=== PATIENT | male | born 1945 | race Caucasian/White ===

== ENCOUNTER 2016-08-09 14:40 | Emergency (ER) | payer MEDICAID, MEDICARE ==
[2016-08-09 15:14] VITALS: BP 163/72
--- NOTE | 2016-08-09 17:16 | EDM.PDOC ---
ED HPI GENERAL MEDICAL PROBLEM - General Chief Complaint: Respiratory Problem Stated Complaint: SENT FROM [facility] Time Seen by Provider: 08/09/16 15:09 Source of Information: Reports: Patient, Family (Daughter), RN Notes Reviewed History Limitations: Reports: No Limitations - History of Present Illness INITIAL COMMENTS - FREE TEXT/NARRATIVE: The patient has a past history significant for carotid artery disease, systolic and diastolic congestive heart failure, chronic renal insufficiency, and BPH, among other problems. He states that he underwent left carotid endarterectomy on 07/25/2016 at . He was discharged to [facility] the next day, 07/26/2016, for rehabilitation. He states that after about 2 days, he was feeling poorly, with nausea, vomiting, and constipation developing around 07/28/2016. Of note, he was started on Percocet postoperatively. He states that he also developed a scant cough productive of thick, paul, malodorous sputum. He did not have a fever, and denies that he was dyspneic. He states that he was seen at [facility] in [place] where he was found to have an elevated WBC count and hypoxemia. He states that he was started on antibiotics before being transferred back to . A V/Q scan showed intermediate probability for pulmonary embolus. He was treated with heparin and started on Coumadin. Bilateral lower extremity Dopplers were negative for DVTs. He was found to be in decompensated congestive heart failure. An echocardiogram found an LVEF of 40 to 45% and moderately elevated pulmonary artery systolic pressure estimated at 55.4 mmHg, grossly unchanged from prior echocardiogram. The patient's chronic renal insufficiency, with a baseline creatinine of approximately 2.5, was found to be elevated around 4.06. His Lasix, allopurinol , and losartan were held, and he was treated with hemodialysis for 3 days. It is unclear from the medical records whether the renal sufficiency was worsened by the finding of outlet obstruction, relieved with a Handley catheter. All blood and urine cultures remained negative. He was discharged back to [facility] 2 days ago, 08/07/16, with resumption of a lower dose of Lasix, and a 16 day course of clindamycin. He now presents with left anterior axillary pain that developed 2 days ago. It is felt with deep breaths and with coughing, but not if he remains still. He denies dyspnea or palpitations. He also reports chronic lower extremity edema, made worse since his Lasix dose was decreased. Since his return to [facility], a CBC, CMP, and INR were obtained 08/06, a CBC, BMP, and INR obtained 08/07/2016, and a CBC, CMP, and INR obtained this morning, 08/09/2016. His INR was 3.24 on 08/06/2016, 2.08 on 08/07/2016, and 1.48 this morning. Left Upper Chest Pain Score (Numeric/FACES): 3 - Related Data Allergies Allergy/AdvReac Type Severity Reaction Status Date / Time No Known Allergies Allergy Verified 08/09/16 16:15 Home Meds: Home Meds Acetaminophen 650 mg PO Q6H PRN 08/09/16 [History] Amiodarone [Cordarone] 20 mg PO DAILY 08/09/16 [History] Aspirin/Calcium Carbonate/Mag [Aspirin Buffered 325 mg Tab] 162.5 mg PO DAILY [History] Brimonidine Tartrate/Timolol [Combigan 0.2%-0.5% Eye Drops] 1 drop EYELF BID [History] Cholecalciferol (Vitamin D3) [Vitamin D3] 5,000 unit PO DAILY 08/09/16 [History] Clindamycin Palmitate HCl [Cleocin Palmitate] 40 ml PO TID 08/09/16 [History] Ferrous Sulfate 325 mg PO DAILY 08/09/16 [History] Furosemide 20 mg PO DAILY 08/09/16 [History] Insulin Aspart [Novolog Flexpen] 0 units SUBCUT TIDMEALS 08/09/16 [History] Insulin Glarg,Human.Rec.Analog [LantUS Solostar] 12 units SUBCUT BEDTIME [History] Melatonin 3 mg PO BEDTIME PRN 08/09/16 [History] Nitroglycerin 0.4 mg PO Q5M PRN 08/09/16 [History] Polyethylene Glycol [Polyox Wsr-301] 1 dose PO BID PRN 08/09/16 [History] atorvaSTATin [Lipitor] 40 mg PO DAILY 08/09/16 [History] Past Medical History HEENT History: Reports: Glaucoma Cardiovascular History: Reports: Afib, CAD, Heart Failure, High Cholesterol, Hypertension, Other (See Below) (Carotid artery disease) Genitourinary History: Reports: BPH, Chronic Renal Insuffiency, Renal Calculus, Retention, Urinary Musculoskeletal History: Reports: Gout (Suspected, not proven) Endocrine/Metabolic History: Reports: Diabetes, Type II - Past Surgical History HEENT Surgical History: Reports: Tonsillectomy Cardiovascular Surgical History: Reports: Carotid Endarterectomy (Left, 2016), Coronary Artery Bypass (4 vessel 03/07/96, with redo x 2 vessel 01/09/2000 ), Coronary Artery Stent (RCA 01/05/2000, LAD 03/14/2006) GI Surgical History: Reports: Hernia, Inguinal (Right) Neurological Surgical History: Reports: Lumbar Spine (x 2) Social & Family History - Tobacco Use Smoking Status *Q: Never Smoker - Caffeine Use Caffeine Use: Reports: Coffee - Alcohol Use Alcohol Use History: Yes Alcohol Use Frequency: Rarely - Recreational Drug Use Recreational Drug Use: No - Living Situation & Occupation Living situation: Reports: , Extended Care Facility ([facility]) Occupation: Retired ED ROS GENERAL - Review of Systems Review Of Systems: See Below Constitutional: Reports: No Symptoms HEENT: Reports: No Symptoms Respiratory: Reports: No Symptoms Cardiovascular: Reports: Chest Pain (Left anterior axillary, as per the HPI), Edema (Chronic bilateral lower extremity, as per the HPI) Endocrine: Reports: No Symptoms GI/Abdominal: Reports: No Symptoms : Reports: No Symptoms Musculoskeletal: Reports: No Symptoms Skin: Reports: No Symptoms Neurological: Reports: No Symptoms Psychiatric: Reports: No Symptoms Hematologic/Lymphatic: Reports: No Symptoms Immunologic: Reports: No Symptoms ED EXAM, GENERAL - Physical Exam Exam: See Below Exam Limited By: No Limitations General Appearance: Alert, WD/WN, No Apparent Distress Eye Exam: Bilateral Eye: Normal Inspection Ears: Normal External Exam, Hearing Grossly Normal Ear Exam: Bilateral Ear: Auricle Normal Nose: Normal Inspection, No Blood Throat/Mouth: Normal Inspection, Normal Lips, Normal Voice, No Airway Compromise Head: Atraumatic, Normocephalic Neck: Normal Inspection, Full Range of Motion Respiratory/Chest: No Respiratory Distress, Lungs Clear, Normal Breath Sounds, No Accessory Muscle Use. No: Crackles, Rhonchi, Wheezing, Prolonged Expiration Cardiovascular: Normal Peripheral Pulses, Regular Rate, Rhythm, No Gallop, No JVD, No Murmur, No Rub Peripheral Pulses: 4+: Radial (L), Radial (R) GI/Abdominal: Normal Bowel Sounds, Soft, Non-Tender, No Organomegaly, No Distention, No Abnormal Bruit, No Mass (Male) Exam: Deferred Rectal (Males) Exam: Deferred Back Exam: Normal Inspection, Full Range of Motion, NT Extremities: Normal Inspection, Normal Range of Motion, Non-Tender, Normal Capillary Refill, Other (2-3 + pitting edema pretibially, bilaterally) Neurological: Alert, Oriented, Normal Cognition, No Motor/Sensory Deficits Psychiatric: Normal Affect Skin Exam: Warm, Dry, Intact, Normal Color, No Rash Lymphatic: No Adenopathy Course - Vital Signs Last Recorded V/S: Last Vital Signs Temp 36.8 C 08/09/16 15:04 Pulse 57 L 08/09/16 15:04 Resp 20 08/09/16 15:04 BP 163/72 H 08/09/16 15:04 Pulse Ox 93 L 08/09/16 15:04 - Orders/Labs/Meds Orders: Active Orders 24 hr Category Date Time Status Chest 2V [CR] Stat Exams 08/09/16 16:21 Taken Meds: Medications Discontinued Medications Generic Name Dose Route Start Last Admin Trade Name Freq PRN Reason Stop Dose Admin Enoxaparin Sodium 100 mg 08/09/16 19:04 08/09/16 19:16 Lovenox SUBCUT 08/09/16 19:05 100 mg ONETIME ONE Administration - Radiology Interpretation Free Text/Narrative:: Two-view chest radiograph reviewed. Cardiac silhouette demonstrates mild cardiomegaly. No significant pulmonary vascular congestion. Mild bilateral pleural effusions. No focal infiltrate. No pneumothorax. Formal read per the Radiologist pending. - Re-Assessments/Exams Free Text/Narrative Re-Assessment/Exam: 08/09/16 19:20 The patient's workup at included a V/Q scan which demonstrated intermediate probability for PE. A CT angiogram of his chest was not performed due to his renal failure. His D-dimer was elevated, although that would be expected with renal failure and recent vascular surgery. He was started on Coumadin. The patient has a history of atrial fibrillation, treated with amiodarone, however, he has not been treated with an anticoagulant. As above, however, he is now on Coumadin, which would be in agreement with ACC guidelines. Chest pain from a pulmonary embolus is caused by a pulmonary infarct which causes pleurisy. The patient's chest radiograph today does not have a wedge shaped infiltrate suggestive of a pulmonary infarct, therefore I doubt that the patient's pain is due to a new pulmonary embolus. Additionally, it is a non- cardiac presentation. As the pain is made worse with deep breaths and coughing, I strongly suspect that it is musculoskeletal in etiology, most likely related to his new physical therapy. Nevertheless, even if the pain were due to a pulmonary infarct, the patient is already on Coumadin. As his INR this morning was subtherapeutic, I have treated him with a single dose of subcutaneous Lovenox, and upon discharge, will recommend that he have frequent INR checks to dose his Coumadin. While the patient was diagnosed with pneumonia, that was in the setting of decompensated congestive heart failure, and at this time, he does not have a pulmonary infiltrate. Typically, pulmonary infiltrates take about a month to resolve after appropriate treatment for pneumonia. This calls into question whether or not the patient originally had pneumonia. As he currently does not have a fever, cough, dyspnea, or an infiltrate on his chest radiograph, I do not see an indication to continue the clindamycin. This is important, as clindamycin may be playing a role in his subtherapeutic INR. I have reviewed the patient's medications and will make some recommendations, including consideration of switching the patient's amiodarone to a less-toxic anti-dysrhythmic, strong consideration to discontinue the nitroglycerin, and a recommendation to significantly decrease the dosage of his melatonin. Departure - Departure Time of Disposition: 19:28 Disposition: Home, Self-Care 01 Condition: Fair Clinical Impression: Subtherapeutic international normalized ratio (INR), Musculoskeletal chest pain - Discharge Information Instructions: Nonspecific Chest Pain, [id number] Referrals: PCP,Not In Area [Primary Care Provider] - Jesse Michelle MD [Physician] - Forms: ED Department Discharge Additional Instructions: You were seen in the emergency room for left-sided chest pain, and a low INR as measured by Ash this morning. Workup in the ER included a chest x-ray. Since you had a CBC, CMP, and INR obtained just this morning, we did not repeat those again in the ER. The chest x-ray did not show any abnormalities that would explain your chest pain. Your chest pain is MOST LIKELY due to muscle strain from your recent physical therapy. There is no suggestion that your chest pain is due to a blood clot to your lungs or from your heart. Additionally, your chest x-ray does not show that you have pneumonia. Since you do not have pneumonia, we are recommending that you discontinue the antibiotic clindamycin. Your INR (Coumadin number) was low this morning at 1.48. You were therefore given a single injection of Lovenox 100 mg in the emergency room. We recommend that your INR (Coumadin number) be checked every 48 hours, and that the doctor who prescribes your Coumadin be notified with the result. Reviewing your medications, we see that you have been on amiodarone for several years, for treatment of atrial fibrillation. The risk of unwanted side effects, including damage to your lungs and liver, increases the longer you are on this medicine. We recommend that you discuss the continuation of this medicine, and possible alternatives, with your transitional nurse. We note that you are prescribed nitroglycerin, although you states that you have never taken it. As this medicine can profoundly drop your blood pressure, we recommend that you discuss with your transitional nurse whether you should continue to have a prescription for it. We note that you are currently taking melatonin 9 mg every night. This dose is FAR too high. The correct dose for someone your age is approximately 0.3 mg on nights that you are having difficulty sleeping, not every night. If any other problems, please do not hesitate to return to the ER. - My Orders Last 24 Hours: My Active Orders 08/09/16 16:21 Chest 2V [CR] Stat - Assessment/Plan Last 24 Hours: My Active Orders 08/09/16 16:21 Chest 2V [CR] Stat
[2016-08-09] MEDS ORDERED: Enoxaparin 100 MG/1 ML Syringe SUBCUT ONE (19:04)
--- NOTE | 2016-08-10 07:16 | CR ---
Chest: Two views of the chest were obtained. Comparison: No prior chest x-ray. Heart is enlarged. Small bilateral pleural effusions are seen. Increased density is noted within both lungs believed to represent pulmonary vascular congestion. Previous sternotomy is noted. Impression: 1. Findings as described above suspicious for CHF. Diagnostic code #3
== END 2016-08-09 20:14 | disposition home or self-care (01) ==
LOC: JD.ED 14:40
DX: R07.89 Other chest pain (principal); R05 Cough; R79.1 Abnormal coagulation profile; I13.0 Hypertensive heart and chronic kidney disease with heart failure and stage 1 through stage 4 chronic kidney disease, or unspecified chronic kidney disease; E11.22 Type 2 diabetes mellitus with diabetic chronic kidney disease; N18.9 Chronic kidney disease, unspecified; I50.40 Unspecified combined systolic (congestive) and diastolic (congestive) heart failure; I25.810 Atherosclerosis of coronary artery bypass graft(s) without angina pectoris; E78.00 Pure hypercholesterolemia, unspecified; Z87.442 Personal history of urinary calculi; Z98.890 Other specified postprocedural states; Z95.1 Presence of aortocoronary bypass graft; Z95.5 Presence of coronary angioplasty implant and graft; Z79.4 Long term (current) use of insulin; Z79.82 Long term (current) use of aspirin; Z79.899 Other long term (current) drug therapy
CPT/HCPCS: 71020; 96372; 99285; J1650; 99284

== ENCOUNTER 2016-08-20 09:30 | Emergency (ER) | payer MEDICAID, OTHER ==
[2016-08-20 09:43] VITALS: BP 130/63
--- NOTE | 2016-08-20 11:07 | EDM.PDOC ---
ED HPI GENERAL MEDICAL PROBLEM - General Chief Complaint: Genitourinary Problem Stated Complaint: SENT BY DR. MICHELLE Time Seen by Provider: 08/20/16 09:39 Source of Information: Reports: Patient History Limitations: Reports: No Limitations - History of Present Illness INITIAL COMMENTS - FREE TEXT/NARRATIVE: The patient is a 71-year-old male with a very complex vehicle history, including carotid artery disease status post endarterectomy earlier this month complicated by renal failure that required a few episodes of dialysis, coronary artery disease, hypertension, atrial fibrillation, heart failure, urinary obstruction requiring indwelling Handley, who comes in today with a couple of concerns. His main concern is that he has not been able to sleep since his hospitalizations began earlier this month. Has had minimal sleep at night despite trying multiple medications. He is feeling exhausted and miserable and was up all night last night. States that his staff discussed his sleep problem with Dr. Michelle multiple times last evening and during the night and he recommended that the patient come to the emergency department during the night but the patient wanted to wait held today. He is hoping to get some help adjusting his medications in hopes of a better night's sleep tonight. He states that his sleep trouble is in part due to discomfort that he has in his lower extremity due to swelling. States that the swelling is actually better than its been but it still uncomfortable. He's had swelling in his legs all month. States that his first might has been adjusted and overall his urine output is better and the swelling has gone down somewhat but is still uncomfortable. No chest pain or shortness of breath. No fever. No cough. No additional complaint, states that if it were not for the sleep problem he actually does feel like he is improving otherwise. Has tried Lunesta and Ambien for sleep with no help. His also tried Benadryl and melatonin with no relief. States this morning he was given hydrocodone for his back pain, this is the first time he had this medication and actually made him very comfortable and sleepy and relieved his pain and that he almost fell asleep in the ambulance on the way here. No pain at this time. Treatments TOE PUNCHER: Reports: Other (see below) Other Treatments TOE PUNCHER: hydrocodone - Related Data Allergies Allergy/AdvReac Type Severity Reaction Status Date / Time No Known Allergies Allergy Verified 08/20/16 09:39 Home Meds: Home Meds Acetaminophen 650 mg PO Q6H PRN 08/09/16 [History] Amiodarone [Cordarone] 20 mg PO DAILY 08/09/16 [History] Aspirin/Calcium Carbonate/Mag [Aspirin Buffered 325 mg Tab] 162.5 mg PO DAILY [History] Brimonidine Tartrate/Timolol [Combigan 0.2%-0.5% Eye Drops] 1 drop EYELF BID [History] Cholecalciferol (Vitamin D3) [Vitamin D3] 5,000 unit PO DAILY 08/09/16 [History] Ferrous Sulfate 325 mg PO DAILY 08/09/16 [History] Furosemide 20 mg PO DAILY 08/09/16 [History] Insulin Aspart [Novolog Flexpen] 0 units SUBCUT TIDMEALS 08/09/16 [History] Insulin Glarg,Human.Rec.Analog [LantUS Solostar] 12 units SUBCUT BEDTIME [History] Melatonin 3 mg PO BEDTIME PRN 08/09/16 [History] Nitroglycerin 0.4 mg PO Q5M PRN 08/09/16 [History] Polyethylene Glycol [Polyox Wsr-301] 1 dose PO BID PRN 08/09/16 [History] atorvaSTATin [Lipitor] 40 mg PO DAILY 08/09/16 [History] Ciprofloxacin HCl 250 mg PO BID 08/20/16 [History] Docusate Sodium [Colace] 100 mg PO DAILY 08/20/16 [History] Eszopiclone [Lunesta] 2 mg PO QPM 08/20/16 [History] Hydrocodone/Acetaminophen [Hydrocodon-Acetaminophn 10-325] 1 tab PO ASDIRECTED PRN 08/20/16 [History] LORazepam [Ativan] 0.5 mg PO DAILY PRN #30 tablet 08/20/16 [Rx] Warfarin Sodium [Jantoven] 5 mg PO DAILY 08/20/16 [History] diphenhydrAMINE HCl [Diphenhydramine HCl] 25 mg PO QPM 08/20/16 [History] Past Medical History HEENT History: Reports: Glaucoma Cardiovascular History: Reports: Afib, CAD, Heart Failure, High Cholesterol, Hypertension, Other (See Below) Other Cardiovascular History: occlusion and stenosis of bilateral carotid arteries Respiratory History: Reports: SOB, Other (See Below) Other Respiratory History: wheezing Gastrointestinal History: Reports: GERD, Other (See Below) Other Gastrointestinal History: encephalopathy Genitourinary History: Reports: BPH, Chronic Renal Insuffiency, Renal Calculus, Retention, Urinary Musculoskeletal History: Reports: Gout Psychiatric History: Reports: Other (See Below) Other Psychiatric History: insomnia Endocrine/Metabolic History: Reports: Diabetes, Type II Other Endocrine/Metabolic History: anemia - Past Surgical History HEENT Surgical History: Reports: Tonsillectomy Cardiovascular Surgical History: Reports: Carotid Endarterectomy, Coronary Artery Bypass, Coronary Artery Stent GI Surgical History: Reports: Hernia, Inguinal Neurological Surgical History: Reports: Lumbar Spine Social & Family History - Tobacco Use Smoking Status *Q: Unknown Ever Smoked - Caffeine Use Caffeine Use: Reports: Coffee - Recreational Drug Use Recreational Drug Use: No - Living Situation & Occupation Living situation: Reports: , Extended Care Facility ([facility]) Occupation: Retired ED ROS GENERAL - Review of Systems Review Of Systems: See Below Constitutional: Reports: Fatigue. Denies: Fever HEENT: Reports: No Symptoms Respiratory: Denies: Shortness of Breath, Cough Cardiovascular: Denies: Chest Pain Endocrine: Reports: Fatigue GI/Abdominal: Denies: Black Stool, Bloody Stool, Diarrhea, Vomiting : Denies: Hematuria, Pain Musculoskeletal: Reports: No Symptoms Skin: Reports: No Symptoms Hematologic/Lymphatic: Denies: Easy Bleeding ED EXAM, RENAL/ - Physical Exam Exam: See Below Exam Limited By: No Limitations General Appearance: Alert, WD/WN, No Apparent Distress Eye Exam: Bilateral Eye: Normal Inspection Ears: Normal External Exam Nose: Normal Inspection Throat/Mouth: Normal Inspection, Normal Voice, No Airway Compromise Head: Atraumatic, Normocephalic Neck: Normal Inspection, Supple, Non-Tender, Full Range of Motion Respiratory/Chest: No Respiratory Distress, Lungs Clear, Normal Breath Sounds, No Accessory Muscle Use, Chest Non-Tender Cardiovascular: Normal Peripheral Pulses, Regular Rate, Rhythm, No Murmur, Other (2+ bilat LE pitting edema extends to the knees) GI/Abdominal: Soft, Non-Tender, No Distention Back Exam: Normal Inspection Extremities: Pedal Edema. No: Increased Warmth, Redness Neurological: Alert, Oriented, Normal Cognition, No Motor/Sensory Deficits Psychiatric: Normal Affect, Normal Mood Course - Vital Signs Last Recorded V/S: Last Vital Signs Temp 36.1 C 08/20/16 09:39 Pulse 77 08/20/16 09:39 Resp BP 130/63 08/20/16 09:39 Pulse Ox 99 08/20/16 09:39 - Orders/Labs/Meds Labs: Laboratory Tests 08/20/16 08/20/16 08/20/16 Range/Units 10:34 10:34 10:34 WBC 6.74 (4.23-9.07) K/mm3 RBC 2.89 L (4.63-6.08) M/mm3 Hgb 8.4 L (13.7-17.5) gm/L Hct 26.1 L (40.1-51.0) % MCV 90.3 (79.0-92.2) fl MCH 29.1 (25.7-32.2) pg MCHC 32.2 (32.2-35.5) g/dl RDW Std Deviation 43.8 (35.1-43.9) fL Plt Count 422 H (163-337) K/mm3 MPV 9.7 (9.4-12.3) fl Neut % (Auto) 62.4 (34.0-67.9) % Lymph % (Auto) 22.8 (21.8-53.1) % Hamlin % (Auto) 9.6 (5.3-12.2) % Eos % (Auto) 4.5 (0.8-7.0) Baso % (Auto) 0.4 (0.1-1.2) % Neut # (Auto) 4.20 (1.78-5.38) K/mm3 Lymph # (Auto) 1.54 (1.32-3.57) K/mm3 Hamlin # (Auto) 0.65 (0.30-0.82) K/mm3 Eos # (Auto) 0.30 (0.04-0.54) K/mm3 Baso # (Auto) 0.03 (0.01-0.08) K/mm3 PT 26.8 H (8.0-13.0) SECONDS INR 2.33 Sodium 134 L (136-145) mEq/L Potassium 4.4 (3.5-5.1) mEq/L Chloride 99 (98-107) mEq/L Carbon Dioxide 28 (21-32) mEq/L Anion Gap 11.4 (5-15) BUN 38 H (7-18) mg/dL Creatinine 2.5 H (0.7-1.3) mg/dL Est Cr Clr Drug Dosing 26.71 mL/min Estimated GFR (MDRD) 26 (>60) mL/min BUN/Creatinine Ratio 15.2 (14-18) Glucose 209 H (83-115) mg/dL Calcium 8.7 (8.5-10.1) mg/dL Total Bilirubin 0.4 (0.2-1.0) mg/dL AST 18 (15-37) U/L ALT 35 (16-63) U/L Alkaline Phosphatase 99 (46-116) U/L Total Protein 6.7 (6.4-8.2) g/dl Albumin 2.4 L (3.4-5.0) g/dl Globulin 4.3 gm/dL Albumin/Globulin Ratio 0.6 L (1-2) - Re-Assessments/Exams Free Text/Narrative Re-Assessment/Exam: 08/20/16 11:56 Patient has failed multiple medications for insomnia, including at least Lunesta , Ambien, benadryl, and melatonin. He is very fatigued and completely miserable due to lack of sleep. From a medical perspective, he otherwise seems to be doing well - not complaining of systemic symptoms other than ongoing lower extremity edema which has overall somewhat improved. Titration of diuretics complicated by recent hx of renal failure requiring brief HD. I hesitate to further increase diuretic as his lungs are completely clear and lower extremity edema is marked but not severe. He has renal f/u scheduled for tomorrow and can further discuss as he feels his leg discomfort is contributing to his insomnia. Meanwhile, he reports that he's been feeling very pleasantly sleepy after receiving hydrocodone for back pain (resolved) this morning. He and I both suspect that it may be beneficial for him to have a dose of this in the evening to control his leg pain and as an added benefit promote sleep. He appears to tolerate this medication well. I advised him to discontinue lunesta and ambien as these meds have been totally unhelpful in promoting sleep and have very serious potential side effects in patients who remain awake after taking them. Instead I will prescribe a low dose of lorazepam 0.5 mg prn to take an hour after pain medication if he's still having trouble sleeping. We discussed risks/benefits of this medication and patient would like to proceed. Discussed that there are risks to any insomnia medication regimen, but given severe impact of lack of sleep on his current quality of life patient would like to proceed. Departure - Departure Time of Disposition: 11:51 Disposition: Home, Self-Care 01 Clinical Impression: Insomnia Qualifiers: Insomnia type: unspecified Qualified Code(s): G47.00 - Insomnia, unspecified - Discharge Information Prescriptions: LORazepam [Ativan] 0.5 mg PO DAILY PRN #30 tablet PRN Reason: Insomnia Referrals: Jesse Michelle MD [Primary Care Provider] - Forms: ED Department Discharge Additional Instructions: 1. Take a hydrocodone pain tablet tonight about 30 minutes before going to bed 2. Take a lorazepam tablet as prescribed if you are still unable to sleep an hour after taking the pain medication 3. Discontinue lunesta and ambien 4. Follow up with Dr. Michelle as scheduled this week Sunday 5. Also follow up with your renal doctor tomorrow as planned 6. Dr. Michelle and your renal doctor may further adjust your medication as needed 7. Return to the Emergency Department if you have any new or worsening concerning symptoms
== END 2016-08-20 12:18 | disposition home or self-care (01) ==
LOC: JD.ED 09:30
DX: G47.00 Insomnia, unspecified (principal); I48.91 Unspecified atrial fibrillation; I25.10 Atherosclerotic heart disease of native coronary artery without angina pectoris; I13.0 Hypertensive heart and chronic kidney disease with heart failure and stage 1 through stage 4 chronic kidney disease, or unspecified chronic kidney disease; I50.9 Heart failure, unspecified; E78.00 Pure hypercholesterolemia, unspecified; K21.9 Gastro-esophageal reflux disease without esophagitis; N18.9 Chronic kidney disease, unspecified; E11.9 Type 2 diabetes mellitus without complications; Z79.82 Long term (current) use of aspirin; Z79.899 Other long term (current) drug therapy; Z98.890 Other specified postprocedural states; Z95.1 Presence of aortocoronary bypass graft
CPT/HCPCS: 36415; 80053; 85025; 85610; 99283; 99285

== ENCOUNTER 2016-11-23 22:10 | Inpatient (IN) | payer OTHER, MEDICARE ==
--- NOTE | 2016-11-23 22:20 | EDM.PDOC ---
ED HPI GENERAL MEDICAL PROBLEM - General Chief Complaint: General Stated Complaint: [facility] Time Seen by Provider: 11/23/16 22:20 Source of Information: Reports: Patient History Limitations: Reports: No Limitations - History of Present Illness INITIAL COMMENTS - FREE TEXT/NARRATIVE: 71-year-old male arrives in the ED per ambulance from [place]. He is currently residing in the [facility]. He is due for discharge in 2 days. . Patient fell 2 days ago as well as tonight. He is on Coumadin chronically with comfort and is due to be discharged in 2 days time. Patient fell tonight and the reason for this is unclear. He has no recollection of what happened to him. He obviously has suffered an injury to his mid forehead with a rug burn. Apparently this occurred from the first fall 2 days ago.. He has a large skin tear / multiple skin tears to the dorsal aspect of his left hand tonight. He is alert and oriented and able to answer all questions at this time. He does not feel that he's been running a fever and denies having any chills. He has a chronic indwelling Babb catheter. Denies any worsening of cervical neck pain. He states his neck always hurts. Denies injury to his hips or knees.Patient is also an insulin-dependent diabetic. It's unclear if anybody checked his blood sugars after his fall.apparently has blood sugars were checked I later found out but they did not really relay what it was on their assessment. Unfortunately was also cut off on the forms that they sent in. Onset: Today (fell again tonight. But he also fell 2 days ago with no arita to his forehead.) Onset Date: 11/23/16 (fellow first time 2 days ago injuring his forehead.) Onset Time: 21:00 Duration: Hour(s): Location: Reports: Upper Extremity, Left (dorsal hand) Quality: Reports: Burning, Stabbing Severity: Moderate Improves with: Reports: None Worsens with: Reports: Movement Context: Reports: Trauma. Denies: Activity, Exercise, Lifting, Sick Contact Associated Symptoms: Reports: Cough, Malaise, Shortness of Breath (on exertion.) . Denies: Confusion (fell atg for unclear reasons.), Chest Pain, cough w sputum , Diaphoresis, Fever/Chills, Headaches, Loss of Appetite Treatments DIRECTOR OF PUBLICATIONS: Reports: Other (see below) (none) - Related Data Allergies Allergy/AdvReac Type Severity Reaction Status Date / Time No Known Allergies Allergy Verified 11/23/16 22:28 Home Meds: Home Meds Acetaminophen 650 mg PO Q6H PRN 08/09/16 [History] Brimonidine Tartrate/Timolol [Combigan 0.2%-0.5% Eye Drops] 1 drop EYELF BID [History] Cholecalciferol (Vitamin D3) [Vitamin D3] 5,000 unit PO DAILY 08/09/16 [History] Ferrous Sulfate 325 mg PO BEDTIME 08/09/16 [History] Furosemide 60 mg PO BID 08/09/16 [History] Insulin Aspart [Novolog Flexpen] 3 units SUBCUT TIDMEALS 08/09/16 [History] Insulin Glarg,Human.Rec.Analog [LantUS Solostar] 12 units SUBCUT BEDTIME [History] atorvaSTATin [Lipitor] 40 mg PO DAILY 08/09/16 [History] Docusate Sodium [Colace] 100 mg PO DAILY 08/20/16 [History] Warfarin Sodium [Jantoven] 10 mg PO ASDIRECTED 08/20/16 [History] Aspirin [Ecotrin] 81 mg PO DAILY 11/24/16 [History] Carvedilol [Coreg] 3.125 mg PO BID 11/24/16 [History] Isosorbide Mononitrate [Imdur] 15 mg PO DAILY 11/24/16 [History] Tamsulosin [Flomax] 0.4 mg PO DAILY 11/24/16 [History] Warfarin [Coumadin] 2.5 mg PO ASDIRECTED 11/24/16 [History] Zolpidem Tartrate [Ambien] 5 mg PO DAILY PRN 11/24/16 [History] atorvaSTATin [Lipitor] 40 mg PO DAILY 11/24/16 [History] hydrALAZINE HCl [Hydralazine HCl] 10 mg PO TID 11/24/16 [History] Past Medical History HEENT History: Reports: Glaucoma Cardiovascular History: Reports: Afib, CAD, Cardiomyopathy (ischemic), Heart Failure, High Cholesterol, Hypertension, VA, Other (See Below) Other Cardiovascular History: occlusion and stenosis of bilateral carotid arteries Respiratory History: Reports: SOB, Other (See Below) Other Respiratory History: wheezing Gastrointestinal History: Reports: GERD, Other (See Below) Genitourinary History: Reports: BPH, Chronic Renal Insuffiency (currently stage IV chronic renal insufficiency likely due to diabetic nephropathy.), Renal Calculus, Retention, Urinary (he had a suprapubic catheter placed 3 weeks ago at [facility] in [place].) Musculoskeletal History: Reports: Gout Psychiatric History: Reports: Other (See Below) Other Psychiatric History: insomnia Endocrine/Metabolic History: Reports: Diabetes, Type II (controlled with insulin 3 units with each meal and12 units of Lantus at bedtime.) Other Endocrine/Metabolic History: anemia - Past Surgical History HEENT Surgical History: Reports: Tonsillectomy Cardiovascular Surgical History: Reports: Carotid Endarterectomy, Coronary Artery Bypass, Coronary Artery Stent GI Surgical History: Reports: Hernia, Inguinal Neurological Surgical History: Reports: Lumbar Spine Social & Family History - Tobacco Use Smoking Status *Q: Unknown Ever Smoked - Caffeine Use Caffeine Use: Reports: Coffee - Recreational Drug Use Recreational Drug Use: No - Living Situation & Occupation Living situation: Reports: , Extended Care Facility ([facility]) Occupation: Retired Social History Comment: was living in [place] where his daughter resides. He lives with his brother on a [place] near [place]. His appetite is to [place] in 2 days time when he gets discharged from the [facility] home. ED ROS GENERAL - Review of Systems Review Of Systems: See Below Constitutional: Reports: Malaise, Weakness, Fatigue, Decreased Appetite, Other ( insomnia. Since is been malignancy home he hasn't been able to find a comfortable position in his bed. Sleep is up in badly disrupted. Recently his Ambien was increased from 5 mg to 10 mg daily at at bedtime to help sleep. Not believe he took his medicine yet tonight.). Denies: Fever, Chills, Weight Loss HEENT: Reports: Glasses. Denies: Nosebleed, Throat Pain, Throat Swelling Respiratory: Reports: Shortness of Breath, Wheezing, Cough. Denies: Pleuritic Chest Pain, Sputum, Hemoptysis Cardiovascular: Reports: Blood Pressure Problem, Dyspnea on Exertion ( chronically). Denies: Chest Pain, Claudication, Edema, Lightheadedness, Orthopnea (chronic hypertension) Endocrine: Reports: Fatigue GI/Abdominal: Reports: No Symptoms Musculoskeletal: Reports: Neck Pain, Hand Pain (injury to the dorsal left hand tonight during from fall with large skin tears.). Denies: Back Pain ( chronically no worse than normal since his fall 2 days ago.) Skin: Reports: Other (large skin tears dorsal aspect of left hand 3.) Neurological: Reports: Confusion (confusion is to why or how he fell.), Difficulty Walking (weakness). Denies: Headache, Numbness, Paresthesia, Pre- Existing Deficit, Seizure, Syncope, Tingling, Tremors, Trouble Speaking ED EXAM, GENERAL - Physical Exam Exam: See Below Exam Limited By: No Limitations General Appearance: Alert, WD/WN, Mild Distress (is somewhat anxious in obvious pain from his left hand injury.) Eye Exam: Bilateral Eye: Normal Inspection, PERRL Head: Other (has multiple abrasions to his mid forehead that are a couple of days old. They're covered with bandages. He indicates his tetanus toxoid was updated about a year ago.) Neck: Normal Inspection, Limited Range of Motion, Other (states he has chronic neck pain due to arthritis.). No: Lymphadenopathy (L), Lymphadenopathy (R) Respiratory/Chest: Respiratory Distress, Decreased Breath Sounds (mild tachypnea at rest.air entry is decreased of the lower 30% of lung becker.), Rhonchi ( anteriorly.). No: Rales Cardiovascular: Irregularly Irregular (heart rate is 80/m but is irregularly irregular with atrial fibrillation.), Other (evidence of midline thoracotomy for coronary bypass surgery 2.). No: Normal Peripheral Pulses Peripheral Pulses: 0: Carotid (L), 1+: Popliteal (R), Posterior Tibial (L), Posterior Tibial (R), Dorsalis Pedis (L) GI/Abdominal: Normal Bowel Sounds, Soft, Non-Tender, No Organomegaly (Male) Exam: Other ( It suggests a possible urinary tract infection.) Back Exam: Normal Inspection. No: Full Range of Motion, CVA Tenderness (L), CVA Tenderness (R) Extremities: Other (has an obvious injury to the dorsal aspect of his left hand with large skin tears 3. The tendon sheaths are still intact.) Neurological: Alert (l 2 days ago.), Oriented, CN II-XII Intact, Normal Cognition, Abnormal Gait. No: Normal Gait Psychiatric: Normal Affect Skin Exam: Warm, Dry, Intact, Normal Color, Other (does not feel febrile at the time of my exam.) EKG INTERPRETATION EKG Date: 11/23/16 Time: 23:20 Rhythm: NSR Rate (Beats/Min): 80 [place]: LAD-Left [place] Deviation (-41) P-Wave: Present (first-degree AV block) QRS: LBBB ST-T: Other (T-wave inversion in lead 1 and aVL. Initial poor R-wave transition. ) QT: Prolonged (moderately prolonged) Course - Vital Signs Last Recorded V/S: Last Vital Signs Temp 36.4 C 11/23/16 22:20 Pulse 81 11/23/16 22:20 Resp 18 11/23/16 22:20 BP 143/87 H 11/23/16 22:20 Pulse Ox 96 11/23/16 22:20 - Orders/Labs/Meds Orders: Active Orders 24 hr Category Date Time Status Blood Glucose Check, Bedside [RC] ONETIME Care 11/23/16 22:47 Active EKG Documentation Completion [RC] STAT Care 11/23/16 22:34 Active Babb Catheter Insertion [Insert Urinary Catheter] [OM. Care 11/24/16 00:00 Ordered PC] Q24H Urinary Catheter Assessment [RC] ASDIRECTED Care 11/24/16 00:01 Active Chest 1V Frontal [CR] Stat Exams 11/23/16 22:34 Taken Hand Comp Min 3V Lt [CR] Stat Exams 11/23/16 22:37 Taken Head wo Cont [CT] Stat Exams 11/23/16 22:36 Taken CULTURE BLOOD [BC] Stat Lab 11/23/16 23:05 Received CULTURE BLOOD [BC] Stat Lab 11/23/16 23:14 Received CULTURE URINE [RM] Stat Lab 11/24/16 00:46 Received Blood Culture x2 Reflex Set [OM.PC] Stat Oth 11/23/16 22:35 Ordered Labs: Laboratory Tests 11/23/16 11/23/16 11/23/16 Range/Units 23:02 23:05 23:05 WBC 7.64 (4.23-9.07) K/mm3 RBC 3.54 L (4.63-6.08) M/mm3 Hgb 9.1 L (13.7-17.5) gm/L Hct 29.5 L (40.1-51.0) % MCV 83.3 (79.0-92.2) fl MCH 25.7 (25.7-32.2) pg MCHC 30.8 L (32.2-35.5) g/dl RDW Std Deviation 48.3 H (35.1-43.9) fL Plt Count 259 (163-337) K/mm3 MPV 10.5 (9.4-12.3) fl Neutrophils % (Manual) 76 H (40-60) % Band Neutrophils % 0 (0-10) % Lymphocytes % (Manual) 20 (20-40) % Atypical Lymphs % 0 % Monocytes % (Manual) 3 (2-10) % Eosinophils % (Manual) 1 (0.8-7.0) % Basophils % (Manual) 0 L (0.2-1.2) Platelet Estimate Adequate Plt Morphology Comment Normal Hypochromasia 1+ slight Poikilocytosis 1+ slight Anisocytosis 1+ slight Microcytosis 1+ slight Macrocytosis 1+ slight Ovalocytes 1+ slight RBC Morph Comment Abnormal PT 33.2 H (8.0-13.0) SECONDS INR 2.85 Sodium (136-145) mEq/L Potassium (3.5-5.1) mEq/L Chloride (98-107) mEq/L Carbon Dioxide (21-32) mEq/L Anion Gap (5-15) BUN (7-18) mg/dL Creatinine (0.7-1.3) mg/dL Est Cr Clr Drug Dosing mL/min Estimated GFR (MDRD) (>60) mL/min BUN/Creatinine Ratio (14-18) Glucose (83-115) mg/dL POC Glucose 102 (83-110) mg/dL Calcium (8.5-10.1) mg/dL Total Bilirubin (0.2-1.0) mg/dL AST (15-37) U/L ALT (16-63) U/L Alkaline Phosphatase (46-116) U/L Creatine Kinase (39-308) U/L CK-MB (CK-2) (0-3.6) ng/ml Troponin I (0.00-0.056) ng/mL C-Reactive Protein (<1.0) mg/dL NT-Pro-B Natriuret Pep (0-125) pg/mL Total Protein (6.4-8.2) g/dl Albumin (3.4-5.0) g/dl Globulin gm/dL Albumin/Globulin Ratio (1-2) Urine Color (Yellow) Urine Appearance (Clear) Urine pH (5.0-8.0) Ur Specific [place] (1.005-1.030) Urine Protein (Negative) Urine Glucose (UA) (Negative) Urine Ketones (Negative) Urine Occult Blood (Negative) Urine Nitrite (Negative) Urine Bilirubin (Negative) Urine Urobilinogen (0.2-1.0) Ur Leukocyte Esterase (Negative) Urine RBC (0-5) /hpf Urine WBC (0-5) /hpf Urine WBC Clumps (NOT SEEN) /hpf Ur Epithelial Cells (0-5) /hpf Amorphous Sediment (NOT SEEN) /hpf Urine Bacteria (FEW) /hpf Urine Mucus (FEW) /hpf 11/23/16 11/23/16 11/24/16 Range/Units 23:05 23:05 00:46 WBC (4.23-9.07) K/mm3 RBC (4.63-6.08) M/mm3 Hgb (13.7-17.5) gm/L Hct (40.1-51.0) % MCV (79.0-92.2) fl MCH (25.7-32.2) pg MCHC (32.2-35.5) g/dl RDW Std Deviation (35.1-43.9) fL Plt Count (163-337) K/mm3 MPV (9.4-12.3) fl Neutrophils % (Manual) (40-60) % Band Neutrophils % (0-10) % Lymphocytes % (Manual) (20-40) % Atypical Lymphs % % Monocytes % (Manual) (2-10) % Eosinophils % (Manual) (0.8-7.0) % Basophils % (Manual) (0.2-1.2) Platelet Estimate Plt Morphology Comment Hypochromasia Poikilocytosis Anisocytosis Microcytosis Macrocytosis Ovalocytes RBC Morph Comment PT (8.0-13.0) SECONDS INR Sodium 140 (136-145) mEq/L Potassium 3.4 L (3.5-5.1) mEq/L Chloride 103 (98-107) mEq/L Carbon Dioxide 27 (21-32) mEq/L Anion Gap 13.4 (5-15) BUN 72 H (7-18) mg/dL Creatinine 2.7 H (0.7-1.3) mg/dL Est Cr Clr Drug Dosing 24.73 mL/min Estimated GFR (MDRD) 23 (>60) mL/min BUN/Creatinine Ratio 26.7 H (14-18) Glucose 123 H (83-115) mg/dL POC Glucose (83-110) mg/dL Calcium 9.0 (8.5-10.1) mg/dL Total Bilirubin 0.6 (0.2-1.0) mg/dL AST 22 (15-37) U/L ALT 23 (16-63) U/L Alkaline Phosphatase 78 (46-116) U/L Creatine Kinase 191 (39-308) U/L CK-MB (CK-2) 3.7 H (0-3.6) ng/ml Troponin I 0.024 (0.00-0.056) ng/mL C-Reactive Protein 3.1 H* (<1.0) mg/dL NT-Pro-B Natriuret Pep 17128 H (0-125) pg/mL Total Protein 6.9 (6.4-8.2) g/dl Albumin 3.0 L (3.4-5.0) g/dl Globulin 3.9 gm/dL Albumin/Globulin Ratio 0.8 L (1-2) Urine Color Yellow (Yellow) Urine Appearance Turbid H (Clear) Urine pH 5.5 (5.0-8.0) Ur Specific [place] 1.015 (1.005-1.030) Urine Protein 2+ H (Negative) Urine Glucose (UA) Negative (Negative) Urine Ketones Negative (Negative) Urine Occult Blood 3+ H (Negative) Urine Nitrite Negative (Negative) Urine Bilirubin Negative (Negative) Urine Urobilinogen 0.2 (0.2-1.0) Ur Leukocyte Esterase 2+ H (Negative) Urine RBC 10-20 H (0-5) /hpf Urine WBC 20-30 H (0-5) /hpf Urine WBC Clumps Few (NOT SEEN) /hpf Ur Epithelial Cells Not seen (0-5) /hpf Amorphous Sediment Many H (NOT SEEN) /hpf Urine Bacteria Few (FEW) /hpf Urine Mucus Not seen (FEW) /hpf Meds: Medications Discontinued Medications Generic Name Dose Route Start Last Admin Trade Name Laron PRN Reason Stop Dose Admin Furosemide 60 mg 11/24/16 01:16 11/24/16 01:26 Lasix IVPUSH 11/24/16 01:17 60 mg NOW ONE Administration Furosemide Confirm 11/24/16 01:31 Lasix Administered 11/24/16 01:32 Dose 40 mg .ROUTE .STK-MED ONE Insulin Detemir 12 unit 11/24/16 01:20 11/24/16 01:42 Levemir SUBCUT 11/24/16 01:21 12 units ONETIME ONE Administration Levofloxacin 500 mg 11/24/16 01:18 11/24/16 01:25 Levaquin PO 11/24/16 01:19 500 mg ONETIME ONE Administration - Radiology Interpretation Free Text/Narrative:: 71-year-old male brought to the hospital by ambulance , after falling at the [facility] in [place]. He has suffered injuries to the dorsal aspect of his left hand with multiple skin tears. He fell 2 days ago as well with injuries to his forehead and upper extremities. He has multiple ecchymoses on the forearms from previous fall. Of note the patient is on Coumadin and therefore there is concern for central nervous system injury. Physical exam today reveals large skin tears to the dorsal aspect the left hand with nothing that requires sutures. She will have to be divided from this area. This toxoid is up-to-date about a year ago. Possible urinary tract infection appreciated due to strong odor to urine with a chronic indwelling Babb catheter. He is afebrile on my exam. Is also alert and oriented but he has no explanation as to why or how he fell or what he struck. Plan CT head to rule out any subdural hematoma or skull fracture. Chest x-ray due to COPD and some dyspnea on exertion. Possible all heart failure appreciated. Routine labs including cardiac markers and CRP. Urine will be obtained from the catheter and a culture will be ordered. - Re-Assessments/Exams Free Text/Narrative Re-Assessment/Exam: 11/24/16 00:37Labs are back. White count is 11.23 with 60% neutrophils 1% band cells noted. Hemoglobin is a little low 11.4 hematocrit is 33.7 MCV is low at 75.9 suggesting iron deficiency. Sodium is 144 potassium 4.3 chloride 107 bicarbonate is 22. Anion gap is slightly elevated at 19.3 indicating the child is volume depleted. Creatinine is 0.4. Glucose 110. C-reactive protein 1.8.I'm going to change out his suprapubic catheter due to the strong odor suggesting an infective process.Will give Lasix 60mg IV due to severely elevated BNP. renal insufficincy is likely due to acombination of factors. Atherosclerosis as radial artery is severely calcified on his hand X-ray. Diabetes and CHF with poor renal perfusion. CT of his head is within normal limits in terms of age- appropriate degenerative changes with no skull fracture or evidence of intracranial bleeding.chest x-ray reveals severe cardio megaly 11/24/16 00:51Suprapubic Babb catheter is been changed out. babb catheter placed suprapubically without any issue. Did receive about 10 mL of urine only. There balloon was filled with with 10 mL of normal saline. Patient reports that he did see Dr. Howe yesterday. And he did increase his Lasix but the patient has no clue as to what medication he usually takes. He did not bring a med list and apparently there is no person at the [facility] in [place] where he is currently residing that cares for them during the night. Apparently no staff on at night. They come in the air hose coupler. He reports when he was hospitalized 3 weeks ago that a lot of his medications were changed and therefore we suspect the med list that we have currently, which is from September is not likely accurate. 01:10: med list was obtained and it is felt to be accurate at this time. Usually takes Lantus 12 units at bedtime and therefore I will give him 12 units of Levemir insulin in the ED. Also given Levaquin 500 mg per ora due to change of Babb catheter and suspicion of possible urinary tract infection.he is afebrile at this time and therefore further antibiotics will be given if he develops a fever. His CRP is elevated at 3.1 which may be chronic for him. 11/24/16 01:36 Case discussed with on-call hospitalist Dr. Saravia the patient be admitted to the [facility] surgery floor on telemetry. Bridge orders were filled out. 11/24/16 01:47 Case to discussed with his sister and his daughter while in the ED. They were made well aware that his life expectancy is in months to combination of severe heart failure and significant renal insufficiency. He may be off her dialysis but daughter feels that he will not opt for this. The problem is placement. [place] and he does have a brother who is a service operations manager who is willing to look out for him for a period of time. He will then up having to see if physician on a weekly basis due to the fine-line he has in regards to his severe heart failure. It's unclear whether increased dose of Lasix will actually make his kidney function worse or better. Departure - Departure Time of Disposition: 01:36 Disposition: Admitted As Inpatient 65 Condition: Poor Clinical Impression: Hypokalemia, CHF, Congestive heart failure, Chronic renal insufficiency, stage IV (severe), Syncope and collapse - Discharge Information - My Orders Last 24 Hours: My Active Orders 11/23/16 22:34 EKG Documentation Completion [RC] STAT Chest 1V Frontal [CR] Stat 11/23/16 22:35 Blood Culture x2 Reflex Set [OM.PC] Stat 11/23/16 22:36 Head wo Cont [CT] Stat 11/23/16 22:37 Hand Comp Min 3V Lt [CR] Stat 11/23/16 22:47 Blood Glucose Check, Bedside [RC] ONETIME 11/23/16 23:05 CULTURE BLOOD [BC] Stat 11/23/16 23:14 CULTURE BLOOD [BC] Stat 11/24/16 00:00 Babb Catheter Insertion [Insert Urinary Catheter] [OM.PC] Q24H 11/24/16 00:01 Urinary Catheter Assessment [RC] ASDIRECTED 11/24/16 00:46 CULTURE URINE [RM] Stat - Assessment/Plan Last 24 Hours: My Active Orders 11/23/16 22:34 EKG Documentation Completion [RC] STAT Chest 1V Frontal [CR] Stat 11/23/16 22:35 Blood Culture x2 Reflex Set [OM.PC] Stat 11/23/16 22:36 Head wo Cont [CT] Stat 11/23/16 22:37 Hand Comp Min 3V Lt [CR] Stat 11/23/16 22:47 Blood Glucose Check, Bedside [RC] ONETIME 11/23/16 23:05 CULTURE BLOOD [BC] Stat 11/23/16 23:14 CULTURE BLOOD [BC] Stat 11/24/16 00:00 Babb Catheter Insertion [Insert Urinary Catheter] [OM.PC] Q24H 11/24/16 00:01 Urinary Catheter Assessment [RC] ASDIRECTED 11/24/16 00:46 CULTURE URINE [RM] Stat
[2016-11-24] MEDS ORDERED: Furosemide 40 MG/4 ML VIAL IVPUSH ONE (01:16)
[2016-11-24] MEDS ORDERED: Levofloxacin 250 MG Tab PO ONE (01:18)
[2016-11-24] MEDS ORDERED: Insulin Detemir 100 Units/ML 3 ML Pen SUBCUT ONE (01:20)
[2016-11-24] MEDS ORDERED: Furosemide 40 MG/4 ML VIAL ONE (01:31)
[2016-11-24] MEDS ORDERED: Sodium Chloride 0.9% 10 ML Syringe FLUSH PRN (02:35)
[2016-11-24] MEDS ORDERED: Potassium Chloride 20 MEQ Tab.ER PO ONE (03:15)
[2016-11-24] MEDS: Temazepam 15 MG Cap PO PRN ×2 (03:30→20:54)
[2016-11-24] MEDS ORDERED: Furosemide 40 MG/4 ML VIAL IVPUSH SCH (06:00)
[2016-11-24] MEDS: Insulin Aspart 100 Units/ML 3 ML Pen SUBCUT SCH ×3 (08:11→17:09)
[2016-11-24] MEDS: Tamsulosin 0.4 MG Cap.ER PO SCH (08:14)
[2016-11-24] MEDS: Docusate Sodium 100 MG Cap PO SCH (08:14)
[2016-11-24] MEDS: Potassium Chloride 20 MEQ Tab.ER PO SCH (08:14)
[2016-11-24] MEDS: Brimonidine 0.2% Ophth Soln 5 ML Bottle EYELF SCH ×2 (08:14→20:37)
[2016-11-24] MEDS: Timolol Maleate 0.5% Ophth Soln 5 ML Bottle EYELF SCH ×2 (08:14→20:38)
[2016-11-24] MEDS: Cholecalciferol (Vitamin D3) 1,000 Unit Tab PO SCH (08:15)
[2016-11-24] MEDS: Rosuvastatin 10 MG Tab PO SCH (08:15)
[2016-11-24] MEDS: Aspirin 81 MG Tab.EC PO SCH (08:15)
[2016-11-24] MEDS: hydrALAZINE 10 MG Tab PO SCH ×3 (08:29→20:49)
[2016-11-24] MEDS: Carvedilol 3.125 MG Tab PO SCH ×2 (08:30→20:49)
[2016-11-24] MEDS: Isosorbide Mononitrate 30 MG Tab.ER PO SCH (08:30)
--- NOTE | 2016-11-24 08:51 | CR ---
Chest: Portable view of the chest is obtained. Comparison: Previous chest x-ray of 11/24/16 (12:53 AM). Heart is enlarged. Small pleural effusions are seen on both sides. Minimal pulmonary vascular congestion is seen which is improved from prior exam. Previous sternotomy is noted for CABG. Bony structures are grossly intact. Impression: 1. Findings compatible with CHF which has slightly improved from previous exam. Diagnostic code #3
[2016-11-24] MEDS ORDERED: Acetaminophen 325 MG Tab PO PRN (09:41)
[2016-11-24] MEDS ORDERED: Albuterol 0.083% 2.5 MG/3 ML Neb Soln NEB PRN (09:45)
[2016-11-24] MEDS ORDERED: Ondansetron 4 MG Tab.DIS PO PRN (09:45)
--- NOTE | 2016-11-24 09:55 | PCM.HP ---
H&P History of Present Illness - General Date of Service: 11/24/16 Admit Problem/Dx: Admission Diagnosis/Problem Admission Diagnosis/Problem Syncope and collapse Nav is a pleasant 71yo male admitted through the ED pharmacy technician assistant hours with syncope and CHF exacerbation. He had an episode of syncope yesterday at [facility] in [place]. Ambulance was called and brought him to ED. Patient does not recall any of this. He remembers waking up in ambulance but nothing else. He denies there were any prodromal symptoms prior to syncopal event. He does note his legs have become more swollen over the past 2-3 days, more SOB specifically with ambulation for 2-3 days. He denies coughing, wheezing, n/v/d, fever, chills , no infectious etiology. No headache, palpitations, abd or back pain. He does have intermittent chronic neck and shoulder pains. He has hx of CEA for which he unfortunately developed ARF postoperatively requiring renal dialysis for a period of time. He is now off of dialysis; still follows with Nephrology Dr. Wright. He saw Dr. Wright within the last few days who adjusted/increased his diuetic. He also saw his Grain Cleaner on that day, believed to be Dr. Anand. He was planned to DC from [facility] assisted living [facility] to home/ranch with his brother within the next 2 days; he was looking forward to that very much. PMH significant for HLD, HTN, CAD/ischemic cardiomyopathy, PVD, CHF, CKD, GERD, BPH/obstructive uropathy with chronic indwelling catheter, IDDM, iron def anemia , gout. ED workup and eval shows CBC with , CMP , proBNP 22, , CXR with cardiomegaly, ? pleural effusion. Hospitalist service is consulted for admission for syncope with acute CHF exacerbation. He is DNR/DNI code status. Source of Information: Patient, Other (ED notes) History Limitations: Reports: No Limitations - Related Data Allergies/Adverse Reactions: Allergies Allergy/AdvReac Type Severity Reaction Status Date / Time No Known Allergies Allergy Verified 11/23/16 22:28 Home Medications: Home Meds Acetaminophen 650 mg PO Q6H PRN 08/09/16 [History] Brimonidine Tartrate/Timolol [Combigan 0.2%-0.5% Eye Drops] 1 drop EYELF BID [History] Cholecalciferol (Vitamin D3) [Vitamin D3] 5,000 unit PO DAILY 08/09/16 [History] Ferrous Sulfate 325 mg PO BEDTIME 08/09/16 [History] Furosemide 60 mg PO BID 08/09/16 [History] Insulin Aspart [Novolog Flexpen] 3 units SUBCUT TIDMEALS 08/09/16 [History] Insulin Glarg,Human.Rec.Analog [LantUS Solostar] 12 units SUBCUT BEDTIME [History] Docusate Sodium [Colace] 100 mg PO DAILY 08/20/16 [History] Aspirin [Ecotrin] 81 mg PO DAILY 11/24/16 [History] Carvedilol [Coreg] 3.125 mg PO BID 11/24/16 [History] Isosorbide Mononitrate [Imdur] 15 mg PO DAILY 11/24/16 [History] Tamsulosin [Flomax] 0.4 mg PO DAILY 11/24/16 [History] Warfarin [Coumadin] 2.5 mg PO ASDIRECTED 11/24/16 [History] Zolpidem Tartrate [Ambien] 5 mg PO DAILY PRN 11/24/16 [History] atorvaSTATin [Lipitor] 40 mg PO DAILY 11/24/16 [History] hydrALAZINE HCl [Hydralazine HCl] 10 mg PO TID 11/24/16 [History] Past Medical History HEENT History: Reports: Glaucoma Cardiovascular History: Reports: Afib, CAD, Cardiomyopathy (ischemic), Heart Failure, High Cholesterol, Hypertension, MD, Other (See Below) Other Cardiovascular History: occlusion and stenosis of bilateral carotid arteries Respiratory History: Reports: SOB, Other (See Below) Other Respiratory History: wheezing Gastrointestinal History: Reports: GERD, Other (See Below) Other Gastrointestinal History: encephalopathy Genitourinary History: Reports: BPH, Chronic Renal Insuffiency (currently stage IV chronic renal insufficiency likely due to diabetic nephropathy.), Renal Calculus, Retention, Urinary (he had a suprapubic catheter placed 3 weeks ago at [facility] in [place].) Musculoskeletal History: Reports: Gout Psychiatric History: Reports: Other (See Below) Other Psychiatric History: insomnia Endocrine/Metabolic History: Reports: Diabetes, Type II (controlled with insulin 3 units with each meal and12 units of Lantus at bedtime.) Other Endocrine/Metabolic History: anemia Hematologic History: Reports: Anemia, Iron Deficiency - Past Surgical History HEENT Surgical History: Reports: Tonsillectomy Cardiovascular Surgical History: Reports: Carotid Endarterectomy, Coronary Artery Bypass, Coronary Artery Stent GI Surgical History: Reports: Hernia, Inguinal Neurological Surgical History: Reports: Lumbar Spine Social & Family History - Family History Family Medical History: Noncontributory - Tobacco Use Smoking Status *Q: Unknown Ever Smoked Second Hand Smoke Exposure: No - Caffeine Use Caffeine Use: Reports: Coffee - Recreational Drug Use Recreational Drug Use: No - Living Situation & Occupation Living situation: Reports: , Extended Care Facility ([facility]) Occupation: Retired H&P Review of Systems - Review of Systems: Review Of Systems: See Below General: Reports: Weakness, Fatigue, Decreased Appetite. Denies: Fever, Chills HEENT: Reports: No Symptoms. Denies: Headaches, Vertigo, Visual Changes Pulmonary: Reports: No Symptoms. Denies: Shortness of Breath, Wheezing, Cough Cardiovascular: Reports: Dyspnea on Exertion (chronic- ? maybe worse than usual over the past 2-3 days), Edema (worse over the past 2-3 days), Syncope ( yesterday ). Denies: Chest Pain, Palpitations, Orthopnea, PND, Lightheadedness Gastrointestinal: Reports: No Symptoms. Denies: Abdominal Pain, Constipation, Diarrhea, Nausea, Vomiting Genitourinary: Reports: Retention, Other (suprapubic catheter- hx of obstructive uropathy and ARF, hx of dialysis tx d/t ARF, no longer on dialysis) Musculoskeletal: Reports: Neck Pain (chronic), Shoulder Pain (chronic) Skin: Reports: Wound (left hand; skin tear- patient is unsure of what happened or how he got this wound yesterday; suspect this occured with syncopal episode) Psychiatric: Reports: No Symptoms, Other (family reports mild depressive symptoms) Neurological: Reports: Syncope (yesterday). Denies: Confusion, Dizziness, Headache, Trouble Speaking, Change in Speech Exam - Exam Exam: See Below - Vital Signs Vital Signs: Last Vital Signs Temp 100.8 F H 11/24/16 08:29 Pulse 80 11/24/16 08:30 Resp 14 11/24/16 08:29 BP 123/78 11/24/16 08:30 Pulse Ox 96 09/29/17 08:29 Weight: 212 lb - Exam Quality Assessment: Urinary Catheter, DVT Prophylaxis (Coumadin therapy- INR is therapeutic). No: Supplemental Oxygen General: Alert, Oriented, Cooperative HEENT: Conjunctiva Clear, EOMI, Hearing Intact (AKHIOK), Mucosa Moist & Cyrus, Pupils Equal, PERRLA Neck: Supple. No: JVD Lungs: Normal Respiratory Effort, Decreased Breath Sounds (mid to lower lobes), Crackles (bilateral lower lobes). No: Rhonchi, Wheezing Cardiovascular: Regular Rate, Regular Rhythm, Systolic Murmur GI/Abdominal Exam: Normal Bowel Sounds, Soft, Non-Tender (Male) Exam: Deferred Rectal (Males) Exam: Deferred Back Exam: Normal Inspection Extremities: Non-Tender, Normal Capillary Refill, Pedal Edema (2-3+ bilateral LE edema ankles to knees), Other (dressing CDI to left hand from skin tear) Peripheral Pulses: 1+: Posterior Tibial (L), Posterior Tibial (R), Dorsalis Pedis (L), Dorsalis Pedis (R) Skin: Warm, Dry, Wound (dressing CDI to lt hand) Neurological: Cranial Nerves Intact, Strength Equal Bilateral, Normal Speech, Normal Tone Neuro Extensive - Mental Status: Alert, Oriented x3, Normal Mood/Affect, Normal Cognition, Memory Intact, Other (pleasant and talkative) Psychiatric: Alert, Normal Affect, Normal Mood - Patient Data Lab Results Last 24 hrs: Laboratory Results - last 24 hr 11/24/16 11/24/16 11/24/16 Range/Units 03:23 04:15 07:23 WBC 7.68 (4.23-9.07) K/mm3 RBC 3.60 L (4.63-6.08) M/mm3 Hgb 9.4 L (13.7-17.5) gm/L Hct 30.1 L (40.1-51.0) % MCV 83.6 (79.0-92.2) fl MCH 26.1 (25.7-32.2) pg MCHC 31.2 L (32.2-35.5) g/dl RDW Std Deviation 48.3 H (35.1-43.9) fL Plt Count 259 (163-337) K/mm3 MPV 10.0 (9.4-12.3) fl Neut % (Auto) 64.3 (34.0-67.9) % Lymph % (Auto) 22.1 (21.8-53.1) % Woodward % (Auto) 10.7 (5.3-12.2) % Eos % (Auto) 2.1 (0.8-7.0) Baso % (Auto) 0.7 (0.1-1.2) % Neut # (Auto) 4.94 (1.78-5.38) K/mm3 Lymph # (Auto) 1.70 (1.32-3.57) K/mm3 Woodward # (Auto) 0.82 (0.30-0.82) K/mm3 Eos # (Auto) 0.16 (0.04-0.54) K/mm3 Baso # (Auto) 0.05 (0.01-0.08) K/mm3 Sodium (136-145) mEq/L Potassium (3.5-5.1) mEq/L Chloride (98-107) mEq/L Carbon Dioxide (21-32) mEq/L Anion Gap (5-15) BUN (7-18) mg/dL Creatinine (0.7-1.3) mg/dL Est Cr Clr Drug Dosing mL/min Estimated GFR (MDRD) (>60) mL/min BUN/Creatinine Ratio (14-18) Glucose (83-115) mg/dL POC Glucose 114 H (83-110) mg/dL Calcium (8.5-10.1) mg/dL Magnesium (1.8-2.4) mg/dl C-Reactive Protein (<1.0) mg/dL MRSA (PCR) Negative 11/24/16 Range/Units 07:23 WBC (4.23-9.07) K/mm3 RBC (4.63-6.08) M/mm3 Hgb (13.7-17.5) gm/L Hct (40.1-51.0) % MCV (79.0-92.2) fl MCH (25.7-32.2) pg MCHC (32.2-35.5) g/dl RDW Std Deviation (35.1-43.9) fL Plt Count (163-337) K/mm3 MPV (9.4-12.3) fl Neut % (Auto) (34.0-67.9) % Lymph % (Auto) (21.8-53.1) % Woodward % (Auto) (5.3-12.2) % Eos % (Auto) (0.8-7.0) Baso % (Auto) (0.1-1.2) % Neut # (Auto) (1.78-5.38) K/mm3 Lymph # (Auto) (1.32-3.57) K/mm3 Woodward # (Auto) (0.30-0.82) K/mm3 Eos # (Auto) (0.04-0.54) K/mm3 Baso # (Auto) (0.01-0.08) K/mm3 Sodium 140 (136-145) mEq/L Potassium 3.5 (3.5-5.1) mEq/L Chloride 103 (98-107) mEq/L Carbon Dioxide 26 (21-32) mEq/L Anion Gap 14.5 (5-15) BUN 65 H (7-18) mg/dL Creatinine 2.4 H (0.7-1.3) mg/dL Est Cr Clr Drug Dosing 27.82 mL/min Estimated GFR (MDRD) 27 (>60) mL/min BUN/Creatinine Ratio 27.1 H (14-18) Glucose 97 (83-115) mg/dL POC Glucose (83-110) mg/dL Calcium 9.1 (8.5-10.1) mg/dL Magnesium 2.4 (1.8-2.4) mg/dl C-Reactive Protein 3.0 H* (<1.0) mg/dL MRSA (PCR) Result Diagrams: 11/24/16 07:23 11/24/16 07:23 *Q Meaningful Use (ADM) - VTE *Q VTE Criteria *Q: - Stroke *Q Stroke Criteria *Q: - AMI *Q AMI Criteria *Q: - Problem List (1) Syncope and collapse SNOMED Code(s): 272703385 ICD Code: R55 - SYNCOPE AND COLLAPSE Status: Acute Priority: High Current Visit: Yes (2) CHF, Congestive heart failure SNOMED Code(s): 51363347 ICD Code: I50.9 - HEART FAILURE, UNSPECIFIED Status: Acute Priority: High Current Visit: Yes (3) Ischemic cardiomyopathy SNOMED Code(s): 901676507 ICD Code: I25.5 - ISCHEMIC CARDIOMYOPATHY Status: Chronic Priority: High Current Visit: Yes (4) Chronic renal insufficiency, stage IV (severe) SNOMED Code(s): 09010215 ICD Code: N18.4 - CHRONIC KIDNEY DISEASE, STAGE 4 (SEVERE) Status: Chronic Priority: High Current Visit: Yes (5) Hypokalemia SNOMED Code(s): 24824944 ICD Code: E87.6 - HYPOKALEMIA Status: Acute Priority: High Current Visit: Yes Problem List Initiated/Reviewed/Updated: Yes Orders Last 24hrs: Active Orders 24 hr Category Date Time Status Admission Status [Patient Status] [ADT] Routine ADT 11/24/16 01:39 Active Patient Status [ADT] Routine ADT 11/24/16 09:45 Ordered Accu Check [Blood Glucose Check, Bedside] [RC] Care 11/24/16 02:46 Active QIDACANDBED Ambulate [RC] QSHIFT Care 11/24/16 09:45 Ordered Antiembolic Devices [RC] PER UNIT ROUTINE Care 11/24/16 09:48 Ordered Cardiac Monitoring [RC] CONTINUOUS Care 11/24/16 09:46 Ordered Height and Weight [RC] DAILY Care 11/24/16 09:45 Ordered IS (RT) [RT Incentive Spirometry] [RC] Q2HWA Care 11/24/16 09:49 Ordered Intake and Output [RC] QSHIFT Care 11/24/16 09:46 Ordered Oxygen Therapy Adult [Oxygen Therapy] [RC] ASDIRECTED Care 11/24/16 02:47 Active Oxygen Therapy [RC] PRN Care 11/24/16 09:45 Ordered RT Aerosol Therapy [RC] ASDIRECTED Care 11/24/16 09:48 Ordered Up With Assistance [RC] ASDIRECTED Care 11/24/16 02:35 Active VTE/DVT Education [RC] PER UNIT ROUTINE Care 11/24/16 09:45 Ordered Vital Signs [RC] Q4H Care 11/24/16 09:45 Ordered Consult to Gis Database Administrator [CONS] Routine Cons 11/24/16 07:06 Active OT Evaluation and Treatment [CONS] Routine Cons 11/24/16 07:11 Active PT Evaluation and Treatment [CONS] Routine Cons 11/24/16 07:11 Active [employer] Diet [DIET] Diet 11/24/16 Breakfast Active Renal Non-Dialysis Diet [DIET] Diet 11/24/16 Breakfast Active BASIC METABOLIC PANEL,BMP [CHEM] DAILY Lab 11/25/16 06:56 Ordered BASIC METABOLIC PANEL,BMP [CHEM] DAILY Lab 11/26/16 06:56 Ordered BASIC METABOLIC PANEL,BMP [CHEM] DAILY Lab 11/27/16 06:56 Ordered BASIC METABOLIC PANEL,BMP [CHEM] DAILY Lab 11/28/16 06:56 Ordered C-REACTIVE PROTEIN [CHEM] DAILY Lab 11/25/16 06:56 Ordered C-REACTIVE PROTEIN [CHEM] DAILY Lab 11/26/16 06:56 Ordered C-REACTIVE PROTEIN [CHEM] DAILY Lab 11/27/16 06:56 Ordered C-REACTIVE PROTEIN [CHEM] DAILY Lab 11/28/16 06:56 Ordered CBC WITH AUTO DIFF [HEME] DAILY Lab 11/25/16 06:56 Ordered CBC WITH AUTO DIFF [HEME] DAILY Lab 11/26/16 06:56 Ordered CBC WITH AUTO DIFF [HEME] DAILY Lab 11/27/16 06:56 Ordered CBC WITH AUTO DIFF [HEME] DAILY Lab 11/28/16 06:56 Ordered INR,PT,PROTHROMBIN TIME [COAG] DAILY Lab 11/25/16 05:00 Ordered INR,PT,PROTHROMBIN TIME [COAG] DAILY Lab 11/26/16 05:00 Ordered INR,PT,PROTHROMBIN TIME [COAG] DAILY Lab 11/27/16 05:00 Ordered INR,PT,PROTHROMBIN TIME [COAG] DAILY Lab 11/28/16 05:00 Ordered INR,PT,PROTHROMBIN TIME [COAG] DAILY Lab 11/29/16 05:00 Ordered INR,PT,PROTHROMBIN TIME [COAG] Routine Lab 11/24/16 09:37 Ordered MAGNESIUM [CHEM] DAILY Lab 11/25/16 06:56 Ordered MAGNESIUM [CHEM] DAILY Lab 11/26/16 06:56 Ordered MAGNESIUM [CHEM] DAILY Lab 11/27/16 06:56 Ordered MAGNESIUM [CHEM] DAILY Lab 11/28/16 06:56 Ordered MYCOPLASMA PNEUMONIAE IGM AB [CHEM] Routine Lab 11/24/16 09:39 Ordered PRO B-TYPE NATRIUR PEPT,BNPPRO [CHEM] Routine Lab 11/25/16 05:00 Ordered STREP PNEUMONIAE ANTIGEN [MREF] Routine Lab 11/24/16 09:39 Uncollected Acetaminophen [Tylenol] Med 11/24/16 09:41 Ordered 650 mg PO Q4H PRN Acetaminophen/HYDROcodone [[place] 325-5 MG] Med 11/24/16 09:45 Ordered 1 tab PO Q4H PRN Albuterol [Proventil Neb Soln] Med 11/24/16 09:45 Ordered 2.5 mg NEB Q2H PRN Aspirin [Halfprin] Med 11/24/16 09:00 Active 81 mg PO DAILY Brimonidine [Alphagan 0.2% Ophth Soln] Med 11/24/16 09:00 Active 0 ml EYELF BID Carvedilol [Coreg] Med 11/24/16 09:00 Active 3.125 mg PO BID Cholecalciferol (Vitamin D3) [Vitamin D3] Med 11/24/16 09:00 Active 5,000 units PO DAILY Docusate Sodium [Colace] Med 11/24/16 09:00 Active 100 mg PO DAILY Ferrous Sulfate Med 11/24/16 21:00 Active 325 mg PO BEDTIME Furosemide [Lasix] Med 11/24/16 06:00 Active 60 mg IVPUSH Q8HR Insulin Aspart [NovoLOG] Med 11/24/16 07:00 Active 3 unit SUBCUT TIDMEALS Insulin Detemir [Levemir] Med 11/24/16 21:00 Active 6 unit SUBCUT BID Isosorbide Mononitrate [Imdur] Med 11/24/16 09:00 Active 15 mg PO DAILY LORazepam [Ativan] Med 11/24/16 09:41 Ordered 0.5 mg PO Q4H PRN Magnesium Hydroxide [Milk of Magnesia] Med 11/24/16 09:45 Ordered 30 ml PO Q12H PRN Ondansetron [Zofran ODT] Med 11/24/16 09:45 Ordered 4 mg PO Q4H PRN Potassium Chloride [Klor-Con M20] Med 11/24/16 09:00 Active 40 meq PO DAILY Rosuvastatin [Crestor] Med 11/24/16 09:00 Active 10 mg PO DAILY Sodium Chloride 0.9% [Saline Flush] Med 11/24/16 02:35 Active 10 ml FLUSH ASDIRECTED PRN Tamsulosin [Flomax] Med 11/24/16 09:00 Active 0.4 mg PO DAILY Temazepam [Restoril] Med 11/24/16 02:53 Active 15 mg PO BEDTIME PRN Timolol Maleate [Timoptic 0.5% Ophth Soln] Med 11/24/16 09:00 Active 0 ml EYELF BID Warfarin Pharmacy to Dose [Pharmacy to Dose - Warfarin] Med 11/24/16 10:00 Ordered 1 dose .XX ASDIRECTED hydrALAZINE [Apresoline] Med 11/24/16 09:00 Active 10 mg PO TID Antiembolic Hose [OM.PC] Per Unit Routine Oth 11/24/16 09:46 Ordered CM Case Management Follow Up [CM] Routine Oth 11/24/16 07:12 Active CM Social Work Follow Up [CM] Routine Oth 11/24/16 07:12 Active Convert IV to Saline Lock [OM.PC] Routine Oth 11/24/16 02:35 Ordered Code Status [Resuscitation Status] Routine Resus Stat 11/24/16 02:33 Ordered Medication Orders Acetaminophen (Tylenol) 650 mg PO Q4H PRN PRN Reason: Pain Hydrocodone Bitart/Acetaminophen ([place] 325-5 Mg) 1 tab PO Q4H PRN PRN Reason: Pain (moderate 4-6) Albuterol (Proventil Neb Soln) 2.5 mg NEB Q2H PRN PRN Reason: Shortness Of Breath/wheezing Aspirin (Halfprin) 81 mg PO DAILY [facility] Last Admin: 11/24/16 08:15 Dose: 81 mg Brimonidine Tartrate (Alphagan 0.2% Ophth Soln) 0 ml EYELF BID [facility] Last Admin: 11/24/16 08:14 Dose: 1 drop Carvedilol (Coreg) 3.125 mg PO BID [facility] Last Admin: 11/24/16 08:30 Dose: 3.125 mg Cholecalciferol (Vitamin D3) 5,000 units PO DAILY [facility] Last Admin: 11/24/16 08:15 Dose: 5,000 units Docusate Sodium (Colace) 100 mg PO DAILY [facility] Last Admin: 11/24/16 08:14 Dose: 100 mg Ferrous Sulfate (Ferrous Sulfate) 325 mg PO BEDTIME [facility] Furosemide (Lasix) 60 mg IVPUSH Q8HR [facility] Last Admin: 11/24/16 06:45 Dose: 60 mg Hydralazine HCl (Apresoline) 10 mg PO TID [facility] Last Admin: 11/24/16 08:29 Dose: 10 mg Insulin Aspart (Novolog) 3 unit SUBCUT TIDMEALS [facility] Last Admin: 11/24/16 08:11 Dose: Not Given Insulin Detemir (Levemir) 6 unit SUBCUT BID [facility] Isosorbide Mononitrate (Imdur) 15 mg PO DAILY [facility] Last Admin: 11/24/16 08:30 Dose: 15 mg Lorazepam (Ativan) 0.5 mg PO Q4H PRN PRN Reason: restlessness Magnesium Hydroxide (Milk Of Magnesia) 30 ml PO Q12H PRN PRN Reason: Constipation Ondansetron HCl (Zofran Odt) 4 mg PO Q4H PRN PRN Reason: nausea, able to take PO Potassium Chloride (Klor-Con M20) 40 meq PO DAILY [facility] Last Admin: 11/24/16 08:14 Dose: 40 meq Rosuvastatin Calcium (Crestor) 10 mg PO DAILY [facility] Last Admin: 11/24/16 08:15 Dose: 10 mg Sodium Chloride (Saline Flush) 10 ml FLUSH ASDIRECTED PRN PRN Reason: Keep Vein Open Tamsulosin HCl (Flomax) 0.4 mg PO DAILY [facility] Last Admin: 11/24/16 08:14 Dose: 0.4 mg Temazepam (Restoril) 15 mg PO BEDTIME PRN PRN Reason: Sleep Last Admin: 11/24/16 03:30 Dose: 15 mg Timolol Maleate (Timoptic 0.5% Oph Soln) 0 ml EYELF BID [facility] Last Admin: 11/24/16 08:14 Dose: 1 drop Warfarin Sodium (Pharmacy To Dose - Warfarin) 1 dose .XX ASDIRECTED [facility] Assessment/Plan Comment:: I/P: Syncope: etiology uncertain- suspect r/t CHF exacerbation -Telemetry -Will obtain most recent echo results -Patient is s/p CEA -He is A&O x 3, no apparent cognitive defects- Head CT negative in ED CHF exacerbation -proBNP >22,000 -CXR with significant cardiomegaly, ? pleural effusions- per Dr. Saravia suggestion will obtain CT of chest to further delineate if effusions present -Rec'd IVP lasix in ED, overnight and this morning- 3 total doses -Dr. Saravia did assess patient with me this morning and plans to start lasix drip later this morning; see orders placed per Dr. Saravia -Repeat CXR done this am- slight improvements, possibly repeat in next 24-48 hours -Repeat proBNP tomorrow am -CM/Nursing- to obtain most recent Echo and Cardiology records: has seen Cardiology within the last week, Dr. Anand; patient states was mentioned about possible "pacemaker" in the future. -Antione pardo -Fluid and salt restriction -Gis Database Administrator consult CKD- stage 4- stable -Creatinine and GFR improved slightly overnight, in comparison to hospital records todays reading is best it has been -Follows with Business Machine Operator, Dr. Sage- saw him last this week; had adjusted/ increased lasix dose per patient -Cont to follow renal function closely during stay; caution with diuresis -Patient aware of renal status vs heart failure treatment scenario and understanding of risks vs benefits Chronic conditions: IDDM- will check A1C -Cont home insulin/meds, Accuchecks AC/HS HTN- cont home meds HLD- cont home meds GERD- cont home meds/GI prophylax Iron def anemia- likely 2/2 renal disease, cont iron supplement ischemic cardiomyopathy- on hydralazine and imdur, will continue Afib- on coumadin, cont to follow INR daily Other: PT/OT- cont to work on strengthening IS/RT GI/DVT prophylax-coumadin as above/Teds/ASA CM/SW for assist with DC planning- plans DC to brother's house when medically stable. Brother will help care for him. Patient is DNR/DNI.
[2016-11-24] MEDS: cefTRIAXone 1 GM in Sodium Chloride 0.9% 100 ML IV SCH (11:55)
--- NOTE | 2016-11-24 14:15 | PCM.SN ---
- Free Text/Narrative Note: Was notified by nursing that Mr. Kim was having what he described as pectoral pain while adjusting in his chair with PT. He reported this lasted only a short time and resolved. He stated it felt like a pulled muscle across his left chest near his nipple. I examined patient and found normal heart rate and rhythm, lung sounds clear although they were diminished at the bases. He is having no shortness of breath, arm pain, neck pain, or chest pain at this time. He reports he has not had this sensation before. A 12-lead was ordered and shows an irregular rhythm with a left bundle branch block, possibly PACs. T -wave inversion on lead I and aVL, some QT prolongation, and poor R-wave progression are also noted. I've ordered a repeat 12-lead for tonight. It is unknown if patient has history of left bundle branch block or if this is a new finding, however he does have a history of A. fib and is on Coumadin. INR is within target range. His most recent chest x-ray showed a very enlarged cardiac silhouette. He was also positive for mycoplasma pneumonia. Twelve- lead was essentially unchanged from prior ED twelve-lead. Troponin was negative in ED. I ordered a repeat troponin today for follow-up. Dr. Saravia, hospitalist notified and made aware of patient. He will follow-up with patient this afternoon/evening.
[2016-11-24] MEDS: Azithromycin 250 MG Tab PO SCH (15:19)
[2016-11-24] MEDS: Warfarin 5 MG Tab PO SCH ×2 (17:50→18:38)
[2016-11-24] MEDS: Acetaminophen/HYDROcodone 325-5 MG Tab PO PRN (18:36)
[2016-11-24] MEDS ORDERED: Furosemide 100 MG in Sodium Chloride 0.9% 90 ML IV SCH (19:00)
[2016-11-24] MEDS ORDERED: Metoprolol Tartrate 5 MG/5 ML SDV IVPUSH PRN (20:47)
[2016-11-24] MEDS ORDERED: hydrALAZINE 20 MG/ML SDV IVPUSH PRN (20:47)
[2016-11-24] MEDS ORDERED: LORazepam 2 MG/ML MDV IVPUSH PRN ×2 (20:47)
[2016-11-24] MEDS ORDERED: HYDROmorphone 0.5 MG/0.5 ML Syringe IVPUSH PRN (20:48)
[2016-11-24] MEDS: Insulin Detemir 100 Units/ML 3 ML Pen SUBCUT SCH (20:50)
[2016-11-24] MEDS: Ferrous Sulfate 325 MG Tab PO SCH (20:50)
[2016-11-24] MEDS: LORazepam 0.5 MG Tab PO PRN (20:54)
[2016-11-25] MEDS: oxyCODONE 5 MG Tab PO PRN ×3 (02:09→21:20)
--- NOTE | 2016-11-25 07:52 | PCM.PN ---
- General Info Date of Service: 11/25/16 Admission Dx/Problem (Free Text): Admission Diagnosis/Problem Admission Diagnosis/Problem Syncope and collapse Subjective Update: Follow Up Functional Status: Reports: Pain Controlled, Tolerating Diet, Ambulating, Urinating - Review of Systems General: Denies: Fever, Weakness, Fatigue, Malaise, Chills HEENT: Reports: No Symptoms Pulmonary: Denies: Shortness of Breath Cardiovascular: Denies: Chest Pain, Palpitations, Dyspnea on Exertion, Lightheadedness Gastrointestinal: Denies: Abdominal Pain, Nausea, Vomiting Genitourinary: Reports: No Symptoms Musculoskeletal: Reports: No Symptoms Skin: Denies: Cyanosis, Pallor, Diaphoresis, Rash Neurological: Denies: Confusion, Seizure, Difficulty Walking, Weakness, Gait Disturbance Psychiatric: Denies: Depression, Anxiety, Agitation, Hallucinations Systems Review Comment:: No significant overnight or acute issues. He slept pretty. He states "best sleep I have ever had in a while". He report anterior chest pain that is tender on palpation. His pain scale is 7/10 but seems to be comfortable. He has no new complaints. - Patient Data Vitals - Most Recent: Last Vital Signs Temp 36.7 C 11/25/16 04:45 Pulse 70 11/25/16 04:45 Resp 16 11/25/16 04:45 BP 117/68 11/25/16 04:45 Pulse Ox 99 11/25/16 04:45 Weight - Most Recent: 94.665 kg I&O - Last 24 Hours: Intake & Output 11/24/16 11/25/16 11/25/16 22:59 06:59 14:59 Intake Total 520 328 Output Total 2300 1100 Balance -1780 -772 Lab Results Last 24 Hours: Laboratory Results - last 24 hr 11/24/16 11/24/16 11/24/16 Range/Units 04:15 07:20 09:55 WBC (4.23-9.07) K/mm3 RBC (4.63-6.08) M/mm3 Hgb (13.7-17.5) gm/L Hct (40.1-51.0) % MCV (79.0-92.2) fl MCH (25.7-32.2) pg MCHC (32.2-35.5) g/dl RDW Std Deviation (35.1-43.9) fL Plt Count (163-337) K/mm3 MPV (9.4-12.3) fl Neut % (Auto) (34.0-67.9) % Lymph % (Auto) (21.8-53.1) % [place] % (Auto) (5.3-12.2) % Eos % (Auto) (0.8-7.0) Baso % (Auto) (0.1-1.2) % Neut # (Auto) (1.78-5.38) K/mm3 Lymph # (Auto) (1.32-3.57) K/mm3 [place] # (Auto) (0.30-0.82) K/mm3 Eos # (Auto) (0.04-0.54) K/mm3 Baso # (Auto) (0.01-0.08) K/mm3 Manual Slide Review PT 32.2 H (8.0-13.0) SECONDS INR 2.77 Sodium (136-145) mEq/L Potassium (3.5-5.1) mEq/L Chloride (98-107) mEq/L Carbon Dioxide (21-32) mEq/L Anion Gap (5-15) BUN (7-18) mg/dL Creatinine (0.7-1.3) mg/dL Est Cr Clr Drug Dosing mL/min Estimated GFR (MDRD) (>60) mL/min BUN/Creatinine Ratio (14-18) Glucose (83-115) mg/dL POC Glucose (83-110) mg/dL Hemoglobin A1c 7.80 H (4.50-6.20) % Calcium (8.5-10.1) mg/dL Magnesium (1.8-2.4) mg/dl Troponin I (0.00-0.056) ng/mL C-Reactive Protein (<1.0) mg/dL NT-Pro-B Natriuret Pep (0-125) pg/mL Mycoplasma pneumon IgM (NEGATIVE) MRSA (PCR) Negative 11/24/16 11/24/16 11/24/16 Range/Units 09:55 11:41 14:32 WBC (4.23-9.07) K/mm3 RBC (4.63-6.08) M/mm3 Hgb (13.7-17.5) gm/L Hct (40.1-51.0) % MCV (79.0-92.2) fl MCH (25.7-32.2) pg MCHC (32.2-35.5) g/dl RDW Std Deviation (35.1-43.9) fL Plt Count (163-337) K/mm3 MPV (9.4-12.3) fl Neut % (Auto) (34.0-67.9) % Lymph % (Auto) (21.8-53.1) % [place] % (Auto) (5.3-12.2) % Eos % (Auto) (0.8-7.0) Baso % (Auto) (0.1-1.2) % Neut # (Auto) (1.78-5.38) K/mm3 Lymph # (Auto) (1.32-3.57) K/mm3 [place] # (Auto) (0.30-0.82) K/mm3 Eos # (Auto) (0.04-0.54) K/mm3 Baso # (Auto) (0.01-0.08) K/mm3 Manual Slide Review PT (8.0-13.0) SECONDS INR Sodium (136-145) mEq/L Potassium (3.5-5.1) mEq/L Chloride (98-107) mEq/L Carbon Dioxide (21-32) mEq/L Anion Gap (5-15) BUN (7-18) mg/dL Creatinine (0.7-1.3) mg/dL Est Cr Clr Drug Dosing mL/min Estimated GFR (MDRD) (>60) mL/min BUN/Creatinine Ratio (14-18) Glucose (83-115) mg/dL POC Glucose 159 H (83-110) mg/dL Hemoglobin A1c (4.50-6.20) % Calcium (8.5-10.1) mg/dL Magnesium (1.8-2.4) mg/dl Troponin I 0.030 (0.00-0.056) ng/mL C-Reactive Protein (<1.0) mg/dL NT-Pro-B Natriuret Pep (0-125) pg/mL Mycoplasma pneumon IgM Positive H (NEGATIVE) MRSA (PCR) 11/24/16 11/24/16 11/25/16 Range/Units 17:08 20:52 06:10 WBC 7.88 (4.23-9.07) K/mm3 RBC 3.74 L (4.63-6.08) M/mm3 Hgb 9.7 L (13.7-17.5) gm/L Hct 31.2 L (40.1-51.0) % MCV 83.4 (79.0-92.2) fl MCH 25.9 (25.7-32.2) pg MCHC 31.1 L (32.2-35.5) g/dl RDW Std Deviation 48.3 H (35.1-43.9) fL Plt Count 273 (163-337) K/mm3 MPV 10.0 (9.4-12.3) fl Neut % (Auto) 56.1 (34.0-67.9) % Lymph % (Auto) 27.7 (21.8-53.1) % [place] % (Auto) 11.4 (5.3-12.2) % Eos % (Auto) 3.9 (0.8-7.0) Baso % (Auto) 0.6 (0.1-1.2) % Neut # (Auto) 4.42 (1.78-5.38) K/mm3 Lymph # (Auto) 2.18 (1.32-3.57) K/mm3 [place] # (Auto) 0.90 H (0.30-0.82) K/mm3 Eos # (Auto) 0.31 (0.04-0.54) K/mm3 Baso # (Auto) 0.05 (0.01-0.08) K/mm3 Manual Slide Review Not Reportable PT (8.0-13.0) SECONDS INR Sodium (136-145) mEq/L Potassium (3.5-5.1) mEq/L Chloride (98-107) mEq/L Carbon Dioxide (21-32) mEq/L Anion Gap (5-15) BUN (7-18) mg/dL Creatinine (0.7-1.3) mg/dL Est Cr Clr Drug Dosing mL/min Estimated GFR (MDRD) (>60) mL/min BUN/Creatinine Ratio (14-18) Glucose (83-115) mg/dL POC Glucose 141 H 158 H (83-110) mg/dL Hemoglobin A1c (4.50-6.20) % Calcium (8.5-10.1) mg/dL Magnesium (1.8-2.4) mg/dl Troponin I (0.00-0.056) ng/mL C-Reactive Protein (<1.0) mg/dL NT-Pro-B Natriuret Pep (0-125) pg/mL Mycoplasma pneumon IgM (NEGATIVE) MRSA (PCR) 11/25/16 11/25/16 11/25/16 Range/Units 06:10 06:10 06:10 WBC (4.23-9.07) K/mm3 RBC (4.63-6.08) M/mm3 Hgb (13.7-17.5) gm/L Hct (40.1-51.0) % MCV (79.0-92.2) fl MCH (25.7-32.2) pg MCHC (32.2-35.5) g/dl RDW Std Deviation (35.1-43.9) fL Plt Count (163-337) K/mm3 MPV (9.4-12.3) fl Neut % (Auto) (34.0-67.9) % Lymph % (Auto) (21.8-53.1) % [place] % (Auto) (5.3-12.2) % Eos % (Auto) (0.8-7.0) Baso % (Auto) (0.1-1.2) % Neut # (Auto) (1.78-5.38) K/mm3 Lymph # (Auto) (1.32-3.57) K/mm3 [place] # (Auto) (0.30-0.82) K/mm3 Eos # (Auto) (0.04-0.54) K/mm3 Baso # (Auto) (0.01-0.08) K/mm3 Manual Slide Review PT 29.0 H (8.0-13.0) SECONDS INR 2.51 Sodium 140 (136-145) mEq/L Potassium 3.8 (3.5-5.1) mEq/L Chloride 103 (98-107) mEq/L Carbon Dioxide 28 (21-32) mEq/L Anion Gap 12.8 (5-15) BUN 69 H (7-18) mg/dL Creatinine 2.3 H (0.7-1.3) mg/dL Est Cr Clr Drug Dosing 29.03 mL/min Estimated GFR (MDRD) 28 (>60) mL/min BUN/Creatinine Ratio 30.0 H (14-18) Glucose 108 (83-115) mg/dL POC Glucose (83-110) mg/dL Hemoglobin A1c (4.50-6.20) % Calcium 9.0 (8.5-10.1) mg/dL Magnesium 2.5 H (1.8-2.4) mg/dl Troponin I (0.00-0.056) ng/mL C-Reactive Protein 3.4 H* (<1.0) mg/dL NT-Pro-B Natriuret Pep 53896 H (0-125) pg/mL Mycoplasma pneumon IgM (NEGATIVE) MRSA (PCR) 11/25/16 11/25/16 Range/Units 06:10 07:12 WBC (4.23-9.07) K/mm3 RBC (4.63-6.08) M/mm3 Hgb (13.7-17.5) gm/L Hct (40.1-51.0) % MCV (79.0-92.2) fl MCH (25.7-32.2) pg MCHC (32.2-35.5) g/dl RDW Std Deviation (35.1-43.9) fL Plt Count (163-337) K/mm3 MPV (9.4-12.3) fl Neut % (Auto) (34.0-67.9) % Lymph % (Auto) (21.8-53.1) % [place] % (Auto) (5.3-12.2) % Eos % (Auto) (0.8-7.0) Baso % (Auto) (0.1-1.2) % Neut # (Auto) (1.78-5.38) K/mm3 Lymph # (Auto) (1.32-3.57) K/mm3 [place] # (Auto) (0.30-0.82) K/mm3 Eos # (Auto) (0.04-0.54) K/mm3 Baso # (Auto) (0.01-0.08) K/mm3 Manual Slide Review PT (8.0-13.0) SECONDS INR Sodium (136-145) mEq/L Potassium (3.5-5.1) mEq/L Chloride (98-107) mEq/L Carbon Dioxide (21-32) mEq/L Anion Gap (5-15) BUN (7-18) mg/dL Creatinine (0.7-1.3) mg/dL Est Cr Clr Drug Dosing mL/min Estimated GFR (MDRD) (>60) mL/min BUN/Creatinine Ratio (14-18) Glucose (83-115) mg/dL POC Glucose 104 (83-110) mg/dL Hemoglobin A1c (4.50-6.20) % Calcium (8.5-10.1) mg/dL Magnesium (1.8-2.4) mg/dl Troponin I 0.024 (0.00-0.056) ng/mL C-Reactive Protein (<1.0) mg/dL NT-Pro-B Natriuret Pep (0-125) pg/mL Mycoplasma pneumon IgM (NEGATIVE) MRSA (PCR) Brad Results Last 24 Hours: Microbiology 11/24/16 11:30 Streptococcus pneumoniae Antigen (M - Final Urine - Catheterized Med Orders - Current: Current Medications Acetaminophen (Tylenol) 650 mg PO Q4H PRN PRN Reason: Pain Hydrocodone Bitart/Acetaminophen ([place] 325-5 Mg) 1 tab PO Q4H PRN PRN Reason: Pain (moderate 4-6) Last Admin: 11/24/16 18:36 Dose: 1 tab Albuterol (Proventil Neb Soln) 2.5 mg NEB Q2H PRN PRN Reason: Shortness Of Breath/wheezing Aspirin (Halfprin) 81 mg PO DAILY [facility] Last Admin: 11/24/16 08:15 Dose: 81 mg Azithromycin (Zithromax) 500 mg PO DAILY [facility] Last Admin: 11/24/16 15:19 Dose: 500 mg Brimonidine Tartrate (Alphagan 0.2% Ophth Soln) 0 ml EYELF BID [facility] Last Admin: 11/24/16 20:37 Dose: 1 drop Carvedilol (Coreg) 3.125 mg PO BID [facility] Last Admin: 11/24/16 20:49 Dose: 3.125 mg Cholecalciferol (Vitamin D3) 5,000 units PO DAILY [facility] Last Admin: 11/24/16 08:15 Dose: 5,000 units Docusate Sodium (Colace) 100 mg PO DAILY [facility] Last Admin: 11/24/16 08:14 Dose: 100 mg Ferrous Sulfate (Ferrous Sulfate) 325 mg PO BEDTIME [facility] Last Admin: 11/24/16 20:50 Dose: 325 mg Hydralazine HCl (Apresoline) 10 mg PO TID [facility] Last Admin: 11/24/16 20:49 Dose: 10 mg Hydralazine HCl (Apresoline) 10 mg IVPUSH Q4H PRN PRN Reason: Hypertension Hydromorphone HCl (Dilaudid) 0.5 mg IVPUSH Q4H PRN PRN Reason: Pain Ceftriaxone Sodium 1 gm/ (Sodium Chloride) 100 mls @ 200 mls/hr IV Q24H [facility] Last Admin: 11/24/16 11:55 Dose: 200 mls/hr Furosemide 100 mg/ Sodium (Chloride) 100 mls @ 2 mls/hr IV TITRATE [facility] PRN Reason: Protocol Stop: 11/26/16 19:00 Last Admin: 11/24/16 22:40 Dose: 2 mls/hr Insulin Aspart (Novolog) 3 unit SUBCUT TIDMEALS [facility] Last Admin: 11/24/16 17:09 Dose: 3 units Insulin Detemir (Levemir) 6 unit SUBCUT BID [facility] Last Admin: 11/24/16 20:50 Dose: 6 units Isosorbide Mononitrate (Imdur) 15 mg PO DAILY [facility] Last Admin: 11/24/16 08:30 Dose: 15 mg Lorazepam (Ativan) 0.5 mg PO Q4H PRN PRN Reason: restlessness Last Admin: 11/24/16 20:54 Dose: 0.5 mg Lorazepam (Ativan) 1 mg IVPUSH Q6H PRN; Protocol PRN Reason: Anxiety Lorazepam (Ativan) 2 mg IVPUSH Q4H PRN PRN Reason: Seizures Magnesium Hydroxide (Milk Of Magnesia) 30 ml PO Q12H PRN PRN Reason: Constipation Metoprolol Tartrate (Lopressor) 5 mg IVPUSH Q4H PRN PRN Reason: Tachycardia Ondansetron HCl (Zofran Odt) 4 mg PO Q4H PRN PRN Reason: nausea, able to take PO Oxycodone HCl (Oxycodone) 5 mg PO Q4H PRN PRN Reason: Pain Last Admin: 11/25/16 02:09 Dose: 5 mg Potassium Chloride (Klor-Con M20) 40 meq PO DAILY [facility] Last Admin: 11/24/16 08:14 Dose: 40 meq Rosuvastatin Calcium (Crestor) 10 mg PO DAILY [facility] Last Admin: 11/24/16 08:15 Dose: 10 mg Sodium Chloride (Saline Flush) 10 ml FLUSH ASDIRECTED PRN PRN Reason: Keep Vein Open Tamsulosin HCl (Flomax) 0.4 mg PO DAILY [facility] Last Admin: 11/24/16 08:14 Dose: 0.4 mg Temazepam (Restoril) 15 mg PO BEDTIME PRN PRN Reason: Sleep Last Admin: 11/24/16 20:54 Dose: 15 mg Timolol Maleate (Timoptic 0.5% Oph Soln) 0 ml EYELF BID [facility] Last Admin: 11/24/16 20:38 Dose: 1 drop Warfarin Sodium (Pharmacy To Dose - Warfarin) 1 dose .XX ASDIRECTED [facility] Warfarin Sodium (Coumadin) 5 mg PO [id number]@1800 [facility] Last Admin: 11/24/16 18:38 Dose: 5 mg Warfarin Sodium (Coumadin) 2.5 mg PO SuTuThSa@1800 [facility] Discontinued Medications Furosemide (Lasix) 60 mg IVPUSH NOW ONE Stop: 11/24/16 01:17 Last Admin: 11/24/16 01:26 Dose: 60 mg Furosemide (Lasix) Confirm Administered Dose 40 mg .ROUTE .STK-MED ONE Stop: 11/24/16 01:32 Last Admin: 11/24/16 03:29 Dose: Not Given Furosemide (Lasix) 60 mg IVPUSH Q8HR [facility] Last Admin: 11/24/16 06:45 Dose: 60 mg Insulin Detemir (Levemir) 12 unit SUBCUT ONETIME ONE Stop: 11/24/16 01:21 Last Admin: 11/24/16 01:42 Dose: 12 units Levofloxacin (Levaquin) 500 mg PO ONETIME ONE Stop: 11/24/16 01:19 Last Admin: 11/24/16 01:25 Dose: 500 mg Potassium Chloride (Klor-Con M20) 40 meq PO ONETIME ONE Stop: 11/24/16 03:16 Last Admin: 11/24/16 03:30 Dose: 40 meq - Exam General: Alert, Oriented, Cooperative, No Acute Distress HEENT: Pupils Equal, Pupils Reactive, EOMI, Mucous Membr. Moist/[place] Neck: Supple Lungs: Clear to Auscultation, Normal Respiratory Effort Cardiovascular: Irregular Rhythm, Tachycardia, Murmurs GI/Abdominal Exam: Normal Bowel Sounds, Soft, Non-Tender, No Organomegaly, No Distention (Male) Exam: Other (Suprapubic catheter) Back Exam: Normal Inspection, Decreased Range of Motion Extremities: Normal Inspection, Normal Range of Motion, Non-Tender (Bilateral Lower Extremity Edema 1-2+), No Pedal Edema, Other Peripheral Pulses: 1+: Dorsalis Pedis (L), Dorsalis Pedis (R) Skin: Warm, Dry, Intact Neurological: No New Focal Deficit Psy/Mental Status: Alert, Normal Affect, Normal Mood - Problem List Review Problem List Initiated/Reviewed/Updated: Yes - My Orders Last 24 Hours: My Active Orders 11/24/16 09:00 Potassium Chloride [Klor-Con M20] 40 meq PO DAILY 11/24/16 16:28 Heat Therapy [OM.PC] Routine 11/24/16 19:00 Furosemide [Lasix] 100 mg Sodium Chloride 0.9% [Normal Saline] 90 ml IV TITRATE 11/24/16 20:47 LORazepam [Ativan] 1 mg IVPUSH Q6H PRN LORazepam [Ativan] 2 mg IVPUSH Q4H PRN Metoprolol Tartrate [Lopressor] 5 mg IVPUSH Q4H PRN hydrALAZINE [Apresoline] 10 mg IVPUSH Q4H PRN 11/24/16 20:48 HYDROmorphone [Dilaudid] 0.5 mg IVPUSH Q4H PRN 11/24/16 20:49 oxyCODONE 5 mg PO Q4H PRN 11/24/16 Breakfast [place] Diet [DIET] Renal Non-Dialysis Diet [DIET] 11/25/16 08:00 EKG Documentation Completion [RC] ASDIRECTED EKG 12 Lead [EK] Routine - Plan Plan:: Impression/Hodges: CHF Exacerbation, Slightly Improved - proBNP > 22,000 --> 21388 - CXR: Significant Cardiomegaly with Small Pleural Effusions: Hold off CT scan, may consider tomorrow vs repeat CXR - Rec'd IVP lasix in ED - He is currently on IV Lasix at 2 units per ml/hr; He Cr improved so will increase his rate to 5 units per ml/hr - CM/Nursing- to obtain most recent Echo and Cardiology records: has seen Cardiology within the last week, Dr. Anand; patient states was mentioned about possible "pacemaker" in the future - Continue Antione hose, Fluid and salt restriction - Utility Specialist consult Chest Pain - 2/2 MSK - Reproducible with manual palpation - Naproxen 375 mg po BID for anti-inflammation - EKG shows no acute ST-T wave changes: baseline LB3 and irregular atrial rhythm UTI-Suprapubic Catheter Related - E. coli positive - Susceptible to Rocephin; Continue UV ATB Mycoplasma Pneumoniae IgM Positive - Associated Disease vs False Positive - Clinically he has no signs of systemic infection - He is off supplemental O2 and no respiratory issues - He is already on oral Azithromycin CKD- stage 4- stable - Creatinine and GFR, improved slightly this am - Follows with [employer] Operator, Dr. Sage- saw him last this week; had adjusted /increased lasix dose per patient - Cont to follow renal function closely during stay; caution with diuresis - Patient aware of renal status vs heart failure treatment scenario and understanding of risks vs benefits Resolved: S/p Syncope: etiology uncertain- suspect r/t CHF exacerbation - Telemetry: No malignant rhythm except of atrial fibrillation - Still waiting for his most recent echo results - Patient is s/p CEA - He is A&O x 3, no apparent cognitive defects- Head CT negative in ED - He states he took 2 tabs of sleeping pills (Ambien 5 mg po HS) told by his specialist, he felt this was why he passed out Chronic: IDDM- 7.8 A1C, Cont home insulin/meds, Accu-checks AC/HS, Stable BS HTN- cont home meds HLD- cont home meds GERD/GI prophylaxis H2B Iron def anemia- likely 2/2 renal disease, cont iron supplement, stable ischemic cardiomyopathy- on hydralazine and imdur, will continue Afib- on coumadin, therapeutic INR, cont to follow INR daily Other: He is clinically stable Routine AM Labs Repeat Lab at 1800 Continue PT/OT; IS/RT GI/DVT Prophylaxis: H2B/Coumadin as above/Teds/ASA CM/SW for assist with DC planning- plans DC to brother's house when medically stable. Brother will help care for him Additional orders as above Patient is DNR/DNI Possible d/c in 2 days, he requires more treatment
[2016-11-25] MEDS: Tamsulosin 0.4 MG Cap.ER PO SCH (08:34)
[2016-11-25] MEDS: Docusate Sodium 100 MG Cap PO SCH (08:34)
[2016-11-25] MEDS: Potassium Chloride 20 MEQ Tab.ER PO SCH (08:34)
[2016-11-25] MEDS: Rosuvastatin 10 MG Tab PO SCH (08:34)
[2016-11-25] MEDS: Cholecalciferol (Vitamin D3) 1,000 Unit Tab PO SCH (08:34)
[2016-11-25] MEDS: Carvedilol 3.125 MG Tab PO SCH ×2 (08:35→20:45)
[2016-11-25] MEDS: Aspirin 81 MG Tab.EC PO SCH (08:35)
[2016-11-25] MEDS: Azithromycin 250 MG Tab PO SCH (08:36)
[2016-11-25] MEDS: hydrALAZINE 10 MG Tab PO SCH ×3 (08:36→20:45)
[2016-11-25] MEDS: Isosorbide Mononitrate 30 MG Tab.ER PO SCH (08:37)
[2016-11-25] MEDS: Insulin Detemir 100 Units/ML 3 ML Pen SUBCUT SCH ×2 (08:41→20:46)
[2016-11-25] MEDS: Insulin Aspart 100 Units/ML 3 ML Pen SUBCUT SCH ×3 (08:41→17:24)
[2016-11-25] MEDS: Brimonidine 0.2% Ophth Soln 5 ML Bottle EYELF SCH ×2 (08:47→20:44)
[2016-11-25] MEDS: Timolol Maleate 0.5% Ophth Soln 5 ML Bottle EYELF SCH ×2 (08:47→20:44)
[2016-11-25] MEDS: Hydrochlorothiazide 12.5 MG Cap PO SCH ×2 (09:34→12:59)
[2016-11-25] MEDS: Furosemide 100 MG in Sodium Chloride 0.9% 90 ML IV SCH ×2 (09:36→21:22)
[2016-11-25] MEDS: cefTRIAXone 1 GM in Sodium Chloride 0.9% 100 ML IV SCH (12:47)
[2016-11-25] MEDS: Warfarin 2.5 MG Tab PO SCH (17:25)
[2016-11-25] MEDS: Ferrous Sulfate 325 MG Tab PO SCH (20:45)
[2016-11-25] MEDS: Famotidine 20 MG Tab PO SCH (20:48)
[2016-11-26] MEDS: Acetaminophen/HYDROcodone 325-5 MG Tab PO PRN ×2 (00:22→13:50)
[2016-11-26] MEDS: Hydrochlorothiazide 12.5 MG Cap PO SCH ×2 (05:47→13:49)
[2016-11-26] MEDS: Magnesium Hydroxide 400 MG/5 ML Susp 30 ML Cup PO PRN (05:48)
[2016-11-26] MEDS: Insulin Aspart 100 Units/ML 3 ML Pen SUBCUT SCH ×3 (08:09→18:12)
[2016-11-26] MEDS: Potassium Chloride 20 MEQ Tab.ER PO SCH (08:10)
[2016-11-26] MEDS: Rosuvastatin 10 MG Tab PO SCH (08:11)
[2016-11-26] MEDS: Azithromycin 250 MG Tab PO SCH (08:11)
[2016-11-26] MEDS: Aspirin 81 MG Tab.EC PO SCH (08:11)
[2016-11-26] MEDS: Famotidine 20 MG Tab PO SCH ×2 (08:11→20:58)
[2016-11-26] MEDS: Tamsulosin 0.4 MG Cap.ER PO SCH (08:12)
[2016-11-26] MEDS: Carvedilol 3.125 MG Tab PO SCH ×2 (08:12→20:58)
[2016-11-26] MEDS: Cholecalciferol (Vitamin D3) 1,000 Unit Tab PO SCH (08:13)
[2016-11-26] MEDS: hydrALAZINE 10 MG Tab PO SCH ×3 (08:14→20:59)
[2016-11-26] MEDS: Docusate Sodium 100 MG Cap PO SCH (08:14)
[2016-11-26] MEDS: Isosorbide Mononitrate 30 MG Tab.ER PO SCH (08:14)
[2016-11-26] MEDS: Brimonidine 0.2% Ophth Soln 5 ML Bottle EYELF SCH ×2 (08:15→21:00)
--- NOTE | 2016-11-26 08:15 | PCM.PN ---
- General Info Date of Service: 11/26/16 Admission Dx/Problem (Free Text): Admission Diagnosis/Problem Admission Diagnosis/Problem Syncope and collapse Subjective Update: Follow Up Functional Status: Reports: Pain Controlled, Tolerating Diet, Ambulating, Urinating. Denies: New Symptoms - Review of Systems General: Denies: Fever, Weakness, Fatigue, Malaise, Chills HEENT: Reports: No Symptoms Pulmonary: Denies: Shortness of Breath Cardiovascular: Reports: Edema. Denies: Chest Pain, Dyspnea on Exertion, Lightheadedness Gastrointestinal: Denies: Abdominal Pain, Nausea, Vomiting Genitourinary: Reports: No Symptoms Musculoskeletal: Reports: No Symptoms Skin: Denies: Cyanosis, Mottled, Diaphoresis, Rash Neurological: Denies: Confusion, Difficulty Walking, Weakness, Gait Disturbance Psychiatric: Denies: Depression, Anxiety, Agitation, Hallucinations Systems Review Comment:: He had an uneventful night. He slept pretty good last night. He states " I absolutely feels good", hoping he could leave tomorrow. His chest pain has improved, rates it at 3/10 now. He has been ambulating w/o any issues. - Patient Data Vitals - Most Recent: Last Vital Signs Temp 36.5 C 11/26/16 05:44 Pulse 59 L 11/26/16 05:44 Resp 20 11/26/16 05:44 BP 116/55 L 11/26/16 05:44 Pulse Ox 96 11/26/16 05:44 Weight - Most Recent: 95.481 kg I&O - Last 24 Hours: Intake & Output 11/25/16 11/26/16 11/26/16 22:59 06:59 14:59 Intake Total 758 1106 Output Total 1000 600 Balance -242 506 Lab Results Last 24 Hours: Laboratory Results - last 24 hr 11/25/16 11/25/16 11/25/16 Range/Units 11:42 17:23 18:05 WBC (4.23-9.07) K/mm3 RBC (4.63-6.08) M/mm3 Hgb (13.7-17.5) gm/L Hct (40.1-51.0) % MCV (79.0-92.2) fl MCH (25.7-32.2) pg MCHC (32.2-35.5) g/dl RDW Std Deviation (35.1-43.9) fL Plt Count (163-337) K/mm3 MPV (9.4-12.3) fl Neut % (Auto) (34.0-67.9) % Lymph % (Auto) (21.8-53.1) % [place] % (Auto) (5.3-12.2) % Eos % (Auto) (0.8-7.0) Baso % (Auto) (0.1-1.2) % Neut # (Auto) (1.78-5.38) K/mm3 Lymph # (Auto) (1.32-3.57) K/mm3 [place] # (Auto) (0.30-0.82) K/mm3 Eos # (Auto) (0.04-0.54) K/mm3 Baso # (Auto) (0.01-0.08) K/mm3 PT (8.0-13.0) SECONDS INR Sodium 140 (136-145) mEq/L Potassium 4.5 (3.5-5.1) mEq/L Chloride 103 (98-107) mEq/L Carbon Dioxide 30 (21-32) mEq/L Anion Gap 11.5 (5-15) BUN 65 H (7-18) mg/dL Creatinine 2.4 H (0.7-1.3) mg/dL Est Cr Clr Drug Dosing 27.82 mL/min Estimated GFR (MDRD) 27 (>60) mL/min BUN/Creatinine Ratio 27.1 H (14-18) Glucose 158 H (83-115) mg/dL POC Glucose 155 H 156 H (83-110) mg/dL Calcium 9.2 (8.5-10.1) mg/dL Magnesium 2.3 (1.8-2.4) mg/dl C-Reactive Protein (<1.0) mg/dL NT-Pro-B Natriuret Pep (0-125) pg/mL 11/25/16 11/26/16 11/26/16 Range/Units 20:29 05:40 05:40 WBC 8.06 (4.23-9.07) K/mm3 RBC 3.90 L (4.63-6.08) M/mm3 Hgb 9.9 L (13.7-17.5) gm/L Hct 32.8 L (40.1-51.0) % MCV 84.1 (79.0-92.2) fl MCH 25.4 L (25.7-32.2) pg MCHC 30.2 L (32.2-35.5) g/dl RDW Std Deviation 49.0 H (35.1-43.9) fL Plt Count 320 (163-337) K/mm3 MPV 10.1 (9.4-12.3) fl Neut % (Auto) 54.5 (34.0-67.9) % Lymph % (Auto) 28.3 (21.8-53.1) % [place] % (Auto) 11.0 (5.3-12.2) % Eos % (Auto) 5.7 (0.8-7.0) Baso % (Auto) 0.4 (0.1-1.2) % Neut # (Auto) 4.39 (1.78-5.38) K/mm3 Lymph # (Auto) 2.28 (1.32-3.57) K/mm3 [place] # (Auto) 0.89 H (0.30-0.82) K/mm3 Eos # (Auto) 0.46 (0.04-0.54) K/mm3 Baso # (Auto) 0.03 (0.01-0.08) K/mm3 PT (8.0-13.0) SECONDS INR Sodium 139 (136-145) mEq/L Potassium 4.4 (3.5-5.1) mEq/L Chloride 102 (98-107) mEq/L Carbon Dioxide 28 (21-32) mEq/L Anion Gap 13.4 (5-15) BUN 74 H (7-18) mg/dL Creatinine 2.7 H (0.7-1.3) mg/dL Est Cr Clr Drug Dosing 24.73 mL/min Estimated GFR (MDRD) 23 (>60) mL/min BUN/Creatinine Ratio 27.4 H (14-18) Glucose 105 (83-115) mg/dL POC Glucose 177 H (83-110) mg/dL Calcium 9.5 (8.5-10.1) mg/dL Magnesium 2.5 H (1.8-2.4) mg/dl C-Reactive Protein 2.7 H* (<1.0) mg/dL NT-Pro-B Natriuret Pep (0-125) pg/mL 11/26/16 11/26/16 11/26/16 Range/Units 05:40 05:40 06:45 WBC (4.23-9.07) K/mm3 RBC (4.63-6.08) M/mm3 Hgb (13.7-17.5) gm/L Hct (40.1-51.0) % MCV (79.0-92.2) fl MCH (25.7-32.2) pg MCHC (32.2-35.5) g/dl RDW Std Deviation (35.1-43.9) fL Plt Count (163-337) K/mm3 MPV (9.4-12.3) fl Neut % (Auto) (34.0-67.9) % Lymph % (Auto) (21.8-53.1) % [place] % (Auto) (5.3-12.2) % Eos % (Auto) (0.8-7.0) Baso % (Auto) (0.1-1.2) % Neut # (Auto) (1.78-5.38) K/mm3 Lymph # (Auto) (1.32-3.57) K/mm3 [place] # (Auto) (0.30-0.82) K/mm3 Eos # (Auto) (0.04-0.54) K/mm3 Baso # (Auto) (0.01-0.08) K/mm3 PT 31.5 H (8.0-13.0) SECONDS INR 2.71 Sodium (136-145) mEq/L Potassium (3.5-5.1) mEq/L Chloride (98-107) mEq/L Carbon Dioxide (21-32) mEq/L Anion Gap (5-15) BUN (7-18) mg/dL Creatinine (0.7-1.3) mg/dL Est Cr Clr Drug Dosing mL/min Estimated GFR (MDRD) (>60) mL/min BUN/Creatinine Ratio (14-18) Glucose (83-115) mg/dL POC Glucose 115 H (83-110) mg/dL Calcium (8.5-10.1) mg/dL Magnesium (1.8-2.4) mg/dl C-Reactive Protein (<1.0) mg/dL NT-Pro-B Natriuret Pep 08035 H (0-125) pg/mL Brad Results Last 24 Hours: Microbiology 11/24/16 11:30 Streptococcus pneumoniae Antigen (M - Final Urine - Catheterized Med Orders - Current: Current Medications Acetaminophen (Tylenol) 650 mg PO Q4H PRN PRN Reason: Pain Hydrocodone Bitart/Acetaminophen (Epes 325-5 Mg) 1 tab PO Q4H PRN PRN Reason: Pain (moderate 4-6) Last Admin: 11/26/16 00:22 Dose: 1 tab Albuterol (Proventil Neb Soln) 2.5 mg NEB Q2H PRN PRN Reason: Shortness Of Breath/wheezing Aspirin (Halfprin) 81 mg PO DAILY [facility] Last Admin: 11/25/16 08:35 Dose: 81 mg Azithromycin (Zithromax) 500 mg PO DAILY [facility] Last Admin: 11/25/16 08:36 Dose: 500 mg Brimonidine Tartrate (Alphagan 0.2% Ophth Soln) 0 ml EYELF BID [facility] Last Admin: 11/25/16 20:44 Dose: 1 drop Carvedilol (Coreg) 3.125 mg PO BID [facility] Last Admin: 11/25/16 20:45 Dose: 3.125 mg Cholecalciferol (Vitamin D3) 5,000 units PO DAILY [facility] Last Admin: 11/25/16 08:34 Dose: 5,000 units Docusate Sodium (Colace) 100 mg PO DAILY [facility] Last Admin: 11/25/16 08:34 Dose: 100 mg Famotidine (Pepcid) 20 mg PO BID [facility] Last Admin: 11/25/16 20:48 Dose: 20 mg Ferrous Sulfate (Ferrous Sulfate) 325 mg PO BEDTIME [facility] Last Admin: 11/25/16 20:45 Dose: 325 mg Hydralazine HCl (Apresoline) 10 mg PO TID [facility] Last Admin: 11/25/16 20:45 Dose: 10 mg Hydralazine HCl (Apresoline) 10 mg IVPUSH Q4H PRN PRN Reason: Hypertension Hydrochlorothiazide (Hydrochlorothiazide) 12.5 mg PO BIDDIURETIC [facility] Last Admin: 11/26/16 05:47 Dose: 12.5 mg Hydromorphone HCl (Dilaudid) 0.5 mg IVPUSH Q4H PRN PRN Reason: Pain Ceftriaxone Sodium 1 gm/ (Sodium Chloride) 100 mls @ 200 mls/hr IV Q24H [facility] Last Admin: 11/25/16 12:47 Dose: 200 mls/hr Furosemide 100 mg/ Sodium (Chloride) 100 mls @ 3 mls/hr IV TITRATE [facility] PRN Reason: Protocol Stop: 11/26/16 21:00 Last Admin: 11/25/16 21:22 Dose: 5 mls/hr Insulin Aspart (Novolog) 3 unit SUBCUT TIDMEALS [facility] Last Admin: 11/25/16 17:24 Dose: 3 units Insulin Detemir (Levemir) 6 unit SUBCUT BID [facility] Last Admin: 11/25/16 20:46 Dose: 6 units Isosorbide Mononitrate (Imdur) 15 mg PO DAILY [facility] Last Admin: 11/25/16 08:37 Dose: 15 mg Lorazepam (Ativan) 0.5 mg PO Q4H PRN PRN Reason: restlessness Last Admin: 11/24/16 20:54 Dose: 0.5 mg Lorazepam (Ativan) 1 mg IVPUSH Q6H PRN; Protocol PRN Reason: Anxiety Lorazepam (Ativan) 2 mg IVPUSH Q4H PRN PRN Reason: Seizures Magnesium Hydroxide (Milk Of Magnesia) 30 ml PO Q12H PRN PRN Reason: Constipation Last Admin: 11/26/16 05:48 Dose: 30 ml Metoprolol Tartrate (Lopressor) 5 mg IVPUSH Q4H PRN PRN Reason: Tachycardia Naproxen (Naprosyn) 375 mg PO Q12HR [facility] Last Admin: 11/25/16 20:47 Dose: 375 mg Ondansetron HCl (Zofran Odt) 4 mg PO Q4H PRN PRN Reason: nausea, able to take PO Oxycodone HCl (Oxycodone) 5 mg PO Q4H PRN PRN Reason: Pain Last Admin: 11/25/16 21:20 Dose: 5 mg Potassium Chloride (Klor-Con M20) 40 meq PO DAILY [facility] Last Admin: 11/25/16 08:34 Dose: 40 meq Rosuvastatin Calcium (Crestor) 10 mg PO DAILY [facility] Last Admin: 11/25/16 08:34 Dose: 10 mg Sodium Chloride (Saline Flush) 10 ml FLUSH ASDIRECTED PRN PRN Reason: Keep Vein Open Tamsulosin HCl (Flomax) 0.4 mg PO DAILY [facility] Last Admin: 11/25/16 08:34 Dose: 0.4 mg Temazepam (Restoril) 15 mg PO BEDTIME PRN PRN Reason: Sleep Last Admin: 11/24/16 20:54 Dose: 15 mg Timolol Maleate (Timoptic 0.5% Ophth Soln) 0 ml EYELF BID [facility] Last Admin: 11/25/16 20:44 Dose: 1 drop Warfarin Sodium (Pharmacy To Dose - Warfarin) 1 dose .XX ASDIRECTED [facility] Warfarin Sodium (Coumadin) 5 mg PO [email or web address] [facility] Last Admin: 11/24/16 18:38 Dose: 5 mg Warfarin Sodium (Coumadin) 2.5 mg PO [email or web address] [facility] Last Admin: 11/25/16 17:25 Dose: 2.5 mg Discontinued Medications Furosemide (Lasix) 60 mg IVPUSH NOW ONE Stop: 11/24/16 01:17 Last Admin: 11/24/16 01:26 Dose: 60 mg Furosemide (Lasix) Confirm Administered Dose 40 mg .ROUTE .STK-MED ONE Stop: 11/24/16 01:32 Last Admin: 11/24/16 03:29 Dose: Not Given Furosemide (Lasix) 60 mg IVPUSH Q8HR [facility] Last Admin: 11/24/16 06:45 Dose: 60 mg Furosemide 100 mg/ Sodium (Chloride) 100 mls @ 2 mls/hr IV TITRATE [facility] PRN Reason: Protocol Stop: 11/26/16 19:00 Last Admin: 11/24/16 22:40 Dose: 2 mls/hr Insulin Detemir (Levemir) 12 unit SUBCUT ONETIME ONE Stop: 11/24/16 01:21 Last Admin: 11/24/16 01:42 Dose: 12 units Levofloxacin (Levaquin) 500 mg PO ONETIME ONE Stop: 11/24/16 01:19 Last Admin: 11/24/16 01:25 Dose: 500 mg Potassium Chloride (Klor-Con M20) 40 meq PO ONETIME ONE Stop: 11/24/16 03:16 Last Admin: 11/24/16 03:30 Dose: 40 meq - Exam General: Alert, Oriented, Cooperative, No Acute Distress HEENT: Pupils Equal, Pupils Reactive, EOMI, Mucous Membr. Moist/[place] Neck: Supple, Trachea Midline, No JVD Lungs: Clear to Auscultation, Normal Respiratory Effort Cardiovascular: Regular Rate, Regular Rhythm, Murmurs GI/Abdominal Exam: Normal Bowel Sounds, Soft, Non-Tender, No Organomegaly, No Distention (Male) Exam: Other (indwelling suprapubic catheter) Back Exam: Normal Inspection, Decreased Range of Motion Extremities: Normal Inspection, Normal Range of Motion, Pedal Edema, Other ( bilateral lower extremity edema 2+) Peripheral Pulses: 0: Dorsalis Pedis (L) (unable to palpate due to edema), Dorsalis Pedis (R) (unable to palpate due to edema) Skin: Warm, Dry, Intact Wound/Incisions: Healing Well, Dressing Dry and Intact, No Drainage, Other ( skin break on left hand) Neurological: No New Focal Deficit Psy/Mental Status: Alert, Normal Affect, Normal Mood - Problem List Review Problem List Initiated/Reviewed/Updated: Yes - My Orders Last 24 Hours: My Active Orders 11/25/16 08:00 EKG 12 Lead [EK] Routine 11/25/16 09:00 Furosemide [Lasix] 100 mg Sodium Chloride 0.9% [Normal Saline] 90 ml IV TITRATE Hydrochlorothiazide 12.5 mg PO BIDDIURETIC 11/25/16 10:00 Naproxen [Naprosyn] 375 mg PO Q12HR 11/25/16 21:00 Famotidine [Pepcid] 20 mg PO BID 11/27/16 05:11 PRO B-TYPE NATRIUR PEPT,BNPPRO [CHEM] DAILY 11/28/16 05:11 PRO B-TYPE NATRIUR PEPT,BNPPRO [CHEM] DAILY 11/29/16 05:11 PRO B-TYPE NATRIUR PEPT,BNPPRO [CHEM] DAILY - Plan Plan:: Impression/Hodges: CHF Exacerbation, Improving slowly - proBNP > 22,000 --> 98840 --> [id number] - CXR: Significant Cardiomegaly with Small Pleural Effusions: Hold off CT scan, may consider tomorrow vs repeat CXR - Rec'd IVP lasix in ED - Continue lasix drip with reduced rate at 5 units per ml/hr - CM/Nursing: to obtain most recent Echo and Cardiology records-pending - Patient has seen Cardiology within the last week, Dr. Anand; patient states was mentioned about possible "pacemaker" in the future - Continue Antione hose, 2L Fluid and 2 grams Salt daily restriction - [employer] consulted - He gained 2lbs today, not sure why: continue treatment Chest Pain, Improved - 2/2 MSK - Reproducible with manual palpation - Continue Naproxen 375 mg po BID for anti-inflammation - EKG shows no acute ST-T wave changes: baseline LB3 and irregular atrial rhythm UTI-Suprapubic Catheter Related - E. coli positive - Susceptible to Rocephin; Continue IV ATB; d/c after 3 doses of IV ATB Mycoplasma Pneumoniae IgM Positive - Associated Disease vs False Positive - Clinically he has no signs of systemic infection - He is afebrile w/o leukocytosis - He is off supplemental O2 and no respiratory issues - Continue oral Azithromycin; d/c after 3 doses of oral ATB CKD- stage 4, Stable - Creatinine and GFR, improved slightly this am - Follows with [employer], Dr. Sage- saw him last this week; had adjusted /increased lasix dose per patient - Cont to follow renal function closely during stay; caution with diuresis - Patient aware of renal status vs heart failure treatment scenario and understanding of risks vs benefits Resolved: S/p Syncope: etiology uncertain- suspect r/t CHF exacerbation - Telemetry: No malignant rhythm except of atrial fibrillation - Still waiting for his most recent echo results - Patient is s/p CEA - He is A&O x 3, no apparent cognitive defects- Head CT negative in ED - He states he took 2 tabs of sleeping pills (Ambien 5 mg po HS) told by his specialist, he felt this was why he passed out Chronic: IDDM- 7.8 A1C, Cont home insulin/meds, Accu-checks AC/HS, Stable BS HTN- cont home meds HLD- cont home meds GERD/GI prophylaxis H2B Iron def anemia- likely 2/2 renal disease, cont iron supplement, stable ischemic cardiomyopathy- on hydralazine and imdur, will continue Afib- on coumadin, therapeutic INR, cont to follow INR daily Other: He remains clinically stable Routine AM Labs Repeat Lab at 1900 Continue PT/OT; IS/RT GI/DVT Prophylaxis: H2B/Coumadin as above/Teds/ASA CM/SW for assist with DC planning- plans DC to brother's house when medically stable. Brother will help care for him Additional orders as above Patient is DNR/DNI Possible d/c in 2 days, he requires more treatment
[2016-11-26] MEDS: Timolol Maleate 0.5% Ophth Soln 5 ML Bottle EYELF SCH ×2 (08:16→21:00)
[2016-11-26] MEDS: Insulin Detemir 100 Units/ML 3 ML Pen SUBCUT SCH ×2 (08:17→21:09)
[2016-11-26] MEDS: cefTRIAXone 1 GM in Sodium Chloride 0.9% 100 ML IV SCH (12:02)
[2016-11-26] MEDS: oxyCODONE 5 MG Tab PO PRN (15:11)
[2016-11-26] MEDS: LORazepam 0.5 MG Tab PO PRN ×2 (16:09→22:28)
--- NOTE | 2016-11-26 18:06 | CT ---
Head CT Technique: Multiple axial sections through the brain were obtained. Intravenous contrast was not utilized. Comparison: No previous intracranial imaging. Findings: Ventricles along with basal cisterns and sulci over the convexities as well as sulci over the cerebellum are moderately prominent. Mild diminished density noted within the periventricular and subcortical white matter compatible with small vessel ischemic demyelination change. Small infarct noted within the white matter within the left parietal region anteriorly. No other abnormal parenchymal densities are seen. No evidence of intracranial hemorrhage. No midline shift or mass effect is seen. Atherosclerotic calcification noted within the vertebral vessels and within the carotid siphon. Bone window settings were reviewed which show no acute calvarial abnormality. Mucosal thickening or retention cyst noted within the right side of the sphenoid sinus measuring about 1.1 cm which is felt to be chronic. Impression: 1. Senescent change as noted above. Minimal sinus finding. 2. No acute intracranial abnormality is identified. Diagnostic code #2 I agree with preliminary report issued by [facility] ([facility] report finalized on 11/24/16, 12:57 AM Central Time)
[2016-11-26] MEDS: Warfarin 2.5 MG Tab PO SCH (18:12)
[2016-11-26] MEDS: Ferrous Sulfate 325 MG Tab PO SCH (20:58)
[2016-11-26] MEDS: Furosemide 100 MG in Sodium Chloride 0.9% 90 ML IV SCH (21:06)
[2016-11-27] MEDS: Hydrochlorothiazide 12.5 MG Cap PO SCH ×2 (06:36→14:21)
[2016-11-27] MEDS: Insulin Aspart 100 Units/ML 3 ML Pen SUBCUT SCH ×3 (06:37→18:06)
[2016-11-27] MEDS: Magnesium Hydroxide 400 MG/5 ML Susp 30 ML Cup PO PRN (06:40)
[2016-11-27] MEDS: Cholecalciferol (Vitamin D3) 1,000 Unit Tab PO SCH (09:16)
[2016-11-27] MEDS: Potassium Chloride 20 MEQ Tab.ER PO SCH (09:16)
[2016-11-27] MEDS: Isosorbide Mononitrate 30 MG Tab.ER PO SCH (09:17)
[2016-11-27] MEDS: Tamsulosin 0.4 MG Cap.ER PO SCH (09:18)
[2016-11-27] MEDS: Azithromycin 250 MG Tab PO SCH (09:18)
[2016-11-27] MEDS: Famotidine 20 MG Tab PO SCH (09:18)
[2016-11-27] MEDS: Carvedilol 3.125 MG Tab PO SCH ×2 (09:18→20:05)
[2016-11-27] MEDS: Aspirin 81 MG Tab.EC PO SCH (09:18)
[2016-11-27] MEDS: hydrALAZINE 10 MG Tab PO SCH ×3 (09:18→20:04)
[2016-11-27] MEDS: Docusate Sodium 100 MG Cap PO SCH (09:18)
[2016-11-27] MEDS: Rosuvastatin 10 MG Tab PO SCH (09:18)
[2016-11-27] MEDS: Brimonidine 0.2% Ophth Soln 5 ML Bottle EYELF SCH ×2 (09:26→20:05)
[2016-11-27] MEDS: Timolol Maleate 0.5% Ophth Soln 5 ML Bottle EYELF SCH ×2 (09:26→20:05)
[2016-11-27] MEDS: Insulin Detemir 100 Units/ML 3 ML Pen SUBCUT SCH ×2 (09:27→20:06)
--- NOTE | 2016-11-27 12:22 | PCM.PN ---
<Rico Martin - Last Filed: 11/27/16 12:55> - General Info Date of Service: 11/27/16 Admission Dx/Problem (Free Text): Admission Diagnosis/Problem Admission Diagnosis/Problem Syncope and collapse Subjective Update: Follow Up Functional Status: Reports: Pain Controlled, Tolerating Diet, Ambulating, Urinating, Incentive Spirometry. Denies: New Symptoms - Review of Systems General: Reports: No Symptoms. Denies: Fever, Weakness, Fatigue, Malaise, Chills HEENT: Reports: No Symptoms. Denies: Headaches, Sore Throat Pulmonary: Reports: No Symptoms. Denies: Shortness of Breath, Pleuritic Chest Pain, Cough, Sputum, Wheezing Cardiovascular: Reports: No Symptoms, Edema. Denies: Chest Pain, Palpitations, Dyspnea on Exertion Gastrointestinal: Reports: No Symptoms, Constipation (Feels like he will have a BM today. "Things are moving"). Denies: Abdominal Pain, Diarrhea, Nausea, Vomiting Genitourinary: Reports: No Symptoms. Denies: Dysuria, Frequency, Burning, Pain Musculoskeletal: Reports: No Symptoms. Denies: Neck Pain, Shoulder Pain, Arm Pain Skin: Reports: No Symptoms. Denies: Cyanosis, Jaundice, Mottled, Rash Neurological: Reports: No Symptoms. Denies: Confusion, Dizziness, Headache, Numbness, Difficulty Walking, Weakness, Gait Disturbance Psychiatric: Reports: No Symptoms. Denies: Confusion, Depression, Mood Lability Systems Review Comment:: Patient reports he had a good night and feels better now than he has in a long time. He did report some leg pain last night but states it is resolved now. Denies any chest pain or shortness of breath. He would like to go home today, however after discussion he agrees to wait till tomorrow pending lab results. - Patient Data Vitals - Most Recent: Last Vital Signs Temp 97.9 F 11/27/16 07:51 Pulse 75 11/27/16 07:51 Resp 16 11/27/16 07:51 BP 114/71 11/27/16 07:51 Pulse Ox 95 11/27/16 07:51 Weight - Most Recent: 95.844 kg I&O - Last 24 Hours: Intake & Output 11/26/16 11/27/16 11/27/16 22:59 06:59 14:59 Intake Total 1093 189 120 Output Total 700 750 900 Balance 829 -538 -317 Lab Results Last 24 Hours: Laboratory Results - last 24 hr 11/26/16 11/26/16 11/26/16 Range/Units 16:50 19:10 20:56 WBC (4.23-9.07) K/mm3 RBC (4.63-6.08) M/mm3 Hgb (13.7-17.5) gm/L Hct (40.1-51.0) % MCV (79.0-92.2) fl MCH (25.7-32.2) pg MCHC (32.2-35.5) g/dl RDW Std Deviation (35.1-43.9) fL Plt Count (163-337) K/mm3 MPV (9.4-12.3) fl Neut % (Auto) (34.0-67.9) % Lymph % (Auto) (21.8-53.1) % [place] % (Auto) (5.3-12.2) % Eos % (Auto) (0.8-7.0) Baso % (Auto) (0.1-1.2) % Neut # (Auto) (1.78-5.38) K/mm3 Lymph # (Auto) (1.32-3.57) K/mm3 [place] # (Auto) (0.30-0.82) K/mm3 Eos # (Auto) (0.04-0.54) K/mm3 Baso # (Auto) (0.01-0.08) K/mm3 PT (8.0-13.0) SECONDS INR Sodium 141 (136-145) mEq/L Potassium 4.9 (3.5-5.1) mEq/L Chloride 104 (98-107) mEq/L Carbon Dioxide 29 (21-32) mEq/L Anion Gap 12.9 (5-15) BUN 73 H (7-18) mg/dL Creatinine 3.0 H (0.7-1.3) mg/dL Est Cr Clr Drug Dosing 22.26 mL/min Estimated GFR (MDRD) 21 (>60) mL/min BUN/Creatinine Ratio 24.3 H (14-18) Glucose 162 H (83-115) mg/dL POC Glucose 124 H 169 H (83-110) mg/dL Calcium 9.2 (8.5-10.1) mg/dL Magnesium (1.8-2.4) mg/dl C-Reactive Protein (<1.0) mg/dL NT-Pro-B Natriuret Pep (0-125) pg/mL 11/27/16 11/27/16 11/27/16 Range/Units 05:46 05:46 05:46 WBC 8.17 (4.23-9.07) K/mm3 RBC 3.52 L (4.63-6.08) M/mm3 Hgb 9.2 L (13.7-17.5) gm/L Hct 29.6 L (40.1-51.0) % MCV 84.1 (79.0-92.2) fl MCH 26.1 (25.7-32.2) pg MCHC 31.1 L (32.2-35.5) g/dl RDW Std Deviation 48.3 H (35.1-43.9) fL Plt Count 277 (163-337) K/mm3 MPV 9.4 (9.4-12.3) fl Neut % (Auto) 61.7 (34.0-67.9) % Lymph % (Auto) 22.4 (21.8-53.1) % [place] % (Auto) 10.3 (5.3-12.2) % Eos % (Auto) 4.9 (0.8-7.0) Baso % (Auto) 0.5 (0.1-1.2) % Neut # (Auto) 5.04 (1.78-5.38) K/mm3 Lymph # (Auto) 1.83 (1.32-3.57) K/mm3 [place] # (Auto) 0.84 H (0.30-0.82) K/mm3 Eos # (Auto) 0.40 (0.04-0.54) K/mm3 Baso # (Auto) 0.04 (0.01-0.08) K/mm3 PT 34.3 H (8.0-13.0) SECONDS INR 2.94 Sodium 142 (136-145) mEq/L Potassium 4.2 (3.5-5.1) mEq/L Chloride 105 (98-107) mEq/L Carbon Dioxide 29 (21-32) mEq/L Anion Gap 12.2 (5-15) BUN 75 H (7-18) mg/dL Creatinine 3.0 H (0.7-1.3) mg/dL Est Cr Clr Drug Dosing 22.26 mL/min Estimated GFR (MDRD) 21 (>60) mL/min BUN/Creatinine Ratio 25.0 H (14-18) Glucose 77 L (83-115) mg/dL POC Glucose (83-110) mg/dL Calcium 9.6 (8.5-10.1) mg/dL Magnesium 2.7 H (1.8-2.4) mg/dl C-Reactive Protein 2.5 H* (<1.0) mg/dL NT-Pro-B Natriuret Pep (0-125) pg/mL 11/27/16 11/27/16 11/27/16 Range/Units 05:46 06:32 11:05 WBC (4.23-9.07) K/mm3 RBC (4.63-6.08) M/mm3 Hgb (13.7-17.5) gm/L Hct (40.1-51.0) % MCV (79.0-92.2) fl MCH (25.7-32.2) pg MCHC (32.2-35.5) g/dl RDW Std Deviation (35.1-43.9) fL Plt Count (163-337) K/mm3 MPV (9.4-12.3) fl Neut % (Auto) (34.0-67.9) % Lymph % (Auto) (21.8-53.1) % [place] % (Auto) (5.3-12.2) % Eos % (Auto) (0.8-7.0) Baso % (Auto) (0.1-1.2) % Neut # (Auto) (1.78-5.38) K/mm3 Lymph # (Auto) (1.32-3.57) K/mm3 [place] # (Auto) (0.30-0.82) K/mm3 Eos # (Auto) (0.04-0.54) K/mm3 Baso # (Auto) (0.01-0.08) K/mm3 PT (8.0-13.0) SECONDS INR Sodium (136-145) mEq/L Potassium (3.5-5.1) mEq/L Chloride (98-107) mEq/L Carbon Dioxide (21-32) mEq/L Anion Gap (5-15) BUN (7-18) mg/dL Creatinine (0.7-1.3) mg/dL Est Cr Clr Drug Dosing mL/min Estimated GFR (MDRD) (>60) mL/min BUN/Creatinine Ratio (14-18) Glucose (83-115) mg/dL POC Glucose 69 L 85 (83-110) mg/dL Calcium (8.5-10.1) mg/dL Magnesium (1.8-2.4) mg/dl C-Reactive Protein (<1.0) mg/dL NT-Pro-B Natriuret Pep 98130 H (0-125) pg/mL Med Orders - Current: Current Medications Acetaminophen (Tylenol) 650 mg PO Q4H PRN PRN Reason: Pain Hydrocodone Bitart/Acetaminophen (Nicasio 325-5 Mg) 1 tab PO Q4H PRN PRN Reason: Pain (moderate 4-6) Last Admin: 11/26/16 13:50 Dose: 1 tab Albuterol (Proventil Neb Soln) 2.5 mg NEB Q2H PRN PRN Reason: Shortness Of Breath/wheezing Aspirin (Halfprin) 81 mg PO DAILY [facility] Last Admin: 11/27/16 09:18 Dose: 81 mg Brimonidine Tartrate (Alphagan 0.2% Ophth Soln) 0 ml EYELF BID [facility] Last Admin: 11/27/16 09:26 Dose: 1 drop Carvedilol (Coreg) 3.125 mg PO BID [facility] Last Admin: 11/27/16 09:18 Dose: 3.125 mg Cholecalciferol (Vitamin D3) 5,000 units PO DAILY [facility] Last Admin: 11/27/16 09:16 Dose: 5,000 units Docusate Sodium (Colace) 100 mg PO DAILY [facility] Last Admin: 11/27/16 09:18 Dose: 100 mg Famotidine (Pepcid) 20 mg PO DAILY [facility] Last Admin: 11/27/16 09:18 Dose: 20 mg Ferrous Sulfate (Ferrous Sulfate) 325 mg PO BEDTIME [facility] Last Admin: 11/26/16 20:58 Dose: 325 mg Furosemide (Lasix) 60 mg PO BIDDIURETIC [facility] Hydralazine HCl (Apresoline) 10 mg PO TID [facility] Last Admin: 11/27/16 09:18 Dose: 10 mg Hydralazine HCl (Apresoline) 10 mg IVPUSH Q4H PRN PRN Reason: Hypertension Hydrochlorothiazide (Hydrochlorothiazide) 12.5 mg PO BIDDIURETIC [facility] Last Admin: 11/27/16 06:36 Dose: 12.5 mg Hydromorphone HCl (Dilaudid) 0.5 mg IVPUSH Q4H PRN PRN Reason: Pain Insulin Aspart (Novolog) 3 unit SUBCUT TIDMEALS [facility] Last Admin: 11/27/16 11:08 Dose: Not Given Insulin Detemir (Levemir) 6 unit SUBCUT BID [facility] Last Admin: 11/27/16 09:27 Dose: 6 units Isosorbide Mononitrate (Imdur) 15 mg PO DAILY [facility] Last Admin: 11/27/16 09:17 Dose: 15 mg Lorazepam (Ativan) 0.5 mg PO Q4H PRN PRN Reason: restlessness Last Admin: 11/26/16 22:28 Dose: 0.5 mg Lorazepam (Ativan) 1 mg IVPUSH Q6H PRN; Protocol PRN Reason: Anxiety Lorazepam (Ativan) 2 mg IVPUSH Q4H PRN PRN Reason: Seizures Magnesium Hydroxide (Milk Of Magnesia) 30 ml PO Q12H PRN PRN Reason: Constipation Last Admin: 11/27/16 06:40 Dose: 30 ml Metoprolol Tartrate (Lopressor) 5 mg IVPUSH Q4H PRN PRN Reason: Tachycardia Naproxen (Naprosyn) 375 mg PO Q12HR [facility] Last Admin: 11/27/16 09:26 Dose: 375 mg Ondansetron HCl (Zofran Odt) 4 mg PO Q4H PRN PRN Reason: nausea, able to take PO Oxycodone HCl (Oxycodone) 5 mg PO Q4H PRN PRN Reason: Pain Last Admin: 11/26/16 15:11 Dose: 5 mg Potassium Chloride (Klor-Con M20) 40 meq PO DAILY [facility] Last Admin: 11/27/16 09:16 Dose: 40 meq Rosuvastatin Calcium (Crestor) 10 mg PO DAILY [facility] Last Admin: 11/27/16 09:18 Dose: 10 mg Sodium Chloride (Saline Flush) 10 ml FLUSH ASDIRECTED PRN PRN Reason: Keep Vein Open Tamsulosin HCl (Flomax) 0.4 mg PO DAILY [facility] Last Admin: 11/27/16 09:18 Dose: 0.4 mg Temazepam (Restoril) 15 mg PO BEDTIME PRN PRN Reason: Sleep Last Admin: 11/24/16 20:54 Dose: 15 mg Timolol Maleate (Timoptic 0.5% Ophth Soln) 0 ml EYELF BID [facility] Last Admin: 11/27/16 09:26 Dose: 1 drop Warfarin Sodium (Pharmacy To Dose - Warfarin) 1 dose .XX ASDIRECTED [facility] Warfarin Sodium (Coumadin) 5 mg PO [email or web address]@1800 [facility] Last Admin: 11/24/16 18:38 Dose: 5 mg Warfarin Sodium (Coumadin) 2.5 mg PO [email or web address]@1800 [facility] Last Admin: 11/26/16 18:12 Dose: 2.5 mg Discontinued Medications Azithromycin (Zithromax) 500 mg PO DAILY [facility] Last Admin: 11/27/16 09:18 Dose: 500 mg Famotidine (Pepcid) 20 mg PO BID [facility] Last Admin: 11/26/16 20:58 Dose: 20 mg Furosemide (Lasix) 60 mg IVPUSH NOW ONE Stop: 11/24/16 01:17 Last Admin: 11/24/16 01:26 Dose: 60 mg Furosemide (Lasix) Confirm Administered Dose 40 mg .ROUTE .STK-MED ONE Stop: 11/24/16 01:32 Last Admin: 11/24/16 03:29 Dose: Not Given Furosemide (Lasix) 60 mg IVPUSH Q8HR [facility] Last Admin: 11/24/16 06:45 Dose: 60 mg Ceftriaxone Sodium 1 gm/ (Sodium Chloride) 100 mls @ 200 mls/hr IV Q24H [facility] Last Admin: 11/26/16 12:02 Dose: 200 mls/hr Furosemide 100 mg/ Sodium (Chloride) 100 mls @ 2 mls/hr IV TITRATE [facility] PRN Reason: Protocol Stop: 11/26/16 19:00 Last Admin: 11/24/16 22:40 Dose: 2 mls/hr Furosemide 100 mg/ Sodium (Chloride) 100 mls @ 3 mls/hr IV TITRATE [facility] PRN Reason: Protocol Stop: 11/27/16 09:00 Last Admin: 11/26/16 21:06 Dose: 3 mls/hr Insulin Detemir (Levemir) 12 unit SUBCUT ONETIME ONE Stop: 11/24/16 01:21 Last Admin: 11/24/16 01:42 Dose: 12 units Levofloxacin (Levaquin) 500 mg PO ONETIME ONE Stop: 11/24/16 01:19 Last Admin: 11/24/16 01:25 Dose: 500 mg Potassium Chloride (Klor-Con M20) 40 meq PO ONETIME ONE Stop: 11/24/16 03:16 Last Admin: 11/24/16 03:30 Dose: 40 meq - Exam Quality Assessment: Urine Catheter (Suprapubic), DVT Prophylaxis General: Alert, Oriented, Cooperative, No Acute Distress HEENT: Pupils Equal, Pupils Reactive, Mucous Membr. Moist/[place] Neck: Supple, Trachea Midline, No JVD Lungs: Normal Respiratory Effort, Rhonchi (RLQ). No: Wheezing Cardiovascular: Regular Rate, Regular Rhythm GI/Abdominal Exam: Normal Bowel Sounds, Soft, Non-Tender, No Distention, No Mass (Male) Exam: Deferred Back Exam: Normal Inspection, Decreased Range of Motion Extremities: Normal Range of Motion, Non-Tender, Normal Capillary Refill, Pedal Edema (2+) Peripheral Pulses: 0: Dorsalis Pedis (L) (Unable to palpate due to edema), Dorsalis Pedis (R) (Unable to palpate due to edema), 2+: Radial (L), Radial (R) Skin: Warm, Dry, Intact Wound/Incisions: Dressing Dry and Intact, No Drainage Neurological: No New Focal Deficit, Normal Gait, Normal Speech, Normal Tone Psy/Mental Status: Alert, Normal Affect, Normal Mood Physical Findings Comments:: Patient is sitting in chair eating. Discussed labs with patient as his BNP continues to lower. His weight has fluctuated somewhat and there is some question Will restart his oral home Lasix today and monitor. He does have some new rhonchi in his right lower quadrant. CXR ordered. Denies any cough or difficulty breathing. Will continue to monitor. - Problem List & Annotations (1) CHF, Congestive heart failure SNOMED Code(s): 94795237 Code(s): I50.9 - HEART FAILURE, UNSPECIFIED Status: Acute Priority: High Current Visit: Yes (2) Hypokalemia SNOMED Code(s): 91255766 Code(s): E87.6 - HYPOKALEMIA Status: Acute Priority: High Current Visit : Yes (3) Syncope and collapse SNOMED Code(s): 007014553 Code(s): R55 - SYNCOPE AND COLLAPSE Status: Resolved Priority: High Current Visit: Yes (4) Chronic renal insufficiency, stage IV (severe) SNOMED Code(s): 82388629 Code(s): N18.4 - CHRONIC KIDNEY DISEASE, STAGE 4 (SEVERE) Status: Chronic Priority: High Current Visit: Yes (5) Musculoskeletal chest pain SNOMED Code(s): 520707305 Code(s): R07.89 - OTHER CHEST PAIN Status: Resolved Current Visit: No - Problem List Review Problem List Initiated/Reviewed/Updated: Yes - My Orders Last 24 Hours: My Active Orders 11/27/16 14:00 Furosemide [Lasix] 60 mg PO BIDDIURETIC - Plan Plan:: Impression/Hodges: CHF Exacerbation, Improving slowly - proBNP > 22,000 --> 21380 --> 14213-->33500 - CXR: Significant Cardiomegaly with Small Pleural Effusions: Hold off CT scan, repeat CXR ordered today, pending read - Rec'd IVP lasix in ED - Continue lasix drip with reduced rate at 5 units per ml/hr -Discontinued today, will resume home lasix and monitor - CM/Nursing: to obtain most recent Echo and Cardiology records-pending - Patient has seen Cardiology within the last week, Dr. Anand; patient states was mentioned about possible "pacemaker" in the future - Continue Antione hose, 2L Fluid and 2 grams Salt daily restriction - Manager Client Support consulted - He is down 1 pound today. Weight has fluctuated. BNP is improved and vital signs are stable. Will continue to monitor. UTI-Suprapubic Catheter Related - E. coli positive - Susceptible to Rocephin; Continue IV ATB; d/c after 3 doses of IV ATB - discontinued today Mycoplasma Pneumoniae IgM Positive - Associated Disease vs False Positive - Clinically he has no signs of systemic infection - He is afebrile w/o leukocytosis - He is off supplemental O2 and no respiratory issues - Continue oral Azithromycin; d/c after 3 doses of oral ATB - discontinued today. CKD- stage 4, Stable - Creatinine and GFR stable - Follows with Corporate Affairs Manager, Dr. Sage- saw him last this week; had adjusted /increased lasix dose per patient - Cont to follow renal function closely during stay; caution with diuresis - Patient aware of renal status vs heart failure treatment scenario and understanding of risks vs benefits Resolved: S/p Syncope: etiology uncertain- suspect r/t CHF exacerbation - Telemetry: No malignant rhythm except of atrial fibrillation - Still waiting for his most recent echo results - Patient is s/p CEA - He is A&O x 3, no apparent cognitive defects- Head CT negative in ED - He states he took 2 tabs of sleeping pills (Ambien 5 mg po HS) told by his specialist, he felt this was why he passed out Chest Pain - 2/2 MSK - Reproducible with manual palpation - Continue Naproxen 375 mg po BID for anti-inflammation - EKG shows no acute ST-T wave changes: baseline LB3 and irregular atrial rhythm Chronic: IDDM- 7.8 A1C, Cont home insulin/meds, Accu-checks AC/HS, Stable BS HTN- cont home meds HLD- cont home meds GERD/GI prophylaxis H2B Iron def anemia- likely 2/2 renal disease, cont iron supplement, stable ischemic cardiomyopathy- on hydralazine and imdur, will continue Afib- on coumadin, therapeutic INR, cont to follow INR daily Other: He remains clinically stable Routine AM Labs Repeat Lab at 1900 Continue PT/OT; IS/RT GI/DVT Prophylaxis: H2B/Coumadin as above/Teds/ASA CM/SW for assist with DC planning- plans DC to brother's house when medically stable. Brother will help care for him Additional orders as above Patient is DNR/DNI Possible d/c tomorrow pending lab work and continued improvement, he requires more treatment <Wil Saravia T - Last Filed: 11/27/16 16:09> - Patient Data Vitals - Most Recent: Last Vital Signs Temp 37.0 C 11/27/16 11:56 Pulse 76 11/27/16 11:56 Resp 18 11/27/16 11:56 BP 124/60 11/27/16 11:56 Pulse Ox 98 11/27/16 11:56 I&O - Last 24 Hours: Intake & Output 11/27/16 11/27/16 11/27/16 06:59 14:59 22:59 Intake Total 189 480 Output Total 750 900 Balance -561 -420 Lab Results Last 24 Hours: Laboratory Results - last 24 hr 11/26/16 11/26/16 11/26/16 Range/Units 16:50 19:10 20:56 WBC (4.23-9.07) K/mm3 RBC (4.63-6.08) M/mm3 Hgb (13.7-17.5) gm/L Hct (40.1-51.0) % MCV (79.0-92.2) fl MCH (25.7-32.2) pg MCHC (32.2-35.5) g/dl RDW Std Deviation (35.1-43.9) fL Plt Count (163-337) K/mm3 MPV (9.4-12.3) fl Neut % (Auto) (34.0-67.9) % Lymph % (Auto) (21.8-53.1) % [place] % (Auto) (5.3-12.2) % Eos % (Auto) (0.8-7.0) Baso % (Auto) (0.1-1.2) % Neut # (Auto) (1.78-5.38) K/mm3 Lymph # (Auto) (1.32-3.57) K/mm3 [place] # (Auto) (0.30-0.82) K/mm3 Eos # (Auto) (0.04-0.54) K/mm3 Baso # (Auto) (0.01-0.08) K/mm3 PT (8.0-13.0) SECONDS INR Sodium 141 (136-145) mEq/L Potassium 4.9 (3.5-5.1) mEq/L Chloride 104 (98-107) mEq/L Carbon Dioxide 29 (21-32) mEq/L Anion Gap 12.9 (5-15) BUN 73 H (7-18) mg/dL Creatinine 3.0 H (0.7-1.3) mg/dL Est Cr Clr Drug Dosing 22.26 mL/min Estimated GFR (MDRD) 21 (>60) mL/min BUN/Creatinine Ratio 24.3 H (14-18) Glucose 162 H (83-115) mg/dL POC Glucose 124 H 169 H (83-110) mg/dL Calcium 9.2 (8.5-10.1) mg/dL Magnesium (1.8-2.4) mg/dl C-Reactive Protein (<1.0) mg/dL NT-Pro-B Natriuret Pep (0-125) pg/mL 11/27/16 11/27/16 11/27/16 Range/Units 05:46 05:46 05:46 WBC 8.17 (4.23-9.07) K/mm3 RBC 3.52 L (4.63-6.08) M/mm3 Hgb 9.2 L (13.7-17.5) gm/L Hct 29.6 L (40.1-51.0) % MCV 84.1 (79.0-92.2) fl MCH 26.1 (25.7-32.2) pg MCHC 31.1 L (32.2-35.5) g/dl RDW Std Deviation 48.3 H (35.1-43.9) fL Plt Count 277 (163-337) K/mm3 MPV 9.4 (9.4-12.3) fl Neut % (Auto) 61.7 (34.0-67.9) % Lymph % (Auto) 22.4 (21.8-53.1) % [place] % (Auto) 10.3 (5.3-12.2) % Eos % (Auto) 4.9 (0.8-7.0) Baso % (Auto) 0.5 (0.1-1.2) % Neut # (Auto) 5.04 (1.78-5.38) K/mm3 Lymph # (Auto) 1.83 (1.32-3.57) K/mm3 [place] # (Auto) 0.84 H (0.30-0.82) K/mm3 Eos # (Auto) 0.40 (0.04-0.54) K/mm3 Baso # (Auto) 0.04 (0.01-0.08) K/mm3 PT 34.3 H (8.0-13.0) SECONDS INR 2.94 Sodium 142 (136-145) mEq/L Potassium 4.2 (3.5-5.1) mEq/L Chloride 105 (98-107) mEq/L Carbon Dioxide 29 (21-32) mEq/L Anion Gap 12.2 (5-15) BUN 75 H (7-18) mg/dL Creatinine 3.0 H (0.7-1.3) mg/dL Est Cr Clr Drug Dosing 22.26 mL/min Estimated GFR (MDRD) 21 (>60) mL/min BUN/Creatinine Ratio 25.0 H (14-18) Glucose 77 L (83-115) mg/dL POC Glucose (83-110) mg/dL Calcium 9.6 (8.5-10.1) mg/dL Magnesium 2.7 H (1.8-2.4) mg/dl C-Reactive Protein 2.5 H* (<1.0) mg/dL NT-Pro-B Natriuret Pep (0-125) pg/mL 11/27/16 11/27/16 11/27/16 Range/Units 05:46 06:32 11:05 WBC (4.23-9.07) K/mm3 RBC (4.63-6.08) M/mm3 Hgb (13.7-17.5) gm/L Hct (40.1-51.0) % MCV (79.0-92.2) fl MCH (25.7-32.2) pg MCHC (32.2-35.5) g/dl RDW Std Deviation (35.1-43.9) fL Plt Count (163-337) K/mm3 MPV (9.4-12.3) fl Neut % (Auto) (34.0-67.9) % Lymph % (Auto) (21.8-53.1) % [place] % (Auto) (5.3-12.2) % Eos % (Auto) (0.8-7.0) Baso % (Auto) (0.1-1.2) % Neut # (Auto) (1.78-5.38) K/mm3 Lymph # (Auto) (1.32-3.57) K/mm3 [place] # (Auto) (0.30-0.82) K/mm3 Eos # (Auto) (0.04-0.54) K/mm3 Baso # (Auto) (0.01-0.08) K/mm3 PT (8.0-13.0) SECONDS INR Sodium (136-145) mEq/L Potassium (3.5-5.1) mEq/L Chloride (98-107) mEq/L Carbon Dioxide (21-32) mEq/L Anion Gap (5-15) BUN (7-18) mg/dL Creatinine (0.7-1.3) mg/dL Est Cr Clr Drug Dosing mL/min Estimated GFR (MDRD) (>60) mL/min BUN/Creatinine Ratio (14-18) Glucose (83-115) mg/dL POC Glucose 69 L 85 (83-110) mg/dL Calcium (8.5-10.1) mg/dL Magnesium (1.8-2.4) mg/dl C-Reactive Protein (<1.0) mg/dL NT-Pro-B Natriuret Pep 97337 H (0-125) pg/mL Med Orders - Current: Current Medications Acetaminophen (Tylenol) 650 mg PO Q4H PRN PRN Reason: Pain Hydrocodone Bitart/Acetaminophen ([place] 325-5 Mg) 1 tab PO Q4H PRN PRN Reason: Pain (moderate 4-6) Last Admin: 11/26/16 13:50 Dose: 1 tab Albuterol (Proventil Neb Soln) 2.5 mg NEB Q2H PRN PRN Reason: Shortness Of Breath/wheezing Aspirin (Halfprin) 81 mg PO DAILY [facility] Last Admin: 11/27/16 09:18 Dose: 81 mg Brimonidine Tartrate (Alphagan 0.2% Ophth Soln) 0 ml EYELF BID [facility] Last Admin: 11/27/16 09:26 Dose: 1 drop Carvedilol (Coreg) 3.125 mg PO BID [facility] Last Admin: 11/27/16 09:18 Dose: 3.125 mg Cholecalciferol (Vitamin D3) 5,000 units PO DAILY [facility] Last Admin: 11/27/16 09:16 Dose: 5,000 units Docusate Sodium (Colace) 100 mg PO DAILY [facility] Last Admin: 11/27/16 09:18 Dose: 100 mg Famotidine (Pepcid) 20 mg PO DAILY [facility] Last Admin: 11/27/16 09:18 Dose: 20 mg Ferrous Sulfate (Ferrous Sulfate) 325 mg PO BEDTIME [facility] Last Admin: 11/26/16 20:58 Dose: 325 mg Furosemide (Lasix) 60 mg PO BIDDIURETIC [facility] Hydralazine HCl (Apresoline) 10 mg PO TID [facility] Last Admin: 11/27/16 14:21 Dose: 10 mg Hydralazine HCl (Apresoline) 10 mg IVPUSH Q4H PRN PRN Reason: Hypertension Hydrochlorothiazide (Hydrochlorothiazide) 12.5 mg PO BIDDIURETIC [facility] Last Admin: 11/27/16 14:21 Dose: 12.5 mg Hydromorphone HCl (Dilaudid) 0.5 mg IVPUSH Q4H PRN PRN Reason: Pain Insulin Aspart (Novolog) 3 unit SUBCUT TIDMEALS [facility] Last Admin: 11/27/16 11:08 Dose: Not Given Insulin Detemir (Levemir) 6 unit SUBCUT BID [facility] Last Admin: 11/27/16 09:27 Dose: 6 units Isosorbide Mononitrate (Imdur) 15 mg PO DAILY [facility] Last Admin: 11/27/16 09:17 Dose: 15 mg Lorazepam (Ativan) 0.5 mg PO Q4H PRN PRN Reason: restlessness Last Admin: 11/26/16 22:28 Dose: 0.5 mg Lorazepam (Ativan) 1 mg IVPUSH Q6H PRN; Protocol PRN Reason: Anxiety Lorazepam (Ativan) 2 mg IVPUSH Q4H PRN PRN Reason: Seizures Magnesium Hydroxide (Milk Of Magnesia) 30 ml PO Q12H PRN PRN Reason: Constipation Last Admin: 11/27/16 06:40 Dose: 30 ml Metoprolol Tartrate (Lopressor) 5 mg IVPUSH Q4H PRN PRN Reason: Tachycardia Naproxen (Naprosyn) 375 mg PO Q12HR [facility] Last Admin: 11/27/16 09:26 Dose: 375 mg Ondansetron HCl (Zofran Odt) 4 mg PO Q4H PRN PRN Reason: nausea, able to take PO Oxycodone HCl (Oxycodone) 5 mg PO Q4H PRN PRN Reason: Pain Last Admin: 11/26/16 15:11 Dose: 5 mg Potassium Chloride (Klor-Con M20) 40 meq PO DAILY [facility] Last Admin: 11/27/16 09:16 Dose: 40 meq Rosuvastatin Calcium (Crestor) 10 mg PO DAILY [facility] Last Admin: 11/27/16 09:18 Dose: 10 mg Sodium Chloride (Saline Flush) 10 ml FLUSH ASDIRECTED PRN PRN Reason: Keep Vein Open Tamsulosin HCl (Flomax) 0.4 mg PO DAILY [facility] Last Admin: 11/27/16 09:18 Dose: 0.4 mg Temazepam (Restoril) 15 mg PO BEDTIME PRN PRN Reason: Sleep Last Admin: 11/24/16 20:54 Dose: 15 mg Timolol Maleate (Timoptic 0.5% Ophth Soln) 0 ml EYELF BID [facility] Last Admin: 11/27/16 09:26 Dose: 1 drop Warfarin Sodium (Pharmacy To Dose - Warfarin) 1 dose .XX ASDIRECTED [facility] Warfarin Sodium (Coumadin) 5 mg PO [email or web address] [facility] Last Admin: 11/24/16 18:38 Dose: 5 mg Warfarin Sodium (Coumadin) 2.5 mg PO [id number] [facility] Last Admin: 11/26/16 18:12 Dose: 2.5 mg Discontinued Medications Azithromycin (Zithromax) 500 mg PO DAILY [facility] Last Admin: 11/27/16 09:18 Dose: 500 mg Famotidine (Pepcid) 20 mg PO BID [facility] Last Admin: 11/26/16 20:58 Dose: 20 mg Furosemide (Lasix) 60 mg IVPUSH NOW ONE Stop: 11/24/16 01:17 Last Admin: 11/24/16 01:26 Dose: 60 mg Furosemide (Lasix) Confirm Administered Dose 40 mg .ROUTE .STK-MED ONE Stop: 11/24/16 01:32 Last Admin: 11/24/16 03:29 Dose: Not Given Furosemide (Lasix) 60 mg IVPUSH Q8HR [facility] Last Admin: 11/24/16 06:45 Dose: 60 mg Furosemide (Lasix) 60 mg PO BIDDIURETIC [facility] Ceftriaxone Sodium 1 gm/ (Sodium Chloride) 100 mls @ 200 mls/hr IV Q24H [facility] Last Admin: 11/26/16 12:02 Dose: 200 mls/hr Furosemide 100 mg/ Sodium (Chloride) 100 mls @ 2 mls/hr IV TITRATE [facility] PRN Reason: Protocol Stop: 11/26/16 19:00 Last Admin: 11/24/16 22:40 Dose: 2 mls/hr Furosemide 100 mg/ Sodium (Chloride) 100 mls @ 3 mls/hr IV TITRATE [facility] PRN Reason: Protocol Stop: 11/27/16 09:00 Last Admin: 11/26/16 21:06 Dose: 3 mls/hr Insulin Detemir (Levemir) 12 unit SUBCUT ONETIME ONE Stop: 11/24/16 01:21 Last Admin: 11/24/16 01:42 Dose: 12 units Levofloxacin (Levaquin) 500 mg PO ONETIME ONE Stop: 11/24/16 01:19 Last Admin: 11/24/16 01:25 Dose: 500 mg Potassium Chloride (Klor-Con M20) 40 meq PO ONETIME ONE Stop: 11/24/16 03:16 Last Admin: 11/24/16 03:30 Dose: 40 meq - Problem List Review Problem List Initiated/Reviewed/Updated: Yes - My Orders Last 24 Hours: My Active Orders 11/27/16 09:00 Famotidine [Pepcid] 20 mg PO DAILY 11/28/16 05:11 PRO B-TYPE NATRIUR PEPT,BNPPRO [CHEM] DAILY 11/29/16 05:11 PRO B-TYPE NATRIUR PEPT,BNPPRO [CHEM] DAILY - Plan Plan:: Patient could use one more day for treatment. His Mg is also on the high side likely from CKD. Renal function is about the same. He feels clinically better. His chest pain is now gone. He has no new complaints. Hopefully he can be discharged in am.
--- NOTE | 2016-11-27 12:52 | CR ---
Left hand: Four views of the left hand were obtained. Comparison: No prior hand exam. Mild degenerative change scattered within the DIP joints as well as IP joint of the thumb. MCP joints are preserved. Vascular calcification is noted. Bony structures are osteopenic. No acute fracture, dislocation or other bony abnormality is identified. Impression: 1. Findings as described above. Nothing acute is identified on left hand study. Diagnostic code #2
--- NOTE | 2016-11-27 12:52 | CR ---
Chest: Portable view of the chest was obtained. Comparison: Prior chest x-ray of 08/09/16. Heart is enlarged. Small bilateral pleural effusions are noted. Pulmonary vessels are mildly congested. Previous sternotomy is noted. Impression: 1. Findings are felt compatible with mild CHF. Findings are fairly stable from earlier chest x-ray. Diagnostic code #3
--- NOTE | 2016-11-27 13:32 | CR ---
Chest: Two views of the chest were obtained. Comparison: Previous chest x-ray of 11/24/16. Continuing small pleural effusions are seen within both lung bases. Better aeration is noted within both lung bases from prior study. Pulmonary vascular congestion appears resolved. Heart is enlarged. Bony structures are unchanged. Previous sternotomy is again noted. Impression: 1. Continuing pleural effusions. 2. Better aeration of both lung bases as well as decreased pulmonary vascular. Diagnostic code #3
[2016-11-27] MEDS ORDERED: Furosemide 20 MG Tab PO SCH (14:00)
[2016-11-27] MEDS: Warfarin 5 MG Tab PO SCH (17:06)
[2016-11-27] MEDS: Ferrous Sulfate 325 MG Tab PO SCH (20:04)
[2016-11-27] MEDS: Furosemide 20 MG Tab PO SCH (20:04)
[2016-11-27] MEDS: Temazepam 15 MG Cap PO PRN (21:36)
[2016-11-27] MEDS: Acetaminophen/HYDROcodone 325-5 MG Tab PO PRN (21:36)
[2016-11-28] MEDS: Furosemide 20 MG Tab PO SCH (06:41)
[2016-11-28] MEDS: Hydrochlorothiazide 12.5 MG Cap PO SCH (06:41)
[2016-11-28] MEDS: Brimonidine 0.2% Ophth Soln 5 ML Bottle EYELF SCH (08:52)
[2016-11-28] MEDS: Potassium Chloride 20 MEQ Tab.ER PO SCH (08:53)
[2016-11-28] MEDS: Timolol Maleate 0.5% Ophth Soln 5 ML Bottle EYELF SCH (08:53)
[2016-11-28] MEDS: Docusate Sodium 100 MG Cap PO SCH (08:54)
[2016-11-28] MEDS: Rosuvastatin 10 MG Tab PO SCH (08:54)
[2016-11-28] MEDS: Aspirin 81 MG Tab.EC PO SCH (08:54)
[2016-11-28] MEDS: Famotidine 20 MG Tab PO SCH (08:54)
[2016-11-28] MEDS: Tamsulosin 0.4 MG Cap.ER PO SCH (08:55)
[2016-11-28] MEDS: Cholecalciferol (Vitamin D3) 1,000 Unit Tab PO SCH (08:55)
[2016-11-28] MEDS: Insulin Aspart 100 Units/ML 3 ML Pen SUBCUT SCH ×2 (08:56→12:06)
[2016-11-28 09:01] VITALS: BP 104/64
[2016-11-28] MEDS: Insulin Detemir 100 Units/ML 3 ML Pen SUBCUT SCH (09:01)
[2016-11-28] MEDS: Carvedilol 3.125 MG Tab PO SCH (09:05)
[2016-11-28] MEDS: Isosorbide Mononitrate 30 MG Tab.ER PO SCH (09:05)
[2016-11-28] MEDS: hydrALAZINE 10 MG Tab PO SCH (09:05)
--- NOTE | 2016-11-28 09:16 | PCM.DCSUM1 ---
Discharge Summary - Hospital Course Brief History: Nav is a pleasant 71 yo male with past medical history of hypetenions, hyperlipidemia, CAD status post CABG, ischemic cardiomyopathy, atrial fibrillation on warfarin, PVD, congestive heart failure, COPD, GERD, BPH/ obstructive uropathy with chronic indwelling catheter, type 2 diabetes, and iron deficiency anemia who was brought in by ambulance from [place] for further evaluation after a recent fall. - Discharge Data Discharge Date: 11/28/16 Discharge Disposition: Home, Self-Care 01 Condition: Good - Discharge Diagnosis/Problem(s) (1) CHF, Congestive heart failure SNOMED Code(s): 51137031 ICD Code: I50.9 - HEART FAILURE, UNSPECIFIED Status: Resolved Priority: High (2) Chronic renal insufficiency, stage IV (severe) SNOMED Code(s): 57338778 ICD Code: N18.4 - CHRONIC KIDNEY DISEASE, STAGE 4 (SEVERE) Status: Chronic Priority: High (3) Ischemic cardiomyopathy SNOMED Code(s): 514406295 ICD Code: I25.5 - ISCHEMIC CARDIOMYOPATHY Status: Chronic Priority: High (4) Syncope and collapse SNOMED Code(s): 298040572 ICD Code: R55 - SYNCOPE AND COLLAPSE Status: Resolved Priority: High (5) Subtherapeutic international normalized ratio (INR) SNOMED Code(s): 961788102 ICD Code: R79.1 - ABNORMAL COAGULATION PROFILE Status: Acute (6) Musculoskeletal chest pain SNOMED Code(s): 300413209 ICD Code: R07.89 - OTHER CHEST PAIN Status: Resolved (7) Diabetic nephropathy with proteinuria SNOMED Code(s): 362467063 ICD Code: E11.21 - TYPE 2 DIABETES MELLITUS WITH DIABETIC NEPHROPATHY Status: Chronic (8) UTI (urinary tract infection) due to urinary indwelling catheter SNOMED Code(s): 995118925 ICD Code: T83.511A - I/I REACT D/T INDWELLING URETHRAL CATHETER, INIT; N39.0 - URINARY TRACT INFECTION, SITE NOT SPECIFIED Status: Acute Qualifiers: Indwelling urinary catheter type: cystostomy catheter Encounter type: initial encounter Qualified Code(s): T83.510A - Infection and inflammatory reaction due to cystostomy catheter, initial encounter; N39.0 - Urinary tract infection, site not specified; N39.0 - Urinary tract infection, site not specified (9) Mycoplasma infection, unspecified site SNOMED Code(s): 560518681 ICD Code: A49.3 - MYCOPLASMA INFECTION, UNSPECIFIED SITE Status: Acute (10) Status post fall SNOMED Code(s): 462451936 ICD Code: Z91.81 - HISTORY OF FALLING Status: Acute - Patient Summary/Data Operative Procedure(s) Performed: None Complications: None Consults: Consultations 11/24/16 07:06 Consult to Custodial Aide [CONS] Routine 11/24/16 07:11 OT Evaluation and Treatment [CONS] Routine PT Evaluation and Treatment [CONS] Routine Labs Pending at D/C: None Recommended Follow-up Testing/Procedures: None Planned Operative Procedure(s) after DC: None Hospital Course: The patient was primarily admitted for evaluation of syncopal episode resulting in a recent fall. Patient carried multiple comorbidities which we felt may have contributed to this incident. He had a mild injury to his forehead and a skin tear on his left hand. However his basic workup to include head CT scan showed no acute abnormal findings. His blood pressure on presentation were stable and his serum blood glucose were nowhere near the bottom of normal limits. Patient did not recall the incident but he remembered taking two of his Ambien pills as directed by a specialist due to insomnia. He denied any changes on his most recent home regimen. He further denied taking anything unusual or any over- the-counter medications. His hospital course was complicated by acute congestive heart failure in the setting of proteinuria likely related to diabetic nephropathy. This finding was also confirmed on chest x-ray noted for increased pulmonary congestion along with small bilateral pleural effusion. He was put on heart failure protocol to include lasix drip, thiazide, daily weights, salt and fluid restriction, and electrolyte supplements. The patient slowly improved on this regimen. His proBNP on admission was over 20,000 and with appropriate treatment his level improved to 15,000. On this admission he was also found to have catheter related urinary tract infection that was uncomplicated. He received appropriate antibiotic treatment to resolve his symptom. His blood cultures were negative for any organismal growth. However he was positive for screening Mycoplasma. Unfortunately, we were not able to identify the source of infection but he was treated with macrolides accordingly. Overall Mr. Kim had done well since admission. He reported improvement of his overall health as well as his peripheral edema. He had not had any syncopal episode since admission up until discharge. He had been stable and ready for discharge. Patient was advised to follow daily salt and fluid restrictions. He was further advised to call or discuss with his primary care before he follows any recommendations from anyone to include his other doctors. Lastly, he was informed to come back or seek immediate care should his symptom persists or gets worse. The patient expressed understanding and in agreement with the plans as discussed above. All questions were answered. - Patient Instructions Diet: Heart Healthy Diet, Usual Diet as Tolerated, Low Sodium (2 grams), Diabetic Diet Fluid Restriction: 2000 mL Activity: As Tolerated Driving: Do Not Drive Showering/Bathing: May Shower Notify Provider of: Fever, Increased Pain, Swelling and Redness, Drainage, Nausea and/or Vomiting Other/Special Instructions: - Please take all medications as directed. - Follow salt and fluid daily restrictions. - Call or follow up with Dr. Michelle in 1-2 weeks. - Keep your follow up appointment with Dr. Sage as scheduled - Discharge Plan Home Medications: Home Meds Acetaminophen 650 mg PO Q6H PRN 08/09/16 [History] Brimonidine Tartrate/Timolol [Combigan 0.2%-0.5% Eye Drops] 1 drop EYELF BID [History] Cholecalciferol (Vitamin D3) [Vitamin D3] 5,000 unit PO DAILY 08/09/16 [History] Ferrous Sulfate 325 mg PO BEDTIME 08/09/16 [History] Furosemide 60 mg PO BID 08/09/16 [History] Insulin Aspart [Novolog Flexpen] 3 units SUBCUT TIDMEALS 08/09/16 [History] Insulin Glarg,Human.Rec.Analog [LantUS Solostar] 12 units SUBCUT BEDTIME [History] Docusate Sodium [Colace] 100 mg PO DAILY 08/20/16 [History] Aspirin [Ecotrin] 81 mg PO DAILY 11/24/16 [History] Carvedilol [Coreg] 3.125 mg PO BID 11/24/16 [History] Isosorbide Mononitrate [Imdur] 15 mg PO DAILY 11/24/16 [History] Tamsulosin [Flomax] 0.4 mg PO DAILY 11/24/16 [History] Warfarin [Coumadin] 2.5 mg PO ASDIRECTED 11/24/16 [History] Zolpidem Tartrate [Ambien] 5 mg PO DAILY PRN 11/24/16 [History] atorvaSTATin [Lipitor] 40 mg PO DAILY 11/24/16 [History] hydrALAZINE HCl [Hydralazine HCl] 10 mg PO TID 11/24/16 [History] Patient Handouts: Fluid Restriction, Urinary Tract Infection, Adult, Easy-to- Read, Chronic Kidney Disease, [id number], Heart Failure, [id number], Suprapubic Catheter Replacement, Care After, Syncope, [id number], Suprapubic Catheter Home Guide Referrals: Jesse Michelle MD [Primary Care Provider] - (Please see Dr. Michelle on Sunday at 2:00 PM on 12/06/16.) - Discharge Summary/Plan Comment DC Time >30 min.: Yes (45 mins) Discharge Summary/Plan Comment: Discharge to Home - General Info Date of Service: 11/28/16 Admission Dx/Problem (Free Text: Admission Diagnosis/Problem Admission Diagnosis/Problem Syncope and collapse Subjective Update: Follow Up Functional Status: Reports: Pain Controlled, Tolerating Diet, Ambulating, Urinating. Denies: New Symptoms - Review of Systems General: Denies: Fever, Weakness, Fatigue, Malaise, Chills HEENT: Reports: No Symptoms Pulmonary: Denies: Shortness of Breath Cardiovascular: Reports: Edema. Denies: Chest Pain, Palpitations, Dyspnea on Exertion, Lightheadedness Gastrointestinal: Denies: Abdominal Pain, Nausea, Vomiting Genitourinary: Reports: No Symptoms Musculoskeletal: Reports: No Symptoms Skin: Denies: Cyanosis, Pallor, Diaphoresis, Rash Neurological: Denies: Confusion, Difficulty Walking, Weakness, Gait Disturbance Psychiatric: Denies: No Symptoms, Depression, Anxiety, Agitation, Hallucinations Systems Review Comment: No significant overnight or acute issues. He slept pretty good. He has no new complaints. He is ready to go home. - Patient Data Vitals - Most Recent: Last Vital Signs Temp 36.3 C 11/28/16 08:06 Pulse 75 11/28/16 08:06 Resp 18 11/28/16 08:06 BP 104/64 11/28/16 09:05 Pulse Ox 94 L 11/28/16 08:06 Weight - Most Recent: 95.3 kg I&O - Last 24 hours: Intake & Output 11/27/16 11/28/16 11/28/16 22:59 06:59 14:59 Intake Total 560 200 Output Total 1200 1050 Balance -640 -850 Lab Results - Last 24 hrs: Laboratory Results - last 24 hr 11/27/16 11/27/16 11/27/16 Range/Units 11:05 17:43 20:03 WBC (4.23-9.07) K/mm3 RBC (4.63-6.08) M/mm3 Hgb (13.7-17.5) gm/L Hct (40.1-51.0) % MCV (79.0-92.2) fl MCH (25.7-32.2) pg MCHC (32.2-35.5) g/dl RDW Std Deviation (35.1-43.9) fL Plt Count (163-337) K/mm3 MPV (9.4-12.3) fl Neut % (Auto) (34.0-67.9) % Lymph % (Auto) (21.8-53.1) % [place] % (Auto) (5.3-12.2) % Eos % (Auto) (0.8-7.0) Baso % (Auto) (0.1-1.2) % Neut # (Auto) (1.78-5.38) K/mm3 Lymph # (Auto) (1.32-3.57) K/mm3 [place] # (Auto) (0.30-0.82) K/mm3 Eos # (Auto) (0.04-0.54) K/mm3 Baso # (Auto) (0.01-0.08) K/mm3 PT (8.0-13.0) SECONDS INR Sodium (136-145) mEq/L Potassium (3.5-5.1) mEq/L Chloride (98-107) mEq/L Carbon Dioxide (21-32) mEq/L Anion Gap (5-15) BUN (7-18) mg/dL Creatinine (0.7-1.3) mg/dL Est Cr Clr Drug Dosing mL/min Estimated GFR (MDRD) (>60) mL/min BUN/Creatinine Ratio (14-18) Glucose (83-115) mg/dL POC Glucose 85 149 H 145 H (83-110) mg/dL Calcium (8.5-10.1) mg/dL Magnesium (1.8-2.4) mg/dl C-Reactive Protein (<1.0) mg/dL NT-Pro-B Natriuret Pep (0-125) pg/mL 11/28/16 11/28/16 11/28/16 Range/Units 06:05 06:05 06:05 WBC 7.40 (4.23-9.07) K/mm3 RBC 3.85 L (4.63-6.08) M/mm3 Hgb 9.8 L (13.7-17.5) gm/L Hct 32.2 L (40.1-51.0) % MCV 83.6 (79.0-92.2) fl MCH 25.5 L (25.7-32.2) pg MCHC 30.4 L (32.2-35.5) g/dl RDW Std Deviation 48.8 H (35.1-43.9) fL Plt Count 299 (163-337) K/mm3 MPV 10.0 (9.4-12.3) fl Neut % (Auto) 52.4 (34.0-67.9) % Lymph % (Auto) 30.0 (21.8-53.1) % [place] % (Auto) 10.7 (5.3-12.2) % Eos % (Auto) 6.2 (0.8-7.0) Baso % (Auto) 0.4 (0.1-1.2) % Neut # (Auto) 3.88 (1.78-5.38) K/mm3 Lymph # (Auto) 2.22 (1.32-3.57) K/mm3 [place] # (Auto) 0.79 (0.30-0.82) K/mm3 Eos # (Auto) 0.46 (0.04-0.54) K/mm3 Baso # (Auto) 0.03 (0.01-0.08) K/mm3 PT 29.2 H (8.0-13.0) SECONDS INR 2.53 Sodium 141 (136-145) mEq/L Potassium 4.6 (3.5-5.1) mEq/L Chloride 104 (98-107) mEq/L Carbon Dioxide 28 (21-32) mEq/L Anion Gap 13.6 (5-15) BUN 80 H (7-18) mg/dL Creatinine 2.9 H (0.7-1.3) mg/dL Est Cr Clr Drug Dosing 23.02 mL/min Estimated GFR (MDRD) 21 (>60) mL/min BUN/Creatinine Ratio 27.6 H (14-18) Glucose 97 (83-115) mg/dL POC Glucose (83-110) mg/dL Calcium 9.6 (8.5-10.1) mg/dL Magnesium 2.9 H (1.8-2.4) mg/dl C-Reactive Protein 4.0 H* (<1.0) mg/dL NT-Pro-B Natriuret Pep (0-125) pg/mL 11/28/16 11/28/16 Range/Units 06:05 06:11 WBC (4.23-9.07) K/mm3 RBC (4.63-6.08) M/mm3 Hgb (13.7-17.5) gm/L Hct (40.1-51.0) % MCV (79.0-92.2) fl MCH (25.7-32.2) pg MCHC (32.2-35.5) g/dl RDW Std Deviation (35.1-43.9) fL Plt Count (163-337) K/mm3 MPV (9.4-12.3) fl Neut % (Auto) (34.0-67.9) % Lymph % (Auto) (21.8-53.1) % [place] % (Auto) (5.3-12.2) % Eos % (Auto) (0.8-7.0) Baso % (Auto) (0.1-1.2) % Neut # (Auto) (1.78-5.38) K/mm3 Lymph # (Auto) (1.32-3.57) K/mm3 [place] # (Auto) (0.30-0.82) K/mm3 Eos # (Auto) (0.04-0.54) K/mm3 Baso # (Auto) (0.01-0.08) K/mm3 PT (8.0-13.0) SECONDS INR Sodium (136-145) mEq/L Potassium (3.5-5.1) mEq/L Chloride (98-107) mEq/L Carbon Dioxide (21-32) mEq/L Anion Gap (5-15) BUN (7-18) mg/dL Creatinine (0.7-1.3) mg/dL Est Cr Clr Drug Dosing mL/min Estimated GFR (MDRD) (>60) mL/min BUN/Creatinine Ratio (14-18) Glucose (83-115) mg/dL POC Glucose 88 (83-110) mg/dL Calcium (8.5-10.1) mg/dL Magnesium (1.8-2.4) mg/dl C-Reactive Protein (<1.0) mg/dL NT-Pro-B Natriuret Pep 98026 H (0-125) pg/mL Med Orders - Current: Current Medications Acetaminophen (Tylenol) 650 mg PO Q4H PRN PRN Reason: Pain Hydrocodone Bitart/Acetaminophen (Angelica 325-5 Mg) 1 tab PO Q4H PRN PRN Reason: Pain (moderate 4-6) Last Admin: 11/27/16 21:36 Dose: 1 tab Albuterol (Proventil Neb Soln) 2.5 mg NEB Q2H PRN PRN Reason: Shortness Of Breath/wheezing Aspirin (Halfprin) 81 mg PO DAILY [facility] Last Admin: 11/28/16 08:54 Dose: 81 mg Brimonidine Tartrate (Alphagan 0.2% Ophth Soln) 0 ml EYELF BID [facility] Last Admin: 11/28/16 08:52 Dose: 1 drop Carvedilol (Coreg) 3.125 mg PO BID [facility] Last Admin: 11/28/16 09:05 Dose: Not Given Cholecalciferol (Vitamin D3) 5,000 units PO DAILY [facility] Last Admin: 11/28/16 08:55 Dose: 5,000 units Docusate Sodium (Colace) 100 mg PO DAILY [facility] Last Admin: 11/28/16 08:54 Dose: 100 mg Famotidine (Pepcid) 20 mg PO DAILY [facility] Last Admin: 11/28/16 08:54 Dose: 20 mg Ferrous Sulfate (Ferrous Sulfate) 325 mg PO BEDTIME [facility] Last Admin: 11/27/16 20:04 Dose: 325 mg Furosemide (Lasix) 60 mg PO BIDDIURETIC [facility] Last Admin: 11/28/16 06:41 Dose: 60 mg Hydralazine HCl (Apresoline) 10 mg PO TID [facility] Last Admin: 11/28/16 09:05 Dose: Not Given Hydralazine HCl (Apresoline) 10 mg IVPUSH Q4H PRN PRN Reason: Hypertension Hydrochlorothiazide (Hydrochlorothiazide) 12.5 mg PO BIDDIURETIC [facility] Last Admin: 11/28/16 06:41 Dose: 12.5 mg Hydromorphone HCl (Dilaudid) 0.5 mg IVPUSH Q4H PRN PRN Reason: Pain Insulin Aspart (Novolog) 3 unit SUBCUT TIDMEALS [facility] Last Admin: 11/28/16 08:56 Dose: Not Given Insulin Detemir (Levemir) 6 unit SUBCUT BID [facility] Last Admin: 11/28/16 09:01 Dose: 6 units Isosorbide Mononitrate (Imdur) 15 mg PO DAILY [facility] Last Admin: 11/28/16 09:05 Dose: Not Given Lorazepam (Ativan) 0.5 mg PO Q4H PRN PRN Reason: restlessness Last Admin: 11/26/16 22:28 Dose: 0.5 mg Lorazepam (Ativan) 1 mg IVPUSH Q6H PRN; Protocol PRN Reason: Anxiety Lorazepam (Ativan) 2 mg IVPUSH Q4H PRN PRN Reason: Seizures Magnesium Hydroxide (Milk Of Magnesia) 30 ml PO Q12H PRN PRN Reason: Constipation Last Admin: 11/27/16 06:40 Dose: 30 ml Metoprolol Tartrate (Lopressor) 5 mg IVPUSH Q4H PRN PRN Reason: Tachycardia Naproxen (Naprosyn) 375 mg PO Q12HR [facility] Last Admin: 11/28/16 08:57 Dose: 375 mg Ondansetron HCl (Zofran Odt) 4 mg PO Q4H PRN PRN Reason: nausea, able to take PO Oxycodone HCl (Oxycodone) 5 mg PO Q4H PRN PRN Reason: Pain Last Admin: 11/26/16 15:11 Dose: 5 mg Potassium Chloride (Klor-Con M20) 40 meq PO DAILY [facility] Last Admin: 11/28/16 08:53 Dose: 40 meq Rosuvastatin Calcium (Crestor) 10 mg PO DAILY [facility] Last Admin: 11/28/16 08:54 Dose: 10 mg Sodium Chloride (Saline Flush) 10 ml FLUSH ASDIRECTED PRN PRN Reason: Keep Vein Open Tamsulosin HCl (Flomax) 0.4 mg PO DAILY [facility] Last Admin: 11/28/16 08:55 Dose: 0.4 mg Temazepam (Restoril) 15 mg PO BEDTIME PRN PRN Reason: Sleep Last Admin: 11/27/16 21:36 Dose: 15 mg Timolol Maleate (Timoptic 0.5% Ophth Soln) 0 ml EYELF BID [facility] Last Admin: 11/28/16 08:53 Dose: 1 drop Warfarin Sodium (Pharmacy To Dose - Warfarin) 1 dose .XX ASDIRECTED [facility] Warfarin Sodium (Coumadin) 5 mg PO [email or web address] [facility] Last Admin: 11/27/16 17:06 Dose: 5 mg Warfarin Sodium (Coumadin) 2.5 mg PO [email or web address] [facility] Last Admin: 11/26/16 18:12 Dose: 2.5 mg Discontinued Medications Azithromycin (Zithromax) 500 mg PO DAILY [facility] Last Admin: 11/27/16 09:18 Dose: 500 mg Famotidine (Pepcid) 20 mg PO BID [facility] Last Admin: 11/26/16 20:58 Dose: 20 mg Furosemide (Lasix) 60 mg IVPUSH NOW ONE Stop: 11/24/16 01:17 Last Admin: 11/24/16 01:26 Dose: 60 mg Furosemide (Lasix) Confirm Administered Dose 40 mg .ROUTE .STK-MED ONE Stop: 11/24/16 01:32 Last Admin: 11/24/16 03:29 Dose: Not Given Furosemide (Lasix) 60 mg IVPUSH Q8HR [facility] Last Admin: 11/24/16 06:45 Dose: 60 mg Furosemide (Lasix) 60 mg PO BIDDIURETIC [facility] Ceftriaxone Sodium 1 gm/ (Sodium Chloride) 100 mls @ 200 mls/hr IV Q24H [facility] Last Admin: 11/26/16 12:02 Dose: 200 mls/hr Furosemide 100 mg/ Sodium (Chloride) 100 mls @ 2 mls/hr IV TITRATE [facility] PRN Reason: Protocol Stop: 11/26/16 19:00 Last Admin: 11/24/16 22:40 Dose: 2 mls/hr Furosemide 100 mg/ Sodium (Chloride) 100 mls @ 3 mls/hr IV TITRATE SAULO PRN Reason: Protocol Stop: 11/27/16 09:00 Last Admin: 11/26/16 21:06 Dose: 3 mls/hr Insulin Detemir (Levemir) 12 unit SUBCUT ONETIME ONE Stop: 11/24/16 01:21 Last Admin: 11/24/16 01:42 Dose: 12 units Levofloxacin (Levaquin) 500 mg PO ONETIME ONE Stop: 11/24/16 01:19 Last Admin: 11/24/16 01:25 Dose: 500 mg Potassium Chloride (Klor-Con M20) 40 meq PO ONETIME ONE Stop: 11/24/16 03:16 Last Admin: 11/24/16 03:30 Dose: 40 meq - Exam General: Reports: Alert, Oriented, Cooperative, No Acute Distress HEENT: Reports: Pupils Equal, Pupils Reactive, EOMI, Mucous Membr. Moist/[place] Neck: Reports: Supple, Trachea Midline, No JVD, No Thyromegaly Lungs: Reports: Clear to Auscultation, Normal Respiratory Effort Cardiovascular: Reports: Irregular Rhythm GI/Abdominal Exam: Normal Bowel Sounds, Soft, Non-Tender, No Organomegaly, No Distention, No Abnormal Bruit (Male) Exam: Other (suprapubic catheter) Rectal (Males) Exam: Deferred Back Exam: Reports: Normal Inspection, Decreased Range of Motion Extremities: Normal Inspection, Normal Range of Motion, Non-Tender, Pedal Edema , Other (lower extremity edema). No: Leg Pain Skin: Reports: Warm, Dry, Intact Neurological: Reports: No New Focal Deficit Psy/Mental Status: Reports: Alert, Normal Affect, Normal Mood *Q Meaningful Use (DIS) - VTE *Q VTE Criteria *Q: - Stroke *Q Stroke Criteria *Q: - AMI *Q AMI Criteria *Q:
[2016-11-28] MEDS ORDERED: Saccharomyces Boulardii (Probiotic) 250 MG Cap PO STA (11:06)
[2016-11-28] MEDS ORDERED: Saccharomyces Boulardii (Probiotic) 250 MG Cap PO SCH (21:00)
== END 2016-11-28 13:20 | disposition home or self-care (01) | DRG 312 ==
LOC: JD.ED 22:10 → JD.MS 11-24 01:36
PROVIDERS: ADMIT Internal Medicine; ATTEND Internal Medicine
DX: R55 Syncope and collapse (principal); J15.7 Pneumonia due to Mycoplasma pneumoniae; I25.810 Atherosclerosis of coronary artery bypass graft(s) without angina pectoris; I13.0 Hypertensive heart and chronic kidney disease with heart failure and stage 1 through stage 4 chronic kidney disease, or unspecified chronic kidney disease; T83.511A Infection and inflammatory reaction due to indwelling urethral catheter, initial encounter; N18.3 Chronic kidney disease, stage 3 (moderate); I50.9 Heart failure, unspecified; Z95.5 Presence of coronary angioplasty implant and graft; R07.89 Other chest pain; Z93.50 Unspecified cystostomy status; E87.6 Hypokalemia; I44.7 Left bundle-branch block, unspecified; I73.9 Peripheral vascular disease, unspecified; E11.40 Type 2 diabetes mellitus with diabetic neuropathy, unspecified; E11.21 Type 2 diabetes mellitus with diabetic nephropathy; Z79.4 Long term (current) use of insulin; I48.91 Unspecified atrial fibrillation; Z79.01 Long term (current) use of anticoagulants; S61.412A Laceration without foreign body of left hand, initial encounter; W19.XXXA Unspecified fall, initial encounter; Z91.81 History of falling; Y92.89 Other specified places as the place of occurrence of the external cause; I25.5 Ischemic cardiomyopathy; I25.2 Old myocardial infarction; I65.23 Occlusion and stenosis of bilateral carotid arteries; K21.9 Gastro-esophageal reflux disease without esophagitis; D50.9 Iron deficiency anemia, unspecified; N40.1 Benign prostatic hyperplasia with lower urinary tract symptoms; R33.8 Other retention of urine; M10.9 Gout, unspecified; E78.5 Hyperlipidemia, unspecified; Z66 Do not resuscitate; Z79.82 Long term (current) use of aspirin; Z79.899 Other long term (current) drug therapy
CPT/HCPCS: 36415; 51702; 70450; 70450-26; 71010; 71010-26; 71020; 71020-26; 73130-26-LT; 73130-LT; 80048; 80053; 81001; 82550; 82553; 82962; 83036; 83735; 83880; 84484; 85025; 85610; 86140; 86738; 87040; 87086; 87088; 87186; 87641; 87899; 93005; 93010; 96374; 97110-GP; 97116-GP; 97162-GP; 97166-GO; 97530-GO; 97535-GO; 99223; 99232; 99239; 99285; 99285-25; A9270-GY; J0696; J1815-GY; J1940; J7030

== ENCOUNTER 2017-01-12 23:09 | Inpatient (IN) | payer OTHER, MEDICARE ==
--- NOTE | 2017-01-13 01:26 | EDM.PDOC ---
ED HPI GENERAL MEDICAL PROBLEM - General Chief Complaint: Syncope Stated Complaint: SYNCOPE/LEG CRAMPS/FELL Time Seen by Provider: 01/13/17 00:45 Source of Information: Reports: Patient, Family (Daughter, son-in-law), RN Notes Reviewed History Limitations: Reports: No Limitations - History of Present Illness INITIAL COMMENTS - FREE TEXT/NARRATIVE: The patient states that he is currently visiting his daughter, whose guest bedroom is downstairs. He states that he developed a severe pain behind his right knee around 21:00 tonight. He states that he massaged the area for about 15 minutes, after which it resolved. He states that he was ascending the stairs around 21:30 tonight, when he developed severe shortness of breath. He states that he was gasping for breath. When he reached the top of the steps, he had an episode of syncope. When he recovered, he went to the bathroom, where he vomited. Here in the ED, the patient states that he feels fine. The patient is on Coumadin for chronic atrial fibrillation. His INR was checked on 01/03/2017, and found to be therapeutic at 2.30. To the best of the patient's daughter's recollection, he was instructed to decrease the dose of his Coumadin. It was then checked on 03/13/2016, and found to be subtherapeutic at 1.70. No change in his Coumadin dosage was instructed. The patient states that he has chronic bilateral lower extremity edema. The patient has had a syncopal episodes in the past, for example, after taking 2 sleeping pills, but none that was preceded with dyspnea. The patient's PCP is Dr. Michelle. The patient's Shear Operator Helper is Dr. Anand. - Related Data Allergies Allergy/AdvReac Type Severity Reaction Status Date / Time No Known Allergies Allergy Verified 01/12/17 23:40 Home Meds: Home Meds Acetaminophen 650 mg PO Q6H PRN 08/09/16 [History] Brimonidine Tartrate/Timolol [Combigan 0.2%-0.5% Eye Drops] 1 drop EYELF BID [History] Cholecalciferol (Vitamin D3) [Vitamin D3] 5,000 unit PO DAILY 08/09/16 [History] Ferrous Sulfate 325 mg PO BEDTIME 08/09/16 [History] Furosemide 60 mg PO BID 08/09/16 [History] Insulin Aspart [Novolog Flexpen] 3 units SUBCUT TIDMEALS 08/09/16 [History] Insulin Glarg,Human.Rec.Analog [LantUS Solostar] 12 units SUBCUT BEDTIME [History] Docusate Sodium [Colace] 100 mg PO DAILY 08/20/16 [History] Aspirin [Ecotrin] 81 mg PO DAILY 11/24/16 [History] Carvedilol [Coreg] 3.125 mg PO BID 11/24/16 [History] Isosorbide Mononitrate [Imdur] 15 mg PO DAILY 11/24/16 [History] Tamsulosin [Flomax] 0.4 mg PO DAILY 11/24/16 [History] Warfarin [Coumadin] 2.5 mg PO ASDIRECTED 11/24/16 [History] Zolpidem Tartrate [Ambien] 5 mg PO DAILY PRN 11/24/16 [History] atorvaSTATin [Lipitor] 40 mg PO DAILY 11/24/16 [History] hydrALAZINE HCl [Hydralazine HCl] 10 mg PO TID 11/24/16 [History] Past Medical History HEENT History: Reports: Glaucoma Cardiovascular History: Reports: Afib (chronic), CAD, Heart Failure, High Cholesterol, Hypertension, [place], Other (See Below) (Carotid artery disease) Genitourinary History: Reports: BPH, Chronic Renal Insuffiency, Renal Calculus, Retention, Urinary Musculoskeletal History: Reports: Gout (suspected, not proven) Psychiatric History: Reports: Other (See Below) (Insomnia) Endocrine/Metabolic History: Reports: Diabetes, Type II Hematologic History: Reports: Anemia, Iron Deficiency - Past Surgical History HEENT Surgical History: Reports: Tonsillectomy Cardiovascular Surgical History: Reports: Carotid Endarterectomy (Left, 2016), Coronary Artery Bypass (4 vessel 03/07/96, with redo x 2 vessel 01/09/2000 ), Coronary Artery Stent (RCA 01/05/2000, LAD 03/14/2006) GI Surgical History: Reports: Hernia, Inguinal (right) Neurological Surgical History: Reports: Lumbar Spine (x 2) Social & Family History - Family History Family Medical History: Noncontributory - Tobacco Use Smoking Status *Q: Never Smoker Second Hand Smoke Exposure: No - Caffeine Use Caffeine Use: Reports: Coffee - Alcohol Use Alcohol Use History: Yes Alcohol Use Frequency: Rarely - Recreational Drug Use Recreational Drug Use: No - Living Situation & Occupation Living situation: Reports: , Extended Care Facility ([facility]) Occupation: Retired ED ROS GENERAL - Review of Systems Review Of Systems: See Below Constitutional: Reports: No Symptoms HEENT: Reports: No Symptoms Respiratory: Reports: No Symptoms Cardiovascular: Reports: No Symptoms Endocrine: Reports: No Symptoms GI/Abdominal: Reports: No Symptoms : Reports: No Symptoms Musculoskeletal: Reports: No Symptoms Skin: Reports: No Symptoms Neurological: Reports: No Symptoms Psychiatric: Reports: No Symptoms Hematologic/Lymphatic: Reports: No Symptoms Immunologic: Reports: No Symptoms - Physical Exam Exam: See Below Exam Limited By: No Limitations General Appearance: Alert, WD/WN, No Apparent Distress Eye Exam: Bilateral Eye: Normal Inspection Ears: Normal External Exam, Hearing Grossly Normal Nose: Normal Inspection, No Blood Throat/Mouth: Normal Inspection, Normal Lips, Normal Voice, No Airway Compromise Head Exam: Atraumatic Neck: Normal Inspection, Full Range of Motion Respiratory/Chest: No Accessory Muscle Use, Decreased Breath Sounds (throughout) . No: Crackles, Rhonchi, Wheezing, Prolonged Expiration Cardiovascular: Normal Peripheral Pulses, No Gallop, No JVD, No Murmur, No Rub, Irregularly Irregular GI/Abdominal: Normal Bowel Sounds, Soft, Non-Tender, No Organomegaly, No Distention, No Abnormal Bruit, No Mass (Male) Exam: Deferred Rectal (Males) Exam: Deferred Neuro Exam (Abbreviated): Alert, Oriented, Normal Cognition, No Motor/Sensory Deficits Back Exam: Normal Inspection, Full Range of Motion, NT Extremities: Normal Range of Motion, Normal Capillary Refill, Other (2-3+ pretibial edema bilaterally) Psychiatric: Normal Affect Skin Exam: Warm, Dry, Intact, Normal Color, No Rash EKG INTERPRETATION EKG Date: 01/12/17 Time: 23:46 Rhythm: A-Fib Rate (Beats/Min): 68 Winifred: LAD-Left Winifred Deviation P-Wave: Absent QRS: LBBB ST-T: Normal QT: Prolonged (QTc 548 ms) Comparison: No Change (11/25/2016) Course - Vital Signs Last Recorded V/S: Last Vital Signs Temp 36.5 C 01/12/17 23:40 Pulse 66 01/12/17 23:40 Resp 12 01/12/17 23:40 BP 133/73 01/12/17 23:40 Pulse Ox 100 01/12/17 23:40 - Orders/Labs/Meds Orders: Active Orders 24 hr Category Date Time Status EKG Documentation Completion [RC] STAT Care 01/12/17 23:57 Active Chest 2V [CR] Stat Exams 01/13/17 01:02 Taken Labs: Laboratory Tests 01/13/17 01/13/17 01/13/17 Range/Units 01:18 01:18 01:18 WBC 8.85 (4.23-9.07) K/mm3 RBC 3.56 L (4.63-6.08) M/mm3 Hgb 8.6 L (13.7-17.5) gm/L Hct 28.6 L (40.1-51.0) % MCV 80.3 (79.0-92.2) fl MCH 24.2 L (25.7-32.2) pg MCHC 30.1 L (32.2-35.5) g/dl RDW Std Deviation 48.1 H (35.1-43.9) fL Plt Count 244 (163-337) K/mm3 MPV 10.6 (9.4-12.3) fl Neutrophils % (Manual) 79 H (40-60) % Band Neutrophils % 0 (0-10) % Lymphocytes % (Manual) 14 L (20-40) % Atypical Lymphs % 0 % Monocytes % (Manual) 5 (2-10) % Eosinophils % (Manual) 2 (0.8-7.0) % Basophils % (Manual) 0 L (0.2-1.2) Nucleated RBCs 1.0 % Platelet Estimate Adequate Plt Morphology Comment Normal Hypochromasia 1+ slight Poikilocytosis 1+ slight Anisocytosis 1+ slight Microcytosis 1+ slight Macrocytosis 1+ slight Tear Drop Cells 1+ slight Ovalocytes 1+ slight RBC Morph Comment Abnormal PT 17.6 H (8.0-13.0) SECONDS INR 1.57 APTT 32 (22-36) SECONDS D-Dimer, Quantitative 1.06 H (0.19-0.59) mg/L Sodium 139 (136-145) mEq/L Potassium 3.6 (3.5-5.1) mEq/L Chloride 101 (98-107) mEq/L Carbon Dioxide 27 (21-32) mEq/L Anion Gap 14.6 (5-15) BUN 89 H (7-18) mg/dL Creatinine 3.0 H (0.7-1.3) mg/dL Est Cr Clr Drug Dosing 22.26 mL/min Estimated GFR (MDRD) 21 (>60) mL/min BUN/Creatinine Ratio 29.7 H (14-18) Glucose 173 H (83-115) mg/dL Calcium 9.3 (8.5-10.1) mg/dL Total Bilirubin 0.6 (0.2-1.0) mg/dL AST 21 (15-37) U/L ALT 23 (16-63) U/L Alkaline Phosphatase 117 H (46-116) U/L Troponin I 0.031 (0.00-0.056) ng/mL NT-Pro-B Natriuret Pep 74464 H (0-125) pg/mL Total Protein 7.5 (6.4-8.2) g/dl Albumin 2.8 L (3.4-5.0) g/dl Globulin 4.7 gm/dL Albumin/Globulin Ratio 0.6 L (1-2) Meds: Medications Discontinued Medications Generic Name Dose Route Start Last Admin Trade Name Freq PRN Reason Stop Dose Admin Enoxaparin Sodium 90 mg 01/13/17 01:50 01/13/17 02:09 Lovenox SUBCUT 01/13/17 01:51 90 mg ONETIME STA Administration - Re-Assessments/Exams Free Text/Narrative Re-Assessment/Exam: 01/13/17 01:39 Two-view chest radiograph reviewed. There is cardiomegaly, but no pulmonary vascular congestion to suggest decompensated CHF. Small bilateral pleural effusions. No focal infiltrate. No pneumothorax. Sternotomy wires and cardiac clips noted. Formal read per the Radiologist pending. 01/13/17 01:50 The patient's history is very concerning for a PE. While his INR was therapeutic at 2.30 on 01/03/2017, the patient's daughter tells me that his Coumadin dose was decreased at that time, and his INR was subtherapeutic at 1.70 on 03/13/2016. I am unable to determine how long after 01/03/2017 the patient 's INR became subtherapeutic - it may have been long enough for the patient to form a DVT. The patient has a history of chronic kidney disease. I do not have any labs back yet; if his Cr is significantly elevated, I may not be able to acquire a CT angiogram of the chest tonight. I have therefore ordered a single dose of Lovenox until we can obtain either a CT angiogram of the chest or a V/Q scan. 01/13/17 02:18 The patient's D-dimer has returned mildly elevated at 1.06. There are no prior D -dimer's for comparison. His INR is subtherapeutic at 1.57. His BUN/Cr is significantly elevated at 89/3.0. It was 80/2.9 on 11/28/2016. His BNP is substantially elevated at 18,224, and his chest radiograph demonstrates cardiomegaly, although no pulmonary vascular congestion. His H/H is depressed at 8.6/28.6. It was 9.8/32.2 on 11/28/2016. On balance, I suspect that the mild elevation in the patient's D-dimer is related solely to his renal dysfunction. While his history is compelling for a pulmonary embolus, I would expect his d-dimer to be much higher than 1.06 if that were the case. I do not feel that the benefit of a CT angiogram of the chest would outweigh the likely risk to the patient's kidneys by iodinated contrast. Iodinated contrast causes a transient renal injury, but usually resolves within a week, however, if a patient's renal function is poor enough, the iodinated contrast could push the patient to the realm of requiring hemodialysis, without recovery. It is rare, but not impossible. Since the patient has been treated with Lovenox, I believe the better course would be to continue Lovenox until the patient can have a V/Q scan. 01/13/17 02:51 The above was discussed with the patient, his daughter, and son-in-law. After a long discussion, the patient is agreeable to the plan. Case then discussed with Dr. Saravia at 02:47. He agrees to place the patient into observation, on telemetry. I will write bridge orders. Departure - Departure Time of Disposition: 02:52 Disposition: Refer to Observation Condition: Fair Clinical Impression: Syncope, Subtherapeutic international normalized ratio (INR), Chronic kidney disease, Elevated d-dimer - Discharge Information - My Orders Last 24 Hours: My Active Orders 01/12/17 23:57 EKG Documentation Completion [RC] STAT 01/13/17 01:02 Chest 2V [CR] Stat - Assessment/Plan Last 24 Hours: My Active Orders 01/12/17 23:57 EKG Documentation Completion [RC] STAT 01/13/17 01:02 Chest 2V [CR] Stat
[2017-01-13] MEDS ORDERED: Enoxaparin 100 MG/1 ML Syringe SUBCUT STA (01:50)
[2017-01-13] MEDS ORDERED: Zolpidem 5 MG Tab PO PRN (03:49)
--- NOTE | 2017-01-13 06:40 | PCM.HP ---
H&P History of Present Illness - General Date of Service: 01/13/17 Admit Problem/Dx: Admission Diagnosis/Problem Admission Diagnosis/Problem Syncope Source of Information: Patient, Old Records, Provider, RN Notes Reviewed, Significant Other History Limitations: Reports: No Limitations - History of Present Illness Initial Comments - Free Text/Narative: This is a 71 yo elderly white male with advanced past medical hx/o Glaucoma, A- fib, HR on warfarin, Cardiomyopathy, HF with Unknown EF, CAD s/p x4 vessel CABG , with redo x 2 vessel 1999, 1999 RCA and 2006 LAD stent placement, Chronic Angina, CKD Stage 4, BPH, Urinary Retention with Indwelling Babb Catheter, Gout , DM2, JIM/Anemia of Chronic Disease, and Insomnia who comes in for evaluation for leg cramps and near syncope. Patient is known to the Hospitalist Team. He was discharged here not too long ago with heart failure and syncope. He follows Dr. Anand for cardiac care. Patient is in the process of possibly getting a Pacemaker/AICD but not sure when according to him. He also follows Dr. Sage for his routine renal care. After discharged, he went on to live with his brother. His brother (a Vet) unfortunately left for a conference so he moved in temporarily with his daughter. According to him, he developed a severe leg cramps to his right leg yesterday. He also had near syncopal episode after he took a flight of stairs ( 12 steps). He is currently staying at the baseline of his daughter's house. His usual activity has increased and he gets more symptomatic than usual. He denies passing out. He reports no neurologic complaints. His initial work up in ED shows a CBC remarkable for RBC 3.56, hemoglobin of 8.6 , hematocrit 28.6, MCHC of 24.2, neutrophils of 79%, and lymphocytes of 14%. His INR is 1.57, and d-dimer of 1.06. His chemistry is remarkable for BUN of 89 , creatinine of 3, glucose of 173, alkaline phosphatase of 117, [place] [address] and, albumin of 2.8. His initial troponin is 0.031. Initial EKG shows atrial fibrillation with controlled heart rate. Chest x-ray shows bilateral pleural effusion with no significant pulmonary vascular congestion. Patient is being admitted for near syncope and leg cramps. He is CPR only. - Related Data Allergies/Adverse Reactions: Allergies Allergy/AdvReac Type Severity Reaction Status Date / Time No Known Allergies Allergy Verified 01/13/17 06:11 Home Medications: Home Meds Acetaminophen 650 mg PO Q6H PRN 08/09/16 [History] Brimonidine Tartrate/Timolol [Combigan 0.2%-0.5% Eye Drops] 1 drop EYELF BID [History] Cholecalciferol (Vitamin D3) [Vitamin D3] 5,000 unit PO DAILY 08/09/16 [History] Ferrous Sulfate 325 mg PO BEDTIME 08/09/16 [History] Insulin Aspart [Novolog Flexpen] 3 units SUBCUT TIDMEALS 08/09/16 [History] Insulin Glarg,Human.Rec.Analog [LantUS Solostar] 12 units SUBCUT BEDTIME [History] Docusate Sodium [Colace] 100 mg PO DAILY 08/20/16 [History] Carvedilol [Coreg] 3.125 mg PO BID 11/24/16 [History] Isosorbide Mononitrate [Imdur] 15 mg PO DAILY 11/24/16 [History] Tamsulosin [Flomax] 0.4 mg PO DAILY 11/24/16 [History] Warfarin [Coumadin] 2.5 mg PO SUMOTUWETHSA 11/24/16 [History] atorvaSTATin [Lipitor] 40 mg PO DAILY 11/24/16 [History] hydrALAZINE HCl [Hydralazine HCl] 10 mg PO TID 11/24/16 [History] Bumetanide 2 mg PO BID 01/13/17 [History] Past Medical History HEENT History: Reports: Glaucoma Cardiovascular History: Reports: Afib (chronic), CAD, Heart Failure, High Cholesterol, Hypertension, [place], Other (See Below) (Carotid artery disease) Other Cardiovascular History: occlusion and stenosis of bilateral carotid arteries Respiratory History: Reports: SOB, Other (See Below) Other Respiratory History: wheezing Gastrointestinal History: Reports: GERD, Other (See Below) Other Gastrointestinal History: encephalopathy Genitourinary History: Reports: BPH, Chronic Renal Insuffiency, Renal Calculus, Retention, Urinary Musculoskeletal History: Reports: Gout (suspected, not proven) Psychiatric History: Reports: Other (See Below) (Insomnia) Other Psychiatric History: insomnia Endocrine/Metabolic History: Reports: Diabetes, Type II Other Endocrine/Metabolic History: anemia Hematologic History: Reports: Anemia, Iron Deficiency - Past Surgical History HEENT Surgical History: Reports: Tonsillectomy Cardiovascular Surgical History: Reports: Carotid Endarterectomy (Left, 2016), Coronary Artery Bypass (4 vessel 03/07/96, with redo x 2 vessel 01/09/2000 ), Coronary Artery Stent (RCA 01/05/2000, LAD 03/14/2006) GI Surgical History: Reports: Hernia, Inguinal (right) Neurological Surgical History: Reports: Lumbar Spine (x 2) Social & Family History - Family History Family Medical History: Noncontributory - Tobacco Use Smoking Status *Q: Never Smoker Second Hand Smoke Exposure: No - Caffeine Use Caffeine Use: Reports: Coffee - Recreational Drug Use Recreational Drug Use: No - Living Situation & Occupation Living situation: Reports: , Extended Care Facility ([facility]) Occupation: Retired H&P Review of Systems - Review of Systems: Review Of Systems: See Below General: Reports: Other (Near syncope w/o collapsed). Denies: Fever, Chills, Malaise, Weakness, Fatigue HEENT: Reports: No Symptoms Pulmonary: Denies: Shortness of Breath, Cough Cardiovascular: Reports: Dyspnea on Exertion (common). Denies: Chest Pain, Palpitations, Lightheadedness Gastrointestinal: Denies: Abdominal Pain, Nausea, Vomiting Genitourinary: Reports: Retention, Other (with indwelling babb catheter) Musculoskeletal: Reports: Other (right lower extremity muscle cramps) Skin: Reports: No Symptoms Psychiatric: Denies: Depression, Anxiety, Hallucinations Neurological: Denies: Confusion, Difficulty Walking, Weakness, Gait Disturbance Hematologic/Lymphatic: Reports: Anemia Immunologic: Reports: No Symptoms Exam - Exam Exam: See Below - Vital Signs Vital Signs: Last Vital Signs Temp 36.5 C 01/12/17 23:40 Pulse 66 01/12/17 23:40 Resp 12 01/12/17 23:40 BP 133/73 01/12/17 23:40 Pulse Ox 100 01/12/17 23:40 Weight: 90.718 kg - Exam Quality Assessment: No: Supplemental Oxygen General: Alert, Oriented, Cooperative. No: Mild Distress HEENT: Conjunctiva Clear, EACs Clear, EOMI, Hearing Intact, Mucosa Moist & [place] , Nares Patent, Normal Nasal Septum, Posterior Pharynx Clear, Pupils Equal, Pupils Reactive Neck: Supple, Trachea Midline, +2 Carotid Pulse wo Bruit Lungs: Normal Respiratory Effort, Decreased Breath Sounds, Crackles Cardiovascular: Irregular Rhythm GI/Abdominal Exam: Normal Bowel Sounds, Soft, Non-Tender, No Organomegaly, No Distention, No Abnormal Bruit (Male) Exam: Other (indwelling babb catheter) Rectal (Males) Exam: Deferred Back Exam: Normal Inspection, Decreased Range of Motion Extremities: Normal Inspection, Normal Range of Motion, Pedal Edema (1-2+), Other (bilateral lower extremity edema L>>R) Peripheral Pulses: 0: Dorsalis Pedis (L), 1+: Dorsalis Pedis (R) Skin: Warm, Dry, Intact Neuro Extensive - Mental Status: Oriented x3, Normal Cognition, Memory Intact Neuro Extensive - Motor, Sensory, Reflexes: CN II-XII Intact, Abnormal Gait Psychiatric: Alert, Normal Affect, Normal Mood - Patient Data Result Diagrams: 01/13/17 01:18 01/13/17 01:18 EKG INTERPRETATION EKG Date: 01/12/17 Time: 23:46 Rhythm: A-Fib Rate (Beats/Min): 68 Nathalie: LAD-Left Nathalie Deviation P-Wave: Absent QRS: LBBB ST-T: Normal QT: Prolonged Comparison: Change From Previous EKG *Q Meaningful Use (ADM) - VTE *Q VTE Criteria *Q: - Stroke *Q Stroke Criteria *Q: - AMI *Q AMI Criteria *Q: Problem List Initiated/Reviewed/Updated: Yes Orders Last 24hrs: Active Orders 24 hr Category Date Time Status Admission Status [Patient Status] [ADT] Routine ADT 01/13/17 05:47 Active Up With Assistance [RC] ASDIRECTED Care 01/13/17 03:45 Active 2 Gram Sodium Diet [DIET] Diet 01/13/17 Breakfast Active Lung Vent Perfusion [NM] Routine Exams 01/15/17 08:00 Ordered Enoxaparin [Lovenox] Med 01/13/17 09:00 Pending 90 mg SUBCUT Q12HR Zolpidem [Ambien] Med 01/13/17 03:49 Active 5 mg PO BEDTIME PRN Code Status [Resuscitation Status] Routine Resus Stat 01/13/17 03:40 Ordered Medication Orders Enoxaparin Sodium (Lovenox) 90 mg SUBCUT Q12HR SAULO Zolpidem Tartrate (Ambien) 5 mg PO BEDTIME PRN PRN Reason: Insomnia Assessment/Plan Comment:: Assessment/Plan: Acute: Near Syncope - Has advanced cardiac lung disease - Took over a flight of stairs by the time he got to 12 steps, he had to stop and try to catch his breath - Risk factors: Cardiomyopathy, Heart Failure, Atrial Fibrillation, Pleural Effusions and Anemia (Hgb 8.6) - Benign neuro exam - He is not requiring supplemental O2 and no respiratory distress - He has poor overall health Leg Cramps - Had severe muscle cramps - His electrolytes are normal on admission - Will r/o DVT Elevated D-Dimer - D-dimer 1.06: this could be false due to CKD Stage IV - He is already on Warfarin but INR is subtherapeutic - He no respiratory issues at this time; he is o even on supplemental O2 - Consider V/Q scan if we ever do it on weekends; defer to incoming Hospitalist - He received lovenox sub in ED - Will bridge with heparin due to considerably reduced renal function Bilateral Pleural Effusions - Elevated Pro-BNP at 18K - Has hx/o CHF/Cardiomyopathy - He is not symptomatic right now - CXR is about the same as 11/27/2016 - Continue home diuretic regimen - Fluid/Salt restrictions Subtherapeutic INR - INR 1.5 - Will bridge with Heparin SubQ TID - Daily INR Generalized Weakness - He probably benefit with deconditioning - PT/OT eval - His brother left for a conference so he's staying with his daughter - Daughter's house is not favorable to him Chronic: Glaucoma A-fib, HR on warfarin Cardiomyopathy HF with Unknown EF CAD x 4 vessel CABG, with redo x 2 vessel 1999, 1999 RCA and 2006 LAD stent placement CKD Stage 4 BPH Urinary Retention with Indwelling Babb Catheter Gout DM2, ADA diet, Accu-check QID AC/HS JIM/Anemia of Chronic Disease (8.6), On Iron Pills Insomnia Plan: Patient was admitted network services project manager to the floor by Dr. Hatfield Routine AM Labs Resume Home Meds PT/OT consult SW/CM for d/c planning He may need placement:SNF/NH Code status: CPR only
[2017-01-13] MEDS ORDERED: Enoxaparin 80 MG/0.8 ML Syringe SUBCUT SCH (09:00)
[2017-01-13] MEDS ORDERED: Albuterol/Ipratropium 3.0-0.5 MG/3 ML Neb Soln NEB PRN (09:21)
[2017-01-13] MEDS ORDERED: HYDROmorphone 0.5 MG/0.5 ML Syringe IVPUSH PRN (09:21)
[2017-01-13] MEDS ORDERED: Docusate Sodium 100 MG Cap PO PRN (09:21)
[2017-01-13] MEDS ORDERED: Acetaminophen 325 MG Tab PO PRN (09:21)
[2017-01-13] MEDS ORDERED: Promethazine 6.25 MG in Sodium Chloride 0.9% 50 ML IV PRN (09:21)
[2017-01-13] MEDS ORDERED: Bisacodyl 5 MG Tab PO PRN (09:21)
[2017-01-13] MEDS ORDERED: Acetaminophen/HYDROcodone 325-5 MG Tab PO PRN (09:21)
[2017-01-13] MEDS ORDERED: Ondansetron 4 MG/2 ML SDV IV PRN (09:21)
[2017-01-13] MEDS ORDERED: LORazepam 2 MG/ML MDV IV PRN (09:21)
[2017-01-13] MEDS ORDERED: Metoprolol Tartrate 5 MG/5 ML SDV IVPUSH PRN (09:26)
[2017-01-13] MEDS ORDERED: hydrALAZINE 20 MG/ML SDV IVPUSH PRN (09:26)
[2017-01-13] MEDS ORDERED: Warfarin 2.5 MG Tab PO SCH (09:30)
[2017-01-13] MEDS ORDERED: 50% Dextrose in Water 50 ML Syringe IVPUSH PRN (09:52)
--- NOTE | 2017-01-13 10:11 | PCM.PN ---
- General Info Date of Service: 01/13/17 Functional Status: Reports: Tolerating Diet, Ambulating, Urinating - Review of Systems General: Reports: Fatigue HEENT: Reports: No Symptoms Pulmonary: Reports: Shortness of Breath Cardiovascular: Reports: No Symptoms Gastrointestinal: Reports: No Symptoms Genitourinary: Reports: No Symptoms Musculoskeletal: Reports: No Symptoms Skin: Reports: No Symptoms Neurological: Reports: No Symptoms Psychiatric: Reports: No Symptoms - Patient Data Vitals - Most Recent: Last Vital Signs Temp 36.6 C 01/13/17 07:25 Pulse 68 01/13/17 07:25 Resp 16 01/13/17 07:25 BP 122/76 01/13/17 07:25 Pulse Ox 96 01/13/17 07:25 Weight - Most Recent: 90.718 kg I&O - Last 24 Hours: Intake & Output 01/12/17 01/13/17 01/13/17 22:59 06:59 14:59 Intake Total 240 Output Total 425 Balance -185 Med Orders - Current: Current Medications Acetaminophen (Tylenol) 650 mg PO Q4H PRN PRN Reason: Pain (Mild 1-3)/fever Hydrocodone Bitart/Acetaminophen ([place] 325-5 Mg) 1 tab PO Q4H PRN PRN Reason: Pain (moderate 4-6) Albuterol/Ipratropium (Duoneb 3.0-0.5 Mg/3 Ml) 3 ml NEB Q4H PRN PRN Reason: Shortness Of Breath/wheezing Bisacodyl (Dulcolax) 5 mg PO DAILY PRN PRN Reason: Constipation Carvedilol (Coreg) 3.125 mg PO BID [facility] Dextrose/Water (Dextrose 50% In Water) 50 ml IVPUSH ASDIRECTED PRN PRN Reason: Hypoglycemia Docusate Sodium (Colace) 100 mg PO BID PRN PRN Reason: Constipation Ferrous Sulfate (Ferrous Sulfate) 325 mg PO BEDTIME [facility] Heparin Sodium (Porcine) (Heparin Sodium) 5,000 units SUBCUT Q8H [facility] Hydralazine HCl (Apresoline) 10 mg IVPUSH Q4H PRN PRN Reason: Hypertension Hydralazine HCl (Apresoline) 10 mg PO TID [facility] Hydromorphone HCl (Dilaudid) 0.25 mg IVPUSH Q2H PRN PRN Reason: Pain (severe 7-10) Promethazine HCl 6.25 mg/ (Sodium Chloride) 50.25 mls @ 100 mls/hr IV Q6H PRN PRN Reason: Nausea/Vomiting Insulin Aspart (Novolog) 0 unit SUBCUT QIDACANDBED [facility] PRN Reason: Protocol Isosorbide Mononitrate (Imdur) 15 mg PO DAILY [facility] Lorazepam (Ativan) 0.25 mg IV Q6H PRN PRN Reason: Anxiety Magnesium Sulfate (Pharmacy To Dose - Magnesium Replacement) 0 dose .XX ASDIRECTED PRN PRN Reason: RX TO WATCH MAG LEVELS Metoprolol Tartrate (Lopressor) 5 mg IVPUSH Q4H PRN PRN Reason: Tachycardia Non-Formulary Medication (Atorvastatin) 40 mg PO DAILY [facility] Non-Formulary Medication (Brimonidine/Timolol) 1 drop EYELF BID [facility] Non-Formulary Medication (Bumetanide [Bumetanide]) 2 mg PO BID [facility] Non-Formulary Medication (Cholecalciferol (Vitamin D3) [Vitamin D3]) 5,000 unit PO DAILY [facility] Non-Formulary Medication (Insulin Glarg,Human.Rec.Analog) 12 units SUBCUT BEDTIME [facility] Ondansetron HCl (Zofran) 4 mg IV Q6H PRN PRN Reason: Nausea/Vomiting Potassium Chloride (Pharmacy To Dose - Potassium Replacement) 0 dose .XX ASDIRECTED PRN PRN Reason: RX TO WATCH K LEVELS Potassium Chloride (Klor-Con M20) 40 meq PO Q4H [facility] Stop: 01/13/17 14:01 Senna/Docusate Sodium (Senna Plus) 1 tab PO BID PRN PRN Reason: Constipation Tamsulosin HCl (Flomax) 0.4 mg PO DAILY [facility] Warfarin Sodium (Pharmacy To Dose - Warfarin) 0 dose .XX ASDIRECTED PRN PRN Reason: RX TO DOSE COUMADIN Warfarin Sodium (Coumadin) 7.5 mg PO QPM [facility] Stop: 01/13/17 21:00 Zolpidem Tartrate (Ambien) 5 mg PO BEDTIME PRN PRN Reason: Insomnia Discontinued Medications Enoxaparin Sodium (Lovenox) 90 mg SUBCUT ONETIME STA Stop: 01/13/17 01:51 Last Admin: 01/13/17 02:09 Dose: 90 mg Enoxaparin Sodium (Lovenox) 90 mg SUBCUT Q12HR [facility] Enoxaparin Sodium (Lovenox) 90 mg SUBCUT BEDTIME [facility] Insulin Aspart (Novolog) 3 unit SUBCUT TIDMEALS [facility] Warfarin Sodium (Coumadin) 2.5 mg PO SUMOTUWETHSA [facility] - Exam Quality Assessment: DVT Prophylaxis General: Alert, Oriented, Cooperative, No Acute Distress HEENT: Pupils Equal, Pupils Reactive, EOMI Neck: Supple, Trachea Midline, No JVD Lungs: Normal Respiratory Effort, Decreased Breath Sounds Cardiovascular: Regular Rate GI/Abdominal Exam: Normal Bowel Sounds, Soft, Non-Tender, No Organomegaly, No Distention (Male) Exam: Deferred Back Exam: Normal Inspection Extremities: Normal Inspection, Pedal Edema Skin: Warm Neurological: No New Focal Deficit, Normal Gait, Normal Speech Psy/Mental Status: Alert, Normal Affect, Normal Mood - Problem List Review Problem List Initiated/Reviewed/Updated: Yes - Plan Plan:: Assessment/Plan: Acute: Near Syncope - Has advanced cardiac lung disease - Took over a flight of stairs by the time he got to 12 steps, he had to stop and try to catch his breath - Risk factors: Cardiomyopathy, Heart Failure, Atrial Fibrillation, Pleural Effusions and Anemia (Hgb 8.6) - Benign neuro exam - He is not requiring supplemental O2 and no respiratory distress - He has poor overall health Leg Cramps - Had severe muscle cramps - His electrolytes are normal on admission - Will r/o DVT Elevated D-Dimer - D-dimer 1.06: CKD Stage IV; DVT eval WNL. - He is already on Warfarin but INR is subtherapeutic - He no respiratory issues at this time; he is o even on supplemental O2 - Consider V/Q scan if we ever do it on weekends; defer to incoming Hospitalist - He received lovenox sub in ED - Will bridge with heparin due to considerably reduced renal function Bilateral Pleural Effusions - Elevated Pro-BNP at 18K - Has hx/o CHF/Cardiomyopathy - He is not symptomatic right now - CXR is about the same as 11/27/2016 - Continue home diuretic regimen - Fluid/Salt restrictions Subtherapeutic INR - INR 1.5 - Will bridge with Heparin SubQ TID - Daily INR Generalized Weakness - He probably benefit with deconditioning - PT/OT eval - His brother left for a conference so he's staying with his daughter - Daughter's house is not favorable to him Chronic: Glaucoma A-fib, HR on warfarin Cardiomyopathy HF with Unknown EF CAD x 4 vessel CABG, with redo x 2 vessel 1999, 1999 RCA and 2006 LAD stent placement CKD Stage 4 BPH Urinary Retention with Indwelling Handley Catheter Gout DM2, ADA diet, Accu-check QID AC/HS JIM/Anemia of Chronic Disease (8.6), On Iron Pills Insomnia Plan: *Patient was admitted speck dyer to the floor by Dr. Hatfield T and C, transfuse 2 units PRBC, lasix with transfusion Routine AM Labs Resume Home Meds Diurese as tolerated PT/OT consult SW/CM for d/c planning He may need placement:SNF/NH Code status: CPR only
[2017-01-13] MEDS: Heparin Sodium 5,000 Units/ML Vial SUBCUT SCH ×2 (10:27→16:19)
[2017-01-13] MEDS ORDERED: BUMETANIDE 2 MG PO SCH (10:45)
[2017-01-13] MEDS ORDERED: VITAMIN D3 5000 UNIT PO SCH (10:45)
[2017-01-13] MEDS ORDERED: Insulin Aspart 100 Units/ML 3 ML Pen SUBCUT SCH (11:00)
[2017-01-13] MEDS: Potassium Chloride 20 MEQ Tab.ER PO SCH ×2 (11:17→17:23)
[2017-01-13] MEDS: Tamsulosin 0.4 MG Cap.ER PO SCH (11:19)
[2017-01-13] MEDS: ISOSORBIDE MONONITRATE 30 MG PO SCH (11:26)
[2017-01-13] MEDS: Carvedilol 3.125 MG Tab PO SCH ×2 (11:26→21:22)
[2017-01-13] MEDS: hydrALAZINE 10 MG Tab PO SCH ×3 (11:26→21:21)
[2017-01-13] MEDS: INSULIN ASPART 100 UNIT/ML SUBCUT SCH ×3 (11:27→21:25)
[2017-01-13] MEDS ORDERED: diphenhydrAMINE 50 MG/ML SDV IV ONE ×2 (13:34→16:15)
[2017-01-13] MEDS ORDERED: Furosemide 40 MG/4 ML VIAL IVPUSH ONE ×2 (13:34→16:15)
[2017-01-13] MEDS ORDERED: Sodium Chloride 0.9% 250 ML IV SCH (16:15)
[2017-01-13] MEDS ORDERED: methylPREDNISolone Sodium Succinate 125 MG/2 ML SDV IV ONE (16:15)
[2017-01-13] MEDS: methylPREDNISolone Sodium Succinate 125 MG/2 ML SDV IV ONE ×2 (16:27→16:54)
[2017-01-13] MEDS ORDERED: methylPREDNISolone Sodium Succinate 125 MG/2 ML SDV ONE (16:29)
[2017-01-13] MEDS ORDERED: Potassium Chloride 20 MEQ Tab.ER PO ONE (17:15)
[2017-01-13] MEDS ORDERED: Warfarin 7.5 MG Tab PO SCH (18:00)
[2017-01-13] MEDS ORDERED: Temazepam 7.5 MG Cap PO PRN (18:46)
[2017-01-13] MEDS ORDERED: Brimonidine 0.2% Ophth Soln 5 ML Bottle EYELF SCH (21:00)
[2017-01-13] MEDS ORDERED: Enoxaparin 100 MG/1 ML Syringe SUBCUT SCH (21:00)
[2017-01-13] MEDS: Bumetanide 1 MG Tab PO SCH (21:22)
[2017-01-13] MEDS: Ferrous Sulfate 325 MG Tab PO SCH (21:23)
[2017-01-13] MEDS: Insulin Detemir 100 Units/ML 3 ML Pen SUBCUT SCH (21:23)
[2017-01-13] MEDS: Rosuvastatin 10 MG Tab PO SCH (21:23)
[2017-01-14] MEDS: Heparin Sodium 5,000 Units/ML Vial SUBCUT SCH ×3 (01:53→17:19)
[2017-01-14] MEDS: INSULIN ASPART 100 UNIT/ML SUBCUT SCH ×2 (06:52→13:52)
[2017-01-14] MEDS: Brimonidine 0.2% Ophth Soln 5 ML Bottle EYELF SCH ×2 (10:03→21:47)
[2017-01-14] MEDS: Timolol Maleate 0.5% Ophth Soln 5 ML Bottle EYELF SCH ×2 (10:03→21:47)
[2017-01-14] MEDS: hydrALAZINE 10 MG Tab PO SCH ×3 (10:04→21:46)
[2017-01-14] MEDS: Carvedilol 3.125 MG Tab PO SCH ×2 (10:04→21:46)
[2017-01-14] MEDS: Bumetanide 1 MG Tab PO SCH (10:04)
[2017-01-14] MEDS: Cholecalciferol (Vitamin D3) 1,000 Unit Tab PO SCH (10:05)
[2017-01-14] MEDS: Tamsulosin 0.4 MG Cap.ER PO SCH (10:05)
[2017-01-14] MEDS: ISOSORBIDE MONONITRATE 30 MG PO SCH (10:06)
[2017-01-14] MEDS: Insulin Detemir 100 Units/ML 3 ML Pen SUBCUT SCH ×2 (10:07→21:52)
[2017-01-14] MEDS ORDERED: Insulin Aspart 100 Units/ML 3 ML Pen SUBCUT SCH (12:00)
--- NOTE | 2017-01-14 13:41 | PCM.PN ---
- General Info Date of Service: 01/14/17 Admission Dx/Problem (Free Text): Feels 100 % stronger after the transfusion; looking forward to BiV-AICD placement Functional Status: Reports: Tolerating Diet, Ambulating, Urinating - Review of Systems General: Reports: Weakness (no), Fatigue (decreased) HEENT: Reports: No Symptoms Pulmonary: Reports: Shortness of Breath (decreased) Cardiovascular: Reports: No Symptoms Gastrointestinal: Reports: No Symptoms Genitourinary: Reports: No Symptoms Musculoskeletal: Reports: No Symptoms Skin: Reports: No Symptoms Neurological: Reports: No Symptoms Psychiatric: Reports: No Symptoms - Patient Data Vitals - Most Recent: Last Vital Signs Temp 36.7 C 01/14/17 11:54 Pulse 72 01/14/17 11:54 Resp 18 01/14/17 11:54 BP 135/79 01/14/17 11:54 Pulse Ox 94 L 01/14/17 11:54 Weight - Most Recent: 90.718 kg I&O - Last 24 Hours: Intake & Output 01/13/17 01/14/17 01/14/17 22:59 06:59 14:59 Intake Total 940 760 290 Output Total 1350 Balance 940 -590 290 Lab Results Last 24 Hours: Laboratory Results - last 24 hr 01/13/17 01/13/17 01/14/17 Range/Units 17:32 20:22 05:15 WBC (4.23-9.07) K/mm3 RBC (4.63-6.08) M/mm3 Hgb (13.7-17.5) gm/L Hct (40.1-51.0) % MCV (79.0-92.2) fl MCH (25.7-32.2) pg MCHC (32.2-35.5) g/dl RDW Std Deviation (35.1-43.9) fL Plt Count (163-337) K/mm3 MPV (9.4-12.3) fl PT 18.4 H (8.0-13.0) SECONDS INR 1.64 Sodium (136-145) mEq/L Potassium (3.5-5.1) mEq/L Chloride (98-107) mEq/L Carbon Dioxide (21-32) mEq/L Anion Gap (5-15) BUN (7-18) mg/dL Creatinine (0.7-1.3) mg/dL Est Cr Clr Drug Dosing mL/min Estimated GFR (MDRD) (>60) mL/min BUN/Creatinine Ratio (14-18) Glucose (83-115) mg/dL POC Glucose 230 H 308 H (83-110) mg/dL Calcium (8.5-10.1) mg/dL Magnesium (1.8-2.4) mg/dl CK-MB (CK-2) (0-3.6) ng/ml Troponin I (0.00-0.056) ng/mL NT-Pro-B Natriuret Pep (0-125) pg/mL 01/14/17 01/14/17 01/14/17 Range/Units 05:15 05:15 06:45 WBC 7.82 (4.23-9.07) K/mm3 RBC 4.38 L (4.63-6.08) M/mm3 Hgb 11.1 L (13.7-17.5) gm/L Hct 35.1 L (40.1-51.0) % MCV 80.1 (79.0-92.2) fl MCH 25.3 L (25.7-32.2) pg MCHC 31.6 L (32.2-35.5) g/dl RDW Std Deviation 49.0 H (35.1-43.9) fL Plt Count 230 (163-337) K/mm3 MPV 10.8 (9.4-12.3) fl PT (8.0-13.0) SECONDS INR Sodium 137 (136-145) mEq/L Potassium 4.7 (3.5-5.1) mEq/L Chloride 100 (98-107) mEq/L Carbon Dioxide 24 (21-32) mEq/L Anion Gap 17.7 H (5-15) BUN 84 H (7-18) mg/dL Creatinine 2.8 H (0.7-1.3) mg/dL Est Cr Clr Drug Dosing 23.85 mL/min Estimated GFR (MDRD) 22 (>60) mL/min BUN/Creatinine Ratio 30.0 H (14-18) Glucose 313 H (83-115) mg/dL POC Glucose 390 H (83-110) mg/dL Calcium 9.5 (8.5-10.1) mg/dL Magnesium 2.5 H (1.8-2.4) mg/dl CK-MB (CK-2) 2.9 (0-3.6) ng/ml Troponin I 0.021 (0.00-0.056) ng/mL NT-Pro-B Natriuret Pep > 27460 H (0-125) pg/mL 01/14/17 Range/Units 12:09 WBC (4.23-9.07) K/mm3 RBC (4.63-6.08) M/mm3 Hgb (13.7-17.5) gm/L Hct (40.1-51.0) % MCV (79.0-92.2) fl MCH (25.7-32.2) pg MCHC (32.2-35.5) g/dl RDW Std Deviation (35.1-43.9) fL Plt Count (163-337) K/mm3 MPV (9.4-12.3) fl PT (8.0-13.0) SECONDS INR Sodium (136-145) mEq/L Potassium (3.5-5.1) mEq/L Chloride (98-107) mEq/L Carbon Dioxide (21-32) mEq/L Anion Gap (5-15) BUN (7-18) mg/dL Creatinine (0.7-1.3) mg/dL Est Cr Clr Drug Dosing mL/min Estimated GFR (MDRD) (>60) mL/min BUN/Creatinine Ratio (14-18) Glucose 417 H (83-115) mg/dL POC Glucose (83-110) mg/dL Calcium (8.5-10.1) mg/dL Magnesium (1.8-2.4) mg/dl CK-MB (CK-2) (0-3.6) ng/ml Troponin I (0.00-0.056) ng/mL NT-Pro-B Natriuret Pep (0-125) pg/mL Med Orders - Current: Current Medications Acetaminophen (Tylenol) 650 mg PO Q4H PRN PRN Reason: Pain (Mild 1-3)/fever Hydrocodone Bitart/Acetaminophen ([place] 325-5 Mg) 1 tab PO Q4H PRN PRN Reason: Pain (moderate 4-6) Albuterol/Ipratropium (Duoneb 3.0-0.5 Mg/3 Ml) 3 ml NEB Q4H PRN PRN Reason: Shortness Of Breath/wheezing Bisacodyl (Dulcolax) 5 mg PO DAILY PRN PRN Reason: Constipation Brimonidine Tartrate ([place] 0.2% Ophth Soln) 0 ml EYELF BID [facility] Last Admin: 01/14/17 10:03 Dose: Not Given Bumetanide (Bumex) 2 mg PO BID [facility] Last Admin: 01/14/17 10:04 Dose: 2 mg Carvedilol (Coreg) 3.125 mg PO BID [facility] Last Admin: 01/14/17 10:04 Dose: 3.125 mg Cholecalciferol (Vitamin D3) 5,000 units PO DAILY [facility] Last Admin: 01/14/17 10:05 Dose: 5,000 units Dextrose/Water (Dextrose 50% In Water) 50 ml IVPUSH ASDIRECTED PRN PRN Reason: Hypoglycemia Docusate Sodium (Colace) 100 mg PO BID PRN PRN Reason: Constipation Ferrous Sulfate (Ferrous Sulfate) 325 mg PO BEDTIME [facility] Last Admin: 01/13/17 21:23 Dose: 325 mg Heparin Sodium (Porcine) (Heparin Sodium) 5,000 units SUBCUT Q8H [facility] Last Admin: 01/14/17 10:07 Dose: 5,000 units Hydralazine HCl (Apresoline) 10 mg IVPUSH Q4H PRN PRN Reason: Hypertension Hydralazine HCl (Apresoline) 10 mg PO TID [facility] Last Admin: 01/14/17 10:04 Dose: 10 mg Hydromorphone HCl (Dilaudid) 0.25 mg IVPUSH Q2H PRN PRN Reason: Pain (severe 7-10) Promethazine HCl 6.25 mg/ (Sodium Chloride) 50.25 mls @ 100 mls/hr IV Q6H PRN PRN Reason: Nausea/Vomiting Insulin Aspart (Novolog) 0 unit SUBCUT QIDACANDBED [facility] PRN Reason: Protocol Insulin Detemir (Levemir) 6 unit SUBCUT BID [facility] Last Admin: 01/14/17 10:07 Dose: 6 units Isosorbide Mononitrate (Imdur) 15 mg PO DAILY [facility] Last Admin: 01/14/17 10:06 Dose: 15 mg Lorazepam (Ativan) 0.5 mg IV Q6H PRN PRN Reason: Anxiety Metoprolol Tartrate (Lopressor) 5 mg IVPUSH Q4H PRN PRN Reason: Tachycardia Ondansetron HCl (Zofran) 4 mg IV Q6H PRN PRN Reason: Nausea/Vomiting Rosuvastatin Calcium (Crestor) 10 mg PO BEDTIME [facility] Last Admin: 01/13/17 21:23 Dose: 10 mg Senna/Docusate Sodium (Senna Plus) 1 tab PO BID PRN PRN Reason: Constipation Tamsulosin HCl (Flomax) 0.4 mg PO DAILY [facility] Last Admin: 01/14/17 10:05 Dose: 0.4 mg Temazepam (Restoril) 7.5 mg PO BEDTIME PRN PRN Reason: Insomnia Timolol Maleate (Timoptic 0.5% Ophth Soln) 0 ml EYELF BID [facility] Last Admin: 01/14/17 10:03 Dose: Not Given Warfarin Sodium (Pharmacy To Dose - Warfarin) 0 dose .XX ASDIRECTED PRN PRN Reason: RX TO DOSE COUMADIN Warfarin Sodium (Coumadin) 7.5 mg PO QPM [facility] Stop: 01/14/17 21:00 Zolpidem Tartrate (Ambien) 5 mg PO BEDTIME PRN PRN Reason: Insomnia Discontinued Medications Brimonidine Tartrate (Alphagan 0.2% Ophth Soln) 0 ml EYELF BID [facility] Last Admin: 01/14/17 08:25 Dose: Not Given Diphenhydramine HCl (Benadryl) 25 mg IV ONETIME ONE Stop: 01/13/17 13:35 Last Admin: 01/13/17 16:15 Dose: 25 mg Diphenhydramine HCl (Benadryl) 25 mg IV ONETIME ONE Stop: 01/13/17 16:16 Last Admin: 01/13/17 16:21 Dose: Not Given Enoxaparin Sodium (Lovenox) 90 mg SUBCUT ONETIME STA Stop: 01/13/17 01:51 Last Admin: 01/13/17 02:09 Dose: 90 mg Enoxaparin Sodium (Lovenox) 90 mg SUBCUT Q12HR [facility] Enoxaparin Sodium (Lovenox) 90 mg SUBCUT BEDTIME [facility] Furosemide (Lasix) 40 mg IVPUSH NOW ONE Stop: 01/13/17 13:35 Last Admin: 01/13/17 16:52 Dose: Not Given Furosemide (Lasix) 40 mg IVPUSH NOW ONE Stop: 01/13/17 16:16 Last Admin: 01/13/17 20:02 Dose: 40 mg Sodium Chloride (Normal Saline) 250 mls @ 125 mls/hr IV ASDIRECTED [facility] Last Admin: 01/13/17 16:55 Dose: 125 mls/hr Insulin Aspart (Novolog) 3 unit SUBCUT TIDMEALS [facility] Insulin Aspart (Novolog) 0 unit SUBCUT QIDACANDBED [facility] PRN Reason: Protocol Last Admin: 01/14/17 06:52 Dose: 5 units Insulin Aspart (Novolog) 0 unit SUBCUT QIDACANDBED [facility] PRN Reason: Protocol Lorazepam (Ativan) 0.25 mg IV Q6H PRN PRN Reason: Anxiety Magnesium Sulfate (Pharmacy To Dose - Magnesium Replacement) 0 dose .XX ASDIRECTED PRN PRN Reason: RX TO WATCH MAG LEVELS Methylprednisolone Sodium Succinate (Solu-Medrol) 125 mg IV ONETIME ONE Stop: 01/13/17 13:35 Last Admin: 01/13/17 16:54 Dose: Not Given Methylprednisolone Sodium Succinate (Solu-Medrol) 125 mg IV ONETIME ONE Stop: 01/13/17 16:16 Last Admin: 01/13/17 16:37 Dose: 125 mg Methylprednisolone Sodium Succinate (Solu-Medrol) Confirm Administered Dose 125 mg .ROUTE .STK-MED ONE Stop: 01/13/17 16:30 Last Admin: 01/13/17 16:52 Dose: Not Given Bumetanide 2 Mg ( (Bumex)) 0 each PO BID [facility] Last Admin: 01/13/17 11:19 Dose: 1 each Vitamin D3 5,000 (Unit) 0 each PO DAILY [facility] Last Admin: 01/13/17 11:19 Dose: 1 each Potassium Chloride (Pharmacy To Dose - Potassium Replacement) 0 dose .XX ASDIRECTED PRN PRN Reason: RX TO WATCH K LEVELS Potassium Chloride (Klor-Con M20) 40 meq PO Q4H [facility] Stop: 01/13/17 14:01 Last Admin: 01/13/17 17:23 Dose: Not Given Potassium Chloride (Klor-Con M20) 40 meq PO ONETIME ONE Stop: 01/13/17 17:16 Last Admin: 01/13/17 17:23 Dose: 40 meq Warfarin Sodium (Coumadin) 7.5 mg PO QPM [facility] Stop: 01/13/17 21:00 Last Admin: 01/13/17 17:22 Dose: 7.5 mg Warfarin Sodium (Coumadin) 2.5 mg PO SUMOTUWETHSA [facility] Last Admin: 01/13/17 12:06 Dose: Not Given - Exam Quality Assessment: Supplemental Oxygen, DVT Prophylaxis General: Alert, Oriented, Cooperative, No Acute Distress HEENT: Pupils Equal, Pupils Reactive, EOMI Neck: Supple, Trachea Midline, No JVD Lungs: Normal Respiratory Effort Cardiovascular: Regular Rate, Regular Rhythm GI/Abdominal Exam: Normal Bowel Sounds, Soft, Non-Tender, No Organomegaly, No Distention (Male) Exam: Deferred Back Exam: Normal Inspection Extremities: Normal Inspection, Pedal Edema Skin: Warm Neurological: No New Focal Deficit Psy/Mental Status: Alert, Normal Affect, Normal Mood - Problem List Review Problem List Initiated/Reviewed/Updated: Yes - My Orders Last 24 Hours: My Active Orders 01/13/17 18:26 LORazepam [Ativan] 0.5 mg IV Q6H PRN 01/13/17 18:46 Temazepam [Restoril] 7.5 mg PO BEDTIME PRN - Plan Plan:: Assessment/Plan: Acute: Near Syncope - Has advanced cardiac lung disease - Took over a flight of stairs by the time he got to 12 steps, he had to stop and try to catch his breath - Risk factors: Cardiomyopathy, Heart Failure, Atrial Fibrillation, Pleural Effusions and Anemia (Hgb 8.6) - Benign neuro exam - He is not requiring supplemental O2 and no respiratory distress - He has poor overall health Leg Cramps - Had severe muscle cramps - His electrolytes are normal on admission - Will r/o DVT Elevated D-Dimer - D-dimer 1.06: CKD Stage IV; DVT eval WNL. - He is already on Warfarin but INR is subtherapeutic - He no respiratory issues at this time; he is o even on supplemental O2 - Consider V/Q scan if we ever do it on weekends; defer to incoming Hospitalist - He received lovenox sub in ED - Will bridge with heparin due to considerably reduced renal function Bilateral Pleural Effusions - Elevated Pro-BNP at 18K - Has hx/o CHF/Cardiomyopathy - He is not symptomatic right now - CXR is about the same as 11/27/2016 - Continue home diuretic regimen - Fluid/Salt restrictions CAD/ICMP-placement of BiV AICD after DC as arranged. CHF--->systolic dysfunction, diurese as tolerated Anemia--->s/p 2 units PRBCs Subtherapeutic INR - INR 1.5 - Will bridge with Heparin SubQ TID - Daily INR Generalized Weakness - He probably benefit with deconditioning - PT/OT eval - His brother left for a conference so he's staying with his daughter - Daughter's house is not favorable to him Chronic: Glaucoma A-fib, HR on warfarin Cardiomyopathy HF with Unknown EF CAD x 4 vessel CABG, with redo x 2 vessel 1999, 1999 RCA and 2006 LAD stent placement CKD Stage 4 BPH Urinary Retention with Indwelling Handley Catheter Gout DM2, ADA diet, Accu-check QID AC/HS JIM/Anemia of Chronic Disease (8.6), On Iron Pills Insomnia Plan: *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 Hatfield T and C, transfuse 2 units PRBC; lasix with transfusion Routine AM Labs Resume Home Meds Diurese as tolerated PT/OT consult SW/CM for d/c planning He may need placement:SNF/NH Code status: CPR only LOS<96 hours, DC 24-48 hours
[2017-01-14] MEDS ORDERED: Bumetanide 1 MG/4 ML MDV IVPUSH ONE (13:47)
[2017-01-14] MEDS: Insulin Aspart 100 Units/ML 3 ML Pen SUBCUT SCH ×3 (13:47→21:51)
[2017-01-14] MEDS ORDERED: Insulin Detemir 100 Units/ML 3 ML Pen SUBCUT SCH (17:15)
[2017-01-14] MEDS ORDERED: Warfarin 7.5 MG Tab PO SCH (18:00)
[2017-01-14] MEDS: Rosuvastatin 10 MG Tab PO SCH (21:46)
[2017-01-14] MEDS: Ferrous Sulfate 325 MG Tab PO SCH (21:46)
[2017-01-15] MEDS: Heparin Sodium 5,000 Units/ML Vial SUBCUT SCH ×2 (01:01→09:18)
[2017-01-15] MEDS: LORazepam 2 MG/ML MDV IV PRN ×2 (01:02→10:09)
[2017-01-15] MEDS: Insulin Aspart 100 Units/ML 3 ML Pen SUBCUT SCH ×2 (06:58→11:51)
--- NOTE | 2017-01-15 08:32 | CR ---
Chest: Portable view of the chest was obtained. Comparison: Prior chest x-ray of 01/13/17. Small bilateral pleural effusions are present. Slight chronic density is seen within the left lung base. Lungs otherwise are clear. Sternotomy is noted. Prior CABG is seen. Bony structures are grossly intact. Impression: 1. Stable chest x-ray from prior study of 01/13/17. Diagnostic code #3
--- NOTE | 2017-01-15 08:34 | CR ---
Chest: Two views of the chest were obtained. Comparison: Prior chest x-rays of 11/27/16 and 11/24/16. Blunting of both costophrenic angles is seen which appears stable from prior chest x-rays most likely representing persisting pleural effusions. Slight parenchymal densities noted within both lung bases either due to scarring or persisting atelectasis. Lungs otherwise are clear. Previous sternotomy noted for CABG. Heart size is slightly more larger than on prior exam. Bony structures appear unremarkable for the patient's age. Incidental note of scattered degenerative spurring within the mid and lower thoracic spine. Impression: 1. Heart size is slightly larger than on prior chest x-ray. 2. Persisting pleural effusions within both lung bases with mild bibasilar atelectasis or scarring. 3. Other incidental findings as described above. Diagnostic code #3
--- NOTE | 2017-01-15 08:34 | US ---
Right lower extremity deep venous ultrasound: Duplex and color flow imaging was obtained of the right common femoral, proximal greater saphenous, superficial femoral, popliteal, posterior tibial and peroneal veins. Left common femoral vein was also evaluated. Technologist's note: Patient had trouble tolerating compression and augmentation, somewhat limited study Findings: Right peroneal vein was not seen well enough to show compression. Normal phasic flow and augmentation are seen within the peroneal vein. Other veins show normal phasic flow, augmentation and compression. Calcifications noted within the adjacent arteries compatible with atherosclerotic change. Impression: 1. Incidental findings as described above. No findings of deep venous thrombosis seen within the right lower extremity or within the left common femoral vein. Diagnostic code #2 I agree with preliminary report issued by [facility] ([facility] report finalized on 01/13/17, 2:20 PM Central Time)
[2017-01-15] MEDS: Insulin Detemir 100 Units/ML 3 ML Pen SUBCUT SCH (09:13)
[2017-01-15] MEDS: Carvedilol 3.125 MG Tab PO SCH (09:14)
[2017-01-15] MEDS: ISOSORBIDE MONONITRATE 30 MG PO SCH (09:17)
[2017-01-15] MEDS: Tamsulosin 0.4 MG Cap.ER PO SCH (09:17)
[2017-01-15] MEDS: hydrALAZINE 10 MG Tab PO SCH ×2 (09:17→14:01)
[2017-01-15] MEDS: Cholecalciferol (Vitamin D3) 1,000 Unit Tab PO SCH (09:18)
[2017-01-15] MEDS: Brimonidine 0.2% Ophth Soln 5 ML Bottle EYELF SCH (09:18)
[2017-01-15] MEDS: Timolol Maleate 0.5% Ophth Soln 5 ML Bottle EYELF SCH (09:18)
[2017-01-15] MEDS ORDERED: Diphtheria,Pertussis(Acell),Tetanus Vaccine 0.5 ML SDV IM ONE (09:30)
[2017-01-15] MEDS ORDERED: Benzocaine/Cetylpyridinium/Menthol Lozenge MUCMEM PRN ×2 (09:40→09:44)
[2017-01-15] MEDS ORDERED: Bumetanide 1 MG/4 ML MDV IVPUSH ONE (10:47)
--- NOTE | 2017-01-15 10:56 | PCM.DCSUM1 ---
Addendum entered and electronically signed by Vi Lee MD 01/15/17 16: 33: Discharge Summary - Hospital Course Free Text/Narrative:: VQ scan is low probability. Follow up appts urology, as well as cardiology re: BiVAICD 01/17/17. - Discharge Data Discharge Date: 01/15/17 Discharge Disposition: Home, Self-Care 01 Condition: Good - Patient Summary/Data Operative Procedure(s) Performed: None - Patient Instructions Diet: Heart Healthy Diet, Low Sodium Fluid Restriction: 2000 mL Activity: As Tolerated Driving: Do Not Drive Showering/Bathing: May Shower Notify Provider of: Fever, Increased Pain, Swelling and Redness, Nausea and/or Vomiting - Discharge Plan Prescriptions/Med Rec: Insulin Glarg,Human.Rec.Analog [LantUS Solostar] 15 units SUBCUT BEDTIME #1 pen Home Medications: Home Meds Acetaminophen 650 mg PO Q6H PRN 08/09/16 [History] Brimonidine Tartrate/Timolol [Combigan 0.2%-0.5% Eye Drops] 1 drop EYELF BID [History] Cholecalciferol (Vitamin D3) [Vitamin D3] 5,000 unit PO DAILY 08/09/16 [History] Ferrous Sulfate 325 mg PO BEDTIME 08/09/16 [History] Insulin Aspart [Novolog Flexpen] 3 units SUBCUT TIDMEALS 08/09/16 [History] Docusate Sodium [Colace] 100 mg PO DAILY 08/20/16 [History] Carvedilol [Coreg] 3.125 mg PO BID 11/24/16 [History] Isosorbide Mononitrate [Imdur] 15 mg PO DAILY 11/24/16 [History] Tamsulosin [Flomax] 0.4 mg PO DAILY 11/24/16 [History] Warfarin [Coumadin] 2.5 mg PO SUMOTUWETHSA 11/24/16 [History] atorvaSTATin [Lipitor] 40 mg PO DAILY 11/24/16 [History] hydrALAZINE HCl [Hydralazine HCl] 10 mg PO TID 11/24/16 [History] Bumetanide 2 mg PO BID 01/13/17 [History] Insulin Glarg,Human.Rec.Analog [LantUS Solostar] 15 units SUBCUT BEDTIME #1 pen 01/15/17 [Rx] Patient Handouts: Type 2 Diabetes Mellitus, Adult, Insulin Treatment for Diabetes, Diabetes and Foot Care, Diabetes and Sick Day Management, Heart Failure, Shub-as-Ixoz, Syncope, [id number] Referrals: Kirill Anand MD [Ordering Only Provider] - (The clinic will call with appt. time, patient was seen January 10 and needs 3 month receck.) Waqas Daniels MD [Ordering Only Provider] - 01/17/17 2:30 pm (Please follow up with Dr. Daniels on at 1430 central time, this appt. is with the nurse to change catheter.) Jesse Michelle MD [Primary Care Provider] - 01/25/17 1:00 pm (Please follow up with Dr. Michelle on at 1300.) Flex Dalal MD [Ordering Only Provider] - 01/17/17 3:30 pm (Please follow up with Dr. Escobar on at 1530. This appt. is in [facility] Central time.) - Patient Data Vitals - Most Recent: Last Vital Signs Temp 36.6 C 01/15/17 11:22 Pulse 77 01/15/17 11:22 Resp 18 01/15/17 11:22 BP 128/58 L 01/15/17 14:01 Pulse Ox 91 L 01/15/17 11:22 Weight - Most Recent: 98.157 kg I&O - Last 24 hours: Intake & Output 01/15/17 01/15/17 01/15/17 06:59 14:59 22:59 Intake Total 800 180 0 Output Total 1250 Balance -450 180 0 Lab Results - Last 24 hrs: Laboratory Results - last 24 hr 01/14/17 01/14/17 01/15/17 Range/Units 17:05 20:20 05:55 WBC 14.63 H (4.23-9.07) K/mm3 RBC 4.15 L (4.63-6.08) M/mm3 Hgb 10.6 L (13.7-17.5) gm/L Hct 33.1 L (40.1-51.0) % MCV 79.8 (79.0-92.2) fl MCH 25.5 L (25.7-32.2) pg MCHC 32.0 L (32.2-35.5) g/dl RDW Std Deviation 48.6 H (35.1-43.9) fL Plt Count 224 (163-337) K/mm3 MPV 10.2 (9.4-12.3) fl PT (8.0-13.0) SECONDS INR Sodium (136-145) mEq/L Potassium (3.5-5.1) mEq/L Chloride (98-107) mEq/L Carbon Dioxide (21-32) mEq/L Anion Gap (5-15) BUN (7-18) mg/dL Creatinine (0.7-1.3) mg/dL Est Cr Clr Drug Dosing mL/min Estimated GFR (MDRD) (>60) mL/min BUN/Creatinine Ratio (14-18) Glucose 387 H (83-115) mg/dL POC Glucose 396 H (83-110) mg/dL Hemoglobin A1c (4.50-6.20) % Calcium (8.5-10.1) mg/dL Magnesium (1.8-2.4) mg/dl 01/15/17 01/15/17 01/15/17 Range/Units 05:55 05:55 05:55 WBC (4.23-9.07) K/mm3 RBC (4.63-6.08) M/mm3 Hgb (13.7-17.5) gm/L Hct (40.1-51.0) % MCV (79.0-92.2) fl MCH (25.7-32.2) pg MCHC (32.2-35.5) g/dl RDW Std Deviation (35.1-43.9) fL Plt Count (163-337) K/mm3 MPV (9.4-12.3) fl PT 25.1 H (8.0-13.0) SECONDS INR 2.19 Sodium 134 L (136-145) mEq/L Potassium 4.2 (3.5-5.1) mEq/L Chloride 98 (98-107) mEq/L Carbon Dioxide 25 (21-32) mEq/L Anion Gap 15.2 H (5-15) BUN 96 H (7-18) mg/dL Creatinine 2.7 H (0.7-1.3) mg/dL Est Cr Clr Drug Dosing 24.73 mL/min Estimated GFR (MDRD) 23 (>60) mL/min BUN/Creatinine Ratio 35.6 H (14-18) Glucose 161 H (83-115) mg/dL POC Glucose (83-110) mg/dL Hemoglobin A1c 7.80 H (4.50-6.20) % Calcium 9.2 (8.5-10.1) mg/dL Magnesium 2.4 (1.8-2.4) mg/dl 01/15/17 01/15/17 01/15/17 Range/Units 06:11 11:48 15:43 WBC (4.23-9.07) K/mm3 RBC (4.63-6.08) M/mm3 Hgb (13.7-17.5) gm/L Hct (40.1-51.0) % MCV (79.0-92.2) fl MCH (25.7-32.2) pg MCHC (32.2-35.5) g/dl RDW Std Deviation (35.1-43.9) fL Plt Count (163-337) K/mm3 MPV (9.4-12.3) fl PT (8.0-13.0) SECONDS INR Sodium (136-145) mEq/L Potassium (3.5-5.1) mEq/L Chloride (98-107) mEq/L Carbon Dioxide (21-32) mEq/L Anion Gap (5-15) BUN (7-18) mg/dL Creatinine (0.7-1.3) mg/dL Est Cr Clr Drug Dosing mL/min Estimated GFR (MDRD) (>60) mL/min BUN/Creatinine Ratio (14-18) Glucose (83-115) mg/dL POC Glucose 151 H 174 H 202 H (83-110) mg/dL Hemoglobin A1c (4.50-6.20) % Calcium (8.5-10.1) mg/dL Magnesium (1.8-2.4) mg/dl Med Orders - Current: Current Medications Acetaminophen (Tylenol) 650 mg PO Q4H PRN PRN Reason: Pain (Mild 1-3)/fever Hydrocodone Bitart/Acetaminophen ([place] 325-5 Mg) 1 tab PO Q4H PRN PRN Reason: Pain (moderate 4-6) Albuterol/Ipratropium (Duoneb 3.0-0.5 Mg/3 Ml) 3 ml NEB Q4H PRN PRN Reason: Shortness Of Breath/wheezing Benzocaine/Menthol (Cepacol Sore Throat) 1 lozenge MUCMEM Q2H PRN PRN Reason: Cough Last Admin: 01/15/17 09:57 Dose: 1 lozenge Bisacodyl (Dulcolax) 5 mg PO DAILY PRN PRN Reason: Constipation Brimonidine Tartrate (Alphagan 0.2% Ophth Soln) 0 ml EYELF BID [facility] Last Admin: 01/15/17 09:18 Dose: Not Given Bumetanide (Bumex) 2 mg PO BID [facility] Last Admin: 01/14/17 10:04 Dose: 2 mg Carvedilol (Coreg) 3.125 mg PO BID [facility] Last Admin: 01/15/17 09:14 Dose: 3.125 mg Cholecalciferol (Vitamin D3) 5,000 units PO DAILY [facility] Last Admin: 01/15/17 09:18 Dose: 5,000 units Dextrose/Water (Dextrose 50% In Water) 50 ml IVPUSH ASDIRECTED PRN PRN Reason: Hypoglycemia Docusate Sodium (Colace) 100 mg PO BID PRN PRN Reason: Constipation Ferrous Sulfate (Ferrous Sulfate) 325 mg PO BEDTIME [facility] Last Admin: 01/14/17 21:46 Dose: 325 mg Hydralazine HCl (Apresoline) 10 mg IVPUSH Q4H PRN PRN Reason: Hypertension Hydralazine HCl (Apresoline) 10 mg PO TID [facility] Last Admin: 01/15/17 14:01 Dose: 10 mg Hydromorphone HCl (Dilaudid) 0.25 mg IVPUSH Q2H PRN PRN Reason: Pain (severe 7-10) Insulin Aspart (Novolog) 0 unit SUBCUT QIDACANDBED [facility] PRN Reason: Protocol Last Admin: 01/15/17 11:51 Dose: 2 units Insulin Detemir (Levemir) 8 unit SUBCUT BID@0900,2100 [facility] Last Admin: 01/15/17 09:13 Dose: 8 units Isosorbide Mononitrate (Imdur) 15 mg PO DAILY [facility] Last Admin: 01/15/17 09:17 Dose: 15 mg Lorazepam (Ativan) 0.5 mg IV Q6H PRN PRN Reason: Anxiety Last Admin: 01/15/17 10:09 Dose: 0.5 mg Metoprolol Tartrate (Lopressor) 5 mg IVPUSH Q4H PRN PRN Reason: Tachycardia Ondansetron HCl (Zofran) 4 mg IV Q6H PRN PRN Reason: Nausea/Vomiting Rosuvastatin Calcium (Crestor) 10 mg PO BEDTIME [facility] Last Admin: 01/14/17 21:46 Dose: 10 mg Senna/Docusate Sodium (Senna Plus) 1 tab PO BID PRN PRN Reason: Constipation Tamsulosin HCl (Flomax) 0.4 mg PO DAILY [facility] Last Admin: 01/15/17 09:17 Dose: 0.4 mg Temazepam (Restoril) 7.5 mg PO BEDTIME PRN PRN Reason: Insomnia Timolol Maleate (Timoptic 0.5% Ophth Soln) 0 ml EYELF BID [facility] Last Admin: 01/15/17 09:18 Dose: Not Given Warfarin Sodium (Pharmacy To Dose - Warfarin) 0 dose .XX ASDIRECTED PRN PRN Reason: RX TO DOSE COUMADIN Warfarin Sodium (Coumadin) 5 mg PO ONETIME ONE Stop: 01/15/17 18:01 Zolpidem Tartrate (Ambien) 5 mg PO BEDTIME PRN PRN Reason: Insomnia Discontinued Medications Benzocaine/Menthol (Cepacol Sore Throat) 1 lozenge MUCMEM Q2H PRN PRN Reason: Cough Brimonidine Tartrate (Alphagan 0.2% Ophth Soln) 0 ml EYELF BID [facility] Last Admin: 01/14/17 08:25 Dose: Not Given Bumetanide (Bumex) 1 mg IVPUSH ONETIME ONE Stop: 01/14/17 13:48 Last Admin: 01/14/17 14:21 Dose: 1 mg Bumetanide (Bumex) 1 mg IVPUSH ONETIME ONE Stop: 01/15/17 10:48 Last Admin: 01/15/17 12:33 Dose: Not Given Diphenhydramine HCl (Benadryl) 25 mg IV ONETIME ONE Stop: 01/13/17 13:35 Last Admin: 01/13/17 16:15 Dose: 25 mg Diphenhydramine HCl (Benadryl) 25 mg IV ONETIME ONE Stop: 01/13/17 16:16 Last Admin: 01/13/17 16:21 Dose: Not Given Diphtheria/Tetanus/Acell Pertussis (Adacel) 0.5 ml IM .ONCE ONE Stop: 01/15/17 09:31 Last Admin: 01/15/17 15:12 Dose: 0.5 ml Enoxaparin Sodium (Lovenox) 90 mg SUBCUT ONETIME STA Stop: 01/13/17 01:51 Last Admin: 01/13/17 02:09 Dose: 90 mg Enoxaparin Sodium (Lovenox) 90 mg SUBCUT Q12HR [facility] Enoxaparin Sodium (Lovenox) 90 mg SUBCUT BEDTIME [facility] Furosemide (Lasix) 40 mg IVPUSH NOW ONE Stop: 01/13/17 13:35 Last Admin: 01/13/17 16:52 Dose: Not Given Furosemide (Lasix) 40 mg IVPUSH NOW ONE Stop: 01/13/17 16:16 Last Admin: 01/13/17 20:02 Dose: 40 mg Furosemide (Lasix) 40 mg IVPUSH NOW ONE Stop: 01/15/17 11:25 Last Admin: 01/15/17 11:51 Dose: 40 mg Heparin Sodium (Porcine) (Heparin Sodium) 5,000 units SUBCUT Q8H [facility] Last Admin: 01/15/17 09:18 Dose: 5,000 units Promethazine HCl 6.25 mg/ (Sodium Chloride) 50.25 mls @ 100 mls/hr IV Q6H PRN PRN Reason: Nausea/Vomiting Sodium Chloride (Normal Saline) 250 mls @ 125 mls/hr IV ASDIRECTED [facility] Last Admin: 01/13/17 16:55 Dose: 125 mls/hr Insulin Aspart (Novolog) 3 unit SUBCUT TIDMEALS [facility] Insulin Aspart (Novolog) 0 unit SUBCUT QIDACANDBED [facility] PRN Reason: Protocol Last Admin: 01/14/17 13:52 Dose: Not Given Insulin Aspart (Novolog) 0 unit SUBCUT QIDACANDBED [facility] PRN Reason: Protocol Insulin Detemir (Levemir) 6 unit SUBCUT BID [facility] Last Admin: 01/14/17 10:07 Dose: 6 units Insulin Detemir (Levemir) 8 unit SUBCUT BID [facility] Last Admin: 01/14/17 17:16 Dose: 8 units Lorazepam (Ativan) 0.25 mg IV Q6H PRN PRN Reason: Anxiety Lorazepam (Ativan) 1 mg PO ONETIME ONE Stop: 01/15/17 12:01 Last Admin: 01/15/17 12:00 Dose: 1 mg Magnesium Sulfate (Pharmacy To Dose - Magnesium Replacement) 0 dose .XX ASDIRECTED PRN PRN Reason: RX TO WATCH MAG LEVELS Methylprednisolone Sodium Succinate (Solu-Medrol) 125 mg IV ONETIME ONE Stop: 01/13/17 13:35 Last Admin: 01/13/17 16:54 Dose: Not Given Methylprednisolone Sodium Succinate (Solu-Medrol) 125 mg IV ONETIME ONE Stop: 01/13/17 16:16 Last Admin: 01/13/17 16:37 Dose: 125 mg Methylprednisolone Sodium Succinate (Solu-Medrol) Confirm Administered Dose 125 mg .ROUTE .STK-MED ONE Stop: 01/13/17 16:30 Last Admin: 01/13/17 16:52 Dose: Not Given Bumetanide 2 Mg ( (Bumex)) 0 each PO BID [facility] Last Admin: 01/13/17 11:19 Dose: 1 each Vitamin D3 5,000 (Unit) 0 each PO DAILY [facility] Last Admin: 01/13/17 11:19 Dose: 1 each Potassium Chloride (Pharmacy To Dose - Potassium Replacement) 0 dose .XX ASDIRECTED PRN PRN Reason: RX TO WATCH K LEVELS Potassium Chloride (Klor-Con M20) 40 meq PO Q4H [facility] Stop: 01/13/17 14:01 Last Admin: 01/13/17 17:23 Dose: Not Given Potassium Chloride (Klor-Con M20) 40 meq PO ONETIME ONE Stop: 01/13/17 17:16 Last Admin: 01/13/17 17:23 Dose: 40 meq Warfarin Sodium (Coumadin) 7.5 mg PO QPM [facility] Stop: 01/13/17 21:00 Last Admin: 01/13/17 17:22 Dose: 7.5 mg Warfarin Sodium (Coumadin) 2.5 mg PO SUMOTUWETHSA [facility] Last Admin: 01/13/17 12:06 Dose: Not Given Warfarin Sodium (Coumadin) 7.5 mg PO QPM [facility] Stop: 01/14/17 21:00 Last Admin: 01/14/17 17:16 Dose: 7.5 mg Original Note: <Vi Lee M - Last Filed: 01/15/17 16:32> Discharge Summary - Discharge Data Discharge Disposition: Home, Self-Care 01 Condition: Good - Discharge Plan Prescriptions/Med Rec: Insulin Glarg,Human.Rec.Analog [LantUS Solostar] 15 units SUBCUT BEDTIME #1 pen Home Medications: Home Meds Acetaminophen 650 mg PO Q6H PRN 08/09/16 [History] Brimonidine Tartrate/Timolol [Combigan 0.2%-0.5% Eye Drops] 1 drop EYELF BID [History] Cholecalciferol (Vitamin D3) [Vitamin D3] 5,000 unit PO DAILY 08/09/16 [History] Ferrous Sulfate 325 mg PO BEDTIME 08/09/16 [History] Insulin Aspart [Novolog Flexpen] 3 units SUBCUT TIDMEALS 08/09/16 [History] Docusate Sodium [Colace] 100 mg PO DAILY 08/20/16 [History] Carvedilol [Coreg] 3.125 mg PO BID 11/24/16 [History] Isosorbide Mononitrate [Imdur] 15 mg PO DAILY 11/24/16 [History] Tamsulosin [Flomax] 0.4 mg PO DAILY 11/24/16 [History] Warfarin [Coumadin] 2.5 mg PO SUMOTUWETHSA 11/24/16 [History] atorvaSTATin [Lipitor] 40 mg PO DAILY 11/24/16 [History] hydrALAZINE HCl [Hydralazine HCl] 10 mg PO TID 11/24/16 [History] Bumetanide 2 mg PO BID 01/13/17 [History] Insulin Glarg,Human.Rec.Analog [LantUS Solostar] 15 units SUBCUT BEDTIME #1 pen 01/15/17 [Rx] Patient Handouts: Type 2 Diabetes Mellitus, Adult, Insulin Treatment for Diabetes, Diabetes and Foot Care, Diabetes and Sick Day Management, Heart Failure, [id number], Syncope, [id number] Referrals: Kirill Anand MD [Ordering Only Provider] - (The clinic will call with appt. time, patient was seen January 10 and needs 3 month receck.) Waqas Daniels MD [Ordering Only Provider] - 01/17/17 2:30 pm (Please follow up with Dr. Daniels on at 1430 central time, this appt. is with the nurse to change catheter.) Jesse Michelle MD [Primary Care Provider] - 01/25/17 1:00 pm (Please follow up with Dr. Michelle on at 1300.) Flex Dalal MD [Ordering Only Provider] - 01/17/17 3:30 pm (Please follow up with Dr. Escobar on at 1530. This appt. is in [facility] Central time.) <Amada Robertson M - Last Filed: 01/16/17 09:09> Discharge Summary - Hospital Course Free Text/Narrative:: This is a 71 yo elderly white male with advanced past medical hx/o Glaucoma, A- fib, HR on warfarin, Cardiomyopathy, HF with Unknown EF, CAD s/p x4 vessel CABG , with redo x 2 vessel 1999, 1999 RCA and 2006 LAD stent placement, Chronic Angina, CKD Stage 4, BPH, Urinary Retention with Indwelling Handley Catheter, Gout , DM2, JIM/Anemia of Chronic Disease, and Insomnia who comes in for evaluation for leg cramps and near syncope, generalized weakness. Patient is known to the Hospitalist Team. He was discharged here not too long ago with heart failure and syncope. He follows Dr. Anand for cardiac care. Patient is in the process of possibly getting a Pacemaker/AICD but not sure when according to him. He also follows Dr. Sage for his routine renal care. After last hospital discharged, he went on to live with his brother. His brother (a Vet) unfortunately left for a conference so he moved in temporarily with his daughter. According to him, he developed a severe leg cramps to his right leg yesterday. He also had near syncopal episode after he took a flight of stairs (12 steps). He is currently staying at the basement of his daughter's house. His usual activity has increased and he gets more symptomatic than usual. He denies fully passing out, does have some angina with exertion but not at rest. He reports no neurologic complaints. His initial work up in ED shows a CBC remarkable for RBC 3.56, hemoglobin of 8.6 , hematocrit 28.6, MCHC of 24.2, neutrophils of 79%, and lymphocytes of 14%. His INR is 1.57, and d-dimer of 1.06. His chemistry is remarkable for BUN of 89 , creatinine of 3, glucose of 173, [place] 117[place] [address] and, albumin of 2.8. His initial troponin is 0.031. Initial EKG shows atrial fibrillation with controlled heart rate. Chest x-ray shows bilateral pleural effusion with no significant pulmonary vascular congestion. Patient is being admitted for near syncope, CHF exacerbation and leg cramps. He is CPR only. Course of hospital stay was unremarkable. He was diuresed with IV diuretics, BNP increased to >35,000 day following admission. CXR remained stable with cardiomegaly. Venous doppler of lower extremities was obtained and unremarkable. He was unable to have CTA of the chest due to renal status. He did ungergo VQ scan with low probabilty for PE. INR was subtherapeutic on admission, he was bridged with heparin until therapeutic. Blood sugars bounced up to 417 at highest, long acting insulin was increased with improvements, A1C was obtained and is 7.80. Renal status remained stable and at stage 4 CKD during his stay despite increased diuresis. Nav will be discharged home to his daughters house today. He will have f/up with PCP within 7 days of discharge. Follow up with Warp Knitter and Cardiac Surgeon/Interventionalist for further discussion of AICD placement as scheduled. He should also have Urology followup for his suprapubic indwelling catheter. INR should be checked in one week with results to PCP. - Discharge Data Discharge Date: 01/15/17 (admit date 01/13/17) - Discharge Diagnosis/Problem(s) (1) Syncope SNOMED Code(s): 872049905 ICD Code: R55 - SYNCOPE AND COLLAPSE Status: Acute Priority: High Qualifiers: Encounter type: initial encounter (2) Elevated d-dimer SNOMED Code(s): 425085499 ICD Code: R79.89 - OTHER SPECIFIED ABNORMAL FINDINGS OF BLOOD CHEMISTRY Status: Acute Priority: High (3) Subtherapeutic international normalized ratio (INR) SNOMED Code(s): 706762987 ICD Code: R79.1 - ABNORMAL COAGULATION PROFILE Status: Resolved Priority : High (4) Chronic kidney disease SNOMED Code(s): 040145276 ICD Code: N18.9 - CHRONIC KIDNEY DISEASE, UNSPECIFIED Status: Chronic Priority: High Qualifiers: Chronic kidney disease stage: stage 4 (severe) Qualified Code(s): N18.4 - Chronic kidney disease, stage 4 (severe) (5) Hypokalemia SNOMED Code(s): 91048041 ICD Code: E87.6 - HYPOKALEMIA Status: Resolved Priority: High (6) Ischemic cardiomyopathy SNOMED Code(s): 286931928 ICD Code: I25.5 - ISCHEMIC CARDIOMYOPATHY Status: Chronic Priority: High (7) CHF, Congestive heart failure SNOMED Code(s): 32528728 ICD Code: I50.9 - HEART FAILURE, UNSPECIFIED Status: Chronic Priority: High - Patient Summary/Data Operative Procedure(s) Performed: None Complications: None Consults: None Labs Pending at D/C: None Recommended Follow-up Testing/Procedures: Patient DC instructions: Follow up with PCP within one week of discharge. Follow up with Warp Knitter and Cardiac Surgeon as scheduled- AICD placement in near future. Daily weights, same time of day, same clothes- record and bring record with to all Dr. visits. Call PCP if >2lb weight gain in 24 hours. Check blood sugars at meals and at bedtime, record and bring record with to all Dr. Visits. Follow up/Consult with Urology after discharge. Planned Operative Procedure(s) after DC: Planned AICD implantation with Cardiology as scheduled in the near future. Hospital Course: As above - Patient Instructions Diet: Heart Healthy Diet, Low Sodium Fluid Restriction: 2000 mL Activity: As Tolerated Driving: Do Not Drive Showering/Bathing: May Shower Notify Provider of: Fever, Increased Pain, Swelling and Redness, Nausea and/or Vomiting - Discharge Summary/Plan Comment DC Time >30 min.: Yes (45 min) - General Info Date of Service: 01/15/17 Admission Dx/Problem (Free Text: Nav is seen this morning. He is up ambulating with PT. Doing well this morning , slept well. Good appetite. Feels 100 % stronger after the transfusion; looking forward to BiV-AICD placement with Cardiology in the near future. Functional Status: Reports: Pain Controlled, Tolerating Diet, Ambulating, Urinating, Incentive Spirometry - Review of Systems General: Reports: No Symptoms. Denies: Fever HEENT: Reports: No Symptoms Pulmonary: Reports: No Symptoms. Denies: Shortness of Breath, Cough Cardiovascular: Reports: No Symptoms. Denies: Chest Pain, Dyspnea on Exertion Gastrointestinal: Reports: No Symptoms Genitourinary: Reports: No Symptoms Musculoskeletal: Reports: No Symptoms Skin: Reports: No Symptoms Neurological: Reports: No Symptoms Psychiatric: Reports: No Symptoms - Patient Data Vitals - Most Recent: Last Vital Signs Temp 97.3 F 01/15/17 07:46 Pulse 77 01/15/17 09:16 Resp 18 01/15/17 07:46 BP 119/81 01/15/17 09:17 Pulse Ox 94 L 01/15/17 09:16 Weight - Most Recent: 216 lb 6.4 oz I&O - Last 24 hours: Intake & Output 01/14/17 01/15/17 01/15/17 22:59 06:59 14:59 Intake Total 1160 800 180 Output Total 1300 1250 Balance -140 -450 180 Lab Results - Last 24 hrs: Laboratory Results - last 24 hr 01/14/17 01/14/17 01/14/17 Range/Units 12:09 17:05 20:20 WBC (4.23-9.07) K/mm3 RBC (4.63-6.08) M/mm3 Hgb (13.7-17.5) gm/L Hct (40.1-51.0) % MCV (79.0-92.2) fl MCH (25.7-32.2) pg MCHC (32.2-35.5) g/dl RDW Std Deviation (35.1-43.9) fL Plt Count (163-337) K/mm3 MPV (9.4-12.3) fl PT (8.0-13.0) SECONDS INR Sodium (136-145) mEq/L Potassium (3.5-5.1) mEq/L Chloride (98-107) mEq/L Carbon Dioxide (21-32) mEq/L Anion Gap (5-15) BUN (7-18) mg/dL Creatinine (0.7-1.3) mg/dL Est Cr Clr Drug Dosing mL/min Estimated GFR (MDRD) (>60) mL/min BUN/Creatinine Ratio (14-18) Glucose 417 H 387 H (83-115) mg/dL POC Glucose 396 H (83-110) mg/dL Calcium (8.5-10.1) mg/dL Magnesium (1.8-2.4) mg/dl 01/15/17 01/15/17 01/15/17 Range/Units 05:55 05:55 05:55 WBC 14.63 H (4.23-9.07) K/mm3 RBC 4.15 L (4.63-6.08) M/mm3 Hgb 10.6 L (13.7-17.5) gm/L Hct 33.1 L (40.1-51.0) % MCV 79.8 (79.0-92.2) fl MCH 25.5 L (25.7-32.2) pg MCHC 32.0 L (32.2-35.5) g/dl RDW Std Deviation 48.6 H (35.1-43.9) fL Plt Count 224 (163-337) K/mm3 MPV 10.2 (9.4-12.3) fl PT 25.1 H (8.0-13.0) SECONDS INR 2.19 Sodium 134 L (136-145) mEq/L Potassium 4.2 (3.5-5.1) mEq/L Chloride 98 (98-107) mEq/L Carbon Dioxide 25 (21-32) mEq/L Anion Gap 15.2 H (5-15) BUN 96 H (7-18) mg/dL Creatinine 2.7 H (0.7-1.3) mg/dL Est Cr Clr Drug Dosing 24.73 mL/min Estimated GFR (MDRD) 23 (>60) mL/min BUN/Creatinine Ratio 35.6 H (14-18) Glucose 161 H (83-115) mg/dL POC Glucose (83-110) mg/dL Calcium 9.2 (8.5-10.1) mg/dL Magnesium 2.4 (1.8-2.4) mg/dl 01/15/17 Range/Units 06:11 WBC (4.23-9.07) K/mm3 RBC (4.63-6.08) M/mm3 Hgb (13.7-17.5) gm/L Hct (40.1-51.0) % MCV (79.0-92.2) fl MCH (25.7-32.2) pg MCHC (32.2-35.5) g/dl RDW Std Deviation (35.1-43.9) fL Plt Count (163-337) K/mm3 MPV (9.4-12.3) fl PT (8.0-13.0) SECONDS INR Sodium (136-145) mEq/L Potassium (3.5-5.1) mEq/L Chloride (98-107) mEq/L Carbon Dioxide (21-32) mEq/L Anion Gap (5-15) BUN (7-18) mg/dL Creatinine (0.7-1.3) mg/dL Est Cr Clr Drug Dosing mL/min Estimated GFR (MDRD) (>60) mL/min BUN/Creatinine Ratio (14-18) Glucose (83-115) mg/dL POC Glucose 151 H (83-110) mg/dL Calcium (8.5-10.1) mg/dL Magnesium (1.8-2.4) mg/dl Med Orders - Current: Current Medications Acetaminophen (Tylenol) 650 mg PO Q4H PRN PRN Reason: Pain (Mild 1-3)/fever Hydrocodone Bitart/Acetaminophen ([place] 325-5 Mg) 1 tab PO Q4H PRN PRN Reason: Pain (moderate 4-6) Albuterol/Ipratropium (Duoneb 3.0-0.5 Mg/3 Ml) 3 ml NEB Q4H PRN PRN Reason: Shortness Of Breath/wheezing Benzocaine/Menthol (Cepacol Sore Throat) 1 lozenge MUCMEM Q2H PRN PRN Reason: Cough Last Admin: 01/15/17 09:57 Dose: 1 lozenge Bisacodyl (Dulcolax) 5 mg PO DAILY PRN PRN Reason: Constipation Brimonidine Tartrate (Alphagan 0.2% Ophth Soln) 0 ml EYELF BID [facility] Last Admin: 01/15/17 09:18 Dose: Not Given Bumetanide (Bumex) 2 mg PO BID [facility] Last Admin: 01/14/17 10:04 Dose: 2 mg Carvedilol (Coreg) 3.125 mg PO BID [facility] Last Admin: 01/15/17 09:14 Dose: 3.125 mg Cholecalciferol (Vitamin D3) 5,000 units PO DAILY [facility] Last Admin: 01/15/17 09:18 Dose: 5,000 units Dextrose/Water (Dextrose 50% In Water) 50 ml IVPUSH ASDIRECTED PRN PRN Reason: Hypoglycemia Docusate Sodium (Colace) 100 mg PO BID PRN PRN Reason: Constipation Ferrous Sulfate (Ferrous Sulfate) 325 mg PO BEDTIME [facility] Last Admin: 01/14/17 21:46 Dose: 325 mg Hydralazine HCl (Apresoline) 10 mg IVPUSH Q4H PRN PRN Reason: Hypertension Hydralazine HCl (Apresoline) 10 mg PO TID [facility] Last Admin: 01/15/17 09:17 Dose: 10 mg Hydromorphone HCl (Dilaudid) 0.25 mg IVPUSH Q2H PRN PRN Reason: Pain (severe 7-10) Insulin Aspart (Novolog) 0 unit SUBCUT QIDACANDBED [facility] PRN Reason: Protocol Last Admin: 01/15/17 06:58 Dose: 2 units Insulin Detemir (Levemir) 8 unit SUBCUT BID@0900,2100 [facility] Last Admin: 01/15/17 09:13 Dose: 8 units Isosorbide Mononitrate (Imdur) 15 mg PO DAILY [facility] Last Admin: 01/15/17 09:17 Dose: 15 mg Lorazepam (Ativan) 0.5 mg IV Q6H PRN PRN Reason: Anxiety Last Admin: 01/15/17 10:09 Dose: 0.5 mg Metoprolol Tartrate (Lopressor) 5 mg IVPUSH Q4H PRN PRN Reason: Tachycardia Ondansetron HCl (Zofran) 4 mg IV Q6H PRN PRN Reason: Nausea/Vomiting Rosuvastatin Calcium (Crestor) 10 mg PO BEDTIME [facility] Last Admin: 01/14/17 21:46 Dose: 10 mg Senna/Docusate Sodium (Senna Plus) 1 tab PO BID PRN PRN Reason: Constipation Tamsulosin HCl (Flomax) 0.4 mg PO DAILY [facility] Last Admin: 01/15/17 09:17 Dose: 0.4 mg Temazepam (Restoril) 7.5 mg PO BEDTIME PRN PRN Reason: Insomnia Timolol Maleate (Timoptic 0.5% Ophth Soln) 0 ml EYELF BID [facility] Last Admin: 01/15/17 09:18 Dose: Not Given Warfarin Sodium (Pharmacy To Dose - Warfarin) 0 dose .XX ASDIRECTED PRN PRN Reason: RX TO DOSE COUMADIN Zolpidem Tartrate (Ambien) 5 mg PO BEDTIME PRN PRN Reason: Insomnia Discontinued Medications Benzocaine/Menthol (Cepacol Sore Throat) 1 lozenge MUCMEM Q2H PRN PRN Reason: Cough Brimonidine Tartrate (Alphagan 0.2% Ophth Soln) 0 ml EYELF BID [facility] Last Admin: 01/14/17 08:25 Dose: Not Given Bumetanide (Bumex) 1 mg IVPUSH ONETIME ONE Stop: 01/14/17 13:48 Last Admin: 01/14/17 14:21 Dose: 1 mg Bumetanide (Bumex) 1 mg IVPUSH ONETIME ONE Stop: 01/15/17 10:48 Diphenhydramine HCl (Benadryl) 25 mg IV ONETIME ONE Stop: 01/13/17 13:35 Last Admin: 01/13/17 16:15 Dose: 25 mg Diphenhydramine HCl (Benadryl) 25 mg IV ONETIME ONE Stop: 01/13/17 16:16 Last Admin: 01/13/17 16:21 Dose: Not Given Diphtheria/Tetanus/Acell Pertussis (Adacel) 0.5 ml IM .ONCE ONE Stop: 01/15/17 09:31 Enoxaparin Sodium (Lovenox) 90 mg SUBCUT ONETIME STA Stop: 01/13/17 01:51 Last Admin: 01/13/17 02:09 Dose: 90 mg Enoxaparin Sodium (Lovenox) 90 mg SUBCUT Q12HR [facility] Enoxaparin Sodium (Lovenox) 90 mg SUBCUT BEDTIME [facility] Furosemide (Lasix) 40 mg IVPUSH NOW ONE Stop: 01/13/17 13:35 Last Admin: 01/13/17 16:52 Dose: Not Given Furosemide (Lasix) 40 mg IVPUSH NOW ONE Stop: 01/13/17 16:16 Last Admin: 01/13/17 20:02 Dose: 40 mg Heparin Sodium (Porcine) (Heparin Sodium) 5,000 units SUBCUT Q8H [facility] Last Admin: 01/15/17 09:18 Dose: 5,000 units Promethazine HCl 6.25 mg/ (Sodium Chloride) 50.25 mls @ 100 mls/hr IV Q6H PRN PRN Reason: Nausea/Vomiting Sodium Chloride (Normal Saline) 250 mls @ 125 mls/hr IV ASDIRECTED [facility] Last Admin: 01/13/17 16:55 Dose: 125 mls/hr Insulin Aspart (Novolog) 3 unit SUBCUT TIDMEALS [facility] Insulin Aspart (Novolog) 0 unit SUBCUT QIDACANDBED [facility] PRN Reason: Protocol Last Admin: 01/14/17 13:52 Dose: Not Given Insulin Aspart (Novolog) 0 unit SUBCUT QIDACANDBED [facility] PRN Reason: Protocol Insulin Detemir (Levemir) 6 unit SUBCUT BID [facility] Last Admin: 01/14/17 10:07 Dose: 6 units Insulin Detemir (Levemir) 8 unit SUBCUT BID [facility] Last Admin: 01/14/17 17:16 Dose: 8 units Lorazepam (Ativan) 0.25 mg IV Q6H PRN PRN Reason: Anxiety Magnesium Sulfate (Pharmacy To Dose - Magnesium Replacement) 0 dose .XX ASDIRECTED PRN PRN Reason: RX TO WATCH MAG LEVELS Methylprednisolone Sodium Succinate (Solu-Medrol) 125 mg IV ONETIME ONE Stop: 01/13/17 13:35 Last Admin: 01/13/17 16:54 Dose: Not Given Methylprednisolone Sodium Succinate (Solu-Medrol) 125 mg IV ONETIME ONE Stop: 01/13/17 16:16 Last Admin: 01/13/17 16:37 Dose: 125 mg Methylprednisolone Sodium Succinate (Solu-Medrol) Confirm Administered Dose 125 mg .ROUTE .STK-MED ONE Stop: 01/13/17 16:30 Last Admin: 01/13/17 16:52 Dose: Not Given Bumetanide 2 Mg ( (Bumex)) 0 each PO BID [facility] Last Admin: 01/13/17 11:19 Dose: 1 each Vitamin D3 5,000 (Unit) 0 each PO DAILY [facility] Last Admin: 01/13/17 11:19 Dose: 1 each Potassium Chloride (Pharmacy To Dose - Potassium Replacement) 0 dose .XX ASDIRECTED PRN PRN Reason: RX TO WATCH K LEVELS Potassium Chloride (Klor-Con M20) 40 meq PO Q4H [facility] Stop: 01/13/17 14:01 Last Admin: 01/13/17 17:23 Dose: Not Given Potassium Chloride (Klor-Con M20) 40 meq PO ONETIME ONE Stop: 01/13/17 17:16 Last Admin: 01/13/17 17:23 Dose: 40 meq Warfarin Sodium (Coumadin) 7.5 mg PO QPM [facility] Stop: 01/13/17 21:00 Last Admin: 01/13/17 17:22 Dose: 7.5 mg Warfarin Sodium (Coumadin) 2.5 mg PO [facility] Last Admin: 01/13/17 12:06 Dose: Not Given Warfarin Sodium (Coumadin) 7.5 mg PO QPM [facility] Stop: 01/14/17 21:00 Last Admin: 01/14/17 17:16 Dose: 7.5 mg - Exam Quality Assessment: Reports: Supplemental Oxygen, DVT Prophylaxis General: Reports: Alert, Oriented, Cooperative, No Acute Distress HEENT: Reports: Pupils Equal, EOMI, Mucous Membr. Moist/[place] Neck: Reports: Supple Lungs: Reports: Clear to Auscultation, Normal Respiratory Effort Cardiovascular: Reports: Regular Rate, Murmurs GI/Abdominal Exam: Normal Bowel Sounds, Soft, Non-Tender (Male) Exam: Deferred Rectal (Males) Exam: Deferred Extremities: Normal Capillary Refill Neurological: Reports: No New Focal Deficit Psy/Mental Status: Reports: Alert, Normal Affect, Normal Mood *Q Meaningful Use (DIS) - VTE *Q VTE Criteria *Q: - Stroke *Q Stroke Criteria *Q: - AMI *Q AMI Criteria *Q:
[2017-01-15] MEDS ORDERED: Furosemide 40 MG/4 ML VIAL IVPUSH ONE (11:24)
[2017-01-15] MEDS ORDERED: LORazepam 1 MG Tab PO ONE (12:00)
[2017-01-15 14:03] VITALS: BP 128/58
--- NOTE | 2017-01-15 14:27 | NM ---
Ventilation/perfusion lung scan Technique: 2.0 mCi of technetium 99m MAA was given intravenously. Scintigraphic imaging then obtained over the chest. 40 mCi of technetium 99m DTPA was then aerosolized and patient inhaled the mixture. Continued scintigraphic imaging was obtained. Findings: Matched defects identified on both sides. Findings are fairly matched between ventilation and perfusion. No mismatch defects are seen. Impression: 1. Findings overall felt compatible with low probability for pulmonary embolism. Diagnostic code #2
[2017-01-15] MEDS ORDERED: Warfarin 5 MG Tab PO ONE (18:00)
== END 2017-01-15 15:44 | disposition home or self-care (01) | DRG 292 ==
LOC: JD.ED 23:09 → JD.MS 01-13 03:03 → OBSVTOIN 01-13 14:53
PROVIDERS: ADMIT Internal Medicine; ATTEND Internal Medicine
PROC: 30233N1 Transfusion of Nonautologous Red Blood Cells into Peripheral Vein, Percutaneous Approach (ICD-10-PCS; principal; 2017-01-13)
DX: I13.0 Hypertensive heart and chronic kidney disease with heart failure and stage 1 through stage 4 chronic kidney disease, or unspecified chronic kidney disease (principal); I25.810 Atherosclerosis of coronary artery bypass graft(s) without angina pectoris; N18.4 Chronic kidney disease, stage 4 (severe); R55 Syncope and collapse; D64.9 Anemia, unspecified; R25.2 Cramp and spasm; R53.1 Weakness; I48.2 Chronic atrial fibrillation; R60.9 Edema, unspecified; H40.9 Unspecified glaucoma; I50.9 Heart failure, unspecified; Z95.5 Presence of coronary angioplasty implant and graft; I25.2 Old myocardial infarction; E78.00 Pure hypercholesterolemia, unspecified; N40.1 Benign prostatic hyperplasia with lower urinary tract symptoms; R33.8 Other retention of urine; E11.9 Type 2 diabetes mellitus without complications; D50.9 Iron deficiency anemia, unspecified; Z79.01 Long term (current) use of anticoagulants; Z79.4 Long term (current) use of insulin; Z79.899 Other long term (current) drug therapy; R79.1 Abnormal coagulation profile; Z93.6 Other artificial openings of urinary tract status; G47.00 Insomnia, unspecified; M10.9 Gout, unspecified
CPT/HCPCS: 36415; 36430; 71010; 71010-26; 71020; 71020-26; 78582; 78582-26; 80048; 80053; 82553; 82947; 82962; 83036; 83735; 83880; 84484; 85025; 85027; 85379; 85610; 85730; 86850; 86900; 86901; 86922; 90715; 93005; 93010; 93970; 93970-26; 96372; 97161-GP; 97162-GP; 97165-GO; 97530-GO; 97530-GP; 99223; 99231; 99239; 99285; 99285-25; A9270-GY; A9540; J1200; J1644; J1650; J1815-GY; J1940; J2060; J2930; J7050; P9016

== ENCOUNTER 2018-03-10 16:58 | Emergency (ER) | payer MEDICARE, OTHER ==
[2018-03-10 17:26] VITALS: BP 123/88
--- NOTE | 2018-03-10 21:01 | CT ---
Addendum: Voice recognition error is identified within the fourth paragraph stating "Kidneys show no minimal arterial calcification " following is the corrected statement: Kidneys show minimal arterial calcification. --- Addendum1 above dictated on [03/12/2018 06:43] by [Kaveh Carrizales Hilton J.] --- --- Addendum1 above signed on [03/12/2018 06:45] by [Kaveh Carrizales Hilton J.] --- --- Original report below dictated on [03/10/2018 20:57] by [Kaveh Carrizales Hilton J.] --- --- Original report below signed on [03/10/2018 20:57] by [Kaveh Carrizales Hilton J.] --- CT abdomen and pelvis Technique: Multiple axial sections were obtained from above the dome of the diaphragm inferiorly through the pubic symphysis. No intravenous contrast was utilized. Oral contrast has been given. Findings: Heart is enlarged. Small to moderate size right-sided pleural effusion is seen. Slight adjacent parenchymal density is seen most likely due to compressive atelectasis. Mild amount of ascites is seen throughout the abdomen and pelvis. Noncontrast appearance of the liver shows no discrete abnormality. Spleen size is normal. Adrenal glands show no nodule. Pancreas shows no discrete abnormality. Kidneys show no minimal arterial calcification. No hydronephrosis or discrete mass is seen. Diffuse atherosclerotic change with calcification is seen within the aorta and iliac vessels. No aneurysm is seen. No retroperitoneal adenopathy is seen. Small fat-containing umbilical hernia is seen which also contains some ascitic fluid. Handley catheter is noted within the bladder. Prostate gland appears enlarged. Appendix is not visualized with certainty. No bowel dilatation is seen. Bone window settings were reviewed which shows scattered degenerative change within the spine which is most severe at L3-L4 and L4-L5. Impression: 1. Small to moderate size right-sided pleural effusion with adjacent atelectasis. 2. Mild amount of ascites throughout the abdomen and pelvis. 3. Other incidental findings. Nothing acute is definitely appreciated. Diagnostic code #3 --- Addendum1 signed ---
[2018-03-10] MEDS ORDERED: Ondansetron 4 MG/2 ML SDV ONE (21:02)
[2018-03-10] MEDS ORDERED: Ondansetron 4 MG/2 ML SDV IVPUSH ONE (21:03)
--- NOTE | 2018-03-10 22:23 | EDM.PDOC ---
ED HPI GENERAL MEDICAL PROBLEM - General Chief Complaint: Abdominal Pain Stated Complaint: VOMITING AND DIARRHEA Source of Information: Reports: Patient History Limitations: Reports: No Limitations Abdomen Pain Score (Numeric/FACES): 6 - Related Data Allergies Allergy/AdvReac Type Severity Reaction Status Date / Time No Known Allergies Allergy Verified 03/10/18 17:26 Home Meds: Home Meds Acetaminophen 650 mg PO Q6H PRN 08/09/16 [History] Brimonidine Tartrate/Timolol [Combigan 0.2%-0.5% Eye Drops] 1 drop EYELF BID [History] Cholecalciferol (Vitamin D3) [Vitamin D3] 5,000 unit PO DAILY 08/09/16 [History] Ferrous Sulfate 325 mg PO BEDTIME 08/09/16 [History] Insulin Aspart [Novolog Flexpen] 3 units SUBCUT TIDMEALS 08/09/16 [History] Docusate Sodium [Colace] 100 mg PO DAILY 08/20/16 [History] Carvedilol [Coreg] 3.125 mg PO BID 11/24/16 [History] Isosorbide Mononitrate [Imdur] 15 mg PO DAILY 11/24/16 [History] Tamsulosin [Flomax] 0.4 mg PO DAILY 11/24/16 [History] Warfarin [Coumadin] 2.5 mg PO SUMOTUWETHSA 11/24/16 [History] atorvaSTATin [Lipitor] 40 mg PO DAILY 11/24/16 [History] hydrALAZINE HCl [Hydralazine HCl] 10 mg PO TID 11/24/16 [History] Bumetanide 2 mg PO BID 01/13/17 [History] Insulin Glarg,Human.Rec.Analog [LantUS Solostar] 15 units SUBCUT BEDTIME #1 pen 01/15/17 [Rx] Polyethylene Glycol 3350 [MiraLAX] 17 gm PO DAILY #1 cont 01/05/18 [Rx] Cephalexin [Keflex] 500 mg PO BID #10 capsule 03/10/18 [Rx] Ondansetron [Zofran ODT] 4 mg PO Q8H PRN #10 tab.dis 03/10/18 [Rx] Past Medical History HEENT History: Reports: Glaucoma Other HEENT History: wears glasses and hearing aids. also has upper denture and a lower partial. Cardiovascular History: Reports: Afib, CAD, Heart Failure, High Cholesterol, Hypertension, MS, Other (See Below) Other Cardiovascular History: occlusion and stenosis of bilateral carotid arteries Respiratory History: Reports: SOB, Other (See Below) Other Respiratory History: wheezing Gastrointestinal History: Reports: GERD, Other (See Below) Other Gastrointestinal History: encephalopathy Genitourinary History: Reports: BPH, Chronic Renal Insuffiency, Renal Calculus, Retention, Urinary Other Genitourinary History: pt reports previously was on dialysis now is not Musculoskeletal History: Reports: Gout Psychiatric History: Reports: Other (See Below) Other Psychiatric History: insomnia Endocrine/Metabolic History: Reports: Diabetes, Type II Other Endocrine/Metabolic History: anemia Hematologic History: Reports: Anemia, Iron Deficiency - Infectious Disease History Infectious Disease History: Reports: Influenza, Measles, Mumps - Past Surgical History HEENT Surgical History: Reports: Tonsillectomy Cardiovascular Surgical History: Reports: Carotid Endarterectomy, Coronary Artery Bypass, Coronary Artery Stent GI Surgical History: Reports: Hernia, Inguinal Neurological Surgical History: Reports: Lumbar Spine Oncologic Surgical History: Reports: None Social & Family History - Family History Family Medical History: Noncontributory - Tobacco Use Smoking Status *Q: Never Smoker - Caffeine Use Caffeine Use: Reports: Coffee Other Caffeine Use: 1 -2 cups a day - Recreational Drug Use Recreational Drug Use: No - Living Situation & Occupation Living situation: Reports: , Extended Care Facility ([facility]) Occupation: Retired Course - Vital Signs Last Recorded V/S: Last Vital Signs Temp 98.1 F 03/10/18 17:16 Pulse 74 03/10/18 17:16 Resp 13 03/10/18 17:16 BP 123/88 03/10/18 17:16 Pulse Ox 94 L 03/10/18 17:16 - Orders/Labs/Meds Orders: Active Orders 24 hr Category Date Time Status Hemoccult [Fecal Occult Blood Collection] [RC] Care 03/10/18 21:23 Active ASDIRECTED Chest 2V [CR] Stat Exams 03/10/18 21:24 Taken C DIFFICILE BY PCR W/NAP1 [MOLEC] Stat Lab 03/10/18 21:09 Ordered CULTURE URINE [RM] Stat Lab 03/10/18 19:58 Received Labs: Laboratory Tests 03/10/18 03/10/18 03/10/18 Range/Units 17:56 18:00 18:00 WBC 8.96 (4.23-9.07) K/mm3 RBC 3.91 L (4.63-6.08) M/mm3 Hgb 11.4 L (13.7-17.5) gm/L Hct 36.6 L (40.1-51.0) % MCV 93.6 H (79.0-92.2) fl MCH 29.2 (25.7-32.2) pg MCHC 31.1 L (32.2-35.5) g/dl RDW Std Deviation 51.4 H (35.1-43.9) fL Plt Count 165 (163-337) K/mm3 MPV 10.4 (9.4-12.3) fl Neut % (Auto) 70.0 H (34.0-67.9) % Lymph % (Auto) 16.6 L (21.8-53.1) % White % (Auto) 10.9 (5.3-12.2) % Eos % (Auto) 2.1 (0.8-7.0) Baso % (Auto) 0.3 (0.1-1.2) % Neut # (Auto) 6.26 H (1.78-5.38) K/mm3 Lymph # (Auto) 1.49 (1.32-3.57) K/mm3 White # (Auto) 0.98 H (0.30-0.82) K/mm3 Eos # (Auto) 0.19 (0.04-0.54) K/mm3 Baso # (Auto) 0.03 (0.01-0.08) K/mm3 Sodium 138 (136-145) mEq/L Potassium 3.8 (3.5-5.1) mEq/L Chloride 100 (98-107) mEq/L Carbon Dioxide 31 (21-32) mEq/L Anion Gap 10.8 (5-15) BUN 27 H (7-18) mg/dL Creatinine 2.4 H (0.7-1.3) mg/dL Est Cr Clr Drug Dosing 27.41 mL/min Estimated GFR (MDRD) 27 (>60) mL/min BUN/Creatinine Ratio 11.3 L (14-18) Glucose 134 H (83-115) mg/dL POC Glucose 137 H (83-110) mg/dL Calcium 8.7 (8.5-10.1) mg/dL Total Bilirubin 1.5 H (0.2-1.0) mg/dL AST 18 (15-37) U/L ALT 16 (16-63) U/L Alkaline Phosphatase 139 H (46-116) U/L C-Reactive Protein (<1.0) mg/dL Total Protein 7.4 (6.4-8.2) g/dl Albumin 3.2 L (3.4-5.0) g/dl Globulin 4.2 gm/dL Albumin/Globulin Ratio 0.8 L (1-2) Lipase 447 H (73-393) U/L Urine Color (Yellow) Urine Appearance (Clear) Urine pH (5.0-8.0) Ur Specific [place] (1.005-1.030) Urine Protein (Negative) Urine Glucose (UA) (Negative) Urine Ketones (Negative) Urine Occult Blood (Negative) Urine Nitrite (Negative) Urine Bilirubin (Negative) Urine Urobilinogen (0.2-1.0) Ur Leukocyte Esterase (Negative) Urine RBC (0-5) /hpf Urine WBC (0-5) /hpf Ur Epithelial Cells (0-5) /hpf Urine Bacteria (FEW) /hpf Urine Mucus (FEW) /hpf Urine Yeast (Budding) (NOT SEEN) 03/10/18 03/10/18 Range/Units 18:00 19:58 WBC (4.23-9.07) K/mm3 RBC (4.63-6.08) M/mm3 Hgb (13.7-17.5) gm/L Hct (40.1-51.0) % MCV (79.0-92.2) fl MCH (25.7-32.2) pg MCHC (32.2-35.5) g/dl RDW Std Deviation (35.1-43.9) fL Plt Count (163-337) K/mm3 MPV (9.4-12.3) fl Neut % (Auto) (34.0-67.9) % Lymph % (Auto) (21.8-53.1) % White % (Auto) (5.3-12.2) % Eos % (Auto) (0.8-7.0) Baso % (Auto) (0.1-1.2) % Neut # (Auto) (1.78-5.38) K/mm3 Lymph # (Auto) (1.32-3.57) K/mm3 White # (Auto) (0.30-0.82) K/mm3 Eos # (Auto) (0.04-0.54) K/mm3 Baso # (Auto) (0.01-0.08) K/mm3 Sodium (136-145) mEq/L Potassium (3.5-5.1) mEq/L Chloride (98-107) mEq/L Carbon Dioxide (21-32) mEq/L Anion Gap (5-15) BUN (7-18) mg/dL Creatinine (0.7-1.3) mg/dL Est Cr Clr Drug Dosing mL/min Estimated GFR (MDRD) (>60) mL/min BUN/Creatinine Ratio (14-18) Glucose (83-115) mg/dL POC Glucose (83-110) mg/dL Calcium (8.5-10.1) mg/dL Total Bilirubin (0.2-1.0) mg/dL AST (15-37) U/L ALT (16-63) U/L Alkaline Phosphatase (46-116) U/L C-Reactive Protein 3.4 H* (<1.0) mg/dL Total Protein (6.4-8.2) g/dl Albumin (3.4-5.0) g/dl Globulin gm/dL Albumin/Globulin Ratio (1-2) Lipase (73-393) U/L Urine Color Dark yellow (Yellow) Urine Appearance Cloudy H (Clear) Urine pH 6.0 (5.0-8.0) Ur Specific [place] > or = 1.030 (1.005-1.030) Urine Protein 3+ H (Negative) Urine Glucose (UA) Negative (Negative) Urine Ketones Trace H (Negative) Urine Occult Blood 3+ H (Negative) Urine Nitrite Negative (Negative) Urine Bilirubin 1+ H (Negative) Urine Urobilinogen 1.0 (0.2-1.0) Ur Leukocyte Esterase Trace H (Negative) Urine RBC Too numerous to cnt H (0-5) /hpf Urine WBC 5-10 H (0-5) /hpf Ur Epithelial Cells 0-5 (0-5) /hpf Urine Bacteria Moderate H (FEW) /hpf Urine Mucus Few (FEW) /hpf Urine Yeast (Budding) Few H (NOT SEEN) Meds: Medications Discontinued Medications Generic Name Dose Route Start Last Admin Trade Name Laron PRN Reason Stop Dose Admin Ondansetron HCl 4 mg 03/10/18 21:03 03/10/18 21:04 Zofran IVPUSH 03/10/18 21:04 4 mg ONETIME ONE Administration Ondansetron HCl Confirm 03/10/18 21:02 03/10/18 22:27 Zofran Administered 03/10/18 21:03 Not Given Dose 4 mg .ROUTE .Keldelice ONE - Radiology Interpretation Free Text/Narrative:: CT abdomen and pelvis Technique: Multiple axial sections were obtained from above the dome of the diaphragm inferiorly through the pubic symphysis. No intravenous contrast was utilized. Oral contrast has been given. Findings: Heart is enlarged. Small to moderate size right-sided pleural effusion is seen. Slight adjacent parenchymal density is seen most likely due to compressive atelectasis. Mild amount of ascites is seen throughout the abdomen and pelvis. Noncontrast appearance of the liver shows no discrete abnormality. Spleen size is normal. Adrenal glands show no nodule. Pancreas shows no discrete abnormality. Kidneys show no minimal arterial calcification. No hydronephrosis or discrete mass is seen. Diffuse atherosclerotic change with calcification is seen within the aorta and iliac vessels. No aneurysm is seen. No retroperitoneal adenopathy is seen. Small fat-containing umbilical hernia is seen which also contains some ascitic fluid. Handley catheter is noted within the bladder. Prostate gland appears enlarged. Appendix is not visualized with certainty. No bowel dilatation is seen. Bone window settings were reviewed which shows scattered degenerative change within the spine which is most severe at L3-L4 and L4-L5. Impression: 1. Small to moderate size right-sided pleural effusion with adjacent atelectasis. 2. Mild amount of ascites throughout the abdomen and pelvis. 3. Other incidental findings. Nothing acute is definitely appreciated. Chest 2 view shows a stable pleural effusion to the right, small to moderate. Pacemaker in place. No acute intrathoracic process. Formal radiology read pending. Departure - Departure Time of Disposition: 22:17 Disposition: Home, Self-Care 01 Condition: Fair Clinical Impression: Gastroenteritis, Vomiting, UTI (urinary tract infection) - Discharge Information *PRESCRIPTION DRUG MONITORING PROGRAM REVIEWED*: No *COPY OF PRESCRIPTION DRUG MONITORING REPORT IN PATIENT ISAIAH: No Prescriptions: Cephalexin [Keflex] 500 mg PO BID #10 capsule Ondansetron [Zofran ODT] 4 mg PO Q8H PRN #10 tab.dis PRN Reason: Nausea Instructions: Viral Gastroenteritis, Adult, Urinary Tract Infection, Adult Referrals: Ivette Partida, [employer] [Primary Care Provider] - Forms: ED Department Discharge Additional Instructions: Recommend a probiotic. These are available [id number]. Drink plenty of fluids; make sure you take a bland diet. Ash diet recommendations include bread, rice, applesauce, toast etc. Expect your GI illness to last about 3-5 days. Take the Keflex as prescribed. 1 tab twice a day for 10 days. Zofran as needed for nausea 1 tab every 8 hours as needed for nausea. Follow up with your primary care provider Sunday for recheck of your symptoms. Recommend discussing ultrasound of your gallbladder to further workup your right upper quadrant pain you been experiencing for the past few weeks. Continue with dialysis as planned. We will call you with your C.diff results if these are positive. If you do not hear from us, assume your results are negative. Please return the ER if your symptoms change or worsen. - My Orders Last 24 Hours: My Active Orders 03/10/18 19:58 CULTURE URINE [RM] Stat 03/10/18 21:09 C DIFFICILE BY PCR W/NAP1 [MOLEC] Stat 03/10/18 21:23 Hemoccult [Fecal Occult Blood Collection] [RC] ASDIRECTED 03/10/18 21:24 Chest 2V [CR] Stat - Assessment/Plan Last 24 Hours: My Active Orders 03/10/18 19:58 CULTURE URINE [RM] Stat 03/10/18 21:09 C DIFFICILE BY PCR W/NAP1 [MOLEC] Stat 03/10/18 21:23 Hemoccult [Fecal Occult Blood Collection] [RC] ASDIRECTED 03/10/18 21:24 Chest 2V [CR] Stat
--- NOTE | 2018-03-11 07:57 | CR ---
Chest: Two views of the chest were obtained. Comparison: Prior chest x-ray of 01/05/18. Right sided pleural effusion is seen which is noted on prior exam. This causes some adjacent basilar atelectasis. Lungs otherwise are clear. Heart is enlarged. Sternotomy wires are noted. AICD is present. Impression: 1. Right-sided pleural effusion and mild parenchymal density most likely due to atelectasis within the right base. 2. Stable cardiomegaly and AICD. Diagnostic code #2
== END 2018-03-10 22:43 | disposition home or self-care (01) ==
LOC: JD.ED 16:58
DX: K52.9 Noninfective gastroenteritis and colitis, unspecified (principal); N39.0 Urinary tract infection, site not specified; Z79.4 Long term (current) use of insulin; Z79.891 Long term (current) use of opiate analgesic; Z79.899 Other long term (current) drug therapy
CPT/HCPCS: 36415; 71046; 74176; 80053; 81001; 82962; 83690; 85025; 86140; 87086; 96374; 99285; J2405

== ENCOUNTER 2019-05-05 16:19 | Emergency (ER) | payer MEDICARE, OTHER ==
[2019-05-05] MEDS ORDERED: Sodium Chloride 0.9% 10 ML Syringe FLUSH PRN ×2 (17:01→18:01)
[2019-05-05] MEDS ORDERED: HYDROmorphone 0.5 MG/0.5 ML Syringe IVPUSH ONE ×2 (17:05→18:55)
[2019-05-05] MEDS ORDERED: Metoclopramide 10 MG/2 ML SDV IVPUSH ONE (17:09)
--- NOTE | 2019-05-05 17:33 | EDM.PDOC ---
ED HPI GENERAL MEDICAL PROBLEM - General Chief Complaint: Gastrointestinal Problem Stated Complaint: SENT OVER FROM DIAL. Time Seen by Provider: 05/05/19 16:37 Source of Information: Reports: Patient, RN Notes Reviewed - History of Present Illness INITIAL COMMENTS - FREE TEXT/NARRATIVE: 73-year-old male has been sent over from dialysis for evaluation of abdominal pain, vomiting after his dialysis run today. Does have history of renal failure on dialysis. He started having abdominal pain about 4 days ago that has been upper and lower abdomen. Is been primarily right upper abdomen. He states he has had 3 or 4 episodes of vomiting today. Been having some chills, no fever. Is not been eating and not drinking much today. He does feel weak, dizzy lightheaded when standing or walking. His daughter has very serious concerns about him going home this evening. He does have history of insulin- dependent diabetes, hypertension. He does typically live home alone I believe down in the [facility] [place] [address] from here. Right Upper Abdomen Pain Score (Numeric/FACES): 6 - Related Data Allergies Allergy/AdvReac Type Severity Reaction Status Date / Time No Known Allergies Allergy Verified 05/02/19 12:54 Home Meds: Home Meds Acetaminophen 650 mg PO Q6H PRN 08/09/16 [History] Cholecalciferol (Vitamin D3) [Vitamin D3] 5,000 unit PO DAILY 08/09/16 [History] Ferrous Sulfate 325 mg PO BEDTIME 08/09/16 [History] Insulin Aspart [Novolog Flexpen] 2 - 8 units SUBCUT TIDMEALS 08/09/16 [History] Docusate Sodium [Colace] 100 mg PO DAILY 08/20/16 [History] Carvedilol [Coreg] 6.25 mg PO BID 11/24/16 [History] Tamsulosin [Flomax] 0.4 mg PO DAILY 11/24/16 [History] atorvaSTATin [Lipitor] 40 mg PO DAILY 11/24/16 [History] Apixaban [Eliquis] 2.5 mg PO BID 05/05/19 [History] Aspirin [Millard Aspirin] 81 mg PO DAILY 05/05/19 [History] Diclofenac Sodium [Voltaren 1% Gel] 2 gm TOP BID PRN 05/05/19 [History] Midodrine 20 mg PO TUTHSA 05/05/19 [History] Monurol. 3 gm PO Q72H 05/05/19 [History] Multivitamin [Multivitamins] 1 tab PO DAILY 05/05/19 [History] traZODone HCl [Trazodone HCl] 50 mg PO DAILY 05/05/19 [History] Past Medical History HEENT History: Reports: Glaucoma Other HEENT History: wears glasses and hearing aids. also has upper denture and a lower partial. Cardiovascular History: Reports: Afib, CAD, Heart Failure, High Cholesterol, Hypertension, [place], Other (See Below) Other Cardiovascular History: occlusion and stenosis of bilateral carotid arteries Respiratory History: Reports: SOB, Other (See Below) Other Respiratory History: wheezing Gastrointestinal History: Reports: GERD, Other (See Below) Other Gastrointestinal History: encephalopathy Genitourinary History: Reports: BPH, Chronic Renal Insuffiency, Renal Calculus, Retention, Urinary Other Genitourinary History: pt reports previously was on dialysis now is not Musculoskeletal History: Reports: Gout Psychiatric History: Reports: Other (See Below) Other Psychiatric History: insomnia Endocrine/Metabolic History: Reports: Diabetes, Type II Other Endocrine/Metabolic History: anemia Hematologic History: Reports: Anemia, Iron Deficiency - Infectious Disease History Infectious Disease History: Reports: Influenza, Measles, Mumps - Past Surgical History HEENT Surgical History: Reports: Tonsillectomy Cardiovascular Surgical History: Reports: Carotid Endarterectomy, Coronary Artery Bypass, Coronary Artery Stent GI Surgical History: Reports: Abdominal paracentesis, Hernia, Inguinal Neurological Surgical History: Reports: Lumbar Spine Oncologic Surgical History: Reports: None Social & Family History - Family History Family Medical History: Noncontributory - Tobacco Use Smoking Status *Q: Never Smoker Second Hand Smoke Exposure: No - Caffeine Use Caffeine Use: Reports: Coffee Other Caffeine Use: 1 -2 cups a day - Recreational Drug Use Recreational Drug Use: No - Living Situation & Occupation Living situation: Reports: , Extended Care Facility ([employer]) Occupation: Retired ED ROS GENERAL - Review of Systems Review Of Systems: See Below Constitutional: Reports: Chills. Denies: Fever HEENT: Reports: Other. Denies: Throat Pain Respiratory: Reports: Cough. Denies: Shortness of Breath (With his dry), Wheezing, Pleuritic Chest Pain, Sputum Cardiovascular: Denies: Chest Pain GI/Abdominal: Reports: Abdominal Pain (Merrily right upper abdomen), Nausea, Vomiting. Denies: Diarrhea Musculoskeletal: Reports: Back Pain (Chronic) Skin: Denies: Rash Neurological: Reports: Dizziness, Weakness (Specially when standing generalized) ED EXAM, NEURO - Physical Exam Exam: See Below General Appearance: Alert, Moderate Distress Ears: Normal External Exam Throat/Mouth: Other (Mucosa dry) Head Exam: Atraumatic. No: Facial Swelling Neck: Supple Respiratory/Chest: No Respiratory Distress, Lungs Clear, Normal Breath Sounds Cardiovascular: Regular Rate, Rhythm GI/Abdominal: Soft, Tender (Mild tenderness upper mid abdomen right upper abdomen, lower abdomen nontender at time of exam) Neurological: Alert, No Motor/Sensory Deficits, Oriented x 3 Extremities: Normal Inspection, Normal Range of Motion. No: Pedal Edema, Leg Pain Skin Exam: Warm, Dry, Normal Color Course - Vital Signs Last Recorded V/S: Last Vital Signs Temp 97.5 F 05/05/19 16:27 Pulse 87 05/05/19 20:10 Resp 14 05/05/19 20:10 BP 87/51 L 05/05/19 20:10 Pulse Ox 100 05/05/19 20:10 Orthostatic Blood Pressure [ 91/72 Standing] Orthostatic Blood Pressure [ 92/50 Supine] - Orders/Labs/Meds Orders: Active Orders 24 hr Category Date Time Status Peripheral IV Care [RC] . DIRECTED Care 05/05/19 17:04 Active Lactated Ringers [Ringers, Lactated] 1,000 ml Med 05/05/19 18:15 Active IV ASDIRECTED Sodium Chloride 0.9% [Saline Flush] Med 05/05/19 17:01 Active 10 ml FLUSH ASDIRECTED PRN Sodium Chloride 0.9% [Saline Flush] Med 05/05/19 18:01 Active 10 ml FLUSH ONETIME PRN Peripheral IV Insertion Adult [OM.PC] Stat Oth 05/05/19 17:03 Ordered Medication Orders Lactated Ringer's (Ringers, Lactated) 1,000 mls @ 999 mls/hr IV ASDIRECTED SAULO Sodium Chloride (Saline Flush) 10 ml FLUSH ASDIRECTED PRN PRN Reason: Keep Vein Open Last Admin: 05/05/19 18:00 Dose: 10 ml Sodium Chloride (Saline Flush) 10 ml FLUSH ONETIME PRN PRN Reason: Keep Vein Open Last Admin: 05/05/19 19:20 Dose: 10 ml Labs: Laboratory Tests 05/05/19 05/05/19 05/05/19 Range/Units 17:39 17:39 17:39 WBC 11.95 H (4.23-9.07) K/mm3 RBC 2.93 L (4.63-6.08) M/mm3 Hgb 8.7 L D (13.7-17.5) gm/dl Hct 28.6 L (40.1-51.0) % MCV 97.6 H D (79.0-92.2) fl MCH 29.7 (25.7-32.2) pg MCHC 30.4 L (32.2-35.5) g/dl RDW Std Deviation 50.6 H (35.1-43.9) fL Plt Count 193 (163-337) K/mm3 MPV 9.7 (9.4-12.3) fl Neut % (Auto) 88.2 H (34.0-67.9) % Lymph % (Auto) 6.3 L (21.8-53.1) % [place] % (Auto) 4.1 L (5.3-12.2) % Eos % (Auto) 0.8 (0.8-7.0) Baso % (Auto) 0.3 (0.1-1.2) % Neut # (Auto) 10.54 H (1.78-5.38) K/mm3 Lymph # (Auto) 0.75 L (1.32-3.57) K/mm3 [place] # (Auto) 0.49 (0.30-0.82) K/mm3 Eos # (Auto) 0.10 (0.04-0.54) K/mm3 Baso # (Auto) 0.03 (0.01-0.08) K/mm3 Manual Slide Review Abnormal smear PT 13.7 H D (9.7-12.0) SECONDS INR 1.27 Sodium 138 (136-145) mEq/L Potassium 4.3 (3.5-5.1) mEq/L Chloride 100 (98-107) mEq/L Carbon Dioxide 29 (21-32) mEq/L Anion Gap 13.3 (5-15) BUN 26 H (7-18) mg/dL Creatinine 3.3 H (0.7-1.3) mg/dL Est Cr Clr Drug Dosing 19.64 mL/min Estimated GFR (MDRD) 18 (>60) mL/min BUN/Creatinine Ratio 7.9 L (14-18) Glucose 108 (83-115) mg/dL Calcium 8.2 L (8.5-10.1) mg/dL Total Bilirubin 0.9 (0.2-1.0) mg/dL AST 17 (15-37) U/L ALT 20 (16-63) U/L Alkaline Phosphatase 110 (46-116) U/L C-Reactive Protein 6.4 H* (<1.0) mg/dL Total Protein 6.8 (6.4-8.2) g/dl Albumin 2.0 L (3.4-5.0) g/dl Globulin 4.8 gm/dL Albumin/Globulin Ratio 0.4 L (1-2) Lipase 197 (73-393) U/L Meds: Medications Generic Name Dose Route Start Last Admin Trade Name Freq PRN Reason Stop Dose Admin Lactated Ringer's 1,000 mls @ 999 mls/hr 05/05/19 18:15 Ringers, Lactated IV ASDIRECTED SAULO Sodium Chloride 10 ml 05/05/19 17:01 05/05/19 18:00 Saline Flush FLUSH 10 ml ASDIRECTED PRN Administration Keep Vein Open Sodium Chloride 10 ml 05/05/19 18:01 05/05/19 19:20 Saline Flush FLUSH 10 ml ONETIME PRN Administration Keep Vein Open Discontinued Medications Generic Name Dose Route Start Last Admin Trade Name Freq PRN Reason Stop Dose Admin Diatrizoate Meglum/Diatrizoate Sod 60 ml 05/05/19 18:01 05/05/19 19:19 Gastrografin 37% PO 05/05/19 18:02 Not Given ONETIME ONE Hydromorphone HCl 0.5 mg 05/05/19 17:05 05/05/19 17:42 Dilaudid IVPUSH 05/05/19 17:06 0.25 mg ONETIME ONE Administration Hydromorphone HCl 0.25 mg 05/05/19 18:55 05/05/19 19:01 Dilaudid IVPUSH 05/05/19 18:56 0.25 mg ONETIME ONE Administration Iopamidol 100 ml 05/05/19 18:01 05/05/19 19:19 Isovue-300 (61%) IVPUSH 05/05/19 18:02 Not Given ONETIME ONE Metoclopramide HCl 5 mg 05/05/19 17:09 05/05/19 17:42 Reglan IVPUSH 05/05/19 17:10 5 mg ONETIME ONE Administration - Re-Assessments/Exams Free Text/Narrative Re-Assessment/Exam: 05/05/19 18:25. Consideration was given to do abdominal CT. Upright abdomen views were obtained which did show several small air-fluid levels. I did get radiology report on that agreeing with the observation of multiple air-fluid levels "suggestive for gastroenteritis". With that in mind and with his history of the chronic renal failure I have withdrawn the order for abdominal CT. My hope and plan is that he can be admitted for IV fluids, pain management and be given a chance to get better 19:10. BP has dropped into the 80's, he did have a couple of readings 120 systolic at time of arrival, have given 1 250 ml bolus IV fluid. As noted in hx he did come straight over from dialysis, he is now somewhat dehydrated just completing his run, not eating, drinking today as usual due to underlying illness. Still waiting to hear from our Hospitalist as to whether he can be admitted here obs status. 19:55. Have started a 2nd 250 ml bolus LR. BP still in the 80's, have given dilaudid 0.25 mg IV times 2 over the past 90 minutes for abd pain. He is now resting more comfortably, sleeping. Dr Sousa, Hospitalist states he needs to go to [facility] for higher level of care, and for needed dialysis every other day. 20:15. Dr Streeter, ED [facility], [facility] accepting Phys. He will be transferred by ground ambulance. Current BP 88/44. heart rate 92, sats 100 %, afebrile. Departure - Departure Time of Disposition: 20:15 Disposition: DC/Tfer to Acute Hospital 02 Condition: Serious Clinical Impression: Vomiting, Abdominal pain, Hypotension, Chronic renal failure - Discharge Information Referrals: Jesse Michelle MD [Primary Care Provider] - Forms: ED Department Discharge Sepsis Event Note - Evaluation Sepsis Screening Result: No Definite Risk - Focused Exam Vital Signs: Vital Signs Temp Pulse Pulse Resp BP BP Pulse Ox 05/05/19 20:10 87 14 87/51 L 100 05/05/19 20:09 88 16 99 05/05/19 20:01 91 21 H 100 05/05/19 20:00 88 20 81/47 L 100 05/05/19 19:59 84 20 100 05/05/19 19:50 87 21 H 78/45 L 100 05/05/19 19:49 83 21 H 100 05/05/19 19:40 86 20 80/54 L 100 05/05/19 19:39 89 19 100 05/05/19 19:30 86 20 81/42 L 100 05/05/19 19:29 88 20 100 05/05/19 19:20 91 20 81/44 L 100 05/05/19 19:19 91 20 100 05/05/19 19:11 95 91 L 05/05/19 16:27 97.5 F 93 18 89/50 L 91 L Date Exam was Performed: 05/05/19 Time Exam was Performed: 20:22 - My Orders Last 24 Hours: My Active Orders 05/05/19 17:01 Sodium Chloride 0.9% [Saline Flush] 10 ml FLUSH ASDIRECTED PRN 05/05/19 17:03 Peripheral IV Insertion Adult [OM.PC] Stat 05/05/19 17:04 Peripheral IV Care [RC] . DIRECTED 05/05/19 18:01 Sodium Chloride 0.9% [Saline Flush] 10 ml FLUSH ONETIME PRN 05/05/19 18:15 Lactated Ringers [Ringers, Lactated] 1,000 ml IV ASDIRECTED - Assessment/Plan Last 24 Hours: My Active Orders 05/05/19 17:01 Sodium Chloride 0.9% [Saline Flush] 10 ml FLUSH ASDIRECTED PRN 05/05/19 17:03 Peripheral IV Insertion Adult [OM.PC] Stat 05/05/19 17:04 Peripheral IV Care [RC] . DIRECTED 05/05/19 18:01 Sodium Chloride 0.9% [Saline Flush] 10 ml FLUSH ONETIME PRN 05/05/19 18:15 Lactated Ringers [Ringers, Lactated] 1,000 ml IV ASDIRECTED
--- NOTE | 2019-05-05 17:52 | CR ---
Abdomen: Supine and upright views of the abdomen were obtained. Comparison: Prior abdominal x-ray of 01/05/18. Scattered gas within small bowel and colon is seen. Slight air-fluid levels are noted but no bowel dilatation is seen. No free air is seen. Small right-sided pleural effusion is noted. Bony structures are osteopenic. Vascular calcification is noted. Impression: 1. Air-fluid levels within nondilated bowel raising the possibility of gastroenteritis. 2. Small right-sided pleural effusion. 3. Other findings as noted above. Diagnostic code #3 This report was dictated in [place] Standard Time
[2019-05-05] MEDS ORDERED: Diatrizoate Meglumine/Diatrizoate Sodium 37% 120 ML Bottle PO ONE (18:01)
[2019-05-05] MEDS ORDERED: Iopamidol 612 MG/ML 100 ML Bottle IVPUSH ONE (18:01)
[2019-05-05] MEDS ORDERED: Lactated Ringers 1,000 ML IV SCH (18:15)
[2019-05-05 20:46] VITALS: BP 91/52; PULSE 90
== END 2019-05-05 20:55 ==
LOC: JD.ED 16:19
DX: R10.11 Right upper quadrant pain (principal); R10.30 Lower abdominal pain, unspecified; R11.10 Vomiting, unspecified; I95.9 Hypotension, unspecified; I13.0 Hypertensive heart and chronic kidney disease with heart failure and stage 1 through stage 4 chronic kidney disease, or unspecified chronic kidney disease; E11.22 Type 2 diabetes mellitus with diabetic chronic kidney disease; N18.9 Chronic kidney disease, unspecified; I50.9 Heart failure, unspecified; I25.10 Atherosclerotic heart disease of native coronary artery without angina pectoris; I48.91 Unspecified atrial fibrillation; I25.2 Old myocardial infarction; E78.00 Pure hypercholesterolemia, unspecified; K21.9 Gastro-esophageal reflux disease without esophagitis; M10.9 Gout, unspecified; Z95.5 Presence of coronary angioplasty implant and graft; Z79.899 Other long term (current) drug therapy; Z79.4 Long term (current) use of insulin; Z79.01 Long term (current) use of anticoagulants; Z79.82 Long term (current) use of aspirin
CPT/HCPCS: 36415; 74019; 80053; 83690; 85025; 85610; 86140; 96361; 96374; 96376; 99285; J1170; J2765; Q9963; 96375; 99284

== ENCOUNTER 2019-05-17 10:39 | Emergency (ER) | payer MEDICARE, OTHER ==
[2019-05-17 10:59] VITALS: PULSE 110
--- NOTE | 2019-05-17 11:14 | EDM.PDOC ---
ED HPI GENERAL MEDICAL PROBLEM - General Chief Complaint: Abdominal Pain Stated Complaint: ABDOMINAL BLOATING Time Seen by Provider: 05/17/19 11:00 Source of Information: Reports: Patient, RN Notes Reviewed History Limitations: Reports: No Limitations - History of Present Illness INITIAL COMMENTS - FREE TEXT/NARRATIVE: Patient is a 73-year-old male who presents to the ED for the evaluation of his abdominal distention. Patient notes he is a dialysis patient, and he had a run yesterday, and was told by the dialysis staff that he would likely need a paracentesis Sunday, and that they were going to set this up for him. The patient notes that his abdomen has become increasingly distended over the last few days, and he is having quite a bit of pain in his abdomen, and states it is really hard to breathe due to the abdominal distention. Patient states he makes a little bit of urine on a regular basis, but not as much as he used to. He does have an indwelling Handley in place. Patient did have a paracentesis last week as well. He did not think he could wait until Sunday, as they live and killed her at [facility] on comfort, and they called his primary care provider, Dr. Carlos, and he told him to come to the ER for a possible paracentesis. Patient's rehabilitation caseworker is Dr. Sage. Patient is afebrile, O2 sats are mildly low at 94% on room air. He is tachy at 110 bpm, blood pressure is 139/97 respiratory rate is 16. Abdominal Pain Score (Numeric/FACES): 10 - Related Data Allergies Allergy/AdvReac Type Severity Reaction Status Date / Time No Known Allergies Allergy Verified 05/17/19 11:58 Home Meds: Home Meds Acetaminophen 650 mg PO Q6H PRN 08/09/16 [History] Cholecalciferol (Vitamin D3) [Vitamin D3] 5,000 unit PO DAILY 08/09/16 [History] Ferrous Sulfate 325 mg PO BEDTIME 08/09/16 [History] Insulin Aspart [Novolog Flexpen] 2 - 8 units SUBCUT TIDMEALS 08/09/16 [History] Docusate Sodium [Colace] 100 mg PO DAILY 08/20/16 [History] Carvedilol [Coreg] 6.25 mg PO BID 11/24/16 [History] Tamsulosin [Flomax] 0.4 mg PO DAILY 11/24/16 [History] atorvaSTATin [Lipitor] 40 mg PO DAILY 11/24/16 [History] Apixaban [Eliquis] 2.5 mg PO BID 05/05/19 [History] Aspirin [Colp Aspirin] 81 mg PO DAILY 05/05/19 [History] Diclofenac Sodium [Voltaren 1% Gel] 2 gm TOP BID PRN 05/05/19 [History] Midodrine 20 mg PO TUTHSA 05/05/19 [History] Monurol. 3 gm PO Q72H 05/05/19 [History] Multivitamin [Multivitamins] 1 tab PO DAILY 05/05/19 [History] traZODone HCl [Trazodone HCl] 50 mg PO DAILY 05/05/19 [History] Past Medical History HEENT History: Reports: Glaucoma Other HEENT History: wears glasses and hearing aids. also has upper denture and a lower partial. Cardiovascular History: Reports: Afib, CAD, Heart Failure, High Cholesterol, Hypertension, [place], Other (See Below) Other Cardiovascular History: occlusion and stenosis of bilateral carotid arteries Respiratory History: Reports: SOB, Other (See Below) Other Respiratory History: wheezing Gastrointestinal History: Reports: GERD, Other (See Below) Other Gastrointestinal History: encephalopathy Genitourinary History: Reports: BPH, Chronic Renal Insuffiency, Dialysis, Renal Calculus, Retention, Urinary Musculoskeletal History: Reports: Gout Psychiatric History: Reports: Other (See Below) Other Psychiatric History: insomnia Endocrine/Metabolic History: Reports: Diabetes, Type II Other Endocrine/Metabolic History: anemia Hematologic History: Reports: Anemia, Iron Deficiency - Infectious Disease History Infectious Disease History: Reports: Influenza, Measles, Mumps - Past Surgical History HEENT Surgical History: Reports: Tonsillectomy Cardiovascular Surgical History: Reports: Carotid Endarterectomy, Coronary Artery Bypass, Coronary Artery Stent GI Surgical History: Reports: Abdominal paracentesis, Hernia, Inguinal Neurological Surgical History: Reports: Lumbar Spine Social & Family History - Family History Family Medical History: Noncontributory - Tobacco Use Smoking Status *Q: Never Smoker - Caffeine Use Caffeine Use: Reports: Coffee Other Caffeine Use: 1 -2 cups a day - Living Situation & Occupation Living situation: Reports: , Extended Care Facility ([facility]) Occupation: Retired ED ROS GENERAL - Review of Systems Review Of Systems: See Below Constitutional: Denies: Fever, Chills Respiratory: Reports: Shortness of Breath. Denies: Cough, Sputum Cardiovascular: Denies: Chest Pain GI/Abdominal: Reports: Abdominal Pain (generalized), Distension (abdomen has grown in size in last 2 days). Denies: Nausea, Vomiting : Reports: Urinary Retention (decreased urine output from normal) ED EXAM, GI/ABD - Physical Exam Exam: See Below Exam Limited By: No Limitations General Appearance: Alert, WD/WN, Mild Distress (Pt is taking heavier breaths and reports it is harder to breathe than normal) Eyes: Bilateral: Normal Appearance Ears: Normal External Exam Nose: Normal Inspection Throat/Mouth: Normal Inspection, Normal Lips, Normal Teeth, Normal Gums, Normal Oropharynx, Normal Voice, No Airway Compromise Head: Atraumatic, Normocephalic Neck: Normal Inspection Respiratory/Chest: No Respiratory Distress, Lungs Clear, No Accessory Muscle Use , Chest Non-Tender, Decreased Breath Sounds (bilaterally) Cardiovascular: Normal Peripheral Pulses, Regular Rate, Rhythm, No Murmur, Other (2+ edema to bilateral extremities) GI/Abdominal Exam: Distended (generalized, abdomen does appear obtunded), Guarding, Tender (generalized tenderness). No: Rigid, Rebound Extremities: Normal Inspection, Normal Capillary Refill Neurological: Alert, Oriented, Normal Cognition, No Motor/Sensory Deficits Psychiatric: Normal Affect, Normal Mood Skin Exam: Warm, Dry, Intact, Normal Color, No Rash Course - Vital Signs Last Recorded V/S: Last Vital Signs Temp 97.8 F 05/17/19 10:55 Pulse 110 H 05/17/19 10:55 Resp 16 05/17/19 10:55 BP 139/97 H 05/17/19 10:55 Pulse Ox 95 05/17/19 10:55 - Orders/Labs/Meds Orders: Active Orders 24 hr Category Date Time Status Notify Provider Consults [RC] ASDIRECTED Care 05/17/19 11:09 Active Peripheral IV Care [RC] . DIRECTED Care 05/17/19 12:56 Ordered Consult to Physician [CONS] Stat Cons 05/17/19 11:08 Ordered Albumin 25% 50 ML IVPB Over 30 Min Med 05/17/19 12:55 Ordered Albumin 25% [Flexbumin 25%] 12.5 gm in 50 ml IV ONETIME Sodium Chloride 0.9% [Saline Flush] Med 05/17/19 12:56 Ordered 10 ml FLUSH ASDIRECTED PRN Peripheral IV Insertion Adult [OM.PC] Routine Oth 05/17/19 12:56 Ordered Medication Orders Albumin Human (Flexbumin 25%) 12.5 gm in 50 mls @ 100 mls/hr IV ONETIME ONE Stop: 05/17/19 13:24 Sodium Chloride (Saline Flush) 10 ml FLUSH ASDIRECTED PRN PRN Reason: Keep Vein Open Meds: Medications Generic Name Dose Route Start Last Admin Trade Name Freq PRN Reason Stop Dose Admin Albumin Human 12.5 gm in 50 mls @ 100 mls/hr 05/17/19 12:55 Flexbumin 25% IV 05/17/19 13:24 ONETIME ONE Sodium Chloride 10 ml 05/17/19 12:56 Saline Flush FLUSH ASDIRECTED PRN Keep Vein Open - Re-Assessments/Exams Free Text/Narrative Re-Assessment/Exam: 05/17/19 11:15 Patient presents to the ED for the evaluation of a possible paracentesis. His abdomen is quite distended, I did call Dr. Velasquez, our general surgeon inventory control manager for further evaluation and to guide management, as I was unsure as if he did abdominal paracentesis. If the patient does need a paracentesis, and Dr. Velasquez does not do these, patient will need to be transferred to [place] for further management. 05/17/19 12:43 Dr. Velasquez, was able to evaluate the patient, and he did do a paracentesis, states that the fluid did appear to be within normal limits. There was a total of 5800 mL's taken off of the gentleman's abdomen. Dr. Velasquez does want some albumin given, and I have ordered this. He notes to have the patient watch out for signs of infection, bleeding as he is on Eliquis, and have him follow-up with his regular provider on Sunday, and return to the ER at any time if symptoms change or worsen. Departure - Departure Time of Disposition: 12:44 Disposition: Home, Self-Care 01 Condition: Fair Clinical Impression: Ascites, Chronic renal insufficiency, stage IV (severe) - Discharge Information *PRESCRIPTION DRUG MONITORING PROGRAM REVIEWED*: No *COPY OF PRESCRIPTION DRUG MONITORING REPORT IN PATIENT ISAIAH: No Instructions: Ascites Drainage Catheter Placement, Care After Referrals: Shan aCrlos MD [Primary Care Provider] - Forms: ED Department Discharge Additional Instructions: You were evaluated in the ER today regarding your need for a paracentesis. Our general surgeon was able to provide this to you at this time. He recommends keeping an eye on the site of insertion of the catheter, and looking out for signs of infection like redness, swelling, pain. Also as you are on a blood thinner, please watch out for increased bleeding, or bruising at the site. Recommend you follow-up with your primary care provider or dialysis staff/ nephrology, on Sunday, or early next week for re-evaluation. Please return to the ER at any time however if symptoms change or worsen. Sepsis Event Note - Evaluation Sepsis Screening Result: No Definite Risk - Focused Exam Vital Signs: Vital Signs Temp Pulse Resp BP Pulse Ox 05/17/19 10:55 97.8 F 110 H 16 139/97 H 95 Date Exam was Performed: 05/17/19 Time Exam was Performed: 12:57 - My Orders Last 24 Hours: My Active Orders 05/17/19 11:08 Consult to Physician [CONS] Stat 05/17/19 11:09 Notify Provider Consults [RC] ASDIRECTED 05/17/19 12:55 Albumin 25% 50 ML IVPB Over 30 Min Albumin 25% [Flexbumin 25%] 12.5 gm in 50 ml IV ONETIME 05/17/19 12:56 Peripheral IV Care [RC] . DIRECTED Sodium Chloride 0.9% [Saline Flush] 10 ml FLUSH ASDIRECTED PRN Peripheral IV Insertion Adult [OM.PC] Routine - Assessment/Plan Last 24 Hours: My Active Orders 05/17/19 11:08 Consult to Physician [CONS] Stat 05/17/19 11:09 Notify Provider Consults [RC] ASDIRECTED 05/17/19 12:55 Albumin 25% 50 ML IVPB Over 30 Min Albumin 25% [Flexbumin 25%] 12.5 gm in 50 ml IV ONETIME 05/17/19 12:56 Peripheral IV Care [RC] . DIRECTED Sodium Chloride 0.9% [Saline Flush] 10 ml FLUSH ASDIRECTED PRN Peripheral IV Insertion Adult [OM.PC] Routine
--- NOTE | 2019-05-17 12:45 | PCM.CONS ---
H&P History of Present Illness - General Date of Service: 05/17/19 Source of Information: Patient History Limitations: Reports: No Limitations - History of Present Illness Initial Comments - Free Text/Narative: Patient has ESRD on HD who presents with nausea, subjective SOB when supine and abdominal distention causing pain. The patient has history of ascites requires routine paracentesis every 3 weeks or so. Last paracentesis was done in [place] 10 days ago. In the past two days the patient reports that his abdomen got progressively more distended than usual and has he started to have some pain and shortness of breath when flat. he called his PCP who directed him to come to the ED for paracentesis. There are no reports of fevers, chills, night sweats. Onset of Symptoms: Reports: Gradual Duration of Symptoms: Reports: Day(s): (2) Location: Reports: Abdomen, Lower Extremity, Left, Lower Extremity, Right Quality: Reports: Dull Severity: Moderate Improves with: Reports: None Worsens with: Reports: None Abdominal Pain Score (Numeric/FACES): 10 - Related Data Allergies/Adverse Reactions: Allergies Allergy/AdvReac Type Severity Reaction Status Date / Time No Known Allergies Allergy Verified 05/17/19 11:58 Home Medications: Home Meds Acetaminophen 650 mg PO Q6H PRN 08/09/16 [History] Cholecalciferol (Vitamin D3) [Vitamin D3] 5,000 unit PO DAILY 08/09/16 [History] Ferrous Sulfate 325 mg PO BEDTIME 08/09/16 [History] Insulin Aspart [Novolog Flexpen] 2 - 8 units SUBCUT TIDMEALS 08/09/16 [History] Docusate Sodium [Colace] 100 mg PO DAILY 08/20/16 [History] Carvedilol [Coreg] 6.25 mg PO BID 11/24/16 [History] Tamsulosin [Flomax] 0.4 mg PO DAILY 11/24/16 [History] atorvaSTATin [Lipitor] 40 mg PO DAILY 11/24/16 [History] Apixaban [Eliquis] 2.5 mg PO BID 05/05/19 [History] Aspirin [[place] Aspirin] 81 mg PO DAILY 05/05/19 [History] Diclofenac Sodium [Voltaren 1% Gel] 2 gm TOP BID PRN 05/05/19 [History] Midodrine 20 mg PO TUTHSA 05/05/19 [History] Monurol. 3 gm PO Q72H 05/05/19 [History] Multivitamin [Multivitamins] 1 tab PO DAILY 05/05/19 [History] traZODone HCl [Trazodone HCl] 50 mg PO DAILY 05/05/19 [History] Past Medical History HEENT History: Reports: Glaucoma Other HEENT History: wears glasses and hearing aids. also has upper denture and a lower partial. Cardiovascular History: Reports: Afib, CAD, Heart Failure, High Cholesterol, Hypertension, [place], Other (See Below) Other Cardiovascular History: occlusion and stenosis of bilateral carotid arteries Respiratory History: Reports: SOB, Other (See Below) Other Respiratory History: wheezing Gastrointestinal History: Reports: GERD, Other (See Below) Other Gastrointestinal History: encephalopathy Genitourinary History: Reports: BPH, Chronic Renal Insuffiency, Dialysis, Renal Calculus, Retention, Urinary Musculoskeletal History: Reports: Gout Psychiatric History: Reports: Other (See Below) Other Psychiatric History: insomnia Endocrine/Metabolic History: Reports: Diabetes, Type II Other Endocrine/Metabolic History: anemia Hematologic History: Reports: Anemia, Iron Deficiency - Infectious Disease History Infectious Disease History: Reports: Influenza, Measles, Mumps - Past Surgical History HEENT Surgical History: Reports: Tonsillectomy Cardiovascular Surgical History: Reports: Carotid Endarterectomy, Coronary Artery Bypass, Coronary Artery Stent GI Surgical History: Reports: Abdominal paracentesis, Hernia, Inguinal Neurological Surgical History: Reports: Lumbar Spine Social & Family History - Family History Family Medical History: Noncontributory - Tobacco Use Smoking Status *Q: Never Smoker - Caffeine Use Caffeine Use: Reports: Coffee Other Caffeine Use: 1 -2 cups a day - Living Situation & Occupation Living situation: Reports: , Extended Care Facility ([facility]) Occupation: Retired H&P Review of Systems - Review of Systems: Review Of Systems: See Below General: Reports: No Symptoms HEENT: Reports: No Symptoms Pulmonary: Reports: Shortness of Breath Gastrointestinal: Reports: Abdominal Pain Genitourinary: Reports: No Symptoms Musculoskeletal: Reports: Other (BLE edema) Skin: Reports: No Symptoms Psychiatric: Reports: No Symptoms Neurological: Reports: No Symptoms Exam - Exam Exam: See Below - Vital Signs Vital Signs: Last Vital Signs Temp 97.8 F 05/17/19 10:55 Pulse 110 H 05/17/19 10:55 Resp 16 05/17/19 10:55 BP 139/97 H 05/17/19 10:55 Pulse Ox 95 05/17/19 10:55 Weight: 84.822 kg - Exam General: Alert, Oriented, Cooperative, Mild Distress HEENT: Conjunctiva Clear Lungs: Clear to Auscultation, Normal Respiratory Effort Cardiovascular: Regular Rate, Regular Rhythm, Normal S1, Normal S2 GI/Abdominal Exam: Soft, Non-Tender, No Organomegaly, Distended (has fluid waves and diastasis recti) (Male) Exam: No Hernia Sepsis Event Note - Evaluation Sepsis Screening Result: No Definite Risk - Focused Exam Vital Signs: Vital Signs Temp Pulse Resp BP Pulse Ox 05/17/19 10:55 97.8 F 110 H 16 139/97 H 95 Date Exam was Performed: 05/17/19 Time Exam was Performed: 12:40 Consult PN Assessment/Plan Procedures: Procedures ASSAY OF BLOOD/URIC ACID (09/15/16) ASSAY OF LIPASE (05/05/19) ASSAY OF PARATHORMONE (09/15/16) ASSAY OF PROTEIN URINE (09/15/16) ASSAY OF URINE CREATININE (09/15/16) C-REACTIVE PROTEIN (05/05/19) CHEST X-RAY 2VW FRONTAL&LATL (08/09/16) COMPLETE CBC W/AUTO DIFF WBC (05/05/19) COMPREHEN METABOLIC PANEL (05/05/19) CT ABD & PELVIS W/O CONTRAST (03/10/18) EMERGENCY DEPT VISIT (05/05/19) EMERGENCY DEPT VISIT (02/18/18) EMERGENCY DEPT VISIT (08/20/16) GLUCOSE BLOOD TEST (03/10/18) HEPATOBIL SYST IMAGE W/DRUG (11/21/16) HYDRATE IV INFUSION ADD-ON (05/05/19) MICROBE SUSCEPTIBLE CARLOS (11/20/17) PROTHROMBIN TIME (05/05/19) RENAL FUNCTION PANEL (09/15/16) ROUTINE VENIPUNCTURE (05/05/19) THER/PROPH/DIAG INJ IV PUSH (05/05/19) THER/PROPH/DIAG INJ SC/IM (08/09/16) TX/PRO/DX INJ SAME DRUG MACHINIST HELPER (05/05/19) URINALYSIS AUTO W/SCOPE (03/10/18) URINE BACTERIA CULTURE (11/20/17) URINE CULTURE/COLONY COUNT (03/10/18) X-RAY EXAM ABDOMEN 1 VIEW (01/05/18) X-RAY EXAM ABDOMEN 2 VIEWS (05/05/19) X-RAY EXAM CHEST 1 VIEW (01/05/18) X-RAY EXAM CHEST 2 VIEWS (03/10/18) X-RAY EXAM HIP UNI 2-3 VIEWS (02/18/18) X-RAY EXAM OF FEMUR 2/> (02/18/18) Problem List Initiated/Reviewed/Updated: No Plan: Patient has ascites that increased very quickly that he developed abdominal pain. His exam is soft, mild tenderness. I don't believe the patient has SBP. - We performed paracentesis in the ED, ascites was clear yellow. No immediate complications. - The patient was instructed to watch for bleeding and infection and to follow up with his PCP next week.
[2019-05-17] MEDS ORDERED: Albumin 25% 12.5 GM/50 ML BAG IV ONE (12:55)
[2019-05-17] MEDS ORDERED: Sodium Chloride 0.9% 10 ML Syringe FLUSH PRN (12:56)
--- NOTE | 2019-05-17 13:08 | PCM.PRNOTE ---
- Free Text/Narrative Note: Procedure: Paracentesis Indications: Patient presents with ascites causing SOB and abdominal discomfort Details: The patient was placed in supine position. Ultrasound was used to located an area with deep fluid pocket in the left lower quadrant and the area was marked. The area was cleaned with chlorhexidine and draped in usual sterile fashion. 1% lidocaine plain was used to anesthetize the skin and abdominal wall until some ascites was aspirated. The paracentesis catheter was placed. 6000mL of clear yellow fluid was drained. The the catheter was removed and Dermabond applied at th puncture site. Patient tolerated the procedure well. Post procedure, the patient was instructed to watch for infection and bleeding.No abdominal pain post drainage. Plan: Patient will be given one bottle of 25% albumin. Instructions to watch for infection and bleeding will be given and the patient will be discharged.
[2019-05-17 17:27] VITALS: BP 93/66
== END 2019-05-17 14:32 | disposition home or self-care (01) ==
LOC: JD.ED 10:39
DX: R18.8 Other ascites (principal); I13.0 Hypertensive heart and chronic kidney disease with heart failure and stage 1 through stage 4 chronic kidney disease, or unspecified chronic kidney disease; E11.22 Type 2 diabetes mellitus with diabetic chronic kidney disease; N18.4 Chronic kidney disease, stage 4 (severe); I50.9 Heart failure, unspecified; D63.1 Anemia in chronic kidney disease; I25.10 Atherosclerotic heart disease of native coronary artery without angina pectoris; I48.91 Unspecified atrial fibrillation; E78.00 Pure hypercholesterolemia, unspecified; I25.2 Old myocardial infarction; M10.9 Gout, unspecified; N40.0 Benign prostatic hyperplasia without lower urinary tract symptoms; Z95.5 Presence of coronary angioplasty implant and graft; Z95.2 Presence of prosthetic heart valve; Z79.01 Long term (current) use of anticoagulants; Z79.899 Other long term (current) drug therapy; Z79.4 Long term (current) use of insulin
CPT/HCPCS: 49082; 96365; 99283; P9047; 99284

== ENCOUNTER 2019-05-26 16:26 | Emergency (ER) | payer MEDICARE, OTHER ==
[2019-05-26] MEDS ORDERED: Sodium Chloride 0.9% 10 ML Syringe FLUSH PRN (17:51)
--- NOTE | 2019-05-26 17:59 | EDM.PDOC ---
ED HPI GENERAL MEDICAL PROBLEM - General Chief Complaint: Abdominal Pain Stated Complaint: ABDOMINAL PAIN Time Seen by Provider: 05/26/19 17:25 Source of Information: Reports: Patient History Limitations: Reports: No Limitations - History of Present Illness INITIAL COMMENTS - FREE TEXT/NARRATIVE: Patient is a 73-year-old male who presents to the ER with complaints of right lower quadrant abdominal pain. Patient states that he was at dialysis today when the pain started. He has had no nausea or vomiting associated with this pain. Patient does also state that he had a paracentesis done today with Dr. Ambrosio had 6 L of fluid removed from his abdomen. He has had these done frequently in the past and has never had pain such as this after the procedure. Patient has end-stage renal failure and goes to dialysis Sunday and Fridays. He states he does still have his appendix. Denies any fever or chills. Right Abdomen Pain Score (Numeric/FACES): 7 Right Chest Pain Score (Numeric/FACES): 7 - Related Data Allergies Allergy/AdvReac Type Severity Reaction Status Date / Time No Known Allergies Allergy Verified 05/17/19 11:58 Home Meds: Home Meds Acetaminophen 650 mg PO Q6H PRN 08/09/16 [History] Ferrous Sulfate 325 mg PO DAILY 08/09/16 [History] Docusate Sodium [Colace] 100 mg PO DAILY 08/20/16 [History] atorvaSTATin [Lipitor] 40 mg PO BEDTIME 11/24/16 [History] Apixaban [Eliquis] 2.5 mg PO BID 05/05/19 [History] Aspirin [[place] Aspirin] 81 mg PO DAILY 05/05/19 [History] Midodrine 20 mg PO MOWEFR 05/05/19 [History] B Complex & C No.20/Folic Acid [Mynephrocaps Softgel] 1 cap PO DAILY 05/17/19 [ History] Hydrocodone/Acetaminophen [[place] 10-325 Tablet] 1 tab PO BID PRN 05/17/19 [ History] Insulin Glarg,Human.Rec.Analog [Lantus Solostar] 7 units SQ DAILY 05/17/19 [ History] LORazepam [Lorazepam] 0.5 mg PO DAILY PRN 05/17/19 [History] Magnesium Oxide 400 mg PO BID 05/17/19 [History] Melatonin 0.3 mg PO BEDTIME PRN 05/17/19 [History] Melatonin 3 mg PO BEDTIME 05/17/19 [History] Nitroglycerin 0.4 mg PO Q5M PRN 05/17/19 [History] Ondansetron [Zofran] 4 g PO Q4H PRN 05/17/19 [History] Sodium Chloride/Aloe Vera [[place] Saline Nasal Gel [place]] 22 ml NS TID PRN [History] diphenhydrAMINE [Benadryl] 25 mg PO Q6H PRN 05/17/19 [History] polyethylene glycoL 3350 [MiraLAX] 17 gm PO BID PRN 05/17/19 [History] Past Medical History HEENT History: Reports: Glaucoma Other HEENT History: wears glasses and hearing aids. also has upper denture and a lower partial. Cardiovascular History: Reports: Afib, CAD, Heart Failure, High Cholesterol, Hypertension, [place], Other (See Below) Other Cardiovascular History: occlusion and stenosis of bilateral carotid arteries Respiratory History: Reports: SOB, Other (See Below) Other Respiratory History: wheezing Gastrointestinal History: Reports: GERD, Other (See Below) Other Gastrointestinal History: encephalopathy Genitourinary History: Reports: BPH, Chronic Renal Insuffiency, Dialysis, Renal Calculus, Retention, Urinary Musculoskeletal History: Reports: Gout Psychiatric History: Reports: Other (See Below) Other Psychiatric History: insomnia Endocrine/Metabolic History: Reports: Diabetes, Type II Other Endocrine/Metabolic History: anemia Hematologic History: Reports: Anemia, Iron Deficiency - Infectious Disease History Infectious Disease History: Reports: Influenza, Measles, Mumps - Past Surgical History HEENT Surgical History: Reports: Tonsillectomy Cardiovascular Surgical History: Reports: Carotid Endarterectomy, Coronary Artery Bypass, Coronary Artery Stent GI Surgical History: Reports: Abdominal paracentesis, Hernia, Inguinal Neurological Surgical History: Reports: Lumbar Spine Oncologic Surgical History: Reports: None Social & Family History - Family History Family Medical History: Noncontributory - Tobacco Use Smoking Status *Q: Never Smoker - Caffeine Use Caffeine Use: Reports: Soda Other Caffeine Use: 1 -2 cups a day - Recreational Drug Use Recreational Drug Use: No - Living Situation & Occupation Living situation: Reports: , Extended Care Facility ([facility]) Occupation: Retired ED ROS GENERAL - Review of Systems Review Of Systems: See Below Constitutional: Reports: No Symptoms. Denies: Fever, Chills, Malaise HEENT: Reports: No Symptoms Respiratory: Reports: No Symptoms. Denies: Shortness of Breath, Wheezing, Cough Cardiovascular: Reports: No Symptoms. Denies: Chest Pain Endocrine: Reports: No Symptoms GI/Abdominal: Reports: Abdominal Pain. Denies: Diarrhea, Nausea, Vomiting : Reports: No Symptoms Musculoskeletal: Reports: No Symptoms Skin: Reports: No Symptoms Neurological: Reports: No Symptoms Psychiatric: Reports: No Symptoms Hematologic/Lymphatic: Reports: No Symptoms Immunologic: Reports: No Symptoms ED EXAM, GI/ABD - Physical Exam Exam: See Below Exam Limited By: No Limitations General Appearance: Alert, WD/WN, No Apparent Distress Respiratory/Chest: No Respiratory Distress, Lungs Clear, Normal Breath Sounds, No Accessory Muscle Use, Chest Non-Tender Cardiovascular: Normal Peripheral Pulses, Regular Rate, Rhythm, No Edema, No Gallop, No JVD, No Murmur, No Rub GI/Abdominal Exam: Normal Bowel Sounds, Soft, No Organomegaly, No Distention, No Abnormal Bruit, No Mass, Pelvis Stable, Tender (RLQ), Other (Loose skin secondary to ascites with recent paracentesis. Gauze and Tegaderm dressing intact to the paracentesis site in the left lower quadrant of the abdomen. No blood or drainage noted on the dressing.) Neurological: Alert, Oriented, CN II-XII Intact, Normal Cognition, Normal Gait, Normal Reflexes, No Motor/Sensory Deficits Psychiatric: Normal Affect, Normal Mood Skin Exam: Warm, Dry, Intact, Normal Color, No Rash Course - Vital Signs Last Recorded V/S: Last Vital Signs Temp 96.5 F L 05/26/19 16:51 Pulse 88 05/26/19 19:00 Resp 16 05/26/19 19:00 BP 100/82 05/26/19 19:00 Pulse Ox 99 05/26/19 19:00 - Orders/Labs/Meds Orders: Active Orders 24 hr Category Date Time Status Peripheral IV Care [RC] . DIRECTED Care 05/26/19 17:51 Active Peripheral IV Insertion Adult [OM.PC] Stat Oth 05/26/19 17:51 Ordered Meds: Medications Discontinued Medications Generic Name Dose Route Start Last Admin Trade Name Freq PRN Reason Stop Dose Admin Sodium Chloride 10 ml 05/26/19 17:51 Saline Flush FLUSH ASDIRECTED PRN Keep Vein Open - Re-Assessments/Exams Free Text/Narrative Re-Assessment/Exam: Based on the location of the patient's tenderness, there is concern for possible appendicitis. I have ordered a CBC, CMP, CRP. We will completed abdomen pelvis CT with contrast. 05/26/19 18:06 I was notified by nursing staff that patient is refusing IV insertion. I did go back and talk to him. He states that he thinks it is just muscle pain from having the fluid removed from his abdomen. I discussed that with the location of his pain, the other concern would be an appendicitis or another intra- abdominal process. Patient states that he does not want to have any testing done and he would like to go home. Discussed that my recommendation would be to complete lab work and a CT scan, however if he chooses to not have this done , he would need to sign an AMA form. He is in agreement with this. He did also agree that if the pain should get worse or if he develops any other concerning symptoms, he would return to the emergency department. Departure - Departure Time of Disposition: 18:10 Disposition: Against Medical Advice 07 Condition: Fair Clinical Impression: Abdominal pain Qualifiers: Abdominal location: right lower quadrant Qualified Code(s): R10.31 - Right lower quadrant pain - Discharge Information *PRESCRIPTION DRUG MONITORING PROGRAM REVIEWED*: No *COPY OF PRESCRIPTION DRUG MONITORING REPORT IN PATIENT ISAIAH: No Instructions: Abdominal Pain, Adult, [id number] Referrals: Dmitry Sage MD [Primary Care Provider] - Forms: ED Department Discharge Additional Instructions: You were seen in the emergency department today for right lower abdominal pain. It was recommended that you have blood work and a CT scan done to ensure that it was not your appendix or another problem with in your abdomen that is causing this pain. You declined these tests and requested to be discharged to go home. I would recommend that you continue to monitor your symptoms. If you should experience any worsening pain or if you develop any other concerning symptoms such as nausea, vomiting, fever, or chills, I would recommend that you return to the emergency department for further evaluation. Sepsis Event Note - Evaluation Sepsis Screening Result: No Definite Risk - Focused Exam Vital Signs: Vital Signs Temp Pulse Resp BP Pulse Ox 05/26/19 19:00 88 16 100/82 99 03/30/20 16:51 96.5 F L 73 90/59 L 96 Date Exam was Performed: 05/26/19 Time Exam was Performed: 19:25 - My Orders Last 24 Hours: My Active Orders 05/26/19 17:51 Peripheral IV Care [RC] . DIRECTED Peripheral IV Insertion Adult [OM.PC] Stat - Assessment/Plan Last 24 Hours: My Active Orders 05/26/19 17:51 Peripheral IV Care [RC] . DIRECTED Peripheral IV Insertion Adult [OM.PC] Stat
[2019-05-26 19:25] VITALS: BP 100/82; PULSE 88
== END 2019-05-26 19:20 | disposition left against medical advice (07) ==
LOC: JD.ED 16:26
DX: R10.31 Right lower quadrant pain (principal); I48.91 Unspecified atrial fibrillation; I13.0 Hypertensive heart and chronic kidney disease with heart failure and stage 1 through stage 4 chronic kidney disease, or unspecified chronic kidney disease; E11.22 Type 2 diabetes mellitus with diabetic chronic kidney disease; N18.9 Chronic kidney disease, unspecified; I50.9 Heart failure, unspecified; D63.1 Anemia in chronic kidney disease; E78.00 Pure hypercholesterolemia, unspecified; M10.9 Gout, unspecified; I25.2 Old myocardial infarction; Z79.82 Long term (current) use of aspirin; Z79.01 Long term (current) use of anticoagulants; Z79.4 Long term (current) use of insulin; Z79.899 Other long term (current) drug therapy
CPT/HCPCS: 99283

== ENCOUNTER 2019-06-28 10:51 | Emergency (ER) | payer MEDICARE, OTHER ==
--- NOTE | 2019-06-28 12:01 | EDM.PDOC ---
ED HPI GENERAL MEDICAL PROBLEM - General Chief Complaint: Abdominal Pain Stated Complaint: BLOATING Time Seen by Provider: 06/28/19 11:21 Source of Information: Reports: Patient History Limitations: Reports: No Limitations - History of Present Illness INITIAL COMMENTS - FREE TEXT/NARRATIVE: Nav Kim is a 73-year-old male who presents the emergency room with chief complaints of abdominal bloating and pain. Reports that his ago his abdomen started to get bigger and over the past few days it is increased in size causing him to have difficulty breathing and abdominal discomfort. Patient has a significant history of atrial fib, hyperlipidemia, diabetes type 2, CAD, pleural effusion, chronic arthritis, kidney disease stage IV, GERD, congestive heart failure, anemia, insomnia and glaucoma. Patient does receive dialysis Sunday. Patient has been seen here in the past for similar symptoms requiring abdominal paracentesis. He reports having chills and fever for the past 3 to 4 days but has not taken his temperature. He reports having a decreased appetite. He is accompanied by his caregiver. He is in no apparent distress at this time. Saturation is 93% on room area. Onset Date: 06/25/19 Onset Time: 12:00 Duration: Getting Worse Location: Reports: Abdomen Quality: Reports: Ache Severity: Mild Improves with: Reports: None Worsens with: Reports: Breathing, Movement Associated Symptoms: Reports: Cough. Denies: Chest Pain, Fever/Chills, Nausea/ Vomiting Abdomen Pain Score (Numeric/FACES): 6 - Related Data Allergies Allergy/AdvReac Type Severity Reaction Status Date / Time No Known Allergies Allergy Verified 06/28/19 11:07 Home Meds: Home Meds Acetaminophen 650 mg PO Q6H PRN 08/09/16 [History] Ferrous Sulfate 325 mg PO DAILY 08/09/16 [History] Docusate Sodium [Colace] 100 mg PO DAILY 08/20/16 [History] atorvaSTATin [Lipitor] 40 mg PO BEDTIME 11/24/16 [History] Apixaban [Eliquis] 2.5 mg PO BID 05/05/19 [History] Aspirin [[place] Aspirin] 81 mg PO DAILY 05/05/19 [History] Midodrine 20 mg PO MOWEFR 05/05/19 [History] B Complex W-C No.20/Folic Acid [Mynephrocaps Softgel] 1 cap PO DAILY 05/17/19 [ History] Hydrocodone/Acetaminophen [[place] 10-325 Tablet] 1 tab PO BID PRN 05/17/19 [ History] Insulin Glarg,Human.Rec.Analog [Lantus Solostar] 7 units SQ DAILY 05/17/19 [ History] LORazepam [Lorazepam] 0.5 mg PO DAILY PRN 05/17/19 [History] Magnesium Oxide 400 mg PO BID 05/17/19 [History] Melatonin 0.3 mg PO BEDTIME PRN 05/17/19 [History] Melatonin 3 mg PO BEDTIME 05/17/19 [History] Nitroglycerin 0.4 mg PO Q5M PRN 05/17/19 [History] Ondansetron [Zofran] 4 g PO Q4H PRN 05/17/19 [History] Sodium Chloride/Aloe Vera [[place] Sal[place] Nasal Gel [place]] 22 ml NS TID PRN [History] diphenhydrAMINE [Benadryl] 25 mg PO Q6H PRN 05/17/19 [History] polyethylene glycoL 3350 [MiraLAX] 17 gm PO BID PRN 05/17/19 [History] Past Medical History HEENT History: Reports: Glaucoma Other HEENT History: wears glasses and hearing aids. also has upper denture and a lower partial. Cardiovascular History: Reports: Afib, CAD, Heart Failure, High Cholesterol, Hypertension, [place], Other (See Below) Other Cardiovascular History: occlusion and stenosis of bilateral carotid arteries Respiratory History: Reports: SOB, Other (See Below) Other Respiratory History: wheezing Gastrointestinal History: Reports: GERD, Other (See Below) Other Gastrointestinal History: encephalopathy Genitourinary History: Reports: BPH, Chronic Renal Insuffiency, Dialysis, Renal Calculus, Retention, Urinary Musculoskeletal History: Reports: Gout Psychiatric History: Reports: Other (See Below) Other Psychiatric History: insomnia Endocrine/Metabolic History: Reports: Diabetes, Type II Other Endocrine/Metabolic History: anemia Hematologic History: Reports: Anemia, Iron Deficiency - Infectious Disease History Infectious Disease History: Reports: Influenza, Measles, Mumps - Past Surgical History HEENT Surgical History: Reports: Tonsillectomy Cardiovascular Surgical History: Reports: Carotid Endarterectomy, Coronary Artery Bypass, Coronary Artery Stent GI Surgical History: Reports: Abdominal paracentesis, Hernia, Inguinal Neurological Surgical History: Reports: Lumbar Spine Oncologic Surgical History: Reports: None Social & Family History - Family History Family Medical History: Noncontributory - Tobacco Use Smoking Status *Q: Never Smoker Second Hand Smoke Exposure: No - Caffeine Use Caffeine Use: Reports: Coffee Other Caffeine Use: 1 -2 cups a day - Recreational Drug Use Recreational Drug Use: No - Living Situation & Occupation Living situation: Reports: , Extended Care Facility ([facility]) Occupation: Retired ED ROS GENERAL - Review of Systems Review Of Systems: See Below Constitutional: Reports: Fever, Chills HEENT: Reports: Glasses Respiratory: Reports: Shortness of Breath Cardiovascular: Reports: Edema. Denies: Chest Pain Endocrine: Reports: Fatigue GI/Abdominal: Reports: Abdominal Pain, Other (abdominal ascites). Denies: Diarrhea, Nausea : Reports: Other (Dialysis day Fridays) Musculoskeletal: Reports: No Symptoms Skin: Reports: No Symptoms Neurological: Reports: No Symptoms Psychiatric: Reports: No Symptoms Hematologic/Lymphatic: Reports: Anemia Immunologic: Reports: No Symptoms ED EXAM, GI/ABD - Physical Exam Exam: See Below Exam Limited By: No Limitations General Appearance: Alert, WD/WN, No Apparent Distress Respiratory/Chest: Decreased Breath Sounds Cardiovascular: Normal Peripheral Pulses, Irregularly Irregular GI/Abdominal Exam: Distended, Tender Back Exam: Normal Inspection, Decreased Range of Motion Extremities: Pedal Edema (+ 3 edema) Neurological: Alert, Oriented, Normal Cognition, Normal Gait Psychiatric: Normal Affect, Normal Mood Skin Exam: Warm, Dry, Intact, Normal Color, No Rash Lymphatic: No Adenopathy Course - Vital Signs Text/Narrative:: Nav iKm 73-year-old male who presents the emergency room chief complaints of abdominal distention and ascites. Patient has a chronic history of atrial fib, idiopathic hypotension, diabetes type 2, CAD, pleural effusion, chronic arthritis, BPH, chronic kidney disease stage IV, GERD, insomnia, glaucoma and anemia. Patient does receive dialysis on Sunday. Patient reports having dialysis yesterday. Patient did report having chills and fever for the past 3 to 4 days, he did not check his temperature he is afebrile at this time. Patient has been seen in the emergency room multiple times for needing a abdominal paracentesis. He is accompanied by his caregiver. I will order basic labs and coags. I will consult Dr. Velasquez surgeon batch or continuous still operator for abdominal paracentesis. Last Recorded V/S: Last Vital Signs Temp 96.6 F L 06/28/19 11:00 Pulse 110 H 06/28/19 11:00 Resp 12 06/28/19 11:00 BP 72/46 L 06/28/19 11:00 Pulse Ox 99 06/28/19 11:00 - Orders/Labs/Meds Labs: Laboratory Tests 06/28/19 06/28/19 06/28/19 Range/Units 11:52 11:52 11:52 WBC 10.67 H (4.23-9.07) K/mm3 RBC 3.75 L (4.63-6.08) M/mm3 Hgb 10.9 L D (13.7-17.5) gm/dl Hct 36.8 L (40.1-51.0) % MCV 98.1 H (79.0-92.2) fl MCH 29.1 (25.7-32.2) pg MCHC 29.6 L (32.2-35.5) g/dl RDW Std Deviation 52.4 H (35.1-43.9) fL Plt Count 234 (163-337) K/mm3 MPV 10.2 (9.4-12.3) fl Neut % (Auto) 76.5 H (34.0-67.9) % Lymph % (Auto) 9.7 L (21.8-53.1) % [place] % (Auto) 12.1 (5.3-12.2) % Eos % (Auto) 0.9 (0.8-7.0) Baso % (Auto) 0.3 (0.1-1.2) % Neut # (Auto) 8.17 H (1.78-5.38) K/mm3 Lymph # (Auto) 1.03 L (1.32-3.57) K/mm3 [place] # (Auto) 1.29 H (0.30-0.82) K/mm3 Eos # (Auto) 0.10 (0.04-0.54) K/mm3 Baso # (Auto) 0.03 (0.01-0.08) K/mm3 Manual Slide Review Abnormal smear PT 16.4 H (9.7-12.0) SECONDS INR 1.54 Sodium 136 (136-145) mEq/L Potassium 5.4 H (3.5-5.1) mEq/L Chloride 99 (98-107) mEq/L Carbon Dioxide 30 (21-32) mEq/L Anion Gap 12.4 (5-15) BUN 36 H (7-18) mg/dL Creatinine 4.0 H (0.7-1.3) mg/dL Est Cr Clr Drug Dosing 16.20 mL/min Estimated GFR (MDRD) 15 (>60) mL/min BUN/Creatinine Ratio 9.0 L (14-18) Glucose 153 H (83-115) mg/dL Calcium 8.6 (8.5-10.1) mg/dL Total Bilirubin 0.4 (0.2-1.0) mg/dL AST 28 (15-37) U/L ALT 26 (16-63) U/L Alkaline Phosphatase 184 H (46-116) U/L Total Protein 6.4 (6.4-8.2) g/dl Albumin 1.5 L (3.4-5.0) g/dl Globulin 4.9 gm/dL Albumin/Globulin Ratio 0.3 L (1-2) Meds: Medications Discontinued Medications Generic Name Dose Route Start Last Admin Trade Name Freq PRN Reason Stop Dose Admin Lidocaine/Epinephrine 20 ml 06/28/19 12:13 Xylocaine 1% With Epinephrine 1:100,000 INJECT 06/28/19 12:14 ONETIME ONE - Re-Assessments/Exams Free Text/Narrative Re-Assessment/Exam: 06/28/19 12:[address] Velasquez who agreed to perform a bedside abdominal paracentesis. 06/28/[address] Velasquez at bedside performing a abdominal thoracentesis. 06/28/19 14:23 Patient tolerated abdominal thoracentesis well. He had 4.5 L removed. Abdomen is soft site is clean dry and intact with Dermabond in place. Discharge home with instructions to follow-up with his PCP. Instructed patient to return to the emergency room for any new acute worsening symptoms. Patient verbalized understanding and is comfortable plan of discharge. Patient stable at time of discharge. Departure - Departure Time of Disposition: 14:24 Disposition: Home, Self-Care 01 Condition: Good Clinical Impression: Abdominal ascites Qualifiers: Ascites type: other type Qualified Code(s): R18.8 - Other ascites - Discharge Information Instructions: Ascites, Ascites Drainage Catheter Placement, Care After Referrals: Shan Carlos MD [Primary Care Provider] - Forms: ED Department Discharge Additional Instructions: You were seen and evaluated today for abdominal ascites. Continue your current medication regimen. Keep the puncture site clean dry and intact. Follow-up with your PCP. Return to the emergency room for any new or acute worsening symptoms. Sepsis Event Note - Evaluation Sepsis Screening Result: No Definite Risk - Focused Exam Vital Signs: Vital Signs Temp Pulse Resp BP Pulse Ox 06/28/19 11:00 96.6 F L 110 H 12 72/46 L 99 Date Exam was Performed: 06/28/19 Time Exam was Performed: 14:22
[2019-06-28] MEDS ORDERED: Lidocaine 1% with EPINEPHrine 1:100,000 20 ML MDV INJECT ONE (12:13)
--- NOTE | 2019-06-28 13:26 | PCM.CONS ---
H&P History of Present Illness - General Date of Service: 06/28/19 Source of Information: Patient History Limitations: Reports: No Limitations - History of Present Illness Initial Comments - Free Text/Narative: Patient has ESRD and ESLD and gets periodic paracenteses. Presents to the ED today with increasing abdominal distention and pain. pain is diffuse, mild, consistent with his prior ascitic events. No fevers, chills, nausea or vomiting or diarrhea. he was found to have large ascites and i was asked to see the patient for possible drainage. Onset of Symptoms: Reports: Gradual Duration of Symptoms: Reports: Chronic Location: Reports: Abdomen Quality: Reports: Dull Severity: Moderate Improves with: Reports: None Worsens with: Reports: None Abdomen Pain Score (Numeric/FACES): 6 - Related Data Allergies/Adverse Reactions: Allergies Allergy/AdvReac Type Severity Reaction Status Date / Time No Known Allergies Allergy Verified 06/28/19 11:07 Home Medications: Home Meds Acetaminophen 650 mg PO Q6H PRN 08/09/16 [History] Ferrous Sulfate 325 mg PO DAILY 08/09/16 [History] Docusate Sodium [Colace] 100 mg PO DAILY 08/20/16 [History] atorvaSTATin [Lipitor] 40 mg PO BEDTIME 11/24/16 [History] Apixaban [Eliquis] 2.5 mg PO BID 05/05/19 [History] Aspirin [[place] Aspirin] 81 mg PO DAILY 05/05/19 [History] Midodrine 20 mg PO MOWEFR 05/05/19 [History] B Complex W-C No.20/Folic Acid [Mynephrocaps Softgel] 1 cap PO DAILY 05/17/19 [ History] Hydrocodone/Acetaminophen [[place] 10-325 Tablet] 1 tab PO BID PRN 05/17/19 [ History] Insulin Glarg,Human.Rec.Analog [Lantus Solostar] 7 units SQ DAILY 05/17/19 [ History] LORazepam [Lorazepam] 0.5 mg PO DAILY PRN 05/17/19 [History] Magnesium Oxide 400 mg PO BID 05/17/19 [History] Melatonin 0.3 mg PO BEDTIME PRN 05/17/19 [History] Melatonin 3 mg PO BEDTIME 05/17/19 [History] Nitroglycerin 0.4 mg PO Q5M PRN 05/17/19 [History] Ondansetron [Zofran] 4 g PO Q4H PRN 05/17/19 [History] Sodium Chloride/Aloe Vera [[place] Saline Nasal Gel [place]] 22 ml NS TID PRN [History] diphenhydrAMINE [Benadryl] 25 mg PO Q6H PRN 05/17/19 [History] polyethylene glycoL 3350 [MiraLAX] 17 gm PO BID PRN 05/17/19 [History] Past Medical History HEENT History: Reports: Glaucoma Other HEENT History: wears glasses and hearing aids. also has upper denture and a lower partial. Cardiovascular History: Reports: Afib, CAD, Heart Failure, High Cholesterol, Hypertension, [place], Other (See Below) Other Cardiovascular History: occlusion and stenosis of bilateral carotid arteries Respiratory History: Reports: SOB, Other (See Below) Other Respiratory History: wheezing Gastrointestinal History: Reports: GERD, Other (See Below) Other Gastrointestinal History: encephalopathy Genitourinary History: Reports: BPH, Chronic Renal Insuffiency, Dialysis, Renal Calculus, Retention, Urinary Musculoskeletal History: Reports: Gout Psychiatric History: Reports: Other (See Below) Other Psychiatric History: insomnia Endocrine/Metabolic History: Reports: Diabetes, Type II Other Endocrine/Metabolic History: anemia Hematologic History: Reports: Anemia, Iron Deficiency - Infectious Disease History Infectious Disease History: Reports: Influenza, Measles, Mumps - Past Surgical History HEENT Surgical History: Reports: Tonsillectomy Cardiovascular Surgical History: Reports: Carotid Endarterectomy, Coronary Artery Bypass, Coronary Artery Stent GI Surgical History: Reports: Abdominal paracentesis, Hernia, Inguinal Neurological Surgical History: Reports: Lumbar Spine Oncologic Surgical History: Reports: None Social & Family History - Family History Family Medical History: Noncontributory - Tobacco Use Smoking Status *Q: Never Smoker Second Hand Smoke Exposure: No - Caffeine Use Caffeine Use: Reports: Coffee Other Caffeine Use: 1 -2 cups a day - Recreational Drug Use Recreational Drug Use: No - Living Situation & Occupation Living situation: Reports: , Extended Care Facility ([facility]) Occupation: Retired H&P Review of Systems - Review of Systems: Review Of Systems: See Below General: Reports: No Symptoms HEENT: Reports: No Symptoms Pulmonary: Reports: No Symptoms Cardiovascular: Reports: No Symptoms Gastrointestinal: Reports: Abdominal Pain, Distension Genitourinary: Reports: No Symptoms Musculoskeletal: Reports: No Symptoms Skin: Reports: No Symptoms Exam - Exam Exam: See Below - Vital Signs Vital Signs: Last Vital Signs Temp 96.6 F L 06/28/19 11:00 Pulse 110 H 06/28/19 11:00 Resp 12 06/28/19 11:00 BP 72/46 L 06/28/19 11:00 Pulse Ox 99 06/28/19 11:00 Weight: 84.822 kg - Exam General: Alert, Oriented, Cooperative HEENT: Conjunctiva Clear Cardiovascular: Regular Rate, Regular Rhythm, Normal S1, Normal S2 GI/Abdominal Exam: Soft, Non-Tender, No Abnormal Bruit, No Mass, Distended ( with fluid waves) (Male) Exam: No Hernia Extremities: Normal Inspection - Patient Data Lab Results Last 24 hrs: Laboratory Results - last 24 hr 06/28/19 06/28/19 06/28/19 Range/Units 11:52 11:52 11:52 WBC 10.67 H (4.23-9.07) K/mm3 RBC 3.75 L (4.63-6.08) M/mm3 Hgb 10.9 L D (13.7-17.5) gm/dl Hct 36.8 L (40.1-51.0) % MCV 98.1 H (79.0-92.2) fl MCH 29.1 (25.7-32.2) pg MCHC 29.6 L (32.2-35.5) g/dl RDW Std Deviation 52.4 H (35.1-43.9) fL Plt Count 234 (163-337) K/mm3 MPV 10.2 (9.4-12.3) fl Neut % (Auto) 76.5 H (34.0-67.9) % Lymph % (Auto) 9.7 L (21.8-53.1) % [place] % (Auto) 12.1 (5.3-12.2) % Eos % (Auto) 0.9 (0.8-7.0) Baso % (Auto) 0.3 (0.1-1.2) % Neut # (Auto) 8.17 H (1.78-5.38) K/mm3 Lymph # (Auto) 1.03 L (1.32-3.57) K/mm3 [place] # (Auto) 1.29 H (0.30-0.82) K/mm3 Eos # (Auto) 0.10 (0.04-0.54) K/mm3 Baso # (Auto) 0.03 (0.01-0.08) K/mm3 Manual Slide Review Abnormal smear PT 16.4 H (9.7-12.0) SECONDS INR 1.54 Sodium 136 (136-145) mEq/L Potassium 5.4 H (3.5-5.1) mEq/L Chloride 99 (98-107) mEq/L Carbon Dioxide 30 (21-32) mEq/L Anion Gap 12.4 (5-15) BUN 36 H (7-18) mg/dL Creatinine 4.0 H (0.7-1.3) mg/dL Est Cr Clr Drug Dosing 16.20 mL/min Estimated GFR (MDRD) 15 (>60) mL/min BUN/Creatinine Ratio 9.0 L (14-18) Glucose 153 H (83-115) mg/dL Calcium 8.6 (8.5-10.1) mg/dL Total Bilirubin 0.4 (0.2-1.0) mg/dL AST 28 (15-37) U/L ALT 26 (16-63) U/L Alkaline Phosphatase 184 H (46-116) U/L Total Protein 6.4 (6.4-8.2) g/dl Albumin 1.5 L (3.4-5.0) g/dl Globulin 4.9 gm/dL Albumin/Globulin Ratio 0.3 L (1-2) Result Diagrams: 06/28/19 11:52 06/28/19 11:52 Sepsis Event Note - Evaluation Sepsis Screening Result: No Definite Risk - Focused Exam Vital Signs: Vital Signs Temp Pulse Resp BP Pulse Ox 06/28/19 11:00 96.6 F L 110 H 12 72/46 L 99 Date Exam was Performed: 06/28/19 Time Exam was Performed: 13:21 Consult PN Assessment/Plan Procedures: Procedures ABD PARACENTESIS (05/26/19) ASSAY OF BLOOD/URIC ACID (09/15/16) ASSAY OF LIPASE (05/05/19) ASSAY OF PARATHORMONE (09/15/16) ASSAY OF PROTEIN URINE (09/15/16) ASSAY OF URINE CREATININE (09/15/16) C-REACTIVE PROTEIN (05/05/19) CHEST X-RAY 2VW FRONTAL&LATL (08/09/16) COMPLETE CBC W/AUTO DIFF WBC (05/05/19) COMPREHEN METABOLIC PANEL (05/05/19) CT ABD & PELVIS W/O CONTRAST (03/10/18) EMERGENCY DEPT VISIT (05/26/19) EMERGENCY DEPT VISIT (05/05/19) EMERGENCY DEPT VISIT (02/18/18) EMERGENCY DEPT VISIT (08/20/16) GLUCOSE BLOOD TEST (03/10/18) HEPATOBIL SYST IMAGE W/DRUG (11/21/16) HYDRATE IV INFUSION ADD-ON (05/05/19) MICROBE SUSCEPTIBLE CARLOS (11/20/17) PROTHROMBIN TIME (05/05/19) RENAL FUNCTION PANEL (09/15/16) ROUTINE VENIPUNCTURE (05/05/19) THER/PROPH/DIAG INJ IV PUSH (05/05/19) THER/PROPH/DIAG INJ SC/IM (08/09/16) THER/PROPH/DIAG IV INF INIT (05/17/19) TX/PRO/DX INJ SAME DRUG ZONING ADMINISTRATOR (05/05/19) URINALYSIS AUTO W/SCOPE (03/10/18) URINE BACTERIA CULTURE (11/20/17) URINE CULTURE/COLONY COUNT (03/10/18) X-RAY EXAM ABDOMEN 1 VIEW (01/05/18) X-RAY EXAM ABDOMEN 2 VIEWS (05/05/19) X-RAY EXAM CHEST 1 VIEW (01/05/18) X-RAY EXAM CHEST 2 VIEWS (03/10/18) X-RAY EXAM HIP UNI 2-3 VIEWS (02/18/18) X-RAY EXAM OF FEMUR 2/> (02/18/18) Problem List Initiated/Reviewed/Updated: No Plan: Patient has significant abdominal ascites. Paracentesis performed at bedside without any complications. Patient instructed to watch for bleeding and infection. Follow up PRN.
--- NOTE | 2019-06-28 13:31 | PCM.PRNOTE ---
- Free Text/Narrative Note: PROEDURE NOTE Surgeon: Rudy Velasquez MD Procedure: Paracentesis with ultrasound guidance Indication: Symptomatic abdominal ascites Details: The patient was placed in supine position. Ultrasound was used to located an area of the abdomen with a deep fluid pocket. This was found to be in the right lower quadrant. 10 mL of 1% lidocaine without epinephrine was infiltrated and a small stab incision was made. Drainage catheter over a needle was advanced into the peritoneum then the needle was removed leaving the catheter in place. About 4500mL of dark yellow ascitic fluid was drained. There are no indications to send fluid for analysis in today's exam so none was sent. Dermabond was placed at the puncture site. The patient tolerated the procedure well. Post procedure, patient's vitals were stable there was no need to give albumin. There were no immediate complications. The patient was discharged.
[2019-06-28 14:25] VITALS: BP 98/66; PULSE 94
== END 2019-06-28 14:45 | disposition home or self-care (01) ==
LOC: JD.ED 10:51
DX: R18.8 Other ascites (principal); I48.91 Unspecified atrial fibrillation; I25.10 Atherosclerotic heart disease of native coronary artery without angina pectoris; E78.00 Pure hypercholesterolemia, unspecified; I25.2 Old myocardial infarction; I13.2 Hypertensive heart and chronic kidney disease with heart failure and with stage 5 chronic kidney disease, or end stage renal disease; I50.9 Heart failure, unspecified; E11.22 Type 2 diabetes mellitus with diabetic chronic kidney disease; N18.6 End stage renal disease; D63.1 Anemia in chronic kidney disease; Z99.2 Dependence on renal dialysis; K72.90 Hepatic failure, unspecified without coma; Z79.899 Other long term (current) drug therapy; Z79.01 Long term (current) use of anticoagulants; Z79.82 Long term (current) use of aspirin; Z79.4 Long term (current) use of insulin
CPT/HCPCS: 36415; 49082; 80053; 85025; 85610; 99284; C1729

== ENCOUNTER 2019-07-10 19:59 | Emergency (ER) | payer MEDICARE, OTHER ==
[2019-07-10 20:04] VITALS: BP 105/62; PULSE 99
--- NOTE | 2019-07-10 20:23 | EDM.PDOC ---
ED HPI GENERAL MEDICAL PROBLEM - General Chief Complaint: Chest Pain Stated Complaint: [facility] Time Seen by Provider: 07/10/19 20:17 - History of Present Illness INITIAL COMMENTS - FREE TEXT/NARRATIVE: 73-year-old male presents the emergency room by EMS complaining of right-sided chest discomfort. Patient has congestive heart failure end-stage renal disease on dialysis. He has ascites and is scheduled to have a paracentesis done here tomorrow. He is also due for dialysis tomorrow he developed right upper chest discomfort right below the AC joint. At the [facility] he was given tramadol before EMS could pick him up EMS gave him some aspirin. The patient is pain-free at this time. The patient has no other complaints at this time he has not been coughing any more than usual no fevers or chills Right Chest Pain Score (Numeric/FACES): 6 - Related Data Allergies Allergy/AdvReac Type Severity Reaction Status Date / Time No Known Allergies Allergy Verified 06/28/19 11:07 Home Meds: Home Meds Acetaminophen 650 mg PO Q4H PRN 08/09/16 [History] atorvaSTATin [Lipitor] 40 mg PO BEDTIME 11/24/16 [History] Apixaban [Eliquis] 2.5 mg PO BID 05/05/19 [History] Aspirin [[place] Aspirin] 81 mg PO DAILY 05/05/19 [History] Midodrine 20 mg PO MOWEFR 05/05/19 [History] B Complex W-C No.20/Folic Acid [Mynephrocaps Softgel] 1 cap PO DAILY 05/17/19 [ History] Insulin Glarg,Human.Rec.Analog [Lantus Solostar] 7 units SQ DAILY 05/17/19 [ History] LORazepam [Lorazepam] 0.5 mg PO BEDTIME PRN 05/17/19 [History] Magnesium Oxide 400 mg PO BID 05/17/19 [History] Melatonin 3 mg PO BEDTIME 05/17/19 [History] Ondansetron [Zofran] 4 mg PO Q4H PRN 05/17/19 [History] Sodium Chloride/Aloe Vera [[place] Saline Nasal Gel [place]] 2 spray NS TID PRN [History] diphenhydrAMINE [Benadryl] 25 - 50 mg PO Q6H PRN 05/17/19 [History] Ascorbic Acid [Vitamin C] 500 mg PO DAILY 07/10/19 [History] Calcium Carbonate [Tums] 200 mg PO TID 07/10/19 [History] [place]/Min Oil/[place]/Wool Alcoh [Eucerin Creme] 1 applic TOP BID 07/10/19 [ History] Cetirizine [ZyrTEC] 5 mg PO DAILY PRN 07/10/19 [History] Cholecalciferol (Vitamin D3) [Vitamin D3] 1,000 unit PO DAILY 07/10/19 [History] Clindamycin HCl 300 mg PO QID 07/10/19 [History] Mirtazapine 15 mg PO DAILY 07/10/19 [History] Nystatin [Nystatin Crm] 1 applic TOP ASDIRECTED PRN 07/10/19 [History] traMADol [Ultram] 50 mg PO Q6H PRN 07/10/19 [History] Past Medical History HEENT History: Reports: Glaucoma Other HEENT History: wears glasses and hearing aids. also has upper denture and a lower partial. Cardiovascular History: Reports: Afib, CAD, Heart Failure, High Cholesterol, Hypertension, [place], Other (See Below) Other Cardiovascular History: occlusion and stenosis of bilateral carotid arteries Respiratory History: Reports: SOB, Other (See Below) Other Respiratory History: wheezing Gastrointestinal History: Reports: GERD, Other (See Below) Other Gastrointestinal History: encephalopathy Genitourinary History: Reports: BPH, Chronic Renal Insuffiency, Dialysis, Renal Calculus, Retention, Urinary Musculoskeletal History: Reports: Gout Psychiatric History: Reports: Other (See Below) Other Psychiatric History: insomnia Endocrine/Metabolic History: Reports: Diabetes, Type II Other Endocrine/Metabolic History: anemia Hematologic History: Reports: Anemia, Iron Deficiency - Infectious Disease History Infectious Disease History: Reports: Influenza, Measles, Mumps - Past Surgical History HEENT Surgical History: Reports: Tonsillectomy Cardiovascular Surgical History: Reports: Carotid Endarterectomy, Coronary Artery Bypass, Coronary Artery Stent GI Surgical History: Reports: Abdominal paracentesis, Hernia, Inguinal Neurological Surgical History: Reports: Lumbar Spine Oncologic Surgical History: Reports: None Social & Family History - Family History Family Medical History: Noncontributory - Tobacco Use Smoking Status *Q: Never Smoker - Caffeine Use Caffeine Use: Reports: Soda Other Caffeine Use: 1 -2 cups a day - Recreational Drug Use Recreational Drug Use: No - Living Situation & Occupation Living situation: Reports: , Extended Care Facility ([facility]) Occupation: Retired ED ROS GENERAL - Review of Systems Review Of Systems: See Below Constitutional: Reports: No Symptoms HEENT: Reports: No Symptoms Respiratory: Reports: No Symptoms Cardiovascular: Reports: Chest Pain Endocrine: Reports: No Symptoms GI/Abdominal: Reports: Other (His ascites is accumulating otherwise no complaints) : Reports: No Symptoms Musculoskeletal: Reports: No Symptoms Skin: Reports: No Symptoms Neurological: Reports: No Symptoms Psychiatric: Reports: No Symptoms Hematologic/Lymphatic: Reports: No Symptoms ED EXAM, GENERAL - Physical Exam Exam: See Below Exam Limited By: No Limitations General Appearance: Alert, No Apparent Distress Head: Atraumatic, Normocephalic Neck: Normal Inspection, Supple, Non-Tender, Full Range of Motion, Lymphadenopathy (L), Lymphadenopathy (R) Respiratory/Chest: No Respiratory Distress, Lungs Clear, Other (Diminished breath sounds in the bases this could be positional). No: Crackles, Rales, Rhonchi, Wheezing Cardiovascular: Normal Peripheral Pulses, Regular Rate, Rhythm, No Edema GI/Abdominal: Normal Bowel Sounds, Soft, Non-Tender Back Exam: Normal Inspection. No: CVA Tenderness (L), CVA Tenderness (R) Extremities: Pedal Edema (Support hose in place is good 2+ pitting edema) Neurological: Alert, Oriented, Normal Cognition Psychiatric: Normal Affect, Normal Mood Skin Exam: Warm, Dry, Intact EKG INTERPRETATION EKG Date: 07/10/19 Rhythm: Other (Ventricular paced rhythm) [place]: LAD-Left [place] Deviation P-Wave: Absent QRS: Other (Wide-complex paced rhythm) ST-T: Other (Isoelectric to dis-concordant some concordant ST changes in lead II subtle nondiagnostic) QT: Normal Comparison: NA - No Prior EKG (No change noted from December 2016) EKG Interpretation Comments: Abnormal EKG Course - Vital Signs Last Recorded V/S: Last Vital Signs Temp 35.7 C L 07/10/19 20:00 Pulse 99 07/10/19 20:00 Resp 16 07/10/19 20:00 BP 105/62 07/10/19 20:00 Pulse Ox 96 07/10/19 20:00 - Orders/Labs/Meds Orders: Active Orders 24 hr Category Date Time Status EKG 12 Lead [EKG Documentation Completion] [RC] STAT Care 07/10/19 20:18 Active Chest 1V Frontal [CR] Stat Exams 07/10/19 20:23 Taken Labs: Laboratory Tests 07/10/19 07/10/19 07/10/19 Range/Units 20:44 20:44 20:44 WBC 10.06 H (4.23-9.07) K/mm3 RBC 3.80 L (4.63-6.08) M/mm3 Hgb 11.0 L (13.7-17.5) gm/dl Hct 36.9 L (40.1-51.0) % MCV 97.1 H (79.0-92.2) fl MCH 28.9 (25.7-32.2) pg MCHC 29.8 L (32.2-35.5) g/dl RDW Std Deviation 53.6 H (35.1-43.9) fL Plt Count 178 (163-337) K/mm3 MPV 10.0 (9.4-12.3) fl Neut % (Auto) 78.9 H (34.0-67.9) % Lymph % (Auto) 8.1 L (21.8-53.1) % [place] % (Auto) 9.5 (5.3-12.2) % Eos % (Auto) 2.8 (0.8-7.0) Baso % (Auto) 0.5 (0.1-1.2) % Neut # (Auto) 7.94 H (1.78-5.38) K/mm3 Lymph # (Auto) 0.81 L (1.32-3.57) K/mm3 [place] # (Auto) 0.96 H (0.30-0.82) K/mm3 Eos # (Auto) 0.28 (0.04-0.54) K/mm3 Baso # (Auto) 0.05 (0.01-0.08) K/mm3 Manual Slide Review Abnormal smear PT 13.2 H (9.7-12.0) SECONDS INR 1.23 APTT 34 H (22-31) SECONDS Sodium 133 L (136-145) mEq/L Potassium 5.6 H (3.5-5.1) mEq/L Chloride 96 L (98-107) mEq/L Carbon Dioxide 27 (21-32) mEq/L Anion Gap 15.6 H (5-15) BUN 41 H (7-18) mg/dL Creatinine 5.7 H D (0.7-1.3) mg/dL Est Cr Clr Drug Dosing 11.37 mL/min Estimated GFR (MDRD) 10 (>60) mL/min BUN/Creatinine Ratio 7.2 L (14-18) Glucose 186 H (83-115) mg/dL Calcium 8.3 L (8.5-10.1) mg/dL Total Bilirubin 0.5 (0.2-1.0) mg/dL AST 28 (15-37) U/L ALT 24 (16-63) U/L Alkaline Phosphatase 156 H (46-116) U/L Troponin I 0.050 (0.00-0.056) ng/mL Total Protein 6.8 (6.4-8.2) g/dl Albumin 1.7 L (3.4-5.0) g/dl Globulin 5.1 gm/dL Albumin/Globulin Ratio 0.3 L (1-2) - Re-Assessments/Exams Free Text/Narrative Re-Assessment/Exam: 07/10/19 20:59 Portable chest x-ray shows a right-sided pleural effusion for the most part unchanged from prior studies. His cardiomegaly is perhaps worse however this is a rotated study. 07/10/19 21:59 Patient has done well here in the emergency department. Offered to check a second troponin his initial troponin is on the upper end of normal which could be very assuring since he is a dialysis patient I offered to check a second troponin the patient would just assume defer on this option. His potassium is creeping up, now at 5.6, and I voiced concern about this however he is due to have dialysis tomorrow and he would just assume we left this alone. I believe a lot of his pain could be coming from his worsening ascites which he is scheduled to have tapped tomorrow. The patient would just assume [facility] at this point. Departure - Departure Time of Disposition: 22:02 Disposition: DC/Tfer to [facility] Emergency Department 62 Reason for Transfer *Q: Other Clinical Impression: Chest pain Referrals: Shan Carlos MD [Primary Care Provider] - Forms: ED Department Discharge Additional Instructions: Return to the emergency room with any questions problems or worsening symptoms. Follow-up with dialysis tomorrow as scheduled. And have the fluid drained off your abdomen is scheduled. Sepsis Event Note - Evaluation Sepsis Screening Result: No Definite Risk - Focused Exam Vital Signs: Vital Signs Temp Pulse Resp BP Pulse Ox 07/10/19 20:00 35.7 C L 99 16 105/62 96 Date Exam was Performed: 07/10/19 Time Exam was Performed: 21:59 - My Orders Last 24 Hours: My Active Orders 07/10/19 20:18 EKG 12 Lead [EKG Documentation Completion] [RC] STAT 07/10/19 20:23 Chest 1V Frontal [CR] Stat - Assessment/Plan Last 24 Hours: My Active Orders 07/10/19 20:18 EKG 12 Lead [EKG Documentation Completion] [RC] STAT 07/10/19 20:23 Chest 1V Frontal [CR] Stat
--- NOTE | 2019-07-11 07:51 | CR ---
Chest: Portable view of the chest was obtained. Comparison: Prior chest x-ray of 01/15/17. Right-sided pleural effusion is noted. Findings are minimally increased from previous study. Possible minimal left-sided pleural effusion is noted. Heart is mildly enlarged. Slight tortuosity of thoracic aorta is seen. AICD is present. Pulmonary vessels are minimally congested. Impression: 1. Right-sided pleural effusion slightly increased from prior study. Minimal left-sided pleural effusion. 2. Right basilar atelectasis. 3. Cardiomegaly and minimal pulmonary vascular congestion. Diagnostic code #3 This report was dictated in MDT
== END 2019-07-10 23:53 ==
LOC: JD.ED 19:59 → SUPCPDRO 19:59 → JD.ED 23:53
DX: R07.89 Other chest pain (principal); E11.9 Type 2 diabetes mellitus without complications; I48.91 Unspecified atrial fibrillation; I25.10 Atherosclerotic heart disease of native coronary artery without angina pectoris; I11.0 Hypertensive heart disease with heart failure; I50.9 Heart failure, unspecified; E78.00 Pure hypercholesterolemia, unspecified; M10.9 Gout, unspecified; I13.0 Hypertensive heart and chronic kidney disease with heart failure and stage 1 through stage 4 chronic kidney disease, or unspecified chronic kidney disease; N18.9 Chronic kidney disease, unspecified; E11.22 Type 2 diabetes mellitus with diabetic chronic kidney disease; Z79.82 Long term (current) use of aspirin; Z79.01 Long term (current) use of anticoagulants; Z79.899 Other long term (current) drug therapy; Z99.2 Dependence on renal dialysis; Z79.4 Long term (current) use of insulin; I25.2 Old myocardial infarction
CPT/HCPCS: 36415; 71045; 71045-26; 80053; 84484; 85025; 85610; 85730; 93005; 99285-25

== ENCOUNTER 2019-07-20 10:28 | Emergency (ER) | payer MEDICARE, OTHER ==
[2019-07-20 10:43] VITALS: BP 81/56; PULSE 103
--- NOTE | 2019-07-20 11:15 | EDM.PDOC ---
ED HPI GENERAL MEDICAL PROBLEM - General Chief Complaint: Gastrointestinal Problem Stated Complaint: PARACENTESIS Time Seen by Provider: 07/20/19 11:14 - History of Present Illness INITIAL COMMENTS - FREE TEXT/NARRATIVE: 73-year-old male presents the emergency room requesting another paracentesis. Patient has chronic end-stage renal disease and is on dialysis. He has required paracentesis a couple of times in the past over the last month or so. I did see him almost 2 weeks ago and he needed a paracentesis at that time. Patient states he has been doing pretty well and then 2 days ago he started developing increasing abdominal swelling. His appetite is diminished and he has vomiting in the mornings. This is been going on the last 2 days. He denies any fevers or chills. Abdomen Pain Score (Numeric/FACES): 6 - Related Data Allergies Allergy/AdvReac Type Severity Reaction Status Date / Time No Known Allergies Allergy Verified 07/20/19 10:47 Home Meds: Home Meds Acetaminophen 650 mg PO Q4H PRN 08/09/16 [History] atorvaSTATin [Lipitor] 40 mg PO BEDTIME 11/24/16 [History] Apixaban [Eliquis] 2.5 mg PO BID 05/05/19 [History] Aspirin [[place] Aspirin] 81 mg PO DAILY 05/05/19 [History] B Complex W-C No.20/Folic Acid [Mynephrocaps Softgel] 1 cap PO DAILY 05/17/19 [ History] Insulin Glarg,Human.Rec.Analog [Lantus Solostar] 7 units SQ DAILY 05/17/19 [ History] LORazepam [Lorazepam] 0.5 mg PO BEDTIME PRN 05/17/19 [History] Magnesium Oxide 400 mg PO BID 05/17/19 [History] Melatonin 3 mg PO BEDTIME 05/17/19 [History] Ondansetron [Zofran] 4 mg PO Q4H PRN 05/17/19 [History] Sodium Chloride/Aloe Vera [[place] Saline Nasal Gel [place]] 2 spray NS TID PRN [History] Ascorbic Acid [Vitamin C] 500 mg PO DAILY 07/10/19 [History] Calcium Carbonate [Tums] 200 mg PO TID 07/10/19 [History] [place]/Min Oil/[place]ool Alcoh [Eucerin Creme] 1 applic TOP BID 07/10/19 [ History] Cetirizine [ZyrTEC] 5 mg PO DAILY PRN 07/10/19 [History] Cholecalciferol (Vitamin D3) [Vitamin D3] 1,000 unit PO DAILY 07/10/19 [History] Clindamycin HCl 300 mg PO QID 07/10/19 [History] Mirtazapine 15 mg PO DAILY 07/10/19 [History] Nystatin [Nystatin Crm] 1 applic TOP ASDIRECTED PRN 07/10/19 [History] traMADol [Ultram] 50 mg PO Q6H PRN 07/10/19 [History] Past Medical History HEENT History: Reports: Glaucoma Other HEENT History: wears glasses and hearing aids. also has upper denture and a lower partial. Cardiovascular History: Reports: Afib, CAD, Heart Failure, High Cholesterol, Hypertension, [place], Other (See Below) Other Cardiovascular History: occlusion and stenosis of bilateral carotid arteries Respiratory History: Reports: SOB, Other (See Below) Other Respiratory History: wheezing Gastrointestinal History: Reports: GERD, Other (See Below) Other Gastrointestinal History: encephalopathy Genitourinary History: Reports: BPH, Chronic Renal Insuffiency, Dialysis, Renal Calculus, Retention, Urinary Musculoskeletal History: Reports: Gout Psychiatric History: Reports: Other (See Below) Other Psychiatric History: insomnia Endocrine/Metabolic History: Reports: Diabetes, Type II Other Endocrine/Metabolic History: anemia Hematologic History: Reports: Anemia, Iron Deficiency - Infectious Disease History Infectious Disease History: Reports: Influenza, Measles, Mumps - Past Surgical History HEENT Surgical History: Reports: Tonsillectomy Cardiovascular Surgical History: Reports: Carotid Endarterectomy, Coronary Artery Bypass, Coronary Artery Stent GI Surgical History: Reports: Abdominal paracentesis, Hernia, Inguinal Neurological Surgical History: Reports: Lumbar Spine Oncologic Surgical History: Reports: None Social & Family History - Family History Family Medical History: Noncontributory - Tobacco Use Smoking Status *Q: Never Smoker - Caffeine Use Caffeine Use: Reports: None Other Caffeine Use: 1 -2 cups a day - Recreational Drug Use Recreational Drug Use: No - Living Situation & Occupation Living situation: Reports: , Extended Care Facility ([facility]) Occupation: Retired ED ROS GENERAL - Review of Systems Review Of Systems: See Below Constitutional: Reports: No Symptoms HEENT: Reports: No Symptoms Respiratory: Reports: Other (He has not noticed a worsening cough but he does feel little more short of breath) Cardiovascular: Denies: Chest Pain GI/Abdominal: Reports: Abdominal Pain (Secondary to the ascites), Other (Ascites ) Musculoskeletal: Reports: No Symptoms Skin: Reports: No Symptoms ED EXAM, GI/ABD - Physical Exam Exam: See Below Exam Limited By: No Limitations General Appearance: Alert, No Apparent Distress, Other (BP is a little low) Head: Atraumatic, Normocephalic Neck: Normal Inspection, Supple, Non-Tender, Full Range of Motion Respiratory/Chest: No Respiratory Distress, Lungs Clear, Decreased Breath Sounds Cardiovascular: Regular Rate, Rhythm, No Murmur, Other (He has some pretibial edema noted) GI/Abdominal Exam: Normal Bowel Sounds, Other (Some marked ascites mildly uncomfortable with palpation) Back Exam: Normal Inspection. No: CVA Tenderness (L), CVA Tenderness (R) Course - Vital Signs Last Recorded V/S: Last Vital Signs Temp 36.3 C 07/20/19 10:36 Pulse 103 H 07/20/19 10:36 Resp 16 07/20/19 10:36 BP 81/56 L 07/20/19 10:36 Pulse Ox 97 07/20/19 10:36 - Orders/Labs/Meds Orders: Active Orders 24 hr Category Date Time Status CBC WITH AUTO DIFF [HEME] Stat Lab 07/20/19 11:39 Ordered COMPREHENSIVE METABOLIC PN,CMP [CHEM] Stat Lab 07/20/19 11:39 Ordered - Re-Assessments/Exams Free Text/Narrative Re-Assessment/Exam: 07/20/19 12:00 73-year-old male with end-stage renal disease on chronic hemodialysis. His last dialysis on Sunday and his next dialysis is due tomorrow, Sunday. He has had increasing ascites over the last couple of days. Now to the point where he is requesting paracentesis, and I believe this is very reasonable. Labs ordered Dr. Ambrosio's medical student has been by to evaluate the patient. 07/20/19 13:17 Patient was seen by Dr. Ambrosio who did his last paracentesis and will arrange to do another paracentesis tomorrow. CBC and chemistries that were ordered 2 hours ago have not been drawn yet otherwise patient is ready to go back to the skilled nursing. The patient really needs to get back to his skilled nursing n and the care worker with him needs to get back. We will notify them of any significant laboratory findings that need to be addressed immediately. Dr. Ambrosio who will evaluate his labs in the morning as well. Departure - Departure Time of Disposition: 13:24 Disposition: DC/Tfer to [facility] Clinical Impression: Abdominal ascites Qualifiers: Ascites type: other type Qualified Code(s): R18.8 - Other ascites - Discharge Information Referrals: Shan Carlos MD [Primary Care Provider] - Forms: ED Department Discharge Additional Instructions: Return to the emergency room with any questions problems or significant worsening symptoms. Follow-up with Dr. Ambrosio as arranged tomorrow morning. Sepsis Event Note - Evaluation Sepsis Screening Result: No Definite Risk - Focused Exam Vital Signs: Vital Signs Temp Pulse Resp BP Pulse Ox 07/20/19 10:36 36.3 C 103 H 16 81/56 L 97 Date Exam was Performed: 07/20/19 Time Exam was Performed: 13:16 - My Orders Last 24 Hours: My Active Orders 07/20/19 11:39 CBC WITH AUTO DIFF [HEME] Stat COMPREHENSIVE METABOLIC PN,CMP [CHEM] Stat - Assessment/Plan Last 24 Hours: My Active Orders 07/20/19 11:39 CBC WITH AUTO DIFF [HEME] Stat COMPREHENSIVE METABOLIC PN,CMP [CHEM] Stat
== END 2019-07-20 14:11 ==
LOC: JD.ED 10:28
DX: R18.8 Other ascites (principal); I48.91 Unspecified atrial fibrillation; I25.10 Atherosclerotic heart disease of native coronary artery without angina pectoris; E78.00 Pure hypercholesterolemia, unspecified; I25.2 Old myocardial infarction; K21.9 Gastro-esophageal reflux disease without esophagitis; I13.2 Hypertensive heart and chronic kidney disease with heart failure and with stage 5 chronic kidney disease, or end stage renal disease; E11.22 Type 2 diabetes mellitus with diabetic chronic kidney disease; N18.6 End stage renal disease; I50.9 Heart failure, unspecified; Z99.2 Dependence on renal dialysis; D63.8 Anemia in other chronic diseases classified elsewhere; Z79.899 Other long term (current) drug therapy; Z79.82 Long term (current) use of aspirin; Z79.01 Long term (current) use of anticoagulants; Z79.4 Long term (current) use of insulin
CPT/HCPCS: 36415; 80053; 85025; 99282; 99284

== ENCOUNTER 2019-07-21 09:20 | Emergency (ER) | payer MEDICARE, OTHER ==
--- NOTE | 2019-07-21 10:08 | PCM.PRNOTE ---
- Free Text/Narrative Note: Date: 07/21/2019 Procedure: therapeutic paracentesis Report: Informed consent was obtained after discussing potential risks of the procedure including bleeding and injury to viscera. The left lower quadrant was prepped and draped in sterile fashion. 5 cc 1% lidocaine without epinephrine was injected intradermally, and the needle of the syringe was then passed into the peritoneal cavity with negative pressure until straw colored fluid was aspirated. local anesthetic was injected along the tract. A small stab incision was then made and the paracentesis catheter was passed into the peritoneal cavity over a [place] needle. The needle was withdrawn and the catheter was hooked to tubing with a large gauge needle on the far end. The needle was inserted into negative pressure jars and a total of nearly 3.5 L straw colored ascites was drained. The catheter was removed and a sterile dressing was applied. The patient tolerated the procedure well. Gavin Ambrosio MD General Surgery
[2019-07-21 13:54] VITALS: BP 80/58; PULSE 107
== END 2019-07-21 10:30 ==
LOC: JD.ED 09:20
DX: Z53.21 Procedure and treatment not carried out due to patient leaving prior to being seen by health care provider (principal)

== ENCOUNTER 2019-09-24 12:06 | Emergency (ER) | payer MEDICARE, OTHER ==
[2019-09-24] MEDS ORDERED: Sodium Chloride 0.9% 10 ML Syringe FLUSH PRN (12:25)
[2019-09-24] MEDS ORDERED: Vancomycin 2 GM in Dextrose 5% in Water 250 ML IV ONE ×2 (12:25)
[2019-09-24] MEDS ORDERED: cefTRIAXone 2 GM in Sodium Chloride 0.9% 100 ML IV ONE (12:25)
[2019-09-24 12:26] VITALS: PULSE 100
[2019-09-24] MEDS ORDERED: Sodium Chloride 0.9% 1,000 ML IV SCH (12:30)
--- NOTE | 2019-09-24 12:42 | EDM.PDOC ---
ED HPI GENERAL MEDICAL PROBLEM - General Chief Complaint: Skin Complaint Stated Complaint: [facility] Time Seen by Provider: 09/24/19 12:16 Source of Information: Reports: Patient, EMS, Retirement Records History Limitations: Reports: Altered Mental Status - History of Present Illness INITIAL COMMENTS - FREE TEXT/NARRATIVE: The patient presents by [facility] from [facility] for leg pain and confusion. The patient is in renal failure on dialysis. He also is scheduled for a paracentesis tomorrow. He has been having increased redness and pain to both lower legs. He also has been more confused lately. He has no documented fever. He has a skin tear to his right chest and left elbow. He has no cough, chest pain or shortness of breath. He has no abdominal pain, nausea or vomiting. Onset: Gradual Duration: Day(s): Location: Reports: Lower Extremity, Left, Lower Extremity, Right Quality: Reports: Sharp Severity: Moderate Improves with: Reports: None Worsens with: Reports: None Associated Symptoms: Reports: No Other Symptoms Left Elbow Pain Score (Numeric/FACES): 4 - Related Data Allergies Allergy/AdvReac Type Severity Reaction Status Date / Time No Known Allergies Allergy Verified 09/24/19 12:26 Home Meds: Home Meds atorvaSTATin [Lipitor] 40 mg PO BEDTIME 11/24/16 [History] Apixaban [Eliquis] 2.5 mg PO BID 05/05/19 [History] Aspirin [[place] Aspirin] 81 mg PO DAILY 05/05/19 [History] Insulin Glarg,Human.Rec.Analog [Lantus Solostar] 7 units SQ DAILY 05/17/19 [History] Magnesium Oxide 400 mg PO BID 05/17/19 [History] Melatonin 3 mg PO BEDTIME 05/17/19 [History] Ondansetron [Zofran] 4 mg PO Q4H PRN 05/17/19 [History] Sodium Chloride/Aloe Vera [[place] Saline Nasal Gel [place]] 2 spray NS TID PRN 05/17/19 [History] Ascorbic Acid [Vitamin C] 500 mg PO DAILY 07/10/19 [History] Calcium Carbonate [Tums] 1,000 mg PO TIDMEALS 07/10/19 [History] Cholecalciferol (Vitamin D3) [Vitamin D3] 1,000 unit PO DAILY 07/10/19 [History] Mirtazapine 15 mg PO BEDTIME 07/10/19 [History] Nystatin [Nystatin Crm] 1 applic TOP ASDIRECTED PRN 07/10/19 [History] traMADol [Ultram] 50 mg PO Q6H PRN 07/10/19 [History] B Complex With Vitamin C [B-Complex Plus Vitamin C] 1 each PO DAILY 09/24/19 [History] Bacitracin [Bacitracin Oint 1 GM] 1 applic TOP DAILY 09/24/19 [History] Clotrimazole [Clotrimazole 1%] 15 gm TOP BID 09/24/19 [History] Insulin Aspart [NovoLOG] See Protocol SQ WITHMEALSANDBED 09/24/19 [History] LORazepam [Ativan] 0.5 mg PO BEDTIME PRN 09/24/19 [History] LORazepam [Ativan] 0.5 mg PO BID 09/24/19 [History] Levocetirizine Dihydrochloride 5 mg PO DAILY PRN 09/24/19 [History] Midodrine 30 mg PO DAILY 09/24/19 [History] Nystatin [Nystatin Crm] 1 applic TOP BID PRN 09/24/19 [History] Past Medical History HEENT History: Reports: Glaucoma Other HEENT History: wears glasses and hearing aids. also has upper denture and a lower partial. Cardiovascular History: Reports: Afib, CAD, Heart Failure, High Cholesterol, Hypertension, NH, Other (See Below) Other Cardiovascular History: occlusion and stenosis of bilateral carotid arteries Respiratory History: Reports: SOB, Other (See Below) Other Respiratory History: wheezing Gastrointestinal History: Reports: GERD, Other (See Below) Other Gastrointestinal History: encephalopathy Genitourinary History: Reports: BPH, Chronic Renal Insuffiency, Dialysis, Renal Calculus, Retention, Urinary Musculoskeletal History: Reports: Gout Psychiatric History: Reports: Other (See Below) Other Psychiatric History: insomnia Endocrine/Metabolic History: Reports: Diabetes, Type II Other Endocrine/Metabolic History: anemia Hematologic History: Reports: Anemia, Iron Deficiency - Infectious Disease History Infectious Disease History: Reports: Influenza, Measles, Mumps - Past Surgical History HEENT Surgical History: Reports: Tonsillectomy Cardiovascular Surgical History: Reports: Carotid Endarterectomy, Coronary Artery Bypass, Coronary Artery Stent GI Surgical History: Reports: Abdominal paracentesis, Hernia, Inguinal Neurological Surgical History: Reports: Lumbar Spine Oncologic Surgical History: Reports: None Social & Family History - Family History Family Medical History: Noncontributory - Tobacco Use Smoking Status *Q: Never Smoker Second Hand Smoke Exposure: No - Caffeine Use Caffeine Use: Reports: None Other Caffeine Use: 1 -2 cups a day - Recreational Drug Use Recreational Drug Use: No - Living Situation & Occupation Living situation: Reports: , Extended Care Facility ([facility]) Occupation: Retired ED ROS GENERAL - Review of Systems Review Of Systems: See Below Constitutional: Reports: Weakness, Fatigue HEENT: Reports: No Symptoms Respiratory: Reports: No Symptoms Cardiovascular: Reports: No Symptoms Endocrine: Reports: No Symptoms GI/Abdominal: Reports: No Symptoms : Reports: No Symptoms Musculoskeletal: Reports: Other (bilateral lower leg erythema) ED EXAM, SKIN/RASH Exam: See Below Exam Limited By: Altered Mental Status General Appearance: Alert, No Apparent Distress Ears: Normal External Exam Nose: Normal Inspection Head: Atraumatic, Normocephalic Neck: Normal Inspection Respiratory/Chest: No Respiratory Distress, Decreased Breath Sounds Cardiovascular: No Murmur, Tachycardia GI/Abdominal: Soft, Non-Tender, No Organomegaly, No Mass Back Exam: Normal Inspection Extremities: Other (Erythema and edema to both lower legs with a ulcer to the right heel. Abrasions to both lower legs.) Course - Vital Signs Last Recorded V/S: Last Vital Signs Temp 97.3 F 09/24/19 12:06 Pulse 100 09/24/19 12:06 Resp 20 09/24/19 12:06 BP 89/60 L 09/24/19 12:06 Pulse Ox 100 09/24/19 12:06 - Orders/Labs/Meds Orders: Active Orders 24 hr Category Date Time Status Blood Pressure Mgt: Sepsis [RC] Q15MX2 Care 09/24/19 12:26 Active Oxygen Therapy, ED [RC] STAT Care 09/24/19 12:31 Active CORONAVIRUS COVID-19 PCR PHL Stat Lab 09/24/19 12:45 Received CULTURE BLOOD [BC] Stat Lab 09/24/19 12:45 Received CULTURE BLOOD [BC] Stat Lab 09/24/19 13:05 Received REFLEX LACTIC ACID YES OR NO [CHEM] Routine Lab 09/24/19 13:40 Received Sodium Chloride 0.9% [Normal Saline] 1,000 ml Med 09/24/19 12:30 Active IV CONTINUOUS Sodium Chloride 0.9% [Saline Flush] Med 09/24/19 12:25 Active 10 ml FLUSH ASDIRECTED PRN Vancomycin 2 gm Med 09/24/19 14:00 Active Sodium Chloride 0.9% [Normal Saline] 250 ml IV ONETIME Blood Culture x2 Reflex Set [OM.PC] Stat Ot 09/24/19 12:26 Ordered Saline Lock Insert [OM.PC] Stat Ot 09/24/19 12:26 Ordered Medication Orders Sodium Chloride (Normal Saline) 1,000 mls @ 1,000 mls/hr IV CONTINUOUS SAULO Stop: 09/24/19 14:29 Last Admin: 09/24/19 12:42 Dose: 1,000 mls/hr Documented by: MIKE Vancomycin HCl 2 gm/ Sodium (Chloride) 250 mls @ 125 mls/hr IV ONETIME ONE Stop: 09/24/19 15:59 Sodium Chloride (Saline Flush) 10 ml FLUSH ASDIRECTED PRN PRN Reason: Keep Vein Open Last Admin: 09/24/19 12:42 Dose: 10 ml Documented by: MIKE Labs: Laboratory Tests 09/24/19 09/24/19 09/24/19 Range/Units 12:45 12:45 12:45 WBC 14.79 H (4.23-9.07) K/mm3 RBC 3.76 L (4.63-6.08) M/mm3 Hgb 11.1 L (13.7-17.5) gm/dl Hct 36.7 L (40.1-51.0) % MCV 97.6 H (79.0-92.2) fl MCH 29.5 (25.7-32.2) pg MCHC 30.2 L (32.2-35.5) g/dl RDW Std Deviation 61.0 H (35.1-43.9) fL Plt Count 152 L (163-337) K/mm3 MPV 10.9 (9.4-12.3) fl Neutrophils % (Manual) 84 H (40-60) % Band Neutrophils % 0 (0-10) % Lymphocytes % (Manual) 9 L (20-40) % Atypical Lymphs % 0 % Monocytes % (Manual) 7 (2-10) % Eosinophils % (Manual) 0 L (0.8-7.0) % Basophils % (Manual) 0 L (0.2-1.2) Platelet Estimate Adequate Anisocytosis 1+ slight RBC Morph Comment Not Reportable PT 15.3 H (9.7-12.0) SECONDS INR 1.43 Sodium 134 L (136-145) mEq/L Potassium 4.9 (3.5-5.1) mEq/L Chloride 95 L (98-107) mEq/L Carbon Dioxide 23 (21-32) mEq/L Anion Gap 20.9 H (5-15) BUN 43 H (7-18) mg/dL Creatinine 5.2 H (0.7-1.3) mg/dL Est Cr Clr Drug Dosing 12.27 mL/min Estimated GFR (MDRD) 11 (>60) mL/min BUN/Creatinine Ratio 8.3 L (14-18) Glucose 107 (83-115) mg/dL Lactic Acid (0.4-2.0) mmol/L Calcium 8.7 (8.5-10.1) mg/dL Total Bilirubin 0.9 (0.2-1.0) mg/dL AST 40 H (15-37) U/L ALT 27 (16-63) U/L Alkaline Phosphatase 157 H (46-116) U/L C-Reactive Protein 9.5 H* (<1.0) mg/dL Total Protein 7.8 (6.4-8.2) g/dl Albumin 2.0 L (3.4-5.0) g/dl Globulin 5.8 gm/dL Albumin/Globulin Ratio 0.3 L (1-2) 09/23/ Range/Units 12:45 WBC (4.23-9.07) K/mm3 RBC (4.63-6.08) M/mm3 Hgb (13.7-17.5) gm/dl Hct (40.1-51.0) % MCV (79.0-92.2) fl MCH (25.7-32.2) pg MCHC (32.2-35.5) g/dl RDW Std Deviation (35.1-43.9) fL Plt Count (163-337) K/mm3 MPV (9.4-12.3) fl Neutrophils % (Manual) (40-60) % Band Neutrophils % (0-10) % Lymphocytes % (Manual) (20-40) % Atypical Lymphs % % Monocytes % (Manual) (2-10) % Eosinophils % (Manual) (0.8-7.0) % Basophils % (Manual) (0.2-1.2) Platelet Estimate Anisocytosis RBC Morph Comment PT (9.7-12.0) SECONDS INR Sodium (136-145) mEq/L Potassium (3.5-5.1) mEq/L Chloride (98-107) mEq/L Carbon Dioxide (21-32) mEq/L Anion Gap (5-15) BUN (7-18) mg/dL Creatinine (0.7-1.3) mg/dL Est Cr Clr Drug Dosing mL/min Estimated GFR (MDRD) (>60) mL/min BUN/Creatinine Ratio (14-18) Glucose (83-115) mg/dL Lactic Acid 5.6 H* (0.4-2.0) mmol/L Calcium (8.5-10.1) mg/dL Total Bilirubin (0.2-1.0) mg/dL AST (15-37) U/L ALT (16-63) U/L Alkaline Phosphatase (46-116) U/L C-Reactive Protein (<1.0) mg/dL Total Protein (6.4-8.2) g/dl Albumin (3.4-5.0) g/dl Globulin gm/dL Albumin/Globulin Ratio (1-2) Meds: Medications Generic Name Dose Route Start Last Admin Trade Name Freq PRN Reason Stop Dose Admin Sodium Chloride 1,000 mls @ 1,000 mls/hr 09/24/19 12:30 09/24/19 12:42 Normal Saline IV 09/24/19 14:29 1,000 mls/hr CONTINUOUS SAULO Administration Vancomycin HCl 2 gm/ Sodium 250 mls @ 125 mls/hr 09/24/19 14:00 Chloride IV 09/24/19 15:59 ONETIME ONE Sodium Chloride 10 ml 09/24/19 12:25 09/24/19 12:42 Saline Flush FLUSH 10 ml ASDIRECTED PRN Administration Keep Vein Open Discontinued Medications Generic Name Dose Route Start Last Admin Trade Name Freq PRN Reason Stop Dose Admin Ceftriaxone Sodium 2 gm/ 100 mls @ 200 mls/hr 09/24/19 12:25 09/24/19 13:23 Sodium Chloride IV 09/24/19 12:54 200 mls/hr STAT ONE Administration - Re-Assessments/Exams Free Text/Narrative Re-Assessment/Exam: 09/24/19 12:43 I ordered an IV NS 30ml/kg bolus, labs, blood cultures, UA, COVID 19, CXR, vancomycin 2 grams IV and rocephin 2 grams IV. This patient had 2 low BPs when he arrived. He also has a bacterial source of infection of cellulitis in both legs. He has severe sepsis. 09/24/19 13:54 His WBC is elevated at 14.79. His Hgb is low at 11.1. His platelets are low at 152. His Na is low at 134. His anion gap is elevated at 20.9. His creatinine is elevated at 5.2. His lactic acid is elevated at 5.6 along with his CRP at 9.5. His BP is better now at 101/69. He is septic. He needs to be admitted. I called [facility] in [place] and talked with Dr Radford and he agreed to the transfer. 09/24/19 14:01 Departure - Departure Time of Disposition: 14:05 Disposition: DC/Tfer to Acute Hospital 02 Condition: Serious Clinical Impression: Severe sepsis, End stage renal failure on dialysis Cellulitis Qualifiers: Site of cellulitis: extremity Site of cellulitis of extremity: lower extremity Laterality: unspecified laterality Qualified Code(s): L03.119 - Cellulitis of unspecified part of limb Ascites Qualifiers: Ascites type: other type Qualified Code(s): R18.8 - Other ascites Hypotension Qualifiers: Hypotension type: other hypotension type Qualified Code(s): I95.89 - Other hypotension Anemia Qualifiers: Anemia type: unspecified type Qualified Code(s): D64.9 - Anemia, unspecified - Discharge Information Forms: ED Department Discharge Sepsis Event Note (ED) - Evaluation Sepsis Screening Result: No Definite Risk - Focused Exam Vital Signs: Vital Signs Temp Pulse Resp BP Pulse Ox 09/24/19 12:06 97.3 F 100 20 89/60 L 100 - My Orders Last 24 Hours: My Active Orders 09/24/19 12:25 Sodium Chloride 0.9% [Saline Flush] 10 ml FLUSH ASDIRECTED PRN 09/24/19 12:26 Blood Pressure Mgt: Sepsis [RC] Q15MX2 Blood Culture x2 Reflex Set [OM.PC] Stat Saline Lock Insert [OM.PC] Stat 09/24/19 12:30 Sodium Chloride 0.9% [Normal Saline] 1,000 ml IV CONTINUOUS 09/24/19 12:31 Oxygen Therapy, ED [RC] STAT 09/24/19 12:45 CORONAVIRUS COVID-19 PCR PHL Stat CULTURE BLOOD [BC] Stat 09/24/19 13:05 CULTURE BLOOD [BC] Stat 09/24/19 13:40 REFLEX LACTIC ACID YES OR NO [CHEM] Routine 09/24/19 14:00 Vancomycin 2 gm Sodium Chloride 0.9% [Normal Saline] 250 ml IV ONETIME - Assessment/Plan Last 24 Hours: My Active Orders 09/24/19 12:25 Sodium Chloride 0.9% [Saline Flush] 10 ml FLUSH ASDIRECTED PRN 09/24/19 12:26 Blood Pressure Mgt: Sepsis [RC] Q15MX2 Blood Culture x2 Reflex Set [OM.PC] Stat Saline Lock Insert [OM.PC] Stat 09/24/19 12:30 Sodium Chloride 0.9% [Normal Saline] 1,000 ml IV CONTINUOUS 09/24/19 12:31 Oxygen Therapy, ED [RC] STAT 09/24/19 12:45 CORONAVIRUS COVID-19 PCR PHL Stat CULTURE BLOOD [BC] Stat 09/24/19 13:05 CULTURE BLOOD [BC] Stat 09/24/19 13:40 REFLEX LACTIC ACID YES OR NO [CHEM] Routine 09/24/19 14:00 Vancomycin 2 gm Sodium Chloride 0.9% [Normal Saline] 250 ml IV ONETIME
--- NOTE | 2019-09-24 13:53 | CR ---
Chest: AP view of the chest was obtained. Comparison: Prior chest x-ray of 03/10/18. Heart is enlarged. Small right-sided pleural effusion is seen with minimal right basilar atelectasis. Lungs otherwise clear. AICD is noted. Previous sternotomy is noted. Impression: 1. Cardiomegaly and small right-sided pleural effusion. 2. Other findings believed to be nonacute as noted above. Diagnostic code #3 This report was dictated in MDT
[2019-09-24 15:02] VITALS: BP 88/59
== END 2019-09-24 14:44 ==
LOC: JD.ED 12:06
DX: A41.9 Sepsis, unspecified organism (principal); E11.22 Type 2 diabetes mellitus with diabetic chronic kidney disease; I13.2 Hypertensive heart and chronic kidney disease with heart failure and with stage 5 chronic kidney disease, or end stage renal disease; I50.9 Heart failure, unspecified; N18.6 End stage renal disease; L03.116 Cellulitis of left lower limb; L03.115 Cellulitis of right lower limb; R65.20 Severe sepsis without septic shock; D63.1 Anemia in chronic kidney disease; R18.8 Other ascites; I95.89 Other hypotension; I48.91 Unspecified atrial fibrillation; I25.10 Atherosclerotic heart disease of native coronary artery without angina pectoris; E78.00 Pure hypercholesterolemia, unspecified; I25.2 Old myocardial infarction; K21.9 Gastro-esophageal reflux disease without esophagitis; M10.9 Gout, unspecified; Z99.2 Dependence on renal dialysis; Z20.828 Contact with and (suspected) exposure to other viral communicable diseases; Z79.899 Other long term (current) drug therapy; Z79.01 Long term (current) use of anticoagulants; Z79.82 Long term (current) use of aspirin; Z79.4 Long term (current) use of insulin
CPT/HCPCS: 36415; 71045; 80053; 83605; 85007; 85027; 85610; 86140; 87040; 96361; 96365; 96367; 99285; J0696; J3370; J7030; J7050; U0002; 99284